=== PATIENT | male | born 1980 | race Asian ===

== ENCOUNTER 2020-10-15 10:33 | Outpatient (REF) | payer OTHER, SELFPAY ==
[2020-10-15 15:04] LABS: Alanine Aminotransferase 49 U/L (0-40); Albumin Level 4.5 g/dL (3.5-5.0); Alkaline Phosphatase 48 U/L (39-117); Anion Gap 12 (12-20); Aspartate Amino Transferase 30 U/L (5-37); Blood Urea Nitrogen 16 mg/dL (9-16); Calcium 9.4 mg/dL (8.4-10.2); Carbon Dioxide 29 mmol/L (22-29); Chloride 103 mmol/L (96-108); Cholesterol 181 mg/dL; Estimated Glomerular Filt Rate > 60; Glucose Random 106 mg/dL (60-115); HDL Cholesterol 38 mg/dL; LDL Cholesterol Calculated 103 mg/dl; Potassium 4.6 mmol/L (3.3-5.1); Sodium 139 mmol/L (135-145); Total Protein 7.6 g/dL (6.5-8.0); Triglycerides 203 mg/dL
[2020-10-15 15:13] LABS: Bilirubin Total 0.6 mg/dL (0.0-1.0)
[2020-10-15 15:22] LABS: TSH reflex Free T4 1.63 uIU/mL (0.32-4.0)
== END 2020-10-15 10:34 | disposition home or self-care (01) ==
LOC: HO.WFDLDS 10:33
PROVIDERS: Visit Provider Family Medicine
DX: Z00.00 Encounter for general adult medical examination without abnormal findings (principal); I10 Essential (primary) hypertension; E78.5 Hyperlipidemia, unspecified
CPT/HCPCS: 36415; 80053; 80061; 82043; 84443

== ENCOUNTER 2020-12-16 10:34 | Outpatient (REF) | payer OTHER, SELFPAY ==
[2020-12-16 14:21] LABS: Estimated Average Glucose 131 mg/dL; Hemoglobin A1C 151.4416 umol/L; Hemoglobin A1c % 6.2 %
[2020-12-16 14:38] LABS: Alanine Aminotransferase 44 U/L (0-40); Albumin Level 4.4 g/dL (3.5-5.0); Alkaline Phosphatase 53 U/L (39-117); Aspartate Amino Transferase 25 U/L (5-37); Bilirubin Direct < 0.2 mg/dL (0.0-0.5); Bilirubin Total 0.5 mg/dL (0.0-1.0); Total Protein 7.4 g/dL (6.5-8.0)
== END 2020-12-16 10:35 | disposition home or self-care (01) ==
LOC: HO.WFDLDS 10:34
PROVIDERS: Visit Provider Family Medicine
DX: R73.03 Prediabetes (principal); R74.01 Elevation of levels of liver transaminase levels
CPT/HCPCS: 36415; 80076; 83036

== ENCOUNTER 2021-03-11 11:33 | Outpatient (REF) | payer OTHER, SELFPAY ==
--- NOTE | ~2021-03-11 | XR_ITS ---
EXAMINATION: XR KNEE, RIGHT CLINICAL INFORMATION: Pain COMPARISON: None TECHNIQUE: Four views of the right knee. FINDINGS: Bones and soft tissues are normal. No fracture or joint effusion. Alignment is anatomic. Joint spaces are well maintained. No abnormal soft tissue calcification. XR/XR knee RT 4V IMPRESSION: Normal right knee.
== END 2021-03-11 11:34 | disposition home or self-care (01) ==
LOC: HO.HMGCX 11:33
PROVIDERS: PCP Family Medicine; Visit Provider Family Medicine
DX: Z13.89 Encounter for screening for other disorder (principal)
CPT/HCPCS: 73564

== ENCOUNTER 2021-03-16 09:36 | Outpatient (REF) | payer OTHER, SELFPAY ==
[2021-03-16 11:30] LABS: Alanine Aminotransferase 35 U/L (0-40); Albumin Level 4.3 g/dL (3.5-5.0); Alkaline Phosphatase 56 U/L (39-117); Aspartate Amino Transferase 22 U/L (5-37); Bilirubin Direct 0.2 mg/dL (0.0-0.5); Bilirubin Total 0.5 mg/dL (0.0-1.0); Total Protein 7.1 g/dL (6.5-8.0)
[2021-03-19 11:12] LABS: TS Negative Control Passed; TS Panel A >50; TS Panel B >50; TS Positive Control Passed; TSpotTB POSITIVE (SeeBelow)
== END 2021-03-16 09:37 | disposition home or self-care (01) ==
LOC: HO.WFDLDS 09:36
PROVIDERS: Visit Provider Family Medicine
DX: Z11.1 Encounter for screening for respiratory tuberculosis (principal); R74.01 Elevation of levels of liver transaminase levels
CPT/HCPCS: 36415; 80076; 86481

== ENCOUNTER → 2021-03-17 08:24 | Outpatient (BNVA) | payer SELFPAY | PROVIDERS: PCP Family Medicine; Visit Provider Internal Medicine | DX: Z02.79 Encounter for issue of other medical certificate (principal) ==

== ENCOUNTER 2021-04-20 11:44 | Outpatient (REF) | payer OTHER, SELFPAY ==
--- NOTE | ~2021-04-20 | XR_ITS ---
EXAMINATION: XR CHEST CLINICAL INFORMATION: Positive TB test COMPARISON: None TECHNIQUE: 2 views of the chest were obtained. FINDINGS: No significant abnormality is noted involving the heart, lungs, mediastinum, bony thorax or soft tissues. XR/XR chest 2V IMPRESSION: Unremarkable examination.
== END 2021-04-20 11:45 | disposition home or self-care (01) ==
LOC: HO.XRAY 11:44
PROVIDERS: PCP Family Medicine; Visit Provider Family Medicine
DX: R76.11 Nonspecific reaction to tuberculin skin test without active tuberculosis (principal)
CPT/HCPCS: 71046

== ENCOUNTER 2021-06-29 12:46 | Outpatient (REF) | payer OTHER, SELFPAY ==
[2021-06-29 13:46] LABS: MANUAL DIFF FLAG NO
[2021-06-29 13:47] LABS: Basophils Percent Auto 0.4 % (0-2); Eosinophils Absolute Auto 0.4 X10*3/uL (0.0-0.4); Eosinophils Percent Auto 3.8 % (0-4); Hematocrit 43.6 % (42.0-52.0); Hemoglobin 13.7 g/dl (14.0-18.0); Imm Gran Abs Auto 0.03 X10*3/uL (0.00-0.03); Imm Gran Pct Auto 0.3 % (0.0-0.4); Lymphocytes Absolute Auto 3.1 X10*3/uL (1.2-4.9); Lymphocytes Percent Auto 27.5 % (20-40); Mean Corpuscular HGB Conc 31.4 g/dl (31.0-36.0); Mean Corpuscular Hemoglobin 24.9 pg (27.0-33.0); Mean Corpuscular Volume 79.1 fL (80.0-98.0); Monocytes Absolute Auto 0.8 X10*3/uL (0.1-1.2); Neutrophils Absolute Auto 6.9 x10*3/uL (2.0-8.3); Platelet Count 248 X10*3/uL (160-400); Red Blood Count 5.51 X10*6/uL (4.60-5.80); Red Cell Distribution Width 14.3 % (11.0-16.0); White Blood Count 11.3 X10*3/uL (4.8-10.8)
[2021-06-29 14:06] LABS: Alanine Aminotransferase 48 U/L (0-40); Albumin Level 4.5 g/dL (3.5-5.0); Alkaline Phosphatase 63 U/L (39-117); Anion Gap 12 (12-20); Aspartate Amino Transferase 28 U/L (5-37); Bilirubin Total 0.4 mg/dL (0.0-1.0); Blood Urea Nitrogen 15 mg/dL (9-16); Calcium 9.7 mg/dL (8.4-10.2); Carbon Dioxide 27 mmol/L (22-29); Chloride 106 mmol/L (96-108); Estimated Glomerular Filt Rate > 60; Glucose Fasting 91 mg/dL (60-99); Potassium 4.7 mmol/L (3.3-5.1); Sodium 140 mmol/L (135-145); Total Protein 7.8 g/dL (6.5-8.0)
[2021-06-29 14:09] LABS: Estimated Average Glucose 134 mg/dL; Hemoglobin A1c % 6.3 %
[2021-06-29 14:26] LABS: Syphilis Screen Nonreactive (Nonreactive)
[2021-06-29 15:15] LABS: Appearance Urine CLEAR; Color Urine YELLOW; Glucose Urine UA NEG (NEG); Leukocyte Esterase Urine NEG (NEG); Nitrite Urine NEG (NEG); Specific Gravity - Urine 1.015 (1.005-1.025); Urine Blood NEG (NEG); Urine Ketones NEG (NEG); Urine Protein NEG (NEG-TRACE)
[2021-06-29 15:16] LABS: Erythrocyte Sedimentation Rate 16 MM/HR (0-15)
[2021-06-30 08:34] LABS: HIV AB/AG Nonreactive (Nonreactive); HIV Num 1 0.08 S/CO (0.00-0.99)
[2021-07-01 13:42] LABS: CRP High Sensitivity 8.4 mg/L
[2021-07-03 12:25] LABS: Anti Nuclear Antibody Screen POSITIVE (NEGATIVE); Anti Nuclear Antibody Titer 1:40 titer
== END 2021-06-29 12:47 | disposition home or self-care (01) ==
LOC: HO.WFDLDS 12:46
PROVIDERS: Visit Provider Family Medicine
DX: Z00.00 Encounter for general adult medical examination without abnormal findings (principal); Z11.4 Encounter for screening for human immunodeficiency virus [HIV]; Z11.3 Encounter for screening for infections with a predominantly sexual mode of transmission; R52 Pain, unspecified; R73.01 Impaired fasting glucose
CPT/HCPCS: 36415; 80053; 81003; 83036; 85025; 85652; 86038; 86039; 86141; 86780; 87389

== ENCOUNTER 2021-08-24 10:01 | Outpatient (REF) | payer OTHER, SELFPAY ==
[2021-08-24 13:12] LABS: TSH reflex Free T4 1.68 uIU/mL (0.32-4.0)
[2021-08-24 13:30] LABS: Alanine Aminotransferase 47 U/L (0-40); Albumin Level 4.3 g/dL (3.5-5.0); Alkaline Phosphatase 54 U/L (39-117); Anion Gap 13 (12-20); Aspartate Amino Transferase 27 U/L (5-37); Bilirubin Total 0.4 mg/dL (0.0-1.0); Carbon Dioxide 26 mmol/L (22-29); Chloride 104 mmol/L (96-108); Cholesterol 210 mg/dL; Estimated Glomerular Filt Rate > 60; Glucose Fasting 117 mg/dL (60-99); HDL Cholesterol 32 mg/dL; Sodium 138 mmol/L (135-145); Total Protein 7.7 g/dL (6.5-8.0); Triglycerides 433 mg/dL
[2021-08-24 15:05] LABS: Blood Urea Nitrogen 19 mg/dL (9-16); Calcium 10.1 mg/dL (8.4-10.2); Potassium 4.5 mmol/L (3.3-5.1)
== END 2021-08-24 10:02 | disposition home or self-care (01) ==
LOC: HO.WFDLDS 10:01
PROVIDERS: Visit Provider Family Medicine
DX: Z00.00 Encounter for general adult medical examination without abnormal findings (principal); R52 Pain, unspecified
CPT/HCPCS: 36415; 80053; 80061; 84443

== ENCOUNTER 2021-10-17 09:42 | Outpatient (REF) | payer OTHER, SELFPAY ==
--- NOTE | ~2021-10-17 | XR_ITS ---
EXAMINATION: XR KNEE, RIGHT CLINICAL INFORMATION: Pain COMPARISON: Previous x-ray February 2021 TECHNIQUE: Two views of the right knee. FINDINGS: Bones and soft tissues are normal. No fracture or joint effusion. Alignment is anatomic. Joint spaces are well maintained. No abnormal soft tissue calcification. XR/XR knee RT 2V IMPRESSION: Normal right knee.
[2021-10-17 10:15] LABS: MANUAL DIFF FLAG NO
[2021-10-17 10:38] LABS: Basophils Absolute Auto 0.1 X10*3/uL (0.0-0.2); Basophils Percent Auto 0.7 % (0-2); Eosinophils Absolute Auto 0.4 X10*3/uL (0.0-0.4); Eosinophils Percent Auto 4.4 % (0-4); Hematocrit 43.8 % (42.0-52.0); Hemoglobin 14.1 g/dl (14.0-18.0); Imm Gran Abs Auto 0.02 X10*3/uL (0.00-0.03); Imm Gran Pct Auto 0.2 % (0.0-0.4); Lymphocytes Absolute Auto 2.6 X10*3/uL (1.2-4.9); Lymphocytes Percent Auto 30.1 % (20-40); Mean Corpuscular HGB Conc 32.2 g/dl (31.0-36.0); Mean Corpuscular Volume 77.8 fL (80.0-98.0); Mean Platelet Volume 10.8 fL (9.4-12.4); Monocytes Absolute Auto 0.6 X10*3/uL (0.1-1.2); Monocytes Percent Auto 7.4 % (2-11); Neutrophils Absolute Auto 4.9 x10*3/uL (2.0-8.3); Neutrophils Percent Auto 57.2 % (45-73); Platelet Count 267 X10*3/uL (160-400); Red Blood Count 5.63 X10*6/uL (4.60-5.80); White Blood Count 8.6 X10*3/uL (4.8-10.8)
[2021-10-17 11:03] LABS: Uric Acid 9.7 mg/dL (3.4-7.0)
[2021-10-17 11:13] LABS: Rheumatoid Factor < 15.0 IU/mL (<15.0)
[2021-10-17 11:15] LABS: Erythrocyte Sedimentation Rate 6 MM/HR (0-15)
[2021-10-19 12:27] LABS: Anti Nuclear Antibody Screen NEGATIVE (NEGATIVE)
[2021-10-19 16:57] LABS: Cyclic Citrullinated Peptide <16 UNITS
== END 2021-10-17 09:43 | disposition home or self-care (01) ==
LOC: HO.XRAY 09:42
PROVIDERS: PCP Family Medicine; Visit Provider Family Medicine
DX: Z00.00 Encounter for general adult medical examination without abnormal findings (principal); M25.561 Pain in right knee
CPT/HCPCS: 36415; 73560; 84550; 85025; 85652; 86038; 86039; 86141; 86200; 86431

== ENCOUNTER 2022-02-16 11:12 | Outpatient (REF) | payer OTHER, SELFPAY ==
[2022-02-16 14:37] LABS: Alanine Aminotransferase 45 U/L (0-40); Albumin Level 4.5 g/dL (3.5-5.0); Alkaline Phosphatase 48 U/L (39-117); Anion Gap 13 (12-20); Aspartate Amino Transferase 28 U/L (5-37); Bilirubin Total 0.5 mg/dL (0.0-1.0); Blood Urea Nitrogen 16 mg/dL (9-16); Calcium 9.7 mg/dL (8.4-10.2); Carbon Dioxide 28 mmol/L (22-29); Chloride 103 mmol/L (96-108); Cholesterol 196 mg/dL; Estimated Glomerular Filt Rate > 60; Glucose Fasting 99 mg/dL (60-99); HDL Cholesterol 37 mg/dL; LDL Cholesterol Calculated 115 mg/dl; Potassium 4.9 mmol/L (3.3-5.1); Sodium 139 mmol/L (135-145); Total Protein 7.6 g/dL (6.5-8.0); Triglycerides 220 mg/dL
== END 2022-02-16 11:13 | disposition home or self-care (01) ==
LOC: HO.WFDLDS 11:12
PROVIDERS: Visit Provider Family Medicine
DX: Z00.00 Encounter for general adult medical examination without abnormal findings (principal); R74.01 Elevation of levels of liver transaminase levels; E78.5 Hyperlipidemia, unspecified
CPT/HCPCS: 36415; 80053; 80061

== ENCOUNTER 2022-03-14 10:00 | Outpatient (RCR) | payer OTHER, SELFPAY ==
[2022-02-17 11:01] VITALS: BP 120/80; PULSE 80; O2SAT 96
--- NOTE | 2022-02-17 14:09 | MHC.PT.EP ---
[facility] [place] [facility] [place] [facility] [place] [facility] [address] Jovan Kimball [address] [phone] F: [phone] F: [phone] F: [phone] F: [phone] Physical Therapy Plan of Care Date of Evaluation: Date of Surgery: Diagnosis: R knee pain referred to PT from Dr. 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 Pt would benefit from attending skilled PT services at a frequency of 2x/week x 4-6 weeks to address impairments, implement PFPS program with HEP, and restore functional mobility tolerance to resume PLOF. Pt was initiated in hamstring stretching and SLR into flexion for HEP program this date post eval. Frequency and Duration: The patient will be seen 1-2x/week x 4-6 weeks Short Term Goals: 1. AROM R knee 0-140 degrees. 2. Improve awareness of avoiding hyperext in standing. 3. SLR strength 4+/5. 4. Improve HS length by 25%. 5. Initiate HEP with good understanding joint protection. 6. Strength hip abd 4+/5. Chcf Goals: 1. Strength 5/5 quadriceps R. 2. Strength 5/5 hip abd B. 3. I HEP. 4. Negotiate stairs reciprocally with good dynamic balance. 5. Demonstrate proper functional squat technique 3:3 trials. 6. Sleep MOD I Treatment Plan: Modalities to reduce pain, spasms and effusion. Manual therapy to restore motion and function. Therapeutic exercise to improve strength and flexibility. Neuromuscular re-education for posture and balance. Therapeutic activities to return to functional activities of daily living. Electronically signed by: Please sign and return to therapist. Thank you for your referral.
== END 2022-04-18 09:25 | disposition home or self-care (01) ==
LOC: HO.PTWFD 10:00
PROVIDERS: PCP Family Medicine; Visit Provider Family Medicine
DX: M25.561 Pain in right knee (principal)
CPT/HCPCS: 97110; 97140; 97161; 97535

== ENCOUNTER → 2022-03-16 08:14 | Outpatient (BNVA) | payer SELFPAY | PROVIDERS: PCP Family Medicine; Visit Provider Physician Assistant | DX: Z02.79 Encounter for issue of other medical certificate (principal) ==

== ENCOUNTER 2022-04-13 10:07 | Outpatient (REF) | payer OTHER, SELFPAY ==
--- NOTE | ~2022-04-13 | XR_ITS ---
EXAMINATION: XR ABDOMEN KUB CLINICAL INDICATION: Abdominal pain. COMPARISON: None TECHNIQUE: AP view of the abdomen. FINDINGS: The bowel gas pattern is normal with no evidence of ileus or obstruction. No unusual soft tissue calcifications are noted. The bones are unremarkable. XR/XR KUB IMPRESSION: Unremarkable examination.
[2022-04-13 11:41] LABS: MANUAL DIFF FLAG NO
[2022-04-13 11:43] LABS: Basophils Absolute Auto 0.1 X10*3/uL (0.0-0.2); Basophils Percent Auto 0.5 % (0-2); Eosinophils Absolute Auto 0.4 X10*3/uL (0.0-0.4); Eosinophils Percent Auto 3.6 % (0-4); Hematocrit 40.6 % (42.0-52.0); Hemoglobin 12.8 g/dl (14.0-18.0); Imm Gran Abs Auto 0.06 X10*3/uL (0.00-0.03); Imm Gran Pct Auto 0.5 % (0.0-0.4); Lymphocytes Absolute Auto 2.9 X10*3/uL (1.2-4.9); Lymphocytes Percent Auto 24.4 % (20-40); Mean Corpuscular HGB Conc 31.5 g/dl (31.0-36.0); Mean Corpuscular Volume 79.5 fL (80.0-98.0); Monocytes Percent Auto 8.3 % (2-11); Neutrophils Absolute Auto 7.4 x10*3/uL (2.0-8.3); Neutrophils Percent Auto 62.7 % (45-73); Platelet Count 293 X10*3/uL (160-400); Red Blood Count 5.11 X10*6/uL (4.60-5.80); Red Cell Distribution Width 13.6 % (11.0-16.0); White Blood Count 11.9 X10*3/uL (4.8-10.8)
[2022-04-13 12:14] LABS: Alanine Aminotransferase 64 U/L (0-40); Albumin Level 4.6 g/dL (3.5-5.0); Alkaline Phosphatase 55 U/L (39-117); Anion Gap 18 (12-20); Aspartate Amino Transferase 37 U/L (5-37); Bilirubin Total 0.2 mg/dL (0.0-1.0); Blood Urea Nitrogen 26 mg/dL (9-16); Carbon Dioxide 25 mmol/L (22-29); Chloride 102 mmol/L (96-108); Estimated Glomerular Filt Rate > 60; Glucose Random 110 mg/dL (60-115); Lipase 42 U/L (8-78); Potassium 4.9 mmol/L (3.3-5.1); Sodium 140 mmol/L (135-145); Total Protein 7.7 g/dL (6.5-8.0)
[2022-04-13 14:07] LABS: Appearance Urine Clear; Color Urine Yellow; Glucose Urine UA Negative (Negative); Leukocyte Esterase Urine Negative (Negative); Nitrite Urine Negative (Negative); Urine Blood Negative (Negative); Urine Ketones Negative (Negative); Urine Protein Negative (Neg-Trace)
== END 2022-04-13 10:08 | disposition home or self-care (01) ==
LOC: HO.WFDLDS 10:07
PROVIDERS: PCP Family Medicine; Visit Provider Family Medicine
DX: Z00.00 Encounter for general adult medical examination without abnormal findings (principal); R10.9 Unspecified abdominal pain
CPT/HCPCS: 36415; 74018; 80053; 81003; 83690; 85025

== ENCOUNTER 2022-06-21 08:08 | Outpatient (REF) | payer OTHER, SELFPAY ==
--- NOTE | ~2022-06-21 | XR_ITS ---
EXAMINATION: XR KNEE AP STANDING XR KNEE, RIGHT CLINICAL INFORMATION: Right knee pain COMPARISON: 10/17/2021 TECHNIQUE: AP bilateral standing view of the knees was obtained. Parc view of the right knee. FINDINGS: Right knee: No fracture or subluxation. Compartmental joint spaces are maintained. The soft tissues appear unremarkable. Left knee: No fracture or subluxation. Medial and lateral compartmental joint spaces are maintained. XR/XR knee RT 1V IMPRESSION: Normal appearance of both knees.
--- NOTE | ~2022-06-21 | XR_ITS ---
EXAMINATION: XR KNEE AP STANDING XR KNEE, RIGHT CLINICAL INFORMATION: Right knee pain COMPARISON: 10/17/2021 TECHNIQUE: AP bilateral standing view of the knees was obtained. Wittmann view of the right knee. FINDINGS: Right knee: No fracture or subluxation. Compartmental joint spaces are maintained. The soft tissues appear unremarkable. Left knee: No fracture or subluxation. Medial and lateral compartmental joint spaces are maintained. XR/XR knee standing BI IMPRESSION: Normal appearance of both knees.
== END 2022-06-21 08:09 | disposition home or self-care (01) ==
LOC: HO.HOSX 08:08
PROVIDERS: Visit Provider Physician Assistant
DX: M17.11 Unilateral primary osteoarthritis, right knee (principal); S83.241A Other tear of medial meniscus, current injury, right knee, initial encounter
CPT/HCPCS: 73560; 73565; 99202

== ENCOUNTER 2022-06-26 09:25 | Outpatient (REF) | payer OTHER, SELFPAY ==
[2022-06-26 11:17] LABS: MANUAL DIFF FLAG NO
[2022-06-26 11:30] LABS: Basophils Absolute Auto 0.1 X10*3/uL (0.0-0.2); Basophils Percent Auto 0.8 % (0-2); Eosinophils Absolute Auto 0.5 X10*3/uL (0.0-0.4); Eosinophils Percent Auto 5.5 % (0-4); Hematocrit 41.2 % (42.0-52.0); Imm Gran Abs Auto 0.02 X10*3/uL (0.00-0.03); Imm Gran Pct Auto 0.2 % (0.0-0.4); Immature Retic Fraction 11.6 % (2.3-13.4); Lymphocytes Absolute Auto 2.8 X10*3/uL (1.2-4.9); Lymphocytes Percent Auto 30.5 % (20-40); Mean Corpuscular HGB Conc 31.6 g/dl (31.0-36.0); Mean Corpuscular Hemoglobin 24.6 pg (27.0-33.0); Mean Platelet Volume 11.3 fL (9.4-12.4); Monocytes Absolute Auto 0.7 X10*3/uL (0.1-1.2); Monocytes Percent Auto 7.3 % (2-11); Neutrophils Absolute Auto 5.1 x10*3/uL (2.0-8.3); Neutrophils Percent Auto 55.7 % (45-73); Platelet Count 276 X10*3/uL (160-400); Red Blood Count 5.28 X10*6/uL (4.60-5.80); Red Cell Distribution Width 14.4 % (11.0-16.0); Reticulocyte Percent 1.1 % (0.5-1.8); Reticulocytes Absolute 0.056 X10*6/uL (0.026-0.095); White Blood Count 9.2 X10*3/uL (4.8-10.8)
[2022-06-26 12:15] LABS: Alanine Aminotransferase 47 U/L (0-40); Albumin Level 4.6 g/dL (3.5-5.0); Alkaline Phosphatase 44 U/L (39-117); Anion Gap 11 (12-20); Aspartate Amino Transferase 26 U/L (5-37); Bilirubin Total 0.5 mg/dL (0.0-1.0); Blood Urea Nitrogen 20 mg/dL (9-16); Carbon Dioxide 27 mmol/L (22-29); Chloride 104 mmol/L (96-108); Cholesterol 198 mg/dL; Estimated Glomerular Filt Rate > 60; Glucose Random 109 mg/dL (60-115); HDL Cholesterol 33 mg/dL; Iron 145 mcg/dL (45-160); Percent Iron Saturation 48 % (15-50); Potassium 4.4 mmol/L (3.3-5.1); Sodium 138 mmol/L (135-145); Total Iron Binding Capacity 302 mcg/dL (228-428); Total Protein 7.6 g/dL (6.5-8.0); Triglycerides 430 mg/dL; Unsaturated Iron Binding 157 ug/dL
== END 2022-06-26 09:26 | disposition home or self-care (01) ==
LOC: HO.WFDLDS 09:25
PROVIDERS: Visit Provider Family Medicine
DX: Z00.00 Encounter for general adult medical examination without abnormal findings (principal); R74.01 Elevation of levels of liver transaminase levels; D64.9 Anemia, unspecified; E78.5 Hyperlipidemia, unspecified
CPT/HCPCS: 36415; 80053; 80061; 83540; 85025; 85045

== ENCOUNTER 2022-07-19 09:31 | Outpatient (REF) | payer OTHER, SELFPAY ==
--- NOTE | ~2022-07-19 | MR_ITS ---
EXAMINATION: MR KNEE WITHOUT CONTRAST, RIGHT CLINICAL INFORMATION: Right knee pain for greater than 6 months. Osteoarthritis. COMPARISON: Most recent right knee radiographs dated 06/21/2022. TECHNIQUE: MRI of the knee without contrast was performed using routine sequences on a high-field scanner. FINDINGS: MENISCI: Medial Meniscus: Near-complete inner margin and tibial articular surface tear of the posterior horn/root measuring up to 1.2 cm in ML dimension. There are peripheral fibers which appear to remain intact. Oblique tibial articular surface tearing extends to the posterior horn to the posterior meniscal body which is slightly medially extruded. Lateral Meniscus: Minimal inner margin fraying of the meniscal body. LIGAMENTS: Cruciate: No evidence of acute ligament injury. Collateral: No evidence of acute ligament injury. EXTENSOR MECHANISM: Intact quadriceps and patellar tendons. ARTICULAR CARTILAGE/BONE: Patellofemoral Compartment: Mild lateral patellar and lateral trochlea signal heterogeneity. Tiny marginal osteophytes. Medial Compartment: Intact articular cartilage. Degenerative cystic change and mild marrow edema in the posterior aspect of the medial tibial plateau adjacent to the medial meniscus posterior root insertion. Lateral Compartment: Intact articular cartilage. JOINT FLUID AND BURSAE: Small joint effusion and trace Guadarrama's cyst. MR/MR knee RT wo con IMPRESSION: 1. Near-complete inner margin and tibial articular surface tearing of the medial meniscus posterior horn/root measuring 1.2 cm in ML dimension. Oblique tibial articular surface tearing extends through the posterior horn to the posterior meniscal body which is slightly medially extruded. Degenerative cystic change and mild marrow edema within the adjacent medial tibial plateau. 2. Minimal inner margin fraying of the lateral meniscal body. 3. Minimal patellofemoral arthrosis. Small joint effusion and trace Guadarrama's cyst.
== END 2022-07-19 09:32 | disposition home or self-care (01) ==
LOC: HO.MRI 09:31
PROVIDERS: Visit Provider Physician Assistant
DX: M17.11 Unilateral primary osteoarthritis, right knee (principal)
CPT/HCPCS: 73721

== ENCOUNTER 2022-09-18 09:58 | Outpatient (REF) | payer OTHER, SELFPAY ==
[2022-09-18 12:47] LABS: Influenza A PCR NEGATIVE (Negative); Influenza B PCR NEGATIVE (Negative); Resp Syncy Virus RNA Qual PCR NEGATIVE (Negative); SARS COV2 PCR INHOUSE NEGATIVE (Negative)
== END 2022-09-18 09:59 | disposition home or self-care (01) ==
LOC: HO.LAB 09:58
PROVIDERS: Visit Provider Nurse Practitioner Family
DX: Z20.822 Contact with and (suspected) exposure to COVID-19 (principal); R09.89 Other specified symptoms and signs involving the circulatory and respiratory systems
CPT/HCPCS: 0241U

== ENCOUNTER 2022-12-13 10:15 | Outpatient (REF) | payer OTHER, SELFPAY ==
[2022-12-13 13:36] LABS: MANUAL DIFF FLAG NO
[2022-12-13 13:57] LABS: Estimated Average Glucose 126 mg/dL
[2022-12-13 14:08] LABS: Basophils Absolute Auto 0.1 X10*3/uL (0.0-0.2); Basophils Percent Auto 0.7 % (0-2); Eosinophils Absolute Auto 0.5 X10*3/uL (0.0-0.4); Eosinophils Percent Auto 5.6 % (0-4); Hematocrit 40.5 % (42.0-52.0); Hemoglobin 12.8 g/dl (14.0-18.0); Imm Gran Abs Auto 0.03 X10*3/uL (0.00-0.03); Imm Gran Pct Auto 0.3 % (0.0-0.4); Lymphocytes Absolute Auto 2.5 X10*3/uL (1.2-4.9); Lymphocytes Percent Auto 27.5 % (20-40); Mean Corpuscular HGB Conc 31.6 g/dl (31.0-36.0); Mean Corpuscular Hemoglobin 25.2 pg (27.0-33.0); Mean Corpuscular Volume 79.7 fL (80.0-98.0); Mean Platelet Volume 12.7 fL (9.4-12.4); Monocytes Absolute Auto 0.7 X10*3/uL (0.1-1.2); Monocytes Percent Auto 7.3 % (2-11); Neutrophils Absolute Auto 5.3 x10*3/uL (2.0-8.3); Neutrophils Percent Auto 58.6 % (45-73); Platelet Count 202 X10*3/uL (160-400); Red Blood Count 5.08 X10*6/uL (4.60-5.80); Red Cell Distribution Width 14.5 % (11.0-16.0)
[2022-12-13 14:10] LABS: Alanine Aminotransferase 47 U/L (0-40); Albumin Level 4.4 g/dL (3.5-5.0); Alkaline Phosphatase 47 U/L (39-117); Anion Gap 12 (12-20); Aspartate Amino Transferase 29 U/L (5-37); Bilirubin Total 0.4 mg/dL (0.0-1.0); Blood Urea Nitrogen 16 mg/dL (9-16); Calcium 9.7 mg/dL (8.4-10.2); Carbon Dioxide 25 mmol/L (22-29); Chloride 107 mmol/L (96-108); Cholesterol 193 mg/dL; Estimated Glomerular Filt Rate > 60; Glucose Fasting 95 mg/dL (60-99); HDL Cholesterol 38 mg/dL; LDL Cholesterol Calculated 100 mg/dl; Potassium 4.6 mmol/L (3.3-5.1); Sodium 139 mmol/L (135-145); Total Protein 7.4 g/dL (6.5-8.0); Triglycerides 279 mg/dL
[2022-12-13 14:25] LABS: Prostate Specific Antigen Scr 0.26 ng/mL (<0.05-4.0); TSH reflex Free T4 1.41 uIU/mL (0.32-4.0)
[2022-12-13 14:28] LABS: Appearance Urine Clear; Color Urine Yellow; Glucose Urine UA Negative (Negative); Leukocyte Esterase Urine Negative (Negative); Nitrite Urine Negative (Negative); Specific Gravity - Urine 1.015 (1.005-1.025); Urine Blood Negative (Negative); Urine Ketones Negative (Negative); Urine Protein Negative (Neg-Trace)
[2022-12-13 14:50] LABS: Creatinine Urine 83.45 mg/dL; Microalbum/Creatinine Ratio Ur 5.9 ug/mg cr
== END 2022-12-13 10:16 | disposition home or self-care (01) ==
LOC: HO.WFDLDS 10:15
PROVIDERS: Visit Provider Family Medicine
DX: Z00.00 Encounter for general adult medical examination without abnormal findings (principal); I10 Essential (primary) hypertension; R73.01 Impaired fasting glucose; Z12.5 Encounter for screening for malignant neoplasm of prostate
CPT/HCPCS: 36415; 80053; 80061; 81003; 82043; 83036; 84153; 84443; 85025

== ENCOUNTER 2022-12-27 09:43 | Outpatient (REF) | payer OTHER, SELFPAY ==
--- NOTE | ~2022-12-27 | US_ITS ---
EXAMINATION: US ABDOMEN LIMITED CLINICAL INFORMATION: Right upper quadrant pain. COMPARISON: X-ray abdomen KUB 04/13/2022. TECHNIQUE: Real-time imaging of the right upper quadrant abdominal viscera. FINDINGS: PANCREAS: Visualized portions of the pancreas are unremarkable. The pancreatic tail is obscured by bowel gas. LIVER: The liver is normal in size. The liver contour is normal. There is diffuse increased liver parenchymal echogenicity, consistent with infiltrative hepatocellular disease. No focal hepatic lesion. There is no intrahepatic biliary duct dilatation seen. GALLBLADDER: Normal. The gallbladder is physiologically distended without evidence of stones, sludge, polyps, wall thickening or pericholecystic fluid. COMMON BILE DUCT: Normal in caliber measuring 0.3 cm in diameter. RIGHT KIDNEY: Normal. No hydronephrosis. No renal calculi or focal parenchymal lesions. The kidney measures 10.3 cm in maximum dimension. FREE FLUID: None. US/US abdomen limited IMPRESSION: Increased hepatic echogenicity which can be seen in the setting of hepatic steatosis or underlying liver disease.
--- NOTE | ~2022-12-27 | XR_ITS ---
EXAMINATION: XR CHEST CLINICAL INFORMATION: Reason for Exam Z86.15 - Personal history of latent tuberculosis infection COMPARISON: Chest radiograph 04/20/2021 TECHNIQUE: 2 views of the chest FINDINGS: Lines and tubes: None. Clear lungs. No radiographic evidence of active tuberculosis. No pleural effusion. No pneumothorax. Normal cardiomediastinal silhouette. XR/XR chest 2V IMPRESSION: * Clear lungs.
== END 2022-12-27 09:44 | disposition home or self-care (01) ==
LOC: HO.US 09:43
PROVIDERS: PCP Family Medicine; Visit Provider Family Medicine
DX: R10.11 Right upper quadrant pain (principal); Z86.15 Personal history of latent tuberculosis infection
CPT/HCPCS: 71046; 76705

== ENCOUNTER → 2023-02-05 10:28 | Outpatient (BNV) | payer OTHER, SELFPAY | PROVIDERS: PCP Family Medicine; Visit Provider Internal Medicine Medical Oncology | DX: D64.9 Anemia, unspecified (principal) | CPT/HCPCS: 99204; 99213 ==

== ENCOUNTER 2023-02-06 09:14 | Outpatient (AMB) | payer OTHER, SELFPAY ==
--- NOTE | 2023-02-06 10:22 | MHC.OFFWIV ---
Intake Vital Signs 02/06/23 10:25 Height 5 ft 5 in BP 112/70 Blood Pressure Location Lt brachial Position Sitting Pulse 97 Pulse Source Pulse Oximeter Temp 98 F Temp Source Temporal Artery Scan Pulse Oximetry (%) 98 Oxygen Delivery Method Room Air Intake Visit Reasons: EST/lower back pain Intake Note: Pt is here c/o lower back pain. Pt states he did have an injury at work. Pt states he pushed a heavy object that gave him a sharp pain. Pt states he did have an X-Ray done at [facility]. Patient Tobacco Use Status: Never used Tobacco Allergies No Known Allergies Allergy (Verified 02/06/23 10:25) Do you need a note to return to daycare/school/sports/work: No HPI HPI Comments History of Present Illness Details 42-year-old male presents with lower back pain, states that it started while he was pushing a heavy object at work. The pain started in his neck, then went away however got worse and now radiates down to his lower back to point where he is walking with a limp and cannot stand straight. Patient was evaluated yesterday by Oncology for anemia, does not have any for history of malignancy. Patient does not report falls, denies symptoms indicating cauda equina, pain radiating down to his legs, weakness, dysuria, hematuria, or fevers and chills. [facility] Medical History No pertinent past medical history Surgical History History of tonsillectomy Family History Father High blood pressure Diabetes Mother Diabetes Social History Housing: House Alcohol intake: never Patient Tobacco Use Status: Never used Tobacco e-Cigarette/Vaping Use: Never Used Second Hand Smoke Exposure: No service: No Current occupational status: employed Current occupation: Housekeeping/ right hand dominant Current occupational exposures/hazards: No Cognitive needs: No Hearing needs: No Vision needs: No Review of Systems Const Details: Constitutional: No Fever, No Chills Cardiovascular: No Chest Pain, No SOB Respiratory: No Cough, No Dyspnea Gastrointestinal: No Nausea, No Vomiting, No Diarrhea, No abdominal Pain Genitourinary: No Dysuria, No Hematuria Musculoskeletal: positive lower back pain, No Myalgias, No Joint Swelling Skin: No Skin lacerations, No rash Neuro: No Weakness, No Numbness, No Paresthesias, No Loss of Consciousness, No Dizziness, No Headache All systems reviewed & are unremarkable except as noted in HPI and below Physical Exam Vital Signs: Last Vital Signs Temp 98 F 02/06/23 10:25 Pulse 97 02/06/23 10:25 BP 112/70 02/06/23 10:25 Pulse Ox 98 02/06/23 10:25 Oxygen Delivery Method Room Air 02/06/23 10:25 Appearance: Alert. Oriented X3. Mild distress. Eyes: Pupils equal, round and reactive to light. ENT: Pharynx normal. Neck: Normal inspection. Neck supple. No vertebral tenderness or step-offs. Spasming noted to the right trapezius muscle. CVS: Normal heart rate and rhythm. Pulses normal. Respiratory: No respiratory distress. Breath sounds normal. Abdomen: Soft and nontender. No CVA tenderness. Skin: Skin warm and dry. Normal skin color. Normal skin turgor. Extremities: No lower extremity edema. Spasming noted to bilateral latissimus Dorsi great on the right than the left. No vertebral tenderness or step-offs. Strength 5/5 to all extremities. Brisk capillary refill. Neuro: No motor deficit. No sensory deficit. Cranial nerves 2-12 intact. Office Meds ketorolac Performing Provider: Noa Bahena NP Administered by: Megan Osborne RN on 02/06/23 11:01 Dose Route Admin Location Lot Number Expiration Date [facility] Computer Science Professor 30 mg IM right gluteal [id number] 11/14/23 21316-146-40 Almoject Results AMB Urinalysis, Automated UA Leukoctes 0 Vandana/uL Last Edit by Jacinta Patel CMA on 02/06/23 11:00 UA Nitrite Negative Last Edit by Jacinta Patel CMA on 02/06/23 11:00 UA Urobilinogen 0.2 mg/dL Last Edit by Jacinta Patel CMA on 02/06/23 11:00 UA Protein 0 mg/dL Last Edit by Jacinta Patel CMA on 02/06/23 11:00 UA pH 6.0 Last Edit by Jacinta Patel CMA on 02/06/23 11:00 UA Blood 0 Ramakrishna/uL Last Edit by Jacinta Patel CMA on 02/06/23 11:00 UA Specific [place] 1.010 Last Edit by Jacinta Patel CMA on 02/06/23 11:00 UA Ketone Negative Last Edit by Jacinta Patel CMA on 02/06/23 11:00 UA Bilirubin 0 mg/dL Last Edit by Jacinta Patel CMA on 02/06/23 11:00 UA Glucose 0 mg/dL Last Edit by Jacinta Patel CMA on 02/06/23 11:00 Assessment & Plan Assessment & Plan (1) Back pain: Code(s): M54.9 - Dorsalgia, unspecified Plan 42-year-old male presents with almost 2 weeks of lower back pain, with the pain starting in the right trapezius after pushing heavy objects at work. Patient states the pain now radiates down from the trapezius down to his back, and he is having a hard time sitting, and lying flat. He states the pain is better after gets up and moves around, and does not report any symptoms indicating cauda equina. Has no changes in bowel or bladder habits, no reports of hematuria. Does not report abdominal pain or distention, fevers, chills, or loss of balance. Patient works in housekeeping, and has a strenuous and physically demanding job. He has had pain like this in the past, and was diagnosed with a muscle strain, patient states very similar to prior presentations. Patient has not taking any medication to help with his pain this morning, and was evaluated by Oncology yesterday for a finding of anemia. That workup is still pending, patient does not have a prior history of malignancy and is not immunocompromised and has no clotting factor deficiencies or blood dyscrasias known. Patient is alert oriented x4, answering questions politely and appropriately, gait is awkward but balance secondary to muscle spasms. Physical exam indicates a benign abdomen, does have tenderness and spasming to the right trapezius and right latissimus Dilia. This is most likely a musculoskeletal strain, low likelihood of cauda equina as patient is ambulatory and no loss of sensation or function to bowel bladder or extremities. Order for x-ray. Plan of care is to treat with supportive measures, Tylenol, Motrin, prescription for cyclobenzaprine, and referral to physical therapy. Patient verbalized understanding of discharge instructions. Verbalized understandings of signs and symptoms indicating need for emergent intervention. Orders: Orders XR lumbar spine 2-3V Today M54.9 - Dorsalgia, unspecified UA CC w/rflx Micro + Cult Today M54.9 - Dorsalgia, unspecified AMB Ketorolac Injection Today M54.9 - Dorsalgia, unspecified AMB Urinalysis Automated Today Z13.9 - Encounter for screening, unspecified Referrals Physical Medicine and Rehabilitation Referral M54.9 - Dorsalgia, unspecified Medications: New cyclobenzaprine 10 mg PO TID PRN 20 tabs 0RF muscle spasm Patient Instructions: You were evaluated for lumbar back strain. Your x-rays are pending. Alternate Tylenol 650 mg every 6 hours and Motrin 600 mg every 6 hours as needed for pain management. Consider taking these medications 3 hours apart so you have pain and fever management every 3 hours. Write down what time you take these medications to prevent accidental overdose. Motrin is the same medication as Advil and ibuprofen. Tylenol is the same medication as acetaminophen. I prescribed cyclobenzaprine. Take this medication every 8 hours as needed. This medication is a muscle relaxer. This medication may increased risk for falls, delayed reaction time, and cause drowsiness. Do not drive or operate machinery while taking this medication. Please follow-up with physical therapy. Thank you for choosing this urgent care for evaluation. Please follow-up with primary care physician as needed. Return to the emergency department for any new, concerning, or worsening symptoms. Coding Level of Care Code Est Pt Level 3 (36589) Diagnoses Back pain M54.9
[2023-02-06 10:25] VITALS: BP 112/70; PULSE 97; TEMP 36.6; O2SAT 98
== END 2023-02-06 11:16 | disposition home or self-care (01) ==
PROVIDERS: PCP Family Medicine; Visit Provider Nurse Practitioner Family
DX: M54.9 Dorsalgia, unspecified (principal); Z04.2 Encounter for examination and observation following work accident
CPT/HCPCS: 81003; 96372; 99213; J1885

== ENCOUNTER 2023-02-06 11:00 | Outpatient (REF) | payer OTHER, SELFPAY ==
--- NOTE | ~2023-02-06 | XR_ITS ---
EXAMINATION: XR LUMBOSACRAL SPINE CLINICAL INFORMATION: Back pain. COMPARISON: None available. TECHNIQUE: Three views of the lumbosacral spine. FINDINGS: The vertebral bodies and posterior elements are normal. Mild anterior osteophyte formation at L4-L5. The disc spaces are preserved and the vertebral alignment is normal. The paraspinal soft tissues are normal. XR/XR lumbar spine 2-3V IMPRESSION: Unremarkable examination.
== END 2023-02-06 11:01 | disposition home or self-care (01) ==
LOC: HO.HMGCX 11:00
PROVIDERS: PCP Family Medicine; Visit Provider Nurse Practitioner Family
DX: M54.9 Dorsalgia, unspecified (principal)
CPT/HCPCS: 72100

== ENCOUNTER 2023-02-21 09:01 | Outpatient (AMB) | payer OTHER, SELFPAY ==
--- NOTE | 2023-02-21 09:04 | A.OFFPC_ITS ---
Vital Signs 02/21/23 09:12 BP 122/78 Blood Pressure Location Lt brachial Position Sitting Pulse 73 Pulse Source Pulse Oximeter Pulse Oximetry (%) 99 Oxygen Delivery Method Room Air Intake Visit Reasons: neck pain Intake Note: Patient is here with neck pain since January 07, he pushed heavy cart, and felt pain in his neck and spine. He states he did x-ray. Allergies No Known Allergies Allergy (Verified 02/21/23 09:08) Medication List - Last Reconciled 02/21/23 by Ashutosh Agarwal MD cyclobenzaprine 10 mg PO TID PRN lisinopril 5 mg PO BEDTIME omeprazole 20 mg PO DAILY 30 days Tobacco use date assessed: 02/21/23 Dental Screening Dental Screen Date: 02/21/23 Did you have a dental visit in the last 12 months?: No Did you have a dental problem in the last 6 months where you did not have access to dental care?: No Was dental information given to patient?: No HPI neck pain HPI Details 42 y/o male presents today with complaints of neck pain. He had pushed a heavy cart and felt pain in his neck and spine since January 07, 2023. ON LICENSE OF [facility] Medical History No pertinent past medical history Surgical History History of tonsillectomy Family History Father High blood pressure Diabetes Mother Diabetes Social History Housing: House Alcohol intake: never Patient Tobacco Use Status: Never used Tobacco e-Cigarette/Vaping Use: Never Used Second Hand Smoke Exposure: No service: No Current occupational status: employed Current occupation: Housekeeping/ right hand dominant Current occupational exposures/hazards: No Cognitive needs: No Hearing needs: No Vision needs: No Questionnaire Thrive Questionnaire Date Thrive assessed: 03/15/21 ABIOLA-7 AMB Questionnaire ABIOLA-7 Date ABIOLA - 7 assessed: 12/13/22 Source: Developed by Drs. Lang Sullivan, Donna Francois, Linwood Franks and colleagues, with an educational nba from [employer]. Review of Systems Const Denies chills, Denies fatigue, Denies fever(s), Denies headache(s) and Denies weakness ENT Denies dizziness and Denies headache(s) Card Denies dyspnea Resp Denies cough, Denies dyspnea, Denies wheezing and Denies other (shortness of breath) Musc Denies numbness and Denies tingling Neuro Denies dizziness, Denies headache(s), Denies numbness, Denies tingling and Denies weakness Psych Denies anxiety and Denies depression Endo Denies fatigue Aller/Immun Denies wheezing Physical exam (Primary Care) Vital Signs: Last Vital Signs Pulse 73 02/21/23 09:12 BP 122/78 02/21/23 09:12 Pulse Ox 99 02/21/23 09:12 Oxygen Delivery Method Room Air 02/21/23 09:12 Tobacco/Smoking Status: Tobacco use Status Tobacco use date assessed 02/21/23 02/21/23 09:15 Patient Tobacco Use Status Never used Tobacco 02/21/23 09:07 e-Cigarette/Vaping Use Never Used 02/21/23 09:07 Thrive Assessment: Date of Thrive Assessment Date Thrive assessed 03/15/21 02/21/23 09:07 Const General: well developed; No acute distress Nutritional Appearance: well nourished Orientation/consciousness: patient oriented x3 HENMT Head: Yes normocephalic and Yes atraumatic Eyes General: appearance normal, both eyes and all related structures Pupils: Equal, round and reactive pupils present EOM: EOMs intact bilaterally Neck Other: Mild to moderate tenderness to posterior cervical paraspinus muscles with extension of his neck Resp Effort & Inspection: normal respiratory effort Neuro General: patient oriented x3 and gait normal Cranial nerves: Yes Equal, round and reactive pupils present Psych Affect: normal affect Assessment and Plan Assessment & Plan (1) Cervicalgia: Code(s): M54.2 - Cervicalgia Plan: Mild/moderate pain with extension at his neck. Likely acute muscle strain. He can use meloxicam and ice/heat. Will also send him for physical therapy He will call or return to office if not improving or if worsens. Orders: Orders PT Evaluation and Treatment Today M54.2 - Cervicalgia Medications: New meloxicam 15 mg PO DAILY 30 tabs 2RF 30 days Coding Level of Care Code Est Pt Level 3 (96011) Diagnoses Cervicalgia M54.2
[2023-02-21 09:12] VITALS: BP 122/78; PULSE 73; O2SAT 99
== END 2023-02-21 10:18 | disposition home or self-care (01) ==
PROVIDERS: PCP Family Medicine; Visit Provider Family Medicine
DX: M54.2 Cervicalgia (principal)
CPT/HCPCS: 99213

== ENCOUNTER → 2023-03-12 08:41 | Outpatient (BNVA) | payer SELFPAY | PROVIDERS: PCP Family Medicine; Visit Provider Internal Medicine | DX: Z02.79 Encounter for issue of other medical certificate (principal) ==

== ENCOUNTER 2023-03-21 09:46 | Outpatient (AMB) | payer OTHER, SELFPAY ==
[2023-03-21 09:49] VITALS: BP 118/68; PULSE 72; RESP 16; TEMP 36.9; O2SAT 97; BMI 29.2
--- NOTE | 2023-03-21 09:49 | AM.OFFWIN_ITS ---
Intake Vital Signs 03/21/23 09:49 Height 5 ft 5 in Weight 175 lb 5 oz BMI 29.2 BP 118/68 Blood Pressure Location Lt brachial Position Sitting Respiration 16 Pulse 72 Pulse Source Pulse Oximeter Temp 98.4 F Temp Source Oral Pulse Oximetry (%) 97 Intake Visit Reasons: sore throat, chest pain Intake Note: Patient is here with sore throat for 3 weeks, and chest pain since last night. Patient Tobacco Use Status: Never used Tobacco Allergies No Known Allergies Allergy (Verified 03/21/23 09:53) Do you need a note to return to daycare/school/sports/work: Yes HPI sore throat, chest pain HPI Details 42 y/o male presents today with complaints of a sore throat x3 weeks. Also has complaints of chest pain since last night. He reports pain on L side but does not radiate. He denies any chest pain on exertion. [facility] Medical History No pertinent past medical history Surgical History History of tonsillectomy Family History Father High blood pressure Diabetes Mother Diabetes Social History Housing: House Alcohol intake: never Patient Tobacco Use Status: Never used Tobacco e-Cigarette/Vaping Use: Never Used Second Hand Smoke Exposure: No service: No Current occupational status: employed Current occupation: Housekeeping/ right hand dominant Current occupational exposures/hazards: No Cognitive needs: No Hearing needs: No Vision needs: No Review of Systems Const Denies chills, Denies fatigue, Denies fever(s), Denies headache(s) and Denies weakness ENT Denies dizziness, Denies headache(s) and Reports sore throat Card Reports chest pain and Denies dyspnea Resp Denies cough, Denies dyspnea, Denies wheezing and Denies other (shortness of breath) Musc Denies numbness and Denies tingling Neuro Denies dizziness, Denies headache(s), Denies numbness, Denies tingling and Denies weakness Psych Denies anxiety and Denies depression Endo Denies fatigue Aller/Immun Denies wheezing Physical Exam Vital Signs: Last Vital Signs Temp 98.4 F 03/21/23 09:49 Pulse 72 03/21/23 09:49 Resp 16 03/21/23 09:49 BP 118/68 03/21/23 09:49 Pulse Ox 97 03/21/23 09:49 BMI result Body Mass Index 29.2 Const General: well developed; No acute distress Nutritional Appearance: well nourished Orientation/consciousness: patient oriented x3 HEENT Other: Posterior pharyngeal erythema with patchy white exudates Head: Yes normocephalic and Yes atraumatic Eyes General: appearance normal, both eyes and all related structures Pupils: Equal, round and reactive pupils present EOM: EOMs intact bilaterally Resp Effort & Inspection: normal respiratory effort Neuro General: patient oriented x3 and gait normal Cranial nerves: Yes Equal, round and reactive pupils present Psych Affect: normal affect Results AMB Rapid Strep AMB Rapid Strep Negative Last Edit by Nirmala Branham on 03/21/23 10: 04 Results Reviewed Results Reviewed: Laboratory Last Values Strep Scn Rapid Clinic Negative 03/21/23 10:01 Assessment & Plan Assessment & Plan (1) Pharyngitis: Code(s): J02.9 - Acute pharyngitis, unspecified Plan: Significant posterior pharyngeal erythema and patchy exudate Negative for rapid strep but will send for throat culture Start amoxicillin Cannot rule out viral etiology. Will check nasal swab for COVID/flu/RSV (2) Chest pain: Code(s): R07.9 - Chest pain, unspecified Plan: Left-sided focal chest pain which is not affected by exertion but also not reproducible. EKG: Normal sinus rhythm, normal axis, no hypertrophy. No ST-T wave changes. Likely chest wall muscle strain. Improve with ice/heat and Tylenol or ibuprofen. Orders: Orders SARS-CoV2/FLU/RSV Today J02.9 - Acute pharyngitis, unspecified, Z20.822 - Contact with and (suspected) exposure to COVID-19 Throat Culture Today J02.9 - Acute pharyngitis, unspecified AMB Rapid Strep Screen Today J02.9 - Acute pharyngitis, unspecified AMB EKG-In Office Today R07.9 - Chest pain, unspecified Medications: New amoxicillin 500 mg PO Q12H 20 tabs 0RF 10 days Coding Level of Care Code Est Pt Level 3 (96427) Diagnoses Pharyngitis J02.9 Chest pain R07.9
== END 2023-03-21 11:35 | disposition home or self-care (01) ==
PROVIDERS: PCP Family Medicine; Visit Provider Family Medicine
DX: J02.9 Acute pharyngitis, unspecified (principal); R07.9 Chest pain, unspecified
CPT/HCPCS: 87880; 93000; 99213

== ENCOUNTER 2023-03-21 10:18 | Outpatient (REF) | payer OTHER, SELFPAY ==
[2023-03-22 14:48] LABS: Influenza A PCR NEGATIVE (Negative); Influenza B PCR NEGATIVE (Negative); Resp Syncy Virus RNA Qual PCR NEGATIVE (Negative); SARS COV2 PCR INHOUSE NEGATIVE (Negative)
== END 2023-03-21 10:19 | disposition home or self-care (01) ==
LOC: HO.LAB 10:18
PROVIDERS: Visit Provider Family Medicine
DX: Z20.822 Contact with and (suspected) exposure to COVID-19 (principal); J02.9 Acute pharyngitis, unspecified
CPT/HCPCS: 0241U; 87070

== ENCOUNTER 2023-04-06 13:31 | Outpatient (AMB) | payer OTHER, SELFPAY ==
--- NOTE | 2023-04-06 14:42 | AM.OFFWIN_ITS ---
Intake Vital Signs 04/06/23 14:51 Height 5 ft 5 in Weight 174 lb BMI 29.0 BP 124/70 Blood Pressure Location Rt brachial Position Sitting Pulse 72 Pulse Source Pulse Oximeter Temp 97.5 F Temp Source Temporal Artery Scan Pulse Oximetry (%) 98 Oxygen Delivery Method Room Air Intake Visit Reasons: EST/sore throat and chest [phone] Intake Note: Pt is here c/o sore throat and chest pain. Patient Tobacco Use Status: Never used Tobacco Allergies No Known Allergies Allergy (Verified 04/06/23 14:42) Do you need a note to return to daycare/school/sports/work: Yes HPI HPI Comments History of Present Illness Details This is a 42-year-old male who presents to the office today for sick visit. Patient complaining of recurrent sore throat and chest pain x1 week. Patient was seen here on 03/21/2023 complaining of sore throat and chest pain. He had an extensive workup including an EKG, COVID/flu / RSV, and rapid strep test which all came back negative. Patient was sent home on p.o. amoxicillin for treatment of pharyngitis. Patient states that his symptoms resolved once he finished a course of amoxicillin. However, his symptoms returned about 1 week ago. He denies any associated shortness of breath. He denies any nausea or vomiting. He denies any diaphoresis or clamminess. He denies any radiation of his chest pain. He denies any exertional component to his chest pain. He states the chest pain only occurs when he gets a sore throat and he otherwise has no chest pain. He does report a history of essential hypertension and prediabetes, but no family history of early-onset heart disease. [facility] Medical History No pertinent past medical history Surgical History History of tonsillectomy Family History Father High blood pressure Diabetes Mother Diabetes Social History Housing: House Alcohol intake: never Patient Tobacco Use Status: Never used Tobacco e-Cigarette/Vaping Use: Never Used Second Hand Smoke Exposure: No service: No Current occupational status: employed Current occupation: Housekeeping/ right hand dominant Current occupational exposures/hazards: No Cognitive needs: No Hearing needs: No Vision needs: No Review of Systems Const All systems reviewed & are unremarkable except as noted in HPI and below Reports no additional complaints Eyes Reports no additional complaints ENT Reports no additional complaints Card Reports no additional complaints Resp Reports no additional complaints GI Reports no additional complaints Reports no additional complaints Musc Reports no additional complaints Skin/Breast Reports system reviewed and no additional complaints, except as documented Neuro Reports no additional complaints Psych Reports no additional complaints Endo Reports no additional complaints Waqar/Lymph Reports no additional complaints Aller/Immun Reports no additional complaints Physical Exam Vital Signs: Last Vital Signs Temp 97.5 F 04/06/23 14:51 Pulse 72 04/06/23 14:51 BP 124/70 04/06/23 14:51 Pulse Ox 98 04/06/23 14:51 Oxygen Delivery Method Room Air 04/06/23 14:51 BMI result Body Mass Index 29.0 Const Other: Vital signs reviewed. Constitutional: Non-toxic appearing. No acute distress. Well-developed and well-nourished. HEENT: Normocephalic and atraumatic. Tympanic membranes without erythema, edema, or bulging bilaterally. External auditory canals without erythema or edema bilaterally. Moist mucous membranes. Significant posterior pharyngeal erythema and some mild posterior pharyngeal edema. Skin: Warm and dry. No rashes or lesions noted. Neck: Full and painless range of motion. No cervical lymphadenopathy. Cardio: Regular rate and rhythm. No murmurs, gallops, or rubs. No lower extremity edema. No JVD. Pulmonary: No respiratory distress. No accessory muscle usage. Clear to auscultation bilaterally without wheezing, crackles, or rhonchi. Gastrointestinal: Soft, nontender, and nondistended in all 4 quadrants. Normoactive bowel sounds in all 4 quadrants. Genitourinary: No CVA tenderness. Musculoskeletal: Normal range of motion in joints throughout the body. No deformity or other signs of injury. Neuro: Alert and oriented x4. Cranial nerves 2-12 grossly intact. No focal deficits appreciated. Psych: Normal mood and affect. Assessment & Plan Assessment & Plan (1) Chest pain: Code(s): R07.9 - Chest pain, unspecified Plan: His chest pain appears to be atypical in nature; it is non-radiating, not related to exertion, not associated with shortness of breath, nausea, or diaphoresis,and only occurs when he has a sore throat. He does have some risk factors including prediabetes and hypertension. An EKG was obtained which shows normal sinus rhythm and is completely unchanged from prior EKG on 03/21/2023. Patient recently had an endoscopy within the past several months, which was within normal limits. His chest pain is likely related to pharyngitis as his chest pain as the pain is in his upper chest. He has a follow-up appointment with his PCP next week and he was instructed to discuss this chest pain with the PCP for possible cardiology referral. Patient was advised to proceed directly to the emergency room if he were to develop any worsening of his chest pain or chest pain associated with shortness of breath, nausea/vomiting, or diaphoresis. Patient verbalized understanding and is agreeable with the plan. (2) Pharyngitis: Code(s): J02.9 - Acute pharyngitis, unspecified Plan this is a 42-year-old male presenting to the office complaining of recurrent sore throat and chest pain x1 week. On physical examination, there is significant posterior pharyngeal erythema and some mild edema. His total signs are stable, his physical exam is otherwise benign, and he is overall nontoxic appearing. Patient very likely has an acute pharyngitis, likely streptococcal. Patient will be sent home on p.o. amoxicillin 500 mg twice daily times 10 days. Patient was instructed to follow-up here or proceed directly to the emergency room if for developed persistent/ worsening symptoms including fever/chills, difficulty swallowing, or trouble breathing. Patient verbalized understanding and is agreeable with the plan. Orders: Orders AMB EKG-In Office Today J02.9 - Acute pharyngitis, unspecified, R07.9 - Chest pain, unspecified Medications: New amoxicillin 500 mg PO BID 20 caps 0RF Coding Level of Care Code Est Pt Level 3 (27257) Diagnoses Chest pain R07.9 Pharyngitis J02.9
[2023-04-06 14:51] VITALS: BP 124/70; PULSE 72; TEMP 36.4; O2SAT 98; BMI 29.0
== END 2023-04-06 15:51 | disposition home or self-care (01) ==
PROVIDERS: PCP Family Medicine; Visit Provider Physician Assistant Medical
DX: R07.9 Chest pain, unspecified (principal); J02.9 Acute pharyngitis, unspecified
CPT/HCPCS: 93000; 99213

== ENCOUNTER 2023-07-02 14:54 | Outpatient (AMB) | payer OTHER, SELFPAY ==
[2023-07-02 14:50] VITALS: BP 122/78; TEMP 25.5; O2SAT 97
--- NOTE | 2023-07-02 14:50 | MHC.PC.OV ---
Vital Signs 07/02/23 14:50 Height 5 ft 5 in BP 122/78 Blood Pressure Location Lt brachial Position Supine Temp 78 F L Temp Source Oral Pulse Oximetry (%) 97 Oxygen Delivery Method Room Air Intake Visit Reasons: follow up anemia,dm Intake Note: Patient is here to follow up on Allergies No Known Allergies Allergy (Verified 04/06/23 14:42) Tobacco use date assessed: 02/21/23 HPI follow up anemia,dm HPI Details 42 y/o male presents to f/u mild anemia and diabetes. Labs were drawn 05/28/23. Reviewed labs with pt. Ongoing mild anemia. Hx of diet controlled diabetes. A1c today 07/02/23 6.7%, which worsened from prior. He notes he has stopped drinking soda. Blood pressure today 122/78. He is on lisinopril 5mg. [facility] Medical History No pertinent past medical history Surgical History History of tonsillectomy Family History Father High blood pressure Diabetes Mother Diabetes Social History Housing: House Alcohol intake: never Patient Tobacco Use Status: Never used Tobacco e-Cigarette/Vaping Use: Never Used Second Hand Smoke Exposure: No service: No Current occupational status: employed Current occupation: Housekeeping/ right hand dominant Current occupational exposures/hazards: No Cognitive needs: No Hearing needs: No Vision needs: No Questionnaire Thrive Questionnaire Date Thrive assessed: 03/15/21 ABIOLA-7 AMB Questionnaire ABIOLA-7 Date ABIOLA - 7 assessed: 12/13/22 Source: Developed by Drs. Lang Sullivan, Donna Francois, Linwood Franks and colleagues, with an educational nba from [employer]. Review of Systems Const Denies chills, Denies fatigue, Denies fever(s), Denies headache(s) and Denies weakness ENT Details: Posterior R neck pain and shoulder Denies dizziness and Denies headache(s) Card Denies dyspnea Resp Denies cough, Denies dyspnea, Denies wheezing and Denies other (shortness of breath) Musc Denies numbness and Denies tingling Neuro Denies dizziness, Denies headache(s), Denies numbness, Denies tingling and Denies weakness Psych Denies anxiety and Denies depression Endo Denies fatigue Aller/Immun Denies wheezing Physical exam (Primary Care) Vital Signs: Last Vital Signs Temp 78 F L 07/02/23 14:50 BP 122/78 07/02/23 14:50 Pulse Ox 97 07/02/23 14:50 Oxygen Delivery Method Room Air 07/02/23 14:50 Tobacco/Smoking Status: Tobacco use Status Tobacco use date assessed 02/21/23 07/02/23 14:54 Patient Tobacco Use Status Never used Tobacco 07/02/23 14:54 e-Cigarette/Vaping Use Never Used 07/02/23 14:54 Thrive Assessment: Date of Thrive Assessment Date Thrive assessed 03/15/21 07/02/23 14:54 Const General: well developed; No acute distress Nutritional Appearance: well nourished Orientation/consciousness: patient oriented x3 HENMT Head: Yes normocephalic and Yes atraumatic Eyes General: appearance normal, both eyes and all related structures Pupils: Equal, round and reactive pupils present EOM: EOMs intact bilaterally Resp Effort & Inspection: normal respiratory effort Neuro General: patient oriented x3 and gait normal Cranial nerves: Yes Equal, round and reactive pupils present Psych Affect: normal affect Results AMB Hemoglobin A1c AMB Hemoglobin A1c 6.7 % Last Edit by Lanette Stevenson CMA on 07/02/23 15:19 Results Reviewed Results Reviewed: Laboratory Last Values Hgb A1c (Clinic) 6.7 % (4.0-6.0) H 07/02/23 15:18 Assessment and Plan Assessment & Plan (1) Diet-controlled diabetes mellitus: Code(s): E11.9 - Type 2 diabetes mellitus without complications Plan: Diet-controlled?diabetes.??A1c?is 6.7%?which?is?increased.??Still?controlled?and?goal?is?less?than?7.0% Work?at?a?diet?lower?in?sugars?and?starches Increase?exercise (2) Essential (primary) hypertension: Code(s): I10 - Essential (primary) hypertension Plan: Blood?pressure?is?controlled.??Goal?is?less?than?140/90 Continue?lisinopril (3) Mild anemia: Code(s): D64.9 - Anemia, unspecified Plan: Remains?mild Followed?by?Hematology-Oncology (4) Screening for tuberculosis: Code(s): Z11.1 - Encounter for screening for respiratory tuberculosis Plan: History?of?latent?tuberculosis?and?completed?treatment?in?April?2020. Most?recent?chest?x-ray?in?December?2022?was?negative Will?continue?annual?screening?with?chest?x-ray (5) Cervicalgia: Code(s): M54.2 - Cervicalgia Plan: Posterior?neck?and?shoulder?pain Referred?to?physiatry (6) Right shoulder pain: Code(s): M25.511 - Pain in right shoulder Plan: As?above (7) Yeast infection of the skin: Code(s): B37.2 - Candidiasis of skin and nail Plan: Yeast?infection?at?groin?bilaterally Trial?clotrimazole Avoid?excess?moisture Orders: Orders AMB Hemoglobin A1c Today Z13.9 - Encounter for screening, unspecified Referrals Physiatry Referral M25.511 - Pain in right shoulder, M54.2 - Cervicalgia Medications: New clotrimazole 1% 1 appl topical BID 30 grams 0RF 2 weeks Coding Level of Care Code Est Pt Level 4 (25805) Diagnoses Diet-controlled diabetes mellitus E11.9 Essential (primary) hypertension I10 Mild anemia D64.9 Screening for tuberculosis Z11.1 Cervicalgia M54.2 Right shoulder pain M25.511 Yeast infection of the skin B37.2
== END 2023-07-02 15:29 | disposition home or self-care (01) ==
LOC: HO.HMGFM 14:54
PROVIDERS: PCP Family Medicine; Visit Provider Family Medicine
DX: E11.9 Type 2 diabetes mellitus without complications (principal); I10 Essential (primary) hypertension; D64.9 Anemia, unspecified; Z11.1 Encounter for screening for respiratory tuberculosis; M54.2 Cervicalgia; M25.511 Pain in right shoulder; B37.2 Candidiasis of skin and nail
CPT/HCPCS: 83036; 99214

== ENCOUNTER 2023-07-05 13:22 | Outpatient (AMB) | payer OTHER, SELFPAY ==
--- NOTE | 2023-07-05 13:44 | MHC.OFFVIS ---
Intake Vital Signs 07/05/23 13:48 Height 5 ft 5 in Weight 174 lb BMI 29.0 Intake Visit Reasons: Ov- MRI Review Rt knee Intake Note: Iván a 42 year old male presents today for an MRI review of right knee. Patient reports he has no pain today, however he continues to have intermittent pain. Allergies No Known Allergies Allergy (Verified 07/05/23 13:51) HPI Ov- MRI Review Rt knee HPI Details 42-year-old male who returns to the office today for an MRI review of right knee. He continues to have intermittent pain but is doing well otherwise. [facility] Medical History No pertinent past medical history Surgical History History of tonsillectomy Family History Father High blood pressure Diabetes Mother Diabetes Social History Housing: House Alcohol intake: never Patient Tobacco Use Status: Never used Tobacco e-Cigarette/Vaping Use: Never Used Second Hand Smoke Exposure: No service: No Current occupational status: employed Current occupation: Housekeeping/ right hand dominant Current occupational exposures/hazards: No Cognitive needs: No Hearing needs: No Vision needs: No Review of Systems Const All systems reviewed & are unremarkable except as noted in HPI and below Physical Exam Vital Signs: BMI result Body Mass Index 29.0 Const General: cooperative and no acute distress Orientation/consciousness: patient oriented x3 Resp Effort & Inspection: normal respiratory effort and able to speak in complete sentences Cardio Peripheral pulses: Peripheral pulses 2+ throughout Neuro General: patient oriented x3 Extrem Other: Right knee normal to inspection, no joint effusion or erythema, Full ROm with mild crepitus laterally. No tenderness . Calf supple non tender, NVI. Results Reviewed Results Reviewed: MR knee RT wo con IMPRESSION: 1. Near-complete inner margin and tibial articular surface tearing of the medial meniscus posterior horn/root measuring 1.2 cm in ML dimension. Oblique tibial articular surface tearing extends through the posterior horn to the posterior meniscal body which is slightly medially extruded. Degenerative cystic change and mild marrow edema within the adjacent medial tibial plateau. 2. Minimal inner margin fraying of the lateral meniscal body. 3. Minimal patellofemoral arthrosis. Small joint effusion and trace Guadarrama's cyst. Assessment & Plan Assessment & Plan (1) Patellofemoral arthritis of right knee: Code(s): M17.11 - Unilateral primary osteoarthritis, right knee (2) Tear of medial meniscus of right knee: Code(s): S83.241A - Other tear of medial meniscus, current injury, right knee, initial encounter Qualifiers: Tear current or old: current Encounter type: initial encounter Meniscus tear of knee type: peripheral Qualified Code(s): S83.221A - Peripheral tear of medial meniscus, current injury, right knee, initial encounter Plan In the absence of symptoms, he is going to continue with activity as tolerated. He is familiar with what seems to be aggravating his knee and has been avoiding these without limitations in activities. If symptoms arise to the point that it is impacting his daily activities, he will contact the office to discuss moving forward with a right knee TKA, with Dr. Koch, otherwise he will follow-up as needed. Patient Instructions: Scribed for Damon Talamantes PA-C, by Robson Desai medical records analyst, on 07/05/2023 at 1:45 PM EST. I, Damon Talamantes PA-C, have personally reviewed and agree with the information entered by the scribe. Coding Level of Care Code Est Pt Level 3 (04777) Diagnoses Patellofemoral arthritis of right knee M17.11 Peripheral tear of medial meniscus of right knee as current injury, initial encounter S83.221A Tear current or old: current Encounter type: initial encounter Meniscus tear of knee type: peripheral
[2023-07-05 13:48] VITALS: BMI 29.0
== END 2023-07-05 14:09 | disposition home or self-care (01) ==
PROVIDERS: PCP Family Medicine; Visit Provider Physician Assistant
DX: M17.11 Unilateral primary osteoarthritis, right knee (principal); S83.221A Peripheral tear of medial meniscus, current injury, right knee, initial encounter
CPT/HCPCS: 99213

== ENCOUNTER → 2023-07-05 13:22 | Outpatient (BNVA) | payer OTHER, SELFPAY | PROVIDERS: PCP Family Medicine; Visit Provider Physician Assistant | DX: S83.221D Peripheral tear of medial meniscus, current injury, right knee, subsequent encounter (principal); M17.11 Unilateral primary osteoarthritis, right knee | CPT/HCPCS: 99212 ==

== ENCOUNTER 2023-08-15 10:04 | Outpatient (AMB) | payer OTHER, SELFPAY ==
[2023-08-15 10:17] VITALS: BP 120/70; PULSE 75; RESP 13; TEMP 36.4; O2SAT 98; BMI 30.3
--- NOTE | 2023-08-15 10:17 | MHC.OFFWIV ---
Intake Vital Signs 08/15/23 10:17 Height 5 ft 5 in Weight 182 lb BMI 30.3 BP 120/70 Blood Pressure Location Rt brachial Position Sitting Respiration 13 Pulse 75 Pulse Source Pulse Oximeter Temp 97.6 F Temp Source Temporal Artery Scan Pulse Oximetry (%) 98 Oxygen Delivery Method Room Air Intake Visit Reasons: L Side Pain Intake Note: Patient states that pain has been happening for the past 2 days. Patient states that pain feels sharp. 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 Accompanied by: Daughter Allergies No Known Allergies Allergy (Verified 08/15/23 10:42) Medication List - Last Reconciled 08/15/23 by Sara Lancaster, ROAD INSPECTOR- clotrimazole 1% 1 appl topical BID PRN fenofibrate 54 mg PO DAILY 90 days folic acid 1 mg PO DAILY lisinopril 5 mg PO BEDTIME omeprazole 20 mg PO DAILY 30 days Do you need a note to return to daycare/school/sports/work: No HPI HPI Comments History of Present Illness Details LUQ pain started 2 days ago sharp present all of the time pain does not migrate denies n/v, diarrhea Reports normal urination but hard, small stool, that is hard to pass, has to strain. no at home tx this has never happened before denies abd surgery, fever, n/v, trauma. [facility] Medical History No pertinent past medical history Surgical History History of tonsillectomy Family History Father High blood pressure Diabetes Mother Diabetes Social History Housing: House Alcohol intake: never Patient Tobacco Use Status: Never used Tobacco e-Cigarette/Vaping Use: Never Used Second Hand Smoke Exposure: No service: No Current occupational status: employed Current occupation: Housekeeping/ right hand dominant Current occupational exposures/hazards: No Cognitive needs: No Hearing needs: No Vision needs: No Review of Systems Const All systems reviewed & are unremarkable except as noted in HPI and below Physical Exam Vital Signs: Last Vital Signs Temp 97.6 F 08/15/23 10:17 Pulse 75 08/15/23 10:17 Resp 13 08/15/23 10:17 BP 120/70 08/15/23 10:17 Pulse Ox 98 08/15/23 10:17 Oxygen Delivery Method Room Air 08/15/23 10:17 BMI result Body Mass Index 30.3 Const Other: nontoxic scleras nonicteric MMM RRR Abd round, soft, protrubent, BS WNL x 4 quads, no peritoneal signs, pain with palpation over LUQ only. No rebound tenderness Results Reviewed Results Reviewed: [address] [address] XRay Report Signed Patient: Iván Thomas MR#: [id number] : 1980 Acct:[id number] Age/Sex: 42 / M ADM Date: 08/15/23 Loc: .[facility] Attending Dr: Sara WELSH Ordering Physician: Sara Lancaster Date of Service: 08/15/23 Procedure(s): XR acute abdomen series Accession Number(s): [id number] cc: Ashutosh Agarwal MD; Sara Lancaster~ EXAMINATION: XR ABDOMEN COMPLETE CLINICAL INDICATION: Left upper quadrant pain COMPARISON: None available. TECHNIQUE: 2 views of the abdomen. FINDINGS: There is no free air. The bowel pattern is nonobstructing. Mild colonic stool is noted. No suspicious calcification. XR/XR acute abdomen series IMPRESSION: No free air. Nonobstructing bowel pattern Assessment & Plan Assessment & Plan (1) Acute LUQ pain: Code(s): R10.12 - Left upper quadrant pain Plan: . (2) Constipation: Code(s): K59.00 - Constipation, unspecified Qualifiers: Constipation type: slow transit constipation Qualified Code(s): K59.01 - Slow transit constipation Plan: . Plan Labs WNL/not clinically significant. Shows elevated LFTs, record review shows baseline. XR of abd as above Will tx constipation with miralax and colace. Sent as RX. aware may need to get OTC, take as directed 1705 pt called w results, left detailed message on machine. Time spent was 36 minutes reviewing record, with patient, documentation after and reviewing results and calling him w/ this. Orders: Orders Comprehensive Met. Panel Today R10.12 - Left upper quadrant pain ZECHARIAH Cantu-SOFYA Lipase Today R10.12 - Left upper quadrant pain ZECHARIAH Cantu-SOFYA Amylase Today R10.12 - Left upper quadrant pain ZECHARIAH Cantu-SOFYA XR acute abdomen series Today R10.12 - Left upper quadrant pain ZECHARIAH Cantu-SOFYA Medications: New polyethylene glycol 3350 (Miralax) 1 packet mixed with 8 oz of water at bedtime daily. Titrate to effect, maximum of 3 packets/day. Need to mix each packet with at least 8 oz of water. 17 grams PO DAILY 30 days 100 ea 0RF ZECHARIAH Cantu-SOFYA docusate sodium (Colace) hold for loose stools; stop once constipation resolved 100 mg PO BID 30 days 60 caps 0RF BLAISE Cantu Changed From clotrimazole 1% 1 appl topical BID 2 weeks 30 grams 0RF To clotrimazole 1% 1 appl topical BID PRN Ashutosh Agarwal MD Coding Level of Care Code Est Pt Level 4 (45190) Diagnoses Acute LUQ pain R10.12 Slow transit constipation K59.01 Constipation type: slow transit constipation
== END 2023-08-15 10:55 | disposition home or self-care (01) ==
PROVIDERS: PCP Family Medicine; Visit Provider Nurse Practitioner Family
DX: R10.12 Left upper quadrant pain (principal); K59.01 Slow transit constipation
CPT/HCPCS: 99214

== ENCOUNTER 2023-08-15 10:50 | Outpatient (REF) | payer OTHER, SELFPAY ==
--- NOTE | ~2023-08-15 | XR_ITS ---
EXAMINATION: XR ABDOMEN COMPLETE CLINICAL INDICATION: Left upper quadrant pain COMPARISON: None available. TECHNIQUE: 2 views of the abdomen. FINDINGS: There is no free air. The bowel pattern is nonobstructing. Mild colonic stool is noted. No suspicious calcification. XR/XR acute abdomen series IMPRESSION: No free air. Nonobstructing bowel pattern
[2023-08-15 14:51] LABS: Alanine Aminotransferase 59 U/L (0-40); Albumin Level 4.2 g/dL (3.5-5.0); Alkaline Phosphatase 50 U/L (39-117); Anion Gap 12 (12-20); Aspartate Amino Transferase 40 U/L (5-37); Bilirubin Total 0.2 mg/dL (0.0-1.0); Blood Urea Nitrogen 14 mg/dL (9-16); Calcium 9.2 mg/dL (8.4-10.2); Carbon Dioxide 22 mmol/L (22-29); Chloride 108 mmol/L (96-108); Estimated Glomerular Filt Rate > 60; Glucose Random 171 mg/dL (60-115); Lipase 36 U/L (8-78); Potassium 3.9 mmol/L (3.3-5.1); Sodium 138 mmol/L (135-145); Total Protein 7.4 g/dL (6.5-8.0)
[2023-08-15 15:14] LABS: Amylase 59 U/L (28-100)
== END 2023-08-15 10:51 | disposition home or self-care (01) ==
LOC: HO.WFDLDS 10:50
PROVIDERS: PCP Family Medicine; Visit Provider Nurse Practitioner Family
DX: R10.12 Left upper quadrant pain (principal)
CPT/HCPCS: 36415; 74022; 80053; 82150; 83690

== ENCOUNTER 2023-09-14 09:13 | Outpatient (AMB) | payer OTHER, SELFPAY ==
--- NOTE | 2023-09-14 09:16 | MHC.OFFWIV ---
Intake Vital Signs 09/14/23 09:18 Height 5 ft 5 in Weight 174 lb BMI 29.0 BP 140/66 H Blood Pressure Location Lt brachial Position Sitting Respiration 13 Pulse 76 Pulse Source Pulse Oximeter Temp 97.3 F Temp Source Temporal Artery Scan Pulse Oximetry (%) 97 Oxygen Delivery Method Room Air Intake Visit Reasons: sore throat Intake Note: Patient reports sore throat x3 days with no associated symptoms. Patient reports he has the pain worsens when swallowing. Rapid strep was completed in office with positive results. Patient Tobacco Use Status: Never used Tobacco Allergies No Known Allergies Allergy (Verified 09/14/23 09:24) Do you need a note to return to daycare/school/sports/work: No HPI HPI Comments History of Present Illness Details Here today w/ sore throat Painful swallowing globus sensation Has been present for at least 1 week. He reports history of tonsillectomy. He feels like he has a sore throat all the time. He wonders if it is anything that he is doing. He is not currently active with ENT. Denies fever, chills, vomiting PFSH Medical History No pertinent past medical history Surgical History History of tonsillectomy Family History Father High blood pressure Diabetes Mother Diabetes Social History Housing: House Alcohol intake: never Patient Tobacco Use Status: Never used Tobacco e-Cigarette/Vaping Use: Never Used Second Hand Smoke Exposure: No service: No Current occupational status: employed Current occupation: Housekeeping/ right hand dominant Current occupational exposures/hazards: No Cognitive needs: No Hearing needs: No Vision needs: No Review of Systems Const All systems reviewed & are unremarkable except as noted in HPI and below Physical Exam Vital Signs: Last Vital Signs Temp 97.3 F 09/14/23 09:18 Pulse 76 09/14/23 09:18 Resp 13 09/14/23 09:18 BP 140/66 H 09/14/23 09:18 Pulse Ox 97 09/14/23 09:18 Oxygen Delivery Method Room Air 09/14/23 09:18 BMI result Body Mass Index 29.0 Const Other: Awake alert NAD Sclera and conjunctiva clear bilat TM intact and clear bilat MMM, pharynx +erthema, managing secretions RRR LS CTAB Results AMB Rapid Strep AMB Rapid Strep Positive Last Edit by Nirmala Branham CMA on 09/14/23 09:32 Results Reviewed Results Reviewed: Laboratory Last Values Strep Scn Rapid Clinic Positive 09/14/23 09:29 Assessment & Plan Assessment & Plan (1) Strep pharyngitis: Code(s): J02.0 - Streptococcal pharyngitis Plan: will treat him with antibiotics. However he has this globus sensation that has been ongoing for at least 1 week perhaps even greater. I would like to bring him back for follow-up after he completes his antibiotic to ensure that this globus sensation is gone. He has already had a tonsillectomy. He may benefit from a referral to ENT. Plan This note is constructed using voice recognition software. While every effort has been made to ensure accuracy in adult psychiatrist, still errors may have been included Sometimes, these errors may affect the content or meaning of the given sentence . Total time spent caring for the patient today was 30 minutes. This includes time spent before the visit reviewing the chart, time spent during the visit, and time spent after the visit on documentation Orders: Orders AMB Rapid Strep Screen Today Z13.9 - Encounter for screening, unspecified Medications: New amoxicillin-pot clavulanate 875-125 mg 1 tab PO BID 14 tabs 0RF 7 days Patient Instructions: Good hand hygiene and respiratory etiquette can reduce the spread of all types of group A strep infection. Hand hygiene is especially important after coughing and sneezing and before preparing foods or eating. Good respiratory etiquette involves covering your cough or sneeze. Do not share food or drinks. Treating an infected person with an antibiotic for 12 hours or longer limits their ability to transmit the bacteria. Thus, people with group A strep pharyngitis should stay home from work, school, or daycare until: They are afebrile AND At least 12?24 hours after starting appropriate antibiotic therapy I also recommend changing toothbrush and washing bed linen in hot water 24 hours after starting antibiotics Coding Level of Care Code Est Pt Level 4 (16283) Diagnoses Strep pharyngitis J02.0
[2023-09-14 09:18] VITALS: BP 140/66; PULSE 76; RESP 13; TEMP 36.3; O2SAT 97; BMI 29.0
== END 2023-09-14 11:28 | disposition home or self-care (01) ==
PROVIDERS: PCP Family Medicine; Visit Provider Nurse Practitioner Family
DX: J02.9 Acute pharyngitis, unspecified (principal); J02.0 Streptococcal pharyngitis
CPT/HCPCS: 87880; 99214

== ENCOUNTER 2023-09-24 12:58 | Outpatient (AMB) | payer OTHER, SELFPAY ==
--- NOTE | 2023-09-24 13:05 | MHC.PC.OV ---
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: No Accompanied by: Self / Same As Patient Allergies No Known Allergies Allergy (Verified 09/24/23 13:15) Medication List - Last Reconciled 09/24/23 by Sara Lancaster, [facility]- clotrimazole 1% 1 appl topical BID PRN docusate sodium (Colace) 100 mg PO BID 30 days fenofibrate 54 mg PO DAILY 90 days folic acid 1 mg PO DAILY lisinopril 5 mg PO BEDTIME omeprazole 20 mg PO DAILY 30 days polyethylene glycol 3350 (Miralax) 17 grams PO DAILY 30 days Tobacco use date assessed: 09/24/23 Dental Screening Dental Screen Date: 09/24/23 Did you have a dental visit in the last 12 months?: No Did you have a dental problem in the last 6 months where you did not have access to dental care?: No Was dental information given to patient?: Yes HPI HPI Comments History of Present Illness Details Here today for follow-up of strep pharyngitis. He was seen in the office on September 13 and treated with antibiotics for a positive strep culture. However he has this globus sensation that has been ongoing for at least 1 week perhaps even greater. I would like to bring him back for follow-up after he completes his antibiotic to ensure that this globus sensation is gone. He has already had a tonsillectomy. He may benefit from a referral to ENT. Since last OV completed AB, No longer having globus sensation or sore throat. Does tell me of chronic sore throat that comes and goes. This has been present for months to years. Does admit a strong history of acid reflux. He is taking omeprazole 20 mg p.o. daily. He noticed pork to be a trigger for him along with fatty foods. He is admitted these from his diet however he continues with reflux which causes a worsening sore throat sensation. However when he is not having reflux at times he continues to have a sore throat. He sucks on ice cubes to help soothe his sore throat and this does help. He has not active with GI at the current time. He has a history of tonsillectomy done at ENT in [place]. [facility] Medical History (Updated 09/24/23 @ 13:46 by BLAISE Cantu) No pertinent past medical history Surgical History (Updated 09/24/23 @ 13:26 by BLAISE Cantu) History of tonsillectomy Family History Father High blood pressure Diabetes Mother Diabetes Social History Housing: House Alcohol intake: never Patient Tobacco Use Status: Never used Tobacco e-Cigarette/Vaping Use: Never Used Second Hand Smoke Exposure: No service: No Current occupational status: employed Current occupation: Housekeeping/ right hand dominant Current occupational exposures/hazards: No Cognitive needs: No Hearing needs: No Vision needs: No Questionnaire Thrive Questionnaire Date Thrive assessed: 03/15/21 ABIOLA-7 AMB Questionnaire ABIOLA-7 Date ABIOLA - 7 assessed: 12/13/22 Source: Developed by Drs. Lang Sullivan, Donna Francois, Linwood Franks and colleagues, with an educational nba from [employer]. Review of Systems Const All systems reviewed & are unremarkable except as noted in HPI and below Physical exam (Primary Care) Vital Signs: Last Vital Signs Temp 98.5 F 09/24/23 13:09 Pulse 83 09/24/23 13:09 Resp 13 09/24/23 13:09 BP 138/70 09/24/23 13:09 Pulse Ox 98 09/24/23 13:09 Oxygen Delivery Method Room Air 09/24/23 13:09 BMI result Body Mass Index 29.0 Tobacco/Smoking Status: Tobacco use Status Tobacco use date assessed 09/24/23 09/24/23 13:17 Patient Tobacco Use Status Never used Tobacco 09/24/23 13:05 e-Cigarette/Vaping Use Never Used 09/24/23 13:05 Thrive Assessment: Date of Thrive Assessment Date Thrive assessed 03/15/21 09/24/23 13:05 Const Other: Awake alert NAD Sclera and conjunctiva clear bilat TM intact and clear bilat MMM, pharynx +erthema, managing secretions RRR LS CTAB Assessment and Plan Assessment & Plan (1) Recurrent streptococcal pharyngitis: Comment: We will refer to ENT for further evaluation and treatment. Code(s): J02.0 - Streptococcal pharyngitis (2) History of tonsillectomy: Code(s): Z90.89 - Acquired absence of other organs (3) Chronic GERD: Comment: Currently on omeprazole 20 mg daily. We will refer to GI to evaluate as a cause for his chronic and recurrent sore throat. Advised that if he gets this appointment sooner and finds answers, it is okay to cancel his ENT appointment. Vice versa. He is agreeable to this. Code(s): K21.9 - Gastro-esophageal reflux disease without esophagitis Plan This note is constructed using voice recognition software. While every effort has been made to ensure accuracy in brokerage office manager, still errors may have been included Sometimes, these errors may affect the content or meaning of the given sentence . Total time spent caring for the patient today was 30 minutes. This includes time spent before the visit reviewing the chart, time spent during the visit, and time spent after the visit on documentation Orders: Referrals Ear/Nose/Throat Referral J02.0 - Streptococcal pharyngitis, Z90.89 - Acquired absence of other organs Gastroenterology Referral K21.9 - Gastro-esophageal reflux disease without esophagitis Coding Level of Care Code Est Pt Level 4 (52313) Diagnoses Recurrent streptococcal pharyngitis J02.0 History of tonsillectomy Z90.89 Chronic GERD K21.9
[2023-09-24 13:09] VITALS: BP 138/70; PULSE 83; RESP 13; TEMP 36.9; O2SAT 98; BMI 29.0
== END 2023-09-24 13:31 | disposition home or self-care (01) ==
PROVIDERS: PCP Family Medicine; Visit Provider Nurse Practitioner Family
DX: J02.0 Streptococcal pharyngitis (principal); Z90.89 Acquired absence of other organs; K21.9 Gastro-esophageal reflux disease without esophagitis
CPT/HCPCS: 99214

== ENCOUNTER 2023-10-01 10:37 | Outpatient (AMB) | payer OTHER, SELFPAY ==
--- NOTE | 2023-10-01 11:30 | A.OFFPC_ITS ---
Vital Signs 10/01/23 11:31 Height 5 ft 5 in Weight 178 lb BMI 29.6 BP 134/71 Blood Pressure Location Rt brachial Position Sitting Respiration 12 Pulse 77 Pulse Source Pulse Oximeter Pulse Oximetry (%) 99 Oxygen Delivery Method Room Air Intake Visit Reasons: f/u diabetes Intake Note: Patient is here to follow up on diabetic care. Patient reports he has no concerns. 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 A1c had increased from 6.0% to 6.7% last office visit in June. A1c today 10/01/23 6.3%. He notes he continues to watch his diet. [facility] Medical History (Updated 10/01/23 @ 12:55 by Ezra Momin) No pertinent past medical history Surgical History (Updated 09/24/23 @ 13:26 by Sara Lancaster [facility]) History of tonsillectomy Family History Father High blood pressure Diabetes Mother Diabetes Social History (Updated 10/01/23 @ 11:38 by Nirmala Branham [facility]) Household Members: Family Housing: House Are you a primary medical care manager to a significant other at home: No Do you presently have visiting nurse or other home services: No 75 years or older and lives alone: No Alcohol intake: never Patient Tobacco Use Status: Never used Tobacco e-Cigarette/Vaping Use: Never Used Second Hand Smoke Exposure: No service: No Current occupational status: employed Current occupation: Housekeeping/ right hand dominant Current occupational exposures/hazards: No Cognitive needs: No Hearing needs: No Vision needs: No Questionnaire Thrive Questionnaire Date Thrive assessed: 03/15/21 ABIOLA-7 AMB Questionnaire ABIOLA-7 Date ABIOLA - 7 assessed: 12/13/22 Source: Developed by Drs. Lang Sullivan, Donna Francois, Linwood Franks and colleagues, with an educational nba from [employer]. Review of Systems Const Denies chills, Denies fatigue, Denies fever(s), Denies headache(s) and Denies weakness ENT Denies dizziness and Denies headache(s) Card Denies dyspnea Resp Denies cough, Denies dyspnea, Denies wheezing and Denies other (shortness of breath) Musc Denies numbness and Denies tingling Neuro Denies dizziness, Denies headache(s), Denies numbness, Denies tingling and Denies weakness Psych Denies anxiety and Denies depression Endo Denies fatigue Aller/Immun Denies wheezing Physical exam (Primary Care) Vital Signs: Last Vital Signs Pulse 77 10/01/23 11:31 Resp 12 10/01/23 11:31 BP 134/71 10/01/23 11:31 Pulse Ox 99 10/01/23 11:31 Oxygen Delivery Method Room Air 10/01/23 11:31 BMI result Body Mass Index 29.6 Tobacco/Smoking Status: Tobacco use Status Tobacco use date assessed 09/24/23 10/01/23 11:33 Patient Tobacco Use Status Never used Tobacco 10/01/23 11:38 e-Cigarette/Vaping Use Never Used 10/01/23 11:38 Thrive Assessment: Date of Thrive Assessment Date Thrive assessed 03/15/21 10/01/23 11:33 Const General: well developed; No acute distress Nutritional Appearance: well nourished Orientation/consciousness: patient oriented x3 HENMT Head: Yes normocephalic and Yes atraumatic Eyes General: appearance normal, both eyes and all related structures Pupils: Equal, round and reactive pupils present EOM: EOMs intact bilaterally Resp Effort & Inspection: normal respiratory effort Auscultation: clear to auscultation bilaterally Cardio Rate: regular rate Rhythm: regular rhythm Heart sounds: S1 normal heart sound present, S2 normal heart sound present, no gallops, no murmurs and no rubs Neuro General: patient oriented x3 and gait normal Cranial nerves: Yes Equal, round and reactive pupils present Psych Affect: normal affect Results AMB Hemoglobin A1c AMB Hemoglobin A1c 6.3 % Last Edit by Nirmala Branham CMA on 10/01/23 11:44 Results Reviewed Results Reviewed: Laboratory Last Values Hgb A1c (Clinic) 6.3 % (4.0-6.0) H 10/01/23 11:40 Assessment and Plan Assessment & Plan (1) Diet-controlled diabetes mellitus: Code(s): E11.9 - Type 2 diabetes mellitus without complications Plan: Diet- controlled?diabetes?and?his?A1c?had?climbed?to?6.7%?at?last?check.??Patient?says ?he?is?working?on?diet?and?especially?exercise. A1c?now?6.3%.??Good?control.??Goal?is?less?than?7.0% Continue?diet?control.??Continue?exercise (2) Fatigue: Code(s): R53.83 - Other fatigue Plan: Patient?notes?some?increased?fatigue. He?says?he?works?late/2nd?shift?and?gets?about?6?hours?of?sleep?per?day.??Denies ?holding?his?breath?or?gasping?for?air.??Says?he?feels?refreshed?when?he?wakes ?up?but?gets?tired?earlier?in?his?day?than?expected.??He?also?notes?that?he?star aniceto?exercising?more?recently. Encouraged?him?to?try?to?get?closer?to?8?hours?of?sleep?consistently. Will?check?labs Orders: Orders AMB Hemoglobin A1c Today E11.9 - Type 2 diabetes mellitus without complications Complete Blood Count Auto Diff Today Z00.00 - Encounter for general adult medical examination without abnormal findings Microalbumin, Random (w Creat) Today I10 - Essential (primary) hypertension Prostate Specific Antigen Scr Today Z12.5 - Encounter for screening for malignant neoplasm of prostate TSH reflex Free T4 Today Z00.00 - Encounter for general adult medical examination without abnormal findings Vitamin B12 and Folate Today E53.8 - Deficiency of other specified B group vitamins Comprehensive [place]. Panel Fast Today Z00.00 - Encounter for general adult medical examination without abnormal findings Lipid Panel Today Z00.00 - Encounter for general adult medical examination without abnormal findings UA and rflx microscopic Today Z00.00 - Encounter for general adult medical examination without abnormal findings Coding Level of Care Code Est Pt Level 3 (47617) Diagnoses Diet-controlled diabetes mellitus E11.9 Fatigue R53.83
[2023-10-01 11:31] VITALS: BP 134/71; PULSE 77; RESP 12; O2SAT 99; BMI 29.6
== END 2023-10-01 12:58 | disposition home or self-care (01) ==
PROVIDERS: PCP Family Medicine; Visit Provider Family Medicine
DX: E11.9 Type 2 diabetes mellitus without complications (principal); R53.83 Other fatigue
CPT/HCPCS: 83036; 99213

== ENCOUNTER 2023-10-01 13:00 | Outpatient (REF) | payer OTHER, SELFPAY ==
[2023-10-01 14:09] LABS: MANUAL DIFF FLAG NO
[2023-10-01 14:10] LABS: Appearance Urine Clear; Color Urine Yellow; Glucose Urine UA Negative (Negative); Leukocyte Esterase Urine Negative (Negative); Nitrite Urine Negative (Negative); PH 6.5 (5.0-9.0); Urine Blood Negative (Negative); Urine Ketones Negative (Negative); Urine Protein Negative (Neg-Trace)
[2023-10-01 14:18] LABS: Basophils Percent Auto 0.5 % (0-2); Eosinophils Absolute Auto 0.3 X10*3/uL (0.0-0.4); Eosinophils Percent Auto 3.5 % (0-4); Hematocrit 40.8 % (42.0-52.0); Hemoglobin 13.1 g/dl (14.0-18.0); Imm Gran Abs Auto 0.01 X10*3/uL (0.00-0.03); Imm Gran Pct Auto 0.1 % (0.0-0.4); Lymphocytes Absolute Auto 2.8 X10*3/uL (1.2-4.9); Lymphocytes Percent Auto 34.1 % (20-40); Mean Corpuscular HGB Conc 32.1 g/dl (31.0-36.0); Mean Corpuscular Hemoglobin 25.2 pg (27.0-33.0); Mean Corpuscular Volume 78.5 fL (80.0-98.0); Mean Platelet Volume 10.7 fL (9.4-12.4); Monocytes Absolute Auto 0.6 X10*3/uL (0.1-1.2); Monocytes Percent Auto 7.4 % (2-11); Neutrophils Absolute Auto 4.5 x10*3/uL (2.0-8.3); Neutrophils Percent Auto 54.4 % (45-73); Platelet Count 278 X10*3/uL (160-400); White Blood Count 8.2 X10*3/uL (4.8-10.8)
[2023-10-01 14:47] LABS: Creatinine Urine 56.47 mg/dL; Microalbumin Urine < 5.0 mg/L
[2023-10-01 15:16] LABS: Alanine Aminotransferase 46 U/L (0-40); Albumin Level 4.3 g/dL (3.5-5.0); Alkaline Phosphatase 43 U/L (39-117); Anion Gap 12 (12-20); Aspartate Amino Transferase 31 U/L (5-37); Bilirubin Total 0.4 mg/dL (0.0-1.0); Blood Urea Nitrogen 17 mg/dL (9-16); Calcium 9.5 mg/dL (8.4-10.2); Carbon Dioxide 25 mmol/L (22-29); Chloride 106 mmol/L (96-108); Cholesterol 193 mg/dL (<200); Estimated Glomerular Filt Rate > 60; Glucose Fasting 94 mg/dL (60-99); HDL Cholesterol 38 mg/dL (>40); LDL Cholesterol Calculated 117 mg/dL (<100); Sodium 139 mmol/L (135-145); Total Protein 7.5 g/dL (6.5-8.0); Triglycerides 194 mg/dL (<150)
[2023-10-01 15:22] LABS: Folate 17.2 ng/mL (> or = 4.0); Prostate Specific Antigen Scr 0.28 ng/mL (<0.05-4.0); Vitamin B12 424 pg/mL (200-900)
[2023-10-01 15:25] LABS: TSH reflex Free T4 1.36 uIU/mL (0.32-4.0)
== END 2023-10-01 13:01 | disposition home or self-care (01) ==
LOC: HO.WFDLDS 13:00
PROVIDERS: Visit Provider Family Medicine
DX: Z00.00 Encounter for general adult medical examination without abnormal findings (principal); Z12.5 Encounter for screening for malignant neoplasm of prostate; R73.03 Prediabetes; E53.8 Deficiency of other specified B group vitamins; I10 Essential (primary) hypertension
CPT/HCPCS: 36415; 80053; 80061; 81003; 82570; 82607; 82746; 84153; 84443; 85025

== ENCOUNTER 2023-11-07 09:15 | Outpatient (AMB) | payer OTHER, SELFPAY ==
[2023-11-07 09:20] VITALS: BP 122/66; PULSE 65; O2SAT 97; BMI 29.0
--- NOTE | 2023-11-07 09:20 | AM.OFFWIN_ITS ---
Intake Vital Signs 11/07/23 09:20 Height 5 ft 5 in Weight 174 lb 4 oz BMI 29.0 BP 122/66 Blood Pressure Location Lt brachial Position Sitting Pulse 65 Pulse Source Pulse Oximeter Pulse Oximetry (%) 97 Oxygen Delivery Method Room Air Intake Visit Reasons: constipation, side pain (KO) Intake Note: Patient is here with [id number] for the last 2 days, he states he tried prune juice, with no relief. Patient Tobacco Use Status: Never used Tobacco Allergies No Known Allergies Allergy (Verified 11/07/23 09:46) Medication List - Last Reconciled 11/07/23 by Sara Lancaster, ZECHARIAH-SOFYA clotrimazole 1% 1 appl topical BID PRN docusate sodium (Colace) 100 mg PO BID 30 days fenofibrate 54 mg PO DAILY 90 days folic acid 1 mg PO DAILY lisinopril 5 mg PO BEDTIME omeprazole 20 mg PO DAILY 30 days polyethylene glycol 3350 (Miralax) 17 grams PO DAILY 30 days Do you need a note to return to daycare/school/sports/work: No HPI HPI Comments History of Present Illness Details Here today with constipation, recurrent and LUQ pain. Was treated with miralax and colace in July after KUB and labs done. He had + relief and stopped taking the medication. Two days ago, developed constipation, described as not pooping as much as usual and hard to pass stool. Stool is nonbloody and not assoc w/ wt loss or other systemic sx. Used prune juice with + relief Has appt w/ GI scheduled in December in [place] Reports Colon and EGD done less than 1 year ago and [facility] Medical History (Updated 11/07/23 @ 10:21 by ZECHARIAH Cantu-SOFYA) No pertinent past medical history Surgical History (Updated 09/24/23 @ 13:26 by ZECHARIAH Cantu-SOFYA) History of tonsillectomy Family History Father High blood pressure Diabetes Mother Diabetes Social History (Updated 10/01/23 @ 11:38 by Nirmala Branham CMA) Household Members: Family Housing: House Are you a primary childcare center director to a significant other at home: No Do you presently have visiting nurse or other home services: No 75 years or older and lives alone: No Alcohol intake: never Patient Tobacco Use Status: Never used Tobacco e-Cigarette/Vaping Use: Never Used Second Hand Smoke Exposure: No service: No Current occupational status: employed Current occupation: Housekeeping/ right hand dominant Current occupational exposures/hazards: No Cognitive needs: No Hearing needs: No Vision needs: No Review of Systems Const All systems reviewed & are unremarkable except as noted in HPI and below Physical Exam Vital Signs: Last Vital Signs Pulse 65 11/07/23 09:20 BP 122/66 11/07/23 09:20 Pulse Ox 97 11/07/23 09:20 Oxygen Delivery Method Room Air 11/07/23 09:20 BMI result Body Mass Index 29.0 Const Other: awake alert NAD Scleras nonicteric MMM Abd soft, hypoactive bs x 4, no gaurding or rigidity, pain with deep palpation w/o rebound to left upper quad, more posteriorlateral. No CVAT. Assessment & Plan Assessment & Plan (1) Constipation: Comment: assoc w/ chronic LUQ pain EGD/Colon done in last year, normal per his reports CODY and labs done 07/2023 WNL except + constipation has appt w/ GI December 2023 Plan: restart colace and miralax, take as directed. [facility] Code(s): K59.00 - Constipation, unspecified Plan: This note is constructed using voice recognition software. While every effort has been made to ensure accuracy in patient financial services coordinator, still errors may have been included Sometimes, these errors may affect the content or meaning of the given sentence . Total time spent caring for the patient today was 30 minutes. This includes time spent before the visit reviewing the chart, time spent during the visit, and time spent after the visit on documentation Medications: Changed From polyethylene glycol 3350 (Miralax) 1 packet mixed with 8 oz of water at bedtime daily. Titrate to effect, maximum of 3 packets/day. Need to mix each packet with at least 8 oz of water. 17 grams PO DAILY 30 days 30 ea 0RF To polyethylene glycol 3350 (Miralax) 1 packet mixed with 8 oz of water at bedtime daily.Titrate to effect, maximum of 3 packets/day.Need to mix each packet with at least 8oz of water 17 grams PO DAILY 30 ea 0RF 30 days Refilled docusate sodium (Colace) hold for loose stools; stop once constipation resolved 100 mg PO BID 60 caps 0RF 30 days Patient Instructions: Increase dietary fiber to a total of 20 to 25 g per day (adults) via fiber-rich foods such as whole grains, wheat bran, or vegetables. Start slowly and titrate up over one to two weeks to improve tolerance.7,10,11 * The role of fiber supplementation in the treatment of constipation in children is limited and conflicting. Infants and children who are consuming solid foods should consume a well-balanced diet including foods with fiber (e.g., cereals, apricots, prunes, peaches, pears, plums, beans, and peas). For older children, raw fruits and other foods such as figs, dates, raisins, celery, cauliflower, broccoli, and cabbage are good sources of fiber.12,13 * A general rule for the daily amount of fiber for all children is 5 grams plus the child?s age, although some experts recommend that for children who have had constipation in the past, the amount should be increased to 10 grams plus the child?s age. Others recommend 0.5 g/kg/day (35 g/day maximum).12,13 Ensure adequate fluid intake. Encourage a target fluid intake of 1.5 to 2 L per day (adults). In general, for children, two ounces (60 mL) of nondairy fluids are recommended for each gram of fiber intake. * Water is the best choice for hydration. * Fruit juices, such as apple, pear, or prune juice, may be helpful due to sorbitol content. Each day, young children can have up to ? cup (120 mL) of fruit juice or up to one cup (240 mL) for older children.12,13 Do not give brown sugar or corn syrup to treat constipation. Avoid excessive amounts of constipating foods such as dairy products. However, foods should not be removed from a child?s diet (cow?s milk, iron-fortified formula, etc) without talking to the child?s prescriber. Consider increased physical activity, if possible.11 Accounting Practice Manager on toileting habits such as not ?holding it,? not rushing on the toilet, sitting on the toilet about 30 minutes after breakfast, and sitting on the toilet in a position where the knees are at least as high as the hips.1,10 Coding Level of Care Code Est Pt Level 4 (29707) Diagnoses Constipation K59.00
== END 2023-11-07 10:09 | disposition home or self-care (01) ==
PROVIDERS: PCP Family Medicine; Visit Provider Nurse Practitioner Family
DX: K59.00 Constipation, unspecified (principal)
CPT/HCPCS: 99214

== ENCOUNTER 2023-11-28 09:15 | Outpatient (AMB) | payer OTHER, SELFPAY ==
--- NOTE | 2023-11-28 09:23 | AM.OFFWIN_ITS ---
Intake Vital Signs 11/28/23 09:24 Height 5 ft 4 in Weight 171 lb BMI 29.3 BP 118/68 Blood Pressure Location Rt brachial Position Sitting Respiration 12 Pulse 82 Pulse Source Pulse Oximeter Temp 98.1 F Temp Source Oral Pulse Oximetry (%) 98 Oxygen Delivery Method Room Air Intake Visit Reasons: Throat pain Patient Tobacco Use Status: Never used Tobacco Livestock Dealer Required: No Allergies No Known Allergies Allergy (Verified 11/07/23 09:46) Medication List - Last Reconciled 11/28/23 by Alessandra Delgado PA-C clotrimazole 1% 1 appl topical BID PRN docusate sodium (Colace) 100 mg PO BID 30 days fenofibrate 54 mg PO DAILY 90 days folic acid 1 mg PO DAILY lisinopril 5 mg PO BEDTIME omeprazole 20 mg PO DAILY 30 days polyethylene glycol 3350 (Miralax) 17 grams PO DAILY 30 days HPI Throat pain HPI Details Patient is a 42-year-old male with a significant past medical history o f hypertension, GERD, chronic pharyngitis and hypertriglyceridemia presenting today who presents today with complaints of a sore throat x2 weeks. He states that it feels almost like he has strep throat. He is prone to getting sore throats and recently saw ENT who thought it was maybe GERD. He has an appointment with GI in the summer. He states that he is here because despite being on omeprazole, he has had a sore throat now for the last 2 weeks. It feels somewhat different than GERD. It is painful with swallowing but no dysphagia. He wonders if it is strep throat because back in September she had similar symptoms and it was strep. He denies any fever, chills, swollen lymph nodes. No cough or congestion. No nausea or vomiting. He is leaving for [facility] and states that he will be gone for a couple weeks out of the country. No known sick contacts. CV: Blood pressure today in the office is 118/68. He is on lisinopril 5 mg. No chest pain, shortness on breath or palpitations. Overall feeling well. Has cut salt out of his diet. [facility] Medical History (Updated 11/28/23 @ 09:57 by Alessandra Delgado PA-C) No pertinent past medical history Surgical History (Updated 09/24/23 @ 13:26 by BELINDA Cantu) History of tonsillectomy Family History Father High blood pressure Diabetes Mother Diabetes Social History (Updated 10/01/23 @ 11:38 by Nirmala Branham CMA) Household Members: Family Housing: House Are you a primary pharmacy care coordinator to a significant other at home: No Do you presently have visiting nurse or other home services: No 75 years or older and lives alone: No Alcohol intake: never Patient Tobacco Use Status: Never used Tobacco e-Cigarette/Vaping Use: Never Used Second Hand Smoke Exposure: No service: No Current occupational status: employed Current occupation: Housekeeping/ right hand dominant Current occupational exposures/hazards: No Cognitive needs: No Hearing needs: No Vision needs: No Physical Exam Vital Signs: Last Vital Signs Temp 98.1 F 11/28/23 09:24 Pulse 82 11/28/23 09:24 Resp 12 11/28/23 09:24 BP 118/68 11/28/23 09:24 Pulse Ox 98 11/28/23 09:24 Oxygen Delivery Method Room Air 11/28/23 09:24 BMI result Body Mass Index 29.3 Const Orientation/consciousness: patient oriented x3 HEENT Ears: hearing grossly normal bilaterally and TM's normal bilaterally General nose exam: Normal nasal mucous membranes and turbinates present Face and sinus: Yes sinuses nontender Throat: Yes uvula midline, Yes posterior oropharynx abnormal (Erythematous) and Yes tonsils absent Neck Thyroid: Thyroid normal Lymphatic: no lymphadenopathy noted Resp Auscultation: clear to auscultation bilaterally Cardio Rate: regular rate Rhythm: regular rhythm Heart sounds: S1 normal heart sound present and S2 normal heart sound present Skin General skin exam: no rashes or lesions noted Neuro General: patient oriented x3, gait normal and no focal motor deficits Assessment & Plan Assessment & Plan (1) Pharyngitis: Code(s): J02.9 - Acute pharyngitis, unspecified Qualifiers: Pharyngitis/tonsillitis etiology: unspecified etiology Qualified Code(s): J02.9 - Acute pharyngitis, unspecified Plan: Unclear etiology. Discussed possibilities of this being viral, allergic or even related to GERD. He is leaving out of the country tomorrow morning and is terrified to leave without having a prescription of antibiotics. I will send in amoxicillin for him to fish bait picker but advised to not use this unless the throat culture comes back positive for strep or if he develops any worsening symptoms of fever, swollen lymph nodes etc.. I have encouraged him to increase his omeprazole to twice a day dosing to see if there is improvement of his symptoms. We also discussed trying an antihistamine. Patient will follow up if anything worsens or changes. Patient understands and agrees with the plan. (2) Chronic GERD: Code(s): K21.9 - Gastro-esophageal reflux disease without esophagitis Plan: see above. pt understands and agrees with the plan. (3) Essential (primary) hypertension: Code(s): I10 - Essential (primary) hypertension Plan: Blood pressure is normal today in the office. Continue lisinopril 5 mg. Orders: Orders Throat Culture Today B34.9 - Viral infection, unspecified, J02.9 - Acute pharyngitis, unspecified Medications: New amoxicillin 875 mg PO BID 20 tabs 0RF Coding Level of Care Code Est Pt Level 4 (54530) Diagnoses Pharyngitis, unspecified etiology J02.9 Pharyngitis/tonsillitis etiology: unspecified etiology Chronic GERD K21.9 Essential (primary) hypertension I10
[2023-11-28 09:24] VITALS: BP 118/68; PULSE 82; RESP 12; TEMP 36.7; O2SAT 98; BMI 29.3
== END 2023-11-28 09:59 | disposition home or self-care (01) ==
PROVIDERS: PCP Family Medicine; Visit Provider Physician Assistant
DX: J02.9 Acute pharyngitis, unspecified (principal); K21.9 Gastro-esophageal reflux disease without esophagitis; I10 Essential (primary) hypertension
CPT/HCPCS: 87880; 99214

== ENCOUNTER 2023-11-28 11:39 | Outpatient (REF) | payer OTHER, SELFPAY | END 2023-11-28 11:40 | disposition home or self-care (01) | LOC: HO.LNP 11:39 | PROVIDERS: Visit Provider Physician Assistant | DX: J02.9 Acute pharyngitis, unspecified (principal) | CPT/HCPCS: 87070 ==

== ENCOUNTER 2023-12-13 10:47 | Outpatient (AMB) | payer OTHER, SELFPAY ==
[2023-12-13 10:49] VITALS: BP 116/64; PULSE 77; RESP 14; TEMP -12.6; TEMP 9.4; O2SAT 99; BMI 29.2
--- NOTE | 2023-12-13 10:49 | AM.OFFWIN_ITS ---
Intake Vital Signs 12/13/23 10:49 Height 5 ft 5 in Weight 175 lb 6 oz BMI 29.2 BP 116/64 Blood Pressure Location Rt brachial Position Sitting Respiration 14 Pulse 77 Pulse Source Pulse Oximeter Temp 9.4 F L Temp Source Temporal Artery Scan Pulse Oximetry (%) 99 Oxygen Delivery Method Room Air Intake Visit Reasons: Lower back pain Intake Note: Patient wants refill on docusate sodium. Patient Tobacco Use Status: Never used Tobacco Teacher Cclc Required: No Accompanied by: Self / Same As Patient Allergies No Known Allergies Allergy (Verified 12/13/23 10:53) Medication List - Last Reconciled 12/13/23 by ZECHARIAH Cantu-SOFYA clotrimazole 1% 1 appl topical BID PRN docusate sodium (Colace) 100 mg PO BID 30 days fenofibrate 54 mg PO DAILY 90 days folic acid 1 mg PO DAILY lisinopril 5 mg PO BEDTIME omeprazole 20 mg PO DAILY 30 days polyethylene glycol 3350 (Miralax) 17 grams PO DAILY 30 days Do you need a note to return to daycare/school/sports/work: No HPI HPI Comments History of Present Illness Details Here today w/ low back pain when he moves it hurts when he sits and walks it hurts too Just came back from [facility] , 14 hour plane ride Then mowed the lawn, it was at this time he started w/ the pain Did not try any medications Denies any red flag sx assoc w/ back pain Worse on right side Denies radicular sx. [facility] Medical History (Updated 12/13/23 @ 11:24 by ZECHARIAH Cantu-SOFYA) No pertinent past medical history Surgical History (Updated 09/24/23 @ 13:26 by ZECHARIAH Cantu-SOFYA) History of tonsillectomy Family History Father High blood pressure Diabetes Mother Diabetes Social History (Updated 10/01/23 @ 11:38 by Nirmala Branham CMA) Household Members: Family Housing: House Are you a primary family day care worker to a significant other at home: No Do you presently have visiting nurse or other home services: No 75 years or older and lives alone: No Alcohol intake: never Patient Tobacco Use Status: Never used Tobacco e-Cigarette/Vaping Use: Never Used Second Hand Smoke Exposure: No service: No Current occupational status: employed Current occupation: Housekeeping/ right hand dominant Current occupational exposures/hazards: No Cognitive needs: No Hearing needs: No Vision needs: No Review of Systems Const All systems reviewed & are unremarkable except as noted in HPI and below Physical Exam Vital Signs: Last Vital Signs Temp 9.4 F L 12/13/23 10:49 Pulse 77 12/13/23 10:49 Resp 14 12/13/23 10:49 BP 116/64 12/13/23 10:49 Pulse Ox 99 12/13/23 10:49 Oxygen Delivery Method Room Air 12/13/23 10:49 BMI result Body Mass Index 29.2 Const Other: awake alert PERRLA, EOMI Neurovasc intact facial grimacing and gaurding when changing positions from sit to stand and sit to supine. Strength normal BLE. Pain in right low back w/ hip raise. Right leg shorter than left. Pain w palp over right SI joint. Assessment & Plan Assessment & Plan (1) Instability of right SI joint: Code(s): M53.2X8 - Spinal instabilities, sacral and sacrococcygeal region Plan: . Plan This note is constructed using voice recognition software. While every effort has been made to ensure accuracy in senior medical transcriptionist, still errors may have been included Sometimes, these errors may affect the content or meaning of the given sentence . Total time spent caring for the patient today was 30 minutes. This includes time spent before the visit reviewing the chart, time spent during the visit, and time spent after the visit on documentation Orders: Orders PT Evaluation and Treatment Today M53.2X8 - Spinal instabilities, sacral and sacrococcygeal region Medications: New tizanidine (Zanaflex) 4 mg PO BEDTIME PRN 15 tabs 0RF muscle spasticity meloxicam 15 mg PO DAILY 14 tabs 0RF Refilled docusate sodium (Colace) hold for loose stools; stop once constipation resolved 100 mg PO BID 30 days 60 caps 3RF Patient Instructions: exam consistent w/ SI joint dysfunction on the right side treat with meds as prescribed and refer to P.T. Coding Level of Care Code Est Pt Level 4 (15378) Diagnoses Instability of right SI joint M53.2X8
== END 2023-12-13 11:26 | disposition home or self-care (01) ==
PROVIDERS: PCP Family Medicine; Visit Provider Nurse Practitioner Family
DX: M53.2X8 Spinal instabilities, sacral and sacrococcygeal region (principal)
CPT/HCPCS: 99214

== ENCOUNTER → 2024-03-03 08:56 | Outpatient (BNVA) | payer SELFPAY | PROVIDERS: PCP Family Medicine; Visit Provider Physician Assistant Medical | DX: Z02.79 Encounter for issue of other medical certificate (principal) ==

== ENCOUNTER 2024-03-06 09:15 | Outpatient (REF) | payer OTHER, SELFPAY ==
[2024-03-06 09:31] LABS: MANUAL DIFF FLAG NO
[2024-03-06 09:50] LABS: Basophils Absolute Auto 0.1 X10*3/uL (0.0-0.2); Basophils Percent Auto 0.6 % (0-2); Eosinophils Absolute Auto 0.4 X10*3/uL (0.0-0.4); Eosinophils Percent Auto 4.5 % (0-4); Hematocrit 41.1 % (42.0-52.0); Hemoglobin 13.2 g/dl (14.0-18.0); Imm Gran Abs Auto 0.04 X10*3/uL (0.00-0.03); Imm Gran Pct Auto 0.4 % (0.0-0.4); Lymphocytes Absolute Auto 2.8 X10*3/uL (1.2-4.9); Lymphocytes Percent Auto 30.8 % (20-40); Mean Corpuscular HGB Conc 32.1 g/dl (31.0-36.0); Mean Corpuscular Hemoglobin 25.4 pg (27.0-33.0); Mean Platelet Volume 10.3 fL (9.4-12.4); Monocytes Absolute Auto 0.8 X10*3/uL (0.1-1.2); Monocytes Percent Auto 8.8 % (2-11); Neutrophils Percent Auto 54.9 % (45-73); Platelet Count 304 X10*3/uL (160-400); Red Cell Distribution Width 13.9 % (11.0-16.0); White Blood Count 9.1 X10*3/uL (4.8-10.8)
[2024-03-06 10:37] LABS: Alanine Aminotransferase 29 U/L (0-40); Albumin Level 4.5 g/dL (3.5-5.0); Alkaline Phosphatase 50 U/L (39-117); Anion Gap 11 (12-20); Aspartate Amino Transferase 23 U/L (5-37); Bilirubin Total 0.4 mg/dL (0.0-1.0); Blood Urea Nitrogen 30 mg/dL (9-16); Calcium 10.4 mg/dL (8.4-10.2); Carbon Dioxide 29 mmol/L (22-29); Chloride 105 mmol/L (96-108); Estimated Glomerular Filt Rate > 60; Ferritin 203 ng/mL (20-250); Glucose Random 110 mg/dL (60-115); Sodium 140 mmol/L (135-145); Total Protein 7.9 g/dL (6.5-8.0)
[2024-03-06 11:27] LABS: Lactate Dehydrogenase 165 U/L (118-273)
== END 2024-03-06 09:16 | disposition home or self-care (01) ==
LOC: HO.LAB 09:15
PROVIDERS: PCP Family Medicine; Visit Provider Internal Medicine Medical Oncology
DX: D64.9 Anemia, unspecified (principal)
CPT/HCPCS: 36415; 80053; 82728; 83615; 85025

== ENCOUNTER 2024-04-23 09:19 | Outpatient (AMB) | payer OTHER, SELFPAY ==
--- OUTSIDE RECORDS SUMMARY | 2024-04-23 09:21 | XMS_ITS | Continuity of Care Document ---
Author Organization [facility] Address [address] [place] [address]- Care Team Providers Care Polisher Eyeglass Frames Name Role Phone Elba Velasco Primary Care Physician [phone] Encounter [facility] Date(s): 04/11/21 - 05/11/21 [facility] [address] [place] [id number] Allergies, Adverse Reactions, Alerts Substance Reaction Severity Status NKA Active Medications lisinopril 5 mg oral tablet 5 mg, 1, tablet, By Mouth, Daily, # 30 tablet, Refills 0, Maintenance, 01/28/19 22:14:06 EDT Start Date: 01/28/19 Status: Ordered Metformin = 500 mg, By Mouth, Daily, 0 Refills, Maintenance, 06/01/20 22:25:00 EST, Partial fill upon patientrequest Start Date: 06/01/20 Status: Ordered rifampin 300 mg oral capsule 2 capsule = 600 mg, By Mouth, Daily, # 60 capsule, 0 Refills, Maintenance, 2 capsule By Mouth Daily,x30 days Start Date: 03/04/13 Stop Date: 04/03/13 Status: Ordered Problem List Condition Effective Dates Status Health Status Inform ant Tuberculosis-latent(Confirmed) 1, 2, 3 Active 1Pt stopped meds on 05/07/13. Pt completed 120 doses of Rifampin. 2Started Rifampin on 12/31/2012. Patient is being monitored by the [facility] Nurse. 3POS T-spot 01/23/12. Social History Social History Type Response Smoking Status Never (less than 100 in lifetime) entered on: 01/28/19 Sex
--- NOTE | 2024-04-23 09:47 | AM.OFFWIN_ITS ---
Intake Vital Signs 04/23/24 09:52 Height 5 ft 4 in Weight 167 lb 2 oz BMI 28.7 BP 134/72 Blood Pressure Location Lt brachial Position Sitting Respiration 14 Pulse 64 Pulse Source Pulse Oximeter Temp 97.4 F Temp Source Oral Pulse Oximetry (%) 98 Oxygen Delivery Method Room Air Intake Visit Reasons: est/ sore throat Intake Note: Patient complaining of sore throat x 5days. Patient Tobacco Use Status: Never used Tobacco Allergies No Known Allergies Allergy (Verified 04/23/24 10:16) Medication List - Last Reconciled 04/23/24 by Sara Lancaster, [facility]- clotrimazole 1% 1 appl topical BID PRN docusate sodium (Colace) 100 mg PO BID 30 days dolutegravir (Tivicay) 50 mg PO DAILY emtricitabine-tenofovir (TDF) 200-300 mg 1 tab PO DAILY fenofibrate 54 mg PO DAILY 90 days folic acid 1 mg PO DAILY lisinopril 5 mg PO BEDTIME meloxicam 15 mg PO DAILY omeprazole 20 mg PO DAILY 30 days polyethylene glycol 3350 (Miralax) 17 grams PO DAILY 30 days tizanidine (Zanaflex) 4 mg PO BEDTIME PRN Do you need a note to return to daycare/school/sports/work: No HPI HPI Comments History of Present Illness Details 43-year-old male here today with complai nts of a sore throat that started 4-5 days ago associated with sneezing and a runny nose. He also reports postnasal drip and occasional cough. He is unsure if the sore throat is caused from an illness or if it is coming from his uncontrolled guard. He was referred to Gastroenterology in the past. Unfortunately has a appointment was rescheduled to next month. He is doing his best to modify his diet to control his guard however admits to eating things like pork and salt that seemed to cause his acid reflux. Admits when his acid reflux is out of control he develops a sore throat. Today he denies any fever, chills, painful swallowing, ear pain, recent travel or known sick contacts. Exam: Awake alert NAD Sclera and conjunctiva clear bilat Nares patent, turbinates within normal limits, no sinus tenderness with palpation bilat TM intact and clear bilat MMM, pharynx with mild erythema without exudate, rapid strep negative RRR LS CTAB Plan: He was advised today that the rapid strep is negative. At this time there is no indication for antibiotics. He should follow up with Gastroenterology for his uncontrolled gerd. He should also continue to practice diet modifications as well as lifestyle modifications to control his GERD. Advised that if he develops a fever, chills or painful swallowing that it was okay to take some antibiotics that he has on hand that was prescribed previously for recurrent strep. However at this time I do not think that any antibiotics are needed as this does not appear to be strep pharyngitis. This note is constructed using voice recognition software. While every effort has been made to ensure accuracy in water treatment operator, still errors may have been included Sometimes, these errors may affect the content or meaning of the given sentence . Total time spent caring for the patient today was 30 minutes. This includes time spent before the visit reviewing the chart, time spent during the visit, and time spent after the visit on documentation [facility] Medical History (Updated 03/11/24 @ 09:40 by Gita Castillo MD) No pertinent past medical history Surgical History History of tonsillectomy Family History Father High blood pressure Diabetes Mother Diabetes Social History Household Members: Family Housing: House Are you a primary palliative care nurse practitioner to a significant other at home: No Do you presently have visiting nurse or other home services: No 75 years or older and lives alone: No Alcohol intake: never Patient Tobacco Use Status: Never used Tobacco e-Cigarette/Vaping Use: Never Used Second Hand Smoke Exposure: No service: No Current occupational status: employed Current occupation: Housekeeping/ right hand dominant Current occupational exposures/hazards: No Cognitive needs: No Hearing needs: No Vision needs: No Physical Exam Vital Signs: Last Vital Signs Temp 97.4 F 04/23/24 09:52 Pulse 64 04/23/24 09:52 Resp 14 04/23/24 09:52 BP 134/72 04/23/24 09:52 Pulse Ox 98 04/23/24 09:52 Oxygen Delivery Method Room Air 04/23/24 09:52 BMI result Body Mass Index 28.7 Results AMB Rapid Strep AMB Rapid Strep Negative Last Edit by Jefferson Valencia MA on 04/23/24 10:39 Assessment & Plan Assessment & Plan (1) Chronic GERD: Code(s): K21.9 - Gastro-esophageal reflux disease without esophagitis Plan: . (2) Pharyngitis: Code(s): J02.9 - Acute pharyngitis, unspecified Qualifiers: Pharyngitis/tonsillitis etiology: unspecified etiology Qualified Code(s): J02.9 - Acute pharyngitis, unspecified Plan: . Plan . Orders: Orders AMB Rapid Strep Screen Today Z13.9 - Encounter for screening, unspecified Coding Level of Care Code Est Pt Level 4 (23858) Diagnoses Chronic GERD K21.9 Pharyngitis, unspecified etiology J02.9 Pharyngitis/tonsillitis etiology: unspecified etiology
[2024-04-23 09:52] VITALS: BP 134/72; PULSE 64; RESP 14; TEMP 36.3; O2SAT 98; BMI 28.7
== END 2024-04-23 10:30 | disposition home or self-care (01) ==
PROVIDERS: PCP Family Medicine; Visit Provider Nurse Practitioner Family
DX: K21.9 Gastro-esophageal reflux disease without esophagitis (principal); J02.9 Acute pharyngitis, unspecified; Z13.9 Encounter for screening, unspecified

== ENCOUNTER → 2024-04-23 09:19 | Outpatient (BNVA) | payer OTHER, SELFPAY | PROVIDERS: PCP Family Medicine | DX: J02.9 Acute pharyngitis, unspecified (principal); K21.9 Gastro-esophageal reflux disease without esophagitis | CPT/HCPCS: 87880; 99212 ==

== ENCOUNTER 2024-04-29 10:29 | Outpatient (AMB) | payer OTHER, SELFPAY ==
--- NOTE | 2024-04-29 10:47 | A.OFFPC_ITS ---
Vital Signs 04/29/24 10:55 Height 5 ft 4 in Weight 166 lb 4 oz BMI 28.5 BP 117/63 Blood Pressure Location Rt brachial Position Sitting Respiration 16 Pulse 63 Pulse Source Pulse Oximeter Temp 98.4 F Temp Source Temporal Artery Scan Pulse Oximetry (%) 98 Oxygen Delivery Method Room Air Intake Visit Reasons: CPE (plz keep pt doesnt want to move) Intake Note: cpe Allergies No Known Allergies Allergy (Verified 04/29/24 10:48) Medication List - Last Reconciled 04/29/24 by Ashutosh Agarwal MD clotrimazole 1% 1 appl topical BID PRN docusate sodium (Colace) 100 mg PO BID 30 days dolutegravir (Tivicay) 50 mg PO DAILY emtricitabine-tenofovir (TDF) 133-200 mg tabs PO emtricitabine-tenofovir (TDF) 200-300 mg 1 tab PO DAILY fenofibrate 54 mg PO DAILY 90 days folic acid 1 mg PO DAILY lisinopril 5 mg PO BEDTIME meloxicam 15 mg PO DAILY omeprazole 20 mg PO DAILY 30 days polyethylene glycol 3350 (Miralax) 17 grams PO DAILY 30 days tizanidine (Zanaflex) 4 mg PO BEDTIME PRN Tobacco use date assessed: 04/29/24 Dental Screening Dental Screen Date: 04/29/24 Did you have a dental visit in the last 12 months?: No Did you have a dental problem in the last 6 months where you did not have access to dental care?: No Was dental information given to patient?: Patient has dentist HPI CPE (plz keep pt doesnt want to move) HPI Details 43 y/o male presents for a CPE with f/u labs and health maintenance. Blood pressure today 117/63, 63p. He is on lisinopril 5mg daily. Diet controlled diabetes. A1c today 04/29/24 is 6.3%. Has not seen an eye doctor for a diabetic eye exam. Continues taking omeprazole for chronic GERD which has been helping. Pt notes he has had a colonoscopy before due to GI discomfort. Has complaints of a testicular lump. [facility] Medical History (Updated 04/29/24 @ 11:25 by Ezra Momin) No pertinent past medical history Surgical History History of tonsillectomy Family History Father High blood pressure Diabetes Mother Diabetes Social History (Updated 04/29/24 @ 10:53 by Leo Anna [facility]) Household Members: Family Housing: House Are you a primary childcare worker to a significant other at home: No Do you presently have visiting nurse or other home services: No 75 years or older and lives alone: No Alcohol intake: never Patient Tobacco Use Status: Never used Tobacco e-Cigarette/Vaping Use: Never Used Second Hand Smoke Exposure: No service: No Current occupational status: employed Current occupation: Housekeeping/ right hand dominant Current occupational exposures/hazards: No Cognitive needs: No Hearing needs: No Vision needs: No Questionnaire PHQ-9 Over the last 2 weeks, how often have you been bothered by any of the following problems? 1. Little interest or pleasure in doing things: not at all 2. Feeling down, depressed, or hopeless: not at all 3. Trouble falling or staying asleep, or sleeping too much: not at all 4. Feeling tired or having little energy: not at all 5. Poor appetite or overeating: not at all 6. Feeling bad about yourself - or that you are a failure or have let yourself or your family down: not at all 7. Trouble concentrating on things, such as reading the newspaper or watching television: not at all 8. Moving or speaking so slowly that other people could have noticed. Or the opposite - being so fidgety or restless that you have been moving around a lot more than usual: not at all 9. Thoughts that you would be better off or of hurting yourself in some way: not at all Total score: 0 Depression Screening Interpretation: Negative Depression Screening Done: Yes 72025 - PHQ-9 Billing: Yes Source: Developed by Drs. Lang Sullivan, Donna Francois, Linwood Franks and colleagues, with an educational nba from [employer]. Thrive Questionnaire Date Thrive assessed: 04/29/24 I am a: Patient What is your living situation today?: I have a steady place to live Within the past 12 months, did the food you bought not last and you didn't have the money to get more?: Never true Within the past 12 months, did you worry whether your food would run out before you got money to buy more?: Never true Do you have trouble paying for medicines?: No Do you have trouble getting transportation to medical appointments?: No Do you have trouble paying your heating and electricity bill?: No Do you have trouble taking care of your child, family member or friend?: No Do you have trouble with day-to-day activities such as bathing, preparing meals, shopping, managing finances, etc.?: No Are you currently unemployed and looking for a job?: No Are you interested in more education?: No Please select the resources that you would like help with: None Currently or been in a relationship where the following occur: No concerns reported THRIVE Score: 0 AUDIT C Alcohol Use Questionnaire (AUDIT-C) 1. How often do you have a drink containing alcohol?: Never 3. How often do you have six or more drinks on one occasion?: Never Total Score: 0 ABIOLA-7 AMB Questionnaire ABIOLA-7 Date ABIOLA - 7 assessed: 04/29/24 Feeling nervous, anxious, or on edge: 0 = Not at all Not being able to stop or control worryin = Not at all Worrying too much about different things: 0 = Not at all Trouble relaxin = Not at all Being so restless that it is hard to sit still: 0 = Not at all Becoming easily annoyed or irritable: 0 = Not at all Feeling afraid as if something awful might happen: 0 = Not at all Total ABIOLA-7 score (0-4 normal; 5-9 mild; 10-14 moderate; 15-21 severe): 0 Source: Developed by Drs. Lang Sullivan, Donna Francois, Linwood Franks and colleagues, with an educational nba from [employer]. ABIOLA-7 Assessment Billing ABIOLA-7 Assessment Tool: ABIOLA-7 Assessment 82632 Review of Systems Const Denies chills, Denies fatigue, Denies fever(s), Denies headache(s) and Denies weakness Eyes Denies change in vision ENT Denies dizziness, Denies headache(s), Denies hearing loss, Denies nasal congestion, Denies sinus pain, Denies sinus pressure and Denies sore throat Card Denies chest pain, Denies lightheadedness, Denies dyspnea and Denies other (palpitations) Resp Denies cough, Denies dyspnea and Denies wheezing GI Denies abdominal pain, Denies melena, Denies hematochezia, Denies change in bowel habits, Denies dyspepsia and Denies nausea Denies hematuria and Denies dysuria Musc Denies abnormal gait, Denies myalgias, Denies arthralgias, Denies numbness and Denies tingling Skin/Breast Denies rash, Denies unusual bruising and Denies wounds Neuro Denies abnormal gait, Denies dizziness, Denies headache(s), Denies memory loss, Denies numbness, Denies Sensory deficit (Neuro), Denies tingling and Denies weakness Psych Denies anxiety, Denies depression and Denies memory loss Endo Denies cold intolerance, Denies fatigue, Denies heat intolerance, Denies polydipsia and Denies polyuria Waqar/Lymph Denies easy bleeding and Denies easy bruising Aller/Immun Denies wheezing Physical exam (Primary Care) Vital Signs: Last Vital Signs Temp 98.4 F 04/29/24 10:55 Pulse 63 04/29/24 10:55 Resp 16 04/29/24 10:55 BP 117/63 04/29/24 10:55 Pulse Ox 98 04/29/24 10:55 Oxygen Delivery Method Room Air 04/29/24 10:55 BMI result Body Mass Index 28.5 Tobacco/Smoking Status: Tobacco use Status Tobacco use date assessed 04/29/24 04/29/24 10:59 Patient Tobacco Use Status Never used Tobacco 04/29/24 10:59 e-Cigarette/Vaping Use Never Used 04/29/24 10:59 PHQ-9: PHQ-9 Score PHQ-9: Total score 0 04/29/24 11:11 Depression Screening Interpretation: Negative Thrive Assessment: Date of Thrive Assessment Date Thrive assessed 04/29/24 04/29/24 10:59 Currently or been in a relationship where the following occur: No concerns reported Const General: no acute distress, well developed, alert and awake Nutritional Appearance: well nourished Orientation/consciousness: patient oriented x3 HENMT Head: Yes normocephalic and Yes atraumatic Ears: hearing grossly normal bilaterally and TM's normal bilaterally General nose exam: Normal external nose present and Normal nares present Mouth: Normal oral and palatal mucosa present and moist mucous membranes Teeth and gingiva: dentition normal Throat: Yes posterior oropharynx normal Eyes General: appearance normal, both eyes and all related structures Pupils: Equal, round and reactive pupils present and Pupil accommodation reflex normal EOM: EOMs intact bilaterally Neck Neck: Yes normal visual inspection, Yes no lymphadenopathy and Yes trachea midline Thyroid: Thyroid normal Carotids: no bruits Lymphatic: no lymphadenopathy noted Chest Chest palpation & inspection: normal inspection of the chest Resp Effort & Inspection: normal respiratory effort Auscultation: clear to auscultation bilaterally Cardio Rate: regular rate Rhythm: regular rhythm Heart sounds: S1 normal heart sound present, S2 normal heart sound present, no gallops, no murmurs and no rubs Bruits: no abdominal aortic bruits and no carotid bruits GI Palpation (GI): No Abdominal aortic bruit present, Soft to palpation, nontender, No hepatosplenomegaly present and No Rebound tenderness present Auscultation: normal bowel sounds General: Yes no CVA tenderness Back/Spine/Pelvis Back: no CVA tenderness Cervical Spine: cervical ROM normal and No Cervical spine tenderness Thoracic/Lumbar Spine: thoraco-lumbar ROM normal, No pain with thoraco-lumbar ROM, No thoracic spinal tenderness and No lumbar spinal tenderness Skin Lesions: no lesions Rashes: no rashes Trauma: no lacerations or abrasions Wounds: no wounds Nails: normal Neuro General: patient oriented x3 Cranial nerves: Yes Equal, round and reactive pupils present Cognition (Neuro): normal cognition Gait exam (Neuro): Normal gait present Motor exam (neuro): 5/5 motor strength present throughout Sensory Exam: No Sensory deficit (Neuro) Deep tendon reflexes (DTR's): Right patellar reflex intensity grade: 2+ and Left patellar reflex intensity grade: 2+ Extrem General: Yes normal to inspection and No edema Psych Appearance: grossly normal Affect: normal affect Attitude: cooperative Thought process: Normal thought process present Coding Level of Care Code Est Pt Level 3 (61600) Est Pt Prev Care 40-64y(50500) Diagnoses Annual physical exam Z00.00 Hyperlipidemia E78.5 Essential (primary) hypertension I10 Diet-controlled diabetes mellitus E11.9 Chronic GERD K21.9 Screening for prostate cancer Z12.5 Screening for colon cancer Z12.11 Testicular lump N50.89 Additional Codes ABIOLA-7 Assessment Billing - ABIOLA-7 Assessment Tool: ABIOLA-7 Assessment 86821 ([id number]) Assessment & Plan Assessment & Plan (1) Annual physical exam: Code(s): Z00.00 - Encounter for general adult medical examination without abnormal findings Category: Medical Plan: 43-year-old?male?presents?for?complete?physical?exam (2) Hyperlipidemia: Code(s): E78.5 - Hyperlipidemia, unspecified Category: Medical Plan: Patient?is?on?fenofibrate Check?lipids (3) Essential (primary) hypertension: Code(s): I10 - Essential (primary) hypertension Category: Medical Plan: Blood?pressure?is?controlled.??Goal?is?less?than?140/90 Continue?current?medication (4) Diet-controlled diabetes mellitus: Code(s): E11.9 - Type 2 diabetes mellitus without complications Category: Medical Plan: A1c?remains?6.3%.??Stable?and?at?goal?of?less?than?7% Continue?good?diet?control (5) Chronic GERD: Code(s): K21.9 - Gastro-esophageal reflux disease without esophagitis Category: Medical Plan: Controlled?on?omeprazole Avoid?triggers?and?continue?omeprazole (6) Screening for prostate cancer: Code(s): Z12.5 - Encounter for screening for malignant neoplasm of prostate Category: Medical Plan: Check?PSA (7) Screening for colon cancer: Code(s): Z12.11 - Encounter for screening for malignant neoplasm of colon Category: Medical Plan: Patient?says?he?had?a?colonoscopy?previously?at?[facility] He?is?followed?by?[facility]?gastroenterology?for?GERD Up-to-date (8) Testicular lump: Code(s): N50.89 - Other specified disorders of the male genital organs Category: Medical Plan: Right?scrotal?lump?which?patient?says?has?been?there?for?years?but?is?changing This?appears?to?be?a cutaneous/scrotal?skin?lesion?but?will?check?an?ultrasound?to?rule?out testicular?lesion. Orders: Orders Prostate Specific Antigen Scr Today Z12.5 - Encounter for screening for malignant neoplasm of prostate Comprehensive [place]. Panel Fast Today Z00.00 - Encounter for general adult medical examination without abnormal findings Complete Blood Count Auto Diff Today Z00.00 - Encounter for general adult medical examination without abnormal findings Lipid Panel Today Z00.00 - Encounter for general adult medical examination without abnormal findings Microalbumin, Random (w Creat) Today I10 - Essential (primary) hypertension TSH reflex Free T4 Today Z00.00 - Encounter for general adult medical examination without abnormal findings UA and rflx microscopic Today Z00.00 - Encounter for general adult medical examination without abnormal findings Vitamin B12 and Folate Today E53.8 - Deficiency of other specified B group vitamins US scrotum Today N50.89 - Other specified disorders of the male genital organs
[2024-04-29 10:55] VITALS: BP 117/63; PULSE 63; RESP 16; TEMP 36.9; O2SAT 98; BMI 28.5
== END 2024-04-29 11:32 | disposition home or self-care (01) ==
PROVIDERS: PCP Family Medicine; Visit Provider Family Medicine
DX: Z00.00 Encounter for general adult medical examination without abnormal findings (principal); N50.89 Other specified disorders of the male genital organs; E78.5 Hyperlipidemia, unspecified; I10 Essential (primary) hypertension; E11.69 Type 2 diabetes mellitus with other specified complication; Z12.5 Encounter for screening for malignant neoplasm of prostate; K21.9 Gastro-esophageal reflux disease without esophagitis; Z12.11 Encounter for screening for malignant neoplasm of colon

== ENCOUNTER → 2024-04-29 10:29 | Outpatient (BNVA) | payer OTHER, SELFPAY | PROVIDERS: PCP Family Medicine; Visit Provider Family Medicine | DX: Z00.00 Encounter for general adult medical examination without abnormal findings (principal); E78.5 Hyperlipidemia, unspecified; I10 Essential (primary) hypertension; E11.9 Type 2 diabetes mellitus without complications; K21.9 Gastro-esophageal reflux disease without esophagitis; N50.89 Other specified disorders of the male genital organs; Z79.899 Other long term (current) drug therapy | CPT/HCPCS: 96127; 99212; 99396 ==

== ENCOUNTER 2024-04-29 11:37 | Outpatient (REF) | payer OTHER, SELFPAY ==
[2024-04-29 14:40] LABS: Appearance Urine Clear; Color Urine Yellow; Glucose Urine UA Negative (Negative); Leukocyte Esterase Urine Negative (Negative); Nitrite Urine Negative (Negative); PH 5.5 (5.0-9.0); Specific Gravity - Urine 1.015 (1.005-1.025); Urine Blood Negative (Negative); Urine Ketones Negative (Negative); Urine Protein Negative (Neg-Trace)
[2024-04-29 14:44] LABS: MANUAL DIFF FLAG NO
[2024-04-29 14:48] LABS: Basophils Absolute Auto 0.1 X10*3/uL (0.0-0.2); Basophils Percent Auto 0.9 % (0-2); Eosinophils Absolute Auto 0.4 X10*3/uL (0.0-0.4); Eosinophils Percent Auto 4.6 % (0-4); Hematocrit 41.8 % (42.0-52.0); Hemoglobin 13.3 g/dl (14.0-18.0); Imm Gran Abs Auto 0.02 X10*3/uL (0.00-0.03); Imm Gran Pct Auto 0.3 % (0.0-0.4); Lymphocytes Absolute Auto 2.3 X10*3/uL (1.2-4.9); Mean Corpuscular HGB Conc 31.8 g/dl (31.0-36.0); Mean Corpuscular Hemoglobin 25.4 pg (27.0-33.0); Mean Corpuscular Volume 79.8 fL (80.0-98.0); Mean Platelet Volume 10.7 fL (9.4-12.4); Monocytes Absolute Auto 0.5 X10*3/uL (0.1-1.2); Monocytes Percent Auto 6.9 % (2-11); Neutrophils Absolute Auto 4.4 x10*3/uL (2.0-8.3); Neutrophils Percent Auto 57.3 % (45-73); Platelet Count 288 X10*3/uL (160-400); Red Blood Count 5.24 X10*6/uL (4.60-5.80); Red Cell Distribution Width 14.5 % (11.0-16.0); White Blood Count 7.6 X10*3/uL (4.8-10.8)
[2024-04-29 15:14] LABS: Alanine Aminotransferase 31 U/L (0-40); Albumin Level 4.6 g/dL (3.5-5.0); Alkaline Phosphatase 43 U/L (39-117); Anion Gap 11 (12-20); Aspartate Amino Transferase 24 U/L (5-37); Bilirubin Total 0.3 mg/dL (0.0-1.0); Blood Urea Nitrogen 22 mg/dL (9-16); Calcium 10.3 mg/dL (8.4-10.2); Carbon Dioxide 27 mmol/L (22-29); Chloride 104 mmol/L (96-108); Cholesterol 178 mg/dL (<200); Estimated Glomerular Filt Rate > 60; Glucose Fasting 100 mg/dL (60-99); HDL Cholesterol 39 mg/dL (>40); LDL Cholesterol Calculated 103 mg/dL (<100); Potassium 4.2 mmol/L (3.3-5.1); Sodium 138 mmol/L (135-145); Total Protein 7.9 g/dL (6.5-8.0); Triglycerides 181 mg/dL (<150)
[2024-04-29 15:27] LABS: Creatinine Urine 79.12 mg/dL; Microalbumin Urine < 5.0 mg/L
[2024-04-29 15:28] LABS: TSH reflex Free T4 2.06 uIU/mL (0.32-4.0)
[2024-04-29 15:38] LABS: Folate 16.3 ng/mL (> or = 4.0); Prostate Specific Antigen Scr 0.29 ng/mL (<0.05-4.0); Vitamin B12 348 pg/mL (200-900)
== END 2024-04-29 11:38 | disposition home or self-care (01) ==
LOC: HO.WFDLDS 11:37
PROVIDERS: Visit Provider Family Medicine
DX: Z00.00 Encounter for general adult medical examination without abnormal findings (principal); D64.9 Anemia, unspecified; I10 Essential (primary) hypertension; E78.5 Hyperlipidemia, unspecified; Z12.5 Encounter for screening for malignant neoplasm of prostate; E53.8 Deficiency of other specified B group vitamins
CPT/HCPCS: 36415; 80053; 80061; 81003; 82043; 82570; 82607; 82746; 84153; 84443; 85025

== ENCOUNTER 2024-05-08 12:15 | Outpatient (REF) | payer OTHER, SELFPAY | END 2024-05-08 12:16 | disposition home or self-care (01) | LOC: HO.US 12:15 | PROVIDERS: PCP Family Medicine; Visit Provider Family Medicine | DX: N50.89 Other specified disorders of the male genital organs (principal) | CPT/HCPCS: 76870 ==

== ENCOUNTER 2024-05-28 09:34 | Outpatient (AMB) | payer OTHER, SELFPAY ==
--- NOTE | 2024-05-28 09:19 | A.OFFPC_ITS ---
Intake Visit Reasons: f/u CPE-labs via telemedicine Allergies No Known Allergies Allergy (Verified 04/29/24 10:48) Tobacco use date assessed: 04/29/24 Dental Screening Dental Screen Date: 04/29/24 HPI f/u CPE-labs via telemedicine HPI Details 43 y/o male presents to f/u CPE-labs via telemedicine. Labs drawn 04/29/24. Reviewed labs with pt. Ongoing mild anemia. Fasting glucose of 100. Triglycerides 181. TC 178. LDL 103. HDL low at 39. PSA 0.29. Reports constipation. HPI Comments History of Present Illness Details Documentation assistance for Ashutosh Agarwal MD, was provided by Ezra Momin,? Electrical Prospecting Engineer on 05/28/2024 at 11:10 AM EST. I, Dr. Agarwal, have read, observed, and verified documentation. [facility] Medical History (Updated 04/29/24 @ 11:25 by Ezra Momin) No pertinent past medical history Surgical History History of tonsillectomy Family History Father High blood pressure Diabetes Mother Diabetes Social History (Updated 04/29/24 @ 10:53 by Leo Anna [facility]) Household Members: Family Housing: House Are you a primary animal caretaker supervisor to a significant other at home: No Do you presently have visiting nurse or other home services: No 75 years or older and lives alone: No Alcohol intake: never Patient Tobacco Use Status: Never used Tobacco e-Cigarette/Vaping Use: Never Used Second Hand Smoke Exposure: No service: No Current occupational status: employed Current occupation: Housekeeping/ right hand dominant Current occupational exposures/hazards: No Cognitive needs: No Hearing needs: No Vision needs: No Questionnaire Thrive Questionnaire Date Thrive assessed: 04/29/24 ABIOLA-7 AMB Questionnaire ABIOLA-7 Date ABIOLA - 7 assessed: 04/29/24 Source: Developed by Drs. Lang Sullivan, Donna Francois, Linwood Franks and colleagues, with an educational nba from [employer]. Physical exam (Primary Care) Tobacco/Smoking Status: Tobacco use Status Tobacco use date assessed 04/29/24 05/28/24 09:22 Patient Tobacco Use Status Never used Tobacco 05/28/24 09:22 e-Cigarette/Vaping Use Never Used 05/28/24 09:22 Thrive Assessment: Date of Thrive Assessment Date Thrive assessed 04/29/24 05/28/24 09:22 Telehealth Telehealth Telehealth Platform: Telephone Location of provider rendering services: practice address Location of patient: address on file Patient Identification confirmed using: Name, : Yes Telehealth method: voice only Patient verbally consented to treatment: Yes Patient verbally consented to billing insurance company: Yes Patient informed of any privacy concerns related to visit: Yes Minutes spent on Phone/Video with Pt.: 9 Coding Level of Care Code Tele Est Pt Level 2 (19025) Diagnoses Mild anemia D64.9 Hyperlipidemia E78.5 Constipation K59.00 Testicular lump N50.89 Assessment & Plan Assessment & Plan (1) Mild anemia: Code(s): D64.9 - Anemia, unspecified Category: Medical Plan: Ongoing?mild?anemia?which?is?stable Microcytic He?is?on?folate Will?have?him?trial?a?small?amount?of?iron.??He?can?stop?this?if?not?improving.? ?He?is?already?seen?Hematology-Oncology?in?the?past. (2) Hyperlipidemia: Code(s): E78.5 - Hyperlipidemia, unspecified Category: Medical Plan: LDL?slightly?above?goal?of?100 HDL?slightly?below?goal?of?greater?than?40 Continue?lifestyle?changes Will?continue?to?monitor (3) Constipation: Comment: assoc w/ chronic LUQ pain EGD/Colon done in last year, normal per his reports CODY and labs done 07/2023 WNL except + constipation has appt w/ GI December 2023 Plan: restart colace and miralax, take as directed. [facility] mods and edu Code(s): K59.00 - Constipation, unspecified Category: Medical Plan: Hydrate?well Can?use?MiraLax?q.o.d. (4) Testicular lump: Code(s): N50.89 - Other specified disorders of the male genital organs Category: Medical Plan: Patient?had?complaint?of?testicular?lump?at?last?visit. Ordered?ultrasound?which?has?been?acquired?but?is?not?red.??Will?ask?the?office? to?check?on?the?status?of?this?test.??Will?call?patient?if?action?is?required Otherwise?can?review?at?next?visit Medications: New polyethylene glycol 3350 (Miralax) 17 grams PO .QOD 28 days 14 ea 2RF ferrous gluconate 236 mg PO .QOD 30 days 15 tabs 2RF
== END 2024-05-28 17:05 | disposition home or self-care (01) ==
LOC: HO.HMCFM 09:35
PROVIDERS: PCP Family Medicine; Visit Provider Family Medicine
DX: D64.9 Anemia, unspecified (principal); E78.5 Hyperlipidemia, unspecified; K59.00 Constipation, unspecified; N50.89 Other specified disorders of the male genital organs

== ENCOUNTER → 2024-05-28 09:34 | Outpatient (BNVA) | payer OTHER, SELFPAY | PROVIDERS: PCP Family Medicine; Visit Provider Family Medicine ==

== ENCOUNTER 2024-06-11 09:15 | Outpatient (AMB) | payer OTHER, SELFPAY ==
--- NOTE | 2024-06-11 09:18 | AM.OFFWIN_ITS ---
Intake Vital Signs 06/11/24 09:23 Height 5 ft 4 in Weight 171 lb BMI 29.3 BP 130/62 Blood Pressure Location Lt brachial Position Sitting Respiration 13 Pulse 67 Pulse Source Pulse Oximeter Temp 97.6 F Temp Source Oral Pulse Oximetry (%) 98 Oxygen Delivery Method Room Air Intake Visit Reasons: Pain in middle to left side. Intake Note: Patient complaining of left side upper abd pain x 2 weeks Patient Tobacco Use Status: Never used Tobacco Groundman Required: No Allergies No Known Allergies Allergy (Verified 06/11/24 09:34) Medication List - Last Reconciled 06/11/24 by Sara Lancaster, HOUSEKEEPER- clotrimazole 1% 1 appl topical BID PRN docusate sodium (Colace) 100 mg PO BID 30 days dolutegravir (Tivicay) 50 mg PO DAILY emtricitabine-tenofovir (TDF) 133-200 mg tabs PO emtricitabine-tenofovir (TDF) 200-300 mg 1 tab PO DAILY fenofibrate 54 mg PO DAILY 90 days ferrous gluconate 236 mg PO .QOD 30 days folic acid 1 mg PO DAILY lisinopril 5 mg PO BEDTIME meloxicam 15 mg PO DAILY omeprazole 20 mg PO DAILY 30 days polyethylene glycol 3350 (Miralax) 17 grams PO .QOD 28 days tizanidine (Zanaflex) 4 mg PO BEDTIME PRN Do you need a note to return to daycare/school/sports/work: No HPI HPI Comments History of Present Illness Details 43 year old male with chronic GERD, cons tipation, fatty liver here today with concerns of epigastric pain, early safety and left upper quadrant pain. This complaint is acute on chronic. He has been referred to Gastroenterology at [facility]. Unfortunately his appointments have been canceled and rescheduled several times. He has next appointment is scheduled 08/06/2024. He reports that eating small amounts of food seems to improve his symptoms. He denies any alcohol use. He denies any nausea, vomiting, change in stool habits. He does report that dairy also worsens his symptoms and causes bloating. He was limited dairy which has helped some. However the epigastric pain continues most of the time. He also complains of right ear pain and sore throat which is chronic EXAM awake alert NAD Scleras nonicteric EAC clear bilat, TM intact and clear bilat MMM , pharynx WNL Abd soft, normoactive bs x 4, no gaurding or rigidity, pain with deep palpation w/o rebound to left upper quad, more posteriorlateral. No CVAT Plan Labs checked today and reassuring. We will also check a stool for H pylori along with imaging while waiting for his initial gastroenterology appointment. Advised for him to follow up at [facility]'s walk-in in [place] should he have any changes in his condition over the weekend. Discouraged emergency room visits for this. Benign exam of his throat and his ear, no treatment required. This note is constructed using voice recognition software. While every effort has been made to ensure accuracy in florist designer, still errors may have been included Sometimes, these errors may affect the content or meaning of the given sentence . Total time spent caring for the patient today was 45 minutes. This includes time spent before the visit reviewing the chart, time spent during the visit, and time spent after the visit on documentation [facility] Medical History (Updated 06/11/24 @ 14:11 [facility] No pertinent past medical history Surgical History History of tonsillectomy Family History Father High blood pressure Diabetes Mother Diabetes Social History (Updated 04/29/24 @ 10:53 by Leo Anna [facility]) Household Members: Family Housing: House Are you a primary resident care manager rn to a significant other at home: No Do you presently have visiting nurse or other home services: No Alcohol intake: never Patient Tobacco Use Status: Never used Tobacco e-Cigarette/Vaping Use: Never Used Second Hand Smoke Exposure: No service: No Current occupational status: employed Current occupation: Housekeeping/ right hand dominant Current occupational exposures/hazards: No Cognitive needs: No Hearing needs: No Vision needs: No Physical Exam Vital Signs: Last Vital Signs Temp 97.6 F 06/11/24 09:23 Pulse 67 06/11/24 09:23 Resp 13 06/11/24 09:23 BP 130/62 06/11/24 09:23 Pulse Ox 98 06/11/24 09:23 Oxygen Delivery Method Room Air 06/11/24 09:23 BMI result Body Mass Index 29.3 Results Reviewed Results Reviewed: RUN: 06/11/24 1407 PAGE 1 [facility] [address] [place] [phone] Pick Up Man: Ashutosh Benavides M.D. Specimen Inquiry Name: Jose Thomasbrian Walker Age/Sex: 43/M : 1980 Unit#: [id number] Attend Dr: Sara Lancaster Re06/11/24 Status: REG REF Location: [facility] Disch: SPEC : [id number] RADHA: 06/11/24 STATUS: COMP REQ : [id number] RECD: 06/11/[address]: Sara Lancaster COMP: 06/11/24 ENTERED: 06/11/[address]: ORDERED: CMP, Liver Panel, Anne Marie, Lip Test Result Flag Reference Sodium 140 135-145 mmol/L Potassium 4.2 3.3-5.1 mmol/L CL 106 96-108 mmol/L CO2 24 22-29 mmol/L Gap 14 12-20 BUN 23 H 9-16 mg/dL Creat 0.90 0.5-1.4 mg/dL eGFR > 60 Chronic Kidney Disease: Estimated GFR < 60 mL/min/1.73m2 Severe Kidney Disease: Estimated GFR < 15 mL/min/1.73m2 Glucose, Random 115 60-115 mg/dL CA 9.1 # 8.4-10.2 mg/dL Total Bili 0.2 0.0-1.0 mg/dL Direct Bili < 0.2 0.0-0.5 mg/dL AST (GOT) 35 5-37 U/L ALT (GPT) 46 H 0-40 U/L Protein, Total 7.3 6.5-8.0 g/dL Alb 4.3 3.5-5.0 g/dL Alk Phos 40 39-117 U/L Anne Marie 71 28-100 U/L Lipase 32 8-78 U/L END OF REPORT RUN: 06/11/24 1408 PAGE 1 [facility] [address] [place] [phone] Pick Up Man: Ashutosh Benavides M.D. Specimen Inquiry Name: Iván Thomas Age/Sex: 43/M : 1980 Unit#: [id number] Attend Dr: Sara Lancaster Re06/11/24 Status: REG [facility] Disch: SPEC : [id number] RADHA: 06/11/24 STATUS: COMP REQ : [id number] RECD: 06/11/[address]: Sara Lancaster COMP: 06/11/24 ENTERED: 06/11/[address] [facility] [address]: ORDERED: [facility] Test Result Flag Reference HepA-M Interp Nonreactive Nonreactive IgM antibodies to HAV not detected; does not exclude early acute or recovered HAV infection. Anti-HBS REACTIVE Nonreactive REACTIVE: > 11.99 mIU/mL Anti-HBc Nonreactive Nonreactive Anti-HCV Nonreactive Nonreactive Antibodies to HCV not detected; does not exclude early acute HCV infection. HBsAG Negative Negative END OF REPORT Assessment & Plan Assessment & Plan (1) Abdominal pain: Code(s): R10.9 - Unspecified abdominal pain Qualifiers: Abdominal location: left upper quadrant Qualified Code(s): R10.12 - Left upper quadrant pain (2) Chronic GERD: Code(s): K21.9 - Gastro-esophageal reflux disease without esophagitis (3) Otalgia, right ear: Code(s): H92.01 - Otalgia, right ear (4) Chronic pharyngitis: Code(s): J31.2 - Chronic pharyngitis Plan . Orders: Orders Amylase Today K21.9 - Gastro-esophageal reflux disease without esophagitis, R10.12 - Left upper quadrant pain, R10.9 - Unspecified abdominal pain Lipase Today K21.9 - Gastro-esophageal reflux disease without esophagitis, R10.12 - Left upper quadrant pain, R10.9 - Unspecified abdominal pain Hepatitis A,B,C Profile Today K21.9 - Gastro-esophageal reflux disease without esophagitis, R10.12 - Left upper quadrant pain, R10.9 - Unspecified abdominal pain CT abdomen wo/w IV con Today K21.9 - Gastro-esophageal reflux disease without esophagitis, R10.12 - Left upper quadrant pain, R10.9 - Unspecified abdominal pain, R14.0 - Abdominal distension (gaseous), R68.81 - Early satiety H pylori Ag Stool Today K21.9 - Gastro-esophageal reflux disease without esophagitis, R10.12 - Left upper quadrant pain, R10.9 - Unspecified abdominal pain Liver Panel Today K21.9 - Gastro-esophageal reflux disease without esophagitis, R10.12 - Left upper quadrant pain, R10.9 - Unspecified abdominal pain Comprehensive Met. Panel Today R10.9 - Unspecified abdominal pain Coding Level of Care Code Est Pt Level 5 (98882) Diagnoses Left upper quadrant abdominal pain R10.12 Abdominal location: left upper quadrant Chronic GERD K21.9 Otalgia, right ear H92.01 Chronic pharyngitis J31.2
[2024-06-11 09:23] VITALS: BP 130/62; PULSE 67; RESP 13; TEMP 36.4; O2SAT 98; BMI 29.3
== END 2024-06-11 09:55 | disposition home or self-care (01) ==
PROVIDERS: PCP Family Medicine; Visit Provider Nurse Practitioner Family
DX: R10.12 Left upper quadrant pain (principal); K21.9 Gastro-esophageal reflux disease without esophagitis; H92.01 Otalgia, right ear; J31.2 Chronic pharyngitis

== ENCOUNTER → 2024-06-11 09:15 | Outpatient (BNVA) | payer OTHER, SELFPAY | PROVIDERS: PCP Family Medicine | DX: R10.12 Left upper quadrant pain (principal); K21.9 Gastro-esophageal reflux disease without esophagitis; J31.2 Chronic pharyngitis; H92.01 Otalgia, right ear | CPT/HCPCS: 99212 ==

== ENCOUNTER 2024-06-11 10:05 | Outpatient (REF) | payer OTHER, SELFPAY ==
[2024-06-11 12:00] LABS: Alanine Aminotransferase 46 U/L (0-40); Albumin Level 4.3 g/dL (3.5-5.0); Alkaline Phosphatase 40 U/L (39-117); Amylase 71 U/L (28-100); Anion Gap 14 (12-20); Aspartate Amino Transferase 35 U/L (5-37); Bilirubin Direct < 0.2 mg/dL (0.0-0.5); Bilirubin Total 0.2 mg/dL (0.0-1.0); Blood Urea Nitrogen 23 mg/dL (9-16); Calcium 9.1 mg/dL (8.4-10.2); Carbon Dioxide 24 mmol/L (22-29); Chloride 106 mmol/L (96-108); Estimated Glomerular Filt Rate > 60; Glucose Random 115 mg/dL (60-115); Lipase 32 U/L (8-78); Potassium 4.2 mmol/L (3.3-5.1); Sodium 140 mmol/L (135-145); Total Protein 7.3 g/dL (6.5-8.0)
[2024-06-11 12:20] LABS: HBS Num1 471.69 mIU/mL (0-7.99); HBc Num1 0.22 S/CO (0.00-0.79); HBsAGNum1 0.42 S/CO (0.00-0.99); Hepatitis A Antibody IgM 0.26 Index (0-0.79); Hepatitis B Core Antibody Nonreactive (Nonreactive); Hepatitis B Surface Antigen Negative (Negative); ~HepC Num1 0.09 S/CO (0.00-0.79); ~Hepatitis A Antibody IgM Nonreactive (Nonreactive); ~Hepatitis B Surface Antibody REACTIVE (Nonreactive); ~Hepatitis C Antibody Nonreactive (Nonreactive)
== END 2024-06-11 10:06 | disposition home or self-care (01) ==
LOC: HO.WFDLDS 10:05
PROVIDERS: Visit Provider Nurse Practitioner Family
DX: K21.9 Gastro-esophageal reflux disease without esophagitis (principal); R10.9 Unspecified abdominal pain; R10.12 Left upper quadrant pain
CPT/HCPCS: 36415; 80053; 82150; 82248; 83690; 86704; 86706; 86709; 86803; 87338; 87340

== ENCOUNTER 2024-07-10 09:22 | Outpatient (AMB) | payer OTHER, SELFPAY ==
--- NOTE | 2024-07-10 09:24 | A.OFFVIS_ITS ---
Vital Signs 07/10/24 09:29 Height 5 ft 4 in Weight 170 lb 8 oz BMI 29.3 BP 131/72 Blood Pressure Location Rt brachial Position Sitting Respiration 16 Pulse 65 Pulse Source Pulse Oximeter Temp 97.8 F Temp Source Oral Pulse Oximetry (%) 98 Oxygen Delivery Method Room Air Intake Visit Reasons: right ear pain/neck stiff Intake Note: patient here c/o right ear pain and stiff neck Service Tech/Welder Required: No Allergies No Known Allergies Allergy (Verified 07/10/24 09:27) Do you need a note to return to daycare/school/sports/work: No PFSH Medical History (Updated 06/11/24 @ 14:11 by Sara Lancaster, L[employer] MANAGER-) No pertinent past medical history Surgical History History of tonsillectomy Family History Father High blood pressure Diabetes Mother Diabetes Social History (Updated 04/29/24 @ 10:53 by Leo Anna [facility]) Household Members: Family Housing: House Are you a primary home care administrator to a significant other at home: No Do you presently have visiting nurse or other home services: No 75 years or older and lives alone: No Alcohol intake: never Patient Tobacco Use Status: Never used Tobacco e-Cigarette/Vaping Use: Never Used Second Hand Smoke Exposure: No service: No Current occupational status: employed Current occupation: Housekeeping/ right hand dominant Current occupational exposures/hazards: No Cognitive needs: No Hearing needs: No Vision needs: No Coding
[2024-07-10 09:29] VITALS: BP 131/72; PULSE 65; RESP 16; TEMP 36.6; O2SAT 98; BMI 29.3
--- NOTE | 2024-07-10 09:59 | MHC.OFFWIV ---
Intake Vital Signs 07/10/24 09:29 Height 5 ft 4 in Weight 170 lb 8 oz BMI 29.3 BP 131/72 Blood Pressure Location Rt brachial Position Sitting Respiration 16 Pulse 65 Pulse Source Pulse Oximeter Temp 97.8 F Temp Source Oral Pulse Oximetry (%) 98 Oxygen Delivery Method Room Air Intake Visit Reasons: right ear pain/neck stiff Patient Tobacco Use Status: Never used Tobacco Allergies No Known Allergies Allergy (Verified 07/10/24 10:00) Medication List - Last Reconciled 07/10/24 by Jeffry Damon CNP docusate sodium (Colace) 100 mg PO BID 30 days fenofibrate 54 mg PO DAILY 90 days ferrous gluconate 236 mg PO .QOD 30 days folic acid 1 mg PO DAILY lisinopril 5 mg PO BEDTIME meloxicam 15 mg PO DAILY omeprazole 20 mg PO DAILY 30 days polyethylene glycol 3350 (Miralax) 17 grams PO .QOD 28 days HPI HPI Comments History of Present Illness Details 43-year-old male presents with complaints of right ear and neck pain, and right-sided head ache. His symptoms have been consistent for the past one week. He has not taken an medication for his symptoms. He cleans his ears with a Q-tip daily after taking a shower. Denies fever, chills, body aches, fatigue, or weakness. [facility] Medical History (Updated 07/10/24 @ 10:21 by Jeffry Damon CNP) No pertinent past medical history Surgical History History of tonsillectomy Family History Father High blood pressure Diabetes Mother Diabetes Social History (Updated 04/29/24 @ 10:53 by AYAKA Veras) Household Members: Family Housing: House Are you a primary career agent to a significant other at home: No Do you presently have visiting nurse or other home services: No 75 years or older and lives alone: No Alcohol intake: never Patient Tobacco Use Status: Never used Tobacco e-Cigarette/Vaping Use: Never Used Second Hand Smoke Exposure: No service: No Current occupational status: employed Current occupation: Housekeeping/ right hand dominant Current occupational exposures/hazards: No Cognitive needs: No Hearing needs: No Vision needs: No Review of Systems Const Details: Denies chills, Denies fatigue, Denies fever(s), Reports headache(s) and Denies weakness Cardiac Denies chest pain, Denies claudication, Denies leg edema, Denies lightheadedness, Denies palpitations, Denies dyspnea, Denies dyspnea on exertion, Denies orthopnea and Denies other (Loss of consciousness) Resp Denies cough, Denies excessive phlegm production, Denies dyspnea, Denies dyspnea on exertion, Denies snoring and Denies wheezing ENT Reports as per HPI Physical Exam Vital Signs: Last Vital Signs Temp 97.8 F 07/10/24 09:29 Pulse 65 07/10/24 09:29 Resp 16 07/10/24 09:29 BP 131/72 07/10/24 09:29 Pulse Ox 98 07/10/24 09:29 Oxygen Delivery Method Room Air 07/10/24 09:29 BMI result Body Mass Index 29.3 Const Other: General: comfortable and no acute distress Orientation/consciousness: patient oriented x3 Chest Chest palpation & inspection: normal inspection of the chest Resp Auscultation: clear to auscultation bilaterally Cardiac Palpation: normal PMI Heart sounds: S1 normal heart sound present, S2 normal heart sound present, no gallops, no murmur, no rubs ENT Head is normocephalic Significant erythema of the right ear canal, right TM is normal. Left ear canal and TM normal Nasal turbinates and oropharynx are pink and moist Sinuses are nontender with palpation No auricular or cervical lymphadenopathy Assessment & Plan Assessment & Plan (1) Right otitis externa: Code(s): H60.91 - Unspecified otitis externa, right ear Plan: Consistent right ear and neck pain, and right-sided head ache x 1 week. Significant erythema of the right ear canal, right TM is normal. Ofloxacin and ibuprofen as prescribed. Advised to take ibuprofen with food. Avoid frequent cleaning of the ears with Q-tips. Follow-up with worsening or new symptoms. Verbalized understanding and agreed with the plan. Medications: New ibuprofen 600 mg PO Q8H PRN 30 tabs 0RF pain ofloxacin 0.3% 10 drops in the right ear daily x7 days 10 drps otic (ears) DAILY 7 days 5 mL 0RF Discontinued meloxicam Discontinued Reason: Patient no longer taking 15 mg PO DAILY 14 tabs 0RF Coding Level of Care Code Est Pt Level 3 (70214) Diagnoses Right otitis externa H60.91
== END 2024-07-10 10:24 | disposition home or self-care (01) ==
LOC: HO.HMCWIW 09:22
PROVIDERS: PCP Family Medicine; Visit Provider Nurse Practitioner Family
DX: H60.91 Unspecified otitis externa, right ear (principal)

== ENCOUNTER → 2024-07-10 09:22 | Outpatient (BNVA) | payer OTHER, SELFPAY | PROVIDERS: PCP Family Medicine; Visit Provider Nurse Practitioner Family | DX: H60.91 Unspecified otitis externa, right ear (principal); M43.6 Torticollis; R51.9 Headache, unspecified | CPT/HCPCS: 99212 ==

== ENCOUNTER 2024-08-06 10:18 | Outpatient (AMB) | payer OTHER, SELFPAY ==
[2024-08-06 10:21] VITALS: BP 131/61; PULSE 72; BMI 28.3
--- NOTE | 2024-08-06 10:21 | A.OFFVIS_ITS ---
Vital Signs 08/06/24 10:21 Height 5 ft 4 in Weight 165 lb BMI 28.3 BP 131/61 Blood Pressure Location Lt brachial Position Sitting Pulse 72 Intake Visit Reasons: Gastroesophageal reflux disease (GERD) Intake Note: Iván presents in the office as a new patient for GERD. CC: He states he is here for acid reflux. he states because Iron he takes he has constipation. He takes miralax to help with that. Railroad Mechanic Required: No Allergies No Known Allergies Allergy (Verified 08/06/24 10:23) HPI Comments Details: 43 y.o M with PMH of latent TB who is here for epigastric pain and pyrosis. Pt reports two distincts complaints. Has burning epigastric pain and then also reports throat pain which is separate from GI sx. Reports burning epigastric pain occurs 1-2 times a month now that he is on omeprazole. Throat pain occurs independently of the epigastric pain and lasts 2-3 days once it starts. Assoc with dry feeling, no globus or dysphagia reported. NO N/V. No change in bowel habits, no weight change. 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 Pt remains on iron for unclear reason, ferritin is normal. Incidentally noted was high Eos count. Pt reports occasional perirectal pruritus. Is from [facility] which is endemic for intestinal parasites. Does not smoke, etOH. No nsaid use. Records from [facility] GI reviewed - documentation lists fam hx of CRC but pt clarifies that this was not in his brother but rather second cousin/cousin once removed. EGD/colo 2022 (Dr Rayo): normal. T.I colon bx normal. gastric bx normal no HP. Duo bx normal. PFSH Medical History No pertinent past medical history Surgical History Hx of colonoscopy History of esophagogastroduodenoscopy (EGD) History of tonsillectomy Family History Father High blood pressure Diabetes Mother Diabetes Social History Household Members: Family Housing: House Are you a primary customer care specialist to a significant other at home: No Do you presently have visiting nurse or other home services: No 75 years or older and lives alone: No Alcohol intake: never Patient Tobacco Use Status: Never used Tobacco e-Cigarette/Vaping Use: Never Used Second Hand Smoke Exposure: No service: No Current occupational status: employed Current occupation: Housekeeping/ right hand dominant Current occupational exposures/hazards: No Cognitive needs: No Hearing needs: No Vision needs: No Review of Systems Const All systems reviewed & are unremarkable except as noted in HPI and below Physical Exam Vital Signs: Last Vital Signs Pulse 72 08/06/24 10:21 BP 131/61 08/06/24 10:21 BMI result Body Mass Index 28.3 No apparent distress Nonicteric Abdomen soft, nondistended Alert and oriented x3, normal gait Assessment & Plan Assessment & Plan (1) GERD (gastroesophageal reflux disease): Code(s): K21.9 - Gastro-esophageal reflux disease without esophagitis Category: Medical (2) Eosinophil count raised: Code(s): R89.8 - Other abnormal findings in specimens from other organs, systems and tissues Category: Medical (3) Throat pain: Code(s): R07.0 - Pain in throat Category: Medical Plan 1. Throat pain/epigastric pain: Ddx include GERD, EoE, dysmotility, ring/web low on DDx given normal EGD in 2022. Plan: - Cont omeprazole 20 - pt educated on correct way to take this - Barium swallow 2. Eosinophilia: Incidentally noted. ? helminthic infection since he is from [facility] Plan: - O and P x 3 - Empiric albendazole considered but pt reports will be travelling to [facility] x 1 month so can consider after his return. 3. Microcytic anemia: Has 2/2 alpha thal trait based on Hb electropharesis 2022. No iron deficiency noted, has normal ferritin Plan: - DC iron supplement Follow up 2 months Orders: Orders FL barium swallow Today K21.9 - Gastro-esophageal reflux disease without esophagitis Ova and Parasite 08/07/24 R89.8 - Other abnormal findings in specimens from other organs, systems and tissues Ova and Parasite Today R89.8 - Other abnormal findings in specimens from other organs, systems and tissues Ova and Parasite 08/08/24 R89.8 - Other abnormal findings in specimens from other organs, systems and tissues Medications: Refilled omeprazole 20 mg PO DAILY 30 days 30 caps 2RF Coding Level of Care Code New Pt Level 4 (65727) Complex EM visit Add On G2211 Diagnoses GERD (gastroesophageal reflux disease) K21.9 Eosinophil count raised R89.8 Throat pain R07.0
--- OUTSIDE RECORDS SUMMARY | 2024-08-06 11:20 | XMS_ITS | Clinical Summary ---
Author Organization [facility] Address [address] [place] [address] Care Team Providers Care Office Machines Wirer Name Role Phone Elba Mejia PA-C Primary Care Provider [phone] Source Comments PLEASE NOTE, if this patient is a minor, it may be UNLAWFUL to discuss sensitive information that is contained in these records (such as FAMILY PLANNING, MENTAL HEALTH or SUBSTANCE ABUSE) with the minor patient's parent or other person without the patient's specific authorization.[facility] Allergies No known active allergies Medications arm brace (WRIST BRACE)Indications:N umbness and tingling in both hands Complain of bilateral finger and hand numbness- wrist brace to wear daily , remove for care 2 Each 8 Active ibuprofen (ADVIL,MOTRIN) 800 mg tabletIndications:A cute costochondritis Take 1 Tab by mouth 3 (three) times daily as needed for pain 90 Tab 1 9 Active cetirizine (ZYRTEC) 5 mg tabletIndications:N selam congestion Take 1 Tab by mouth once daily 60 Tab 9 Active meloxicam (MOBIC) 15 mg tabletIndications:A cute left-sided low back pain with left-sided sciatica TAKE 1 TABLET BY MOUTH EVERY DAY 30 Tab 5 9 Active metFORMIN (GLUCOPHAGE-XR) 750 mg 24 hr tabletIndications:T ype 2 diabetes mellitus without complication, without long-term current use of insulin (HCC-CMS) Take 1 Tab by mouth once daily with breakfast 30 Tab 11 0 Active omega-3 fatty acids-fish oil (FISH OIL) 360-1,200 mg capIndications:Hype rtriglyceridemia Take 2 Caps by mouth 2 (two) times daily 120 Cap 11 0 Active lisinopriL 5 mg tabletIndications:E ssential hypertension, benign TAKE 1 TABLET BY MOUTH EVERY NIGHT AT BEDTIME 90 Tablet 1 4 Active Active Problems Problem Noted Date Diagnosed Date Positive QuantiFERON-TB Gold test 04/08/2019 Essential hypertension, benign 05/21/2018 LPRD (laryngopharyngeal reflux disease) 03/25/20 14 Type 2 diabetes mellitus wit hout complication, without long-term current use of insulin ([facility]) 12/24/2013 GERD (gastroesophageal reflu x disease) on fiberoptic laryngoscopy 02/19/2013 08/05/2013 PPD positive, treated 08/05/2013 Hypertriglyceridemia 04/17/2013 LENZ (nonalcoholic steatohepatitis) on ultrasoun d 06/21/2012 04/17/2013 Overview (04/17/2013): By Ultra sound done 06/21/2012 Non morbid obesity Mild vitamin D deficiency Immunizations Name Administration Dates Next Due Hep B, Adult/Adol (ENERGIX/RECOMBIVAX) 3,04/19/2012,03/20/2012 INFLUENZA, SEASONAL, INJECTABLE 06/03/2015,04/17 MMR (MMR II/Priorix) 01/23/2012,07/06/2011 TDAP 01/23/2012 Td(adult),2 Lf tetanus toxoi d,preservative free 07/06/2011,07/06/2011 Family History Medical History Relation Name Comments Diabetes Father Relation Name Status Comments Brother Alive Father Alive Mother Alive Sister Alive Social History Tobacco Use Types Packs/Day Years Used Date Smoking Tobacco: Never Smokeless Tobacco: Never Alcohol Use Standard Drinks/Week Comments No 0 (1 standard drink = 0.6 oz pur e alcohol) Social Connections Answer Date Recorded Connectedness 0 04/02/2024 Financial Resource Strain Answer Date R ecorded Financial Resource Strain 0 2018 Stress Answer Date Recorded Stress 0 03/05/2019 Physical Activity Answer Date Recorded Physical Activity 0 03/05/2019 Food Insecurity Answer Date Recorded Food 0 04/10/2024 Transportation Needs Answer Date Record ed Transportation 0 03/05/2019 Housing Stability Answer Date Recorded Housing 0 03/05/2019 Safety and Environment Answer Date William rded Safety 0 03/05/2019 Utilities Answer Date Recorded Utilities 0 03/05/2019 Employment Answer Date Recorded Stress 0 04/02/2024 Sex and Gender Information Value Date Recorded Sex Assigned at Male 05/11/2017 12:21 PM PDT Legal Sex Male 11:36 AM PDT Gender Identity Male 05/11/2017 12:21 PM PDT Sexual Orientation Straight 05/11/2017 12 :21 PM PDT Last Filed Vital Signs Vital Sign Reading Time Taken Comments Blood Pressure 126/80 06/06/2019 9:10 AM EST Pulse 64 06/06/2019 9:10 AM EST Temperature 36.8 ??C (98.2 ??F) 06/06/2019 9:10 AM ES T Respiratory Rate 16 06/06/2019 9:10 AM EST Oxygen Saturation 98% 06/06/2019 9:10 AM EST Inhaled Oxygen Concentration - - Weight 75.3 kg (166 lb) 06/06/2019 9:10 AM EST Height 163 cm (5' 4.17 ) 06/06/2019 9:10 AM EST Body Mass Index 28.34 06/06/2019 9:10 AM EST Plan of Treatment Health Maintenance Due Date Last Done Comments Dental Examination 1982 Tobacco Screening 1982 Retinopathy Screening 12/07/1995 Imm-Pneumococcal (1 of 2 - PCV) 2001 Annual Preventive Care Visit 06/06/2020, 05/21/2018, 12/01/2016, Additional history exists Diabetes Foot Exam 06/06/2020 06/06/2019 Diabetes HbA1c 07/17/2020 01/15/2020, 02/13, 11/15/2018, Additional history exists Diabetes Microalbumin (w/Creatinine) 01/14/2021 01/15/2020, 05/21/2018, 09/17/2017 Lipid Screening 01/14/2021 01/15/2020, 02/13, 11/15/2018, Additional history exists Serum Creatinine 01/14/2021 01/15/2020, , 11/15/2018, Additional history exists Imm-DTaP/Tdap/Td (2 - Td or Tdap) 01/22/2022 01/23/2012, 07/06/2011, 07/06/2011 [id number] ( season) 2024 Imm-Hepatitis B Completed 02/11/2013, 11/2011, 03/20/2012 Imm-Influenza Discontinued 06/03/2015, 04/17/2013 HIV Screening Completed 11/15/2018 Alcohol and Drug Screen Discontinued 01/13/20 20, 05/21/2018, 07/06/2015, Additional history exists Depression Annual Screen Discontinued 020, 03/25/2014 (Declined) Hepatitis C Screening Completed 01/15/2020 Goals Goal Patient Goal Type Associated Problems Recent Progress Patient-Stated? Author Blood Pressure < 130/80 Blood Pressure Essential hypertension, benign 126/80( 019 9:10 AM EST) Alfredo Aguirre, PharmD Procedures Procedure Name Priority Date/Time Associated Diagnosis Comments COMPREHENSIVE METABOLIC PANEL Routine 01/15/2020 9:18 AM EDT Type 2 diabetes mellitus without complication, without long-term current use of insulin ([facility]) Essential hypertension, benign Hypertriglyceridem ia HEPATITIS C ANTIBODY Routine 01/15/2020 9:18 AM EDT Type 2 diabetes mellitus without complication, without long-term current use of insulin ([facility]) Essential hypertension, benign Hypertriglyceridem ia LIPID PANEL Routine 01/15/2020 9:18 AM EDT Type 2 diabetes mellitus without complication, without long-term current use of insulin ([facility]) Essential hypertension, benign Hypertriglyceridem ia HEMOGLOBIN GLYCOSYLATED A1C Routine 01/15/2020 9:18 AM EDT Type 2 diabetes mellitus without complication, without long-term current use of insulin ([facility]) Essential hypertension, benign Hypertriglyceridem ia MICROALBUMIN/CREATININ E RATIO, URINE, RANDOM Routine 01/15/2020 9:14 AM EDT Type 2 diabetes mellitus without complication, without long-term current use of insulin ([facility]) Essential hypertension, benign Hypertriglyceridem ia ANTIBODY HIV-1&HIV-2 SINGLE RESULT Routine 11/15/2018 10:55 AM EDT Type 2 diabetes mellitus without complication, without long-term current use of insulin ([facility]) from Last 3 Months or Most Recently Relevant to Health Maintenance Results * HEPATITIS C ANTIBODY (01/15/2020 9:18 AM EDT) Pathologist [facility] HEPATITIS C VIRUS SCREEN NEGATIVE NEGATIVE [facility] Blood specimen (specimen) Blood / Unknown 01/15/2020 9:18 AM EDT 01/15/2020 1:35 PM EDT - 01/15/2020 3:27 PM EDT [employer], [place] [address] Manager Diabetes [place] [id number] ORD# [id number] Elba Mejia PA-C LAB - BLOOD DRAW Final Resul t Performing Organization Address City/[facility]/[place] [address], * HEMOGLOBIN, GLYCOSYLATED (A1C) (01/15/2020 9:18 AM EDT) Pathologist [facility] GLYCATED HEMOGLOBIN A1C 6.3 <6.5 % [facility] ESTIMATED AVERAGE GLUCOSE 134 mg/dL [facility] Blood specimen (specimen) Blood / Unknown 01/15/2020 9:18 AM EDT 01/15/2020 1:35 PM EDT [facility] - 01/15/2020 2:30 PM EDT [employer], a member of [address] [address] Manager [place] [id number] ORD# [id number] Elba Mejia PA-C LAB - [place] [address], * (ABNORMAL) LIPID PANEL (01/15/2020 9:18 AM EDT) CHOLESTEROL 180 0 - 200 mg/dL [facility] TRIGLYCERIDES 338(H) 0 - 150 mg/dL [facility] HDL CHOLESTEROL 36(L) >40 mg/dL [facility] LDL CALCULATED 77 0 - 100 mg/dL [facility] TC-HDLC RATIO 5.0(H) 0 - 4.4 mg/dL [facility] Blood specimen (specimen) Blood / Unknown 01/15/2020 9:18 AM EDT 01/15/2020 1:35 PM EDT Narrative [facility] - 01/15/2020 2:41 PM EDT [facility] [employer], [place] [address] Manager Diabetes [place] [id number] ORD# [id number] Elba Mejia PA-C LAB - BLOOD DRAW Edited Resu lt - Final Performing Organization Address City/State/[facility] [place] [place] [address], * (ABNORMAL) COMPRE METAB PANEL (01/15/2020 9:18 AM EDT) BUN 18 5 - 25 mg/dL [facility] CREAT 0.96 0.7 - 1.3 mg/dL [facility] GLOMERULAR FILTRATION RATE > 60 [facility] Comment: If patient is -French, multiply result by 1.21 Chronic Kidney Disease: < 60 ml/min/1.73 square meters Kidney Failure: < 15 ml/min/1.73 square meters SODIUM 137 135 - 145 mEq/L [facility] POTASSIUM 4.7 3.5 - 5.5 mmol/L [facility] CHLORIDE 103 96 - 110 mmol/L [facility] CO2 30 21 - 32 mmol/L [facility] ANION GAP 4 3 - 11 [facility] CALCIUM 9.6 8.5 - 10.5 mg/dL [facility] ALBUMIN 3.8 3.2 - 5.0 G/dL [facility] SGPT 55 10 - 60 U/L [facility] GLUCOSE 114(H) 70 - 100 mg/dL [facility] Comment:Reference range appl icable to fasting specimens only TOTAL PROTEIN 7.6 6.0 - 8.0 G/dL [facility] BILI, TOTAL 0.3 0.0 - 1.4 mg/dL [facility] SGOT 29 10 - 42 U/L [facility] ALK PHOS 56 42 - 121 U/L [facility] Blood specimen (specimen) Blood / Unknown 01/15/2020 9:18 AM EDT 01/15/2020 1:35 PM EDT [facility] - 01/15/2020 3:09 PM EDT [employer], [place] [address] Manager Diabetes [place] [id number] ORD# [id number] Elba Mejia PA-C LAB - BLOOD DRAW [place] [address], * (ABNORMAL) MICROALBUMIN/CREATININE RATIO, URINE, RANDOM (01/15/2020 9:14 AM EDT) CREATININE, RANDOM URINE 106 mg/dL [facility] MICROALBUMIN, RANDOM 47.5(H) 0.0 - 29.0 mg/L [facility] MICROALB/CRE RATIO RANDOM 44.8(H) 0.0 - 30.0 mg/G [facility] Urine specimen (specimen) Urine specimen / Unknown 01/15/2020 9:14 AM EDT 01/15/2020 1:35 PM EDT [facility] - 01/15/2020 2:59 PM EDT [employer], [place] [address] Manager [place] [id number] ORD# [id number] Elba Mejia PA-C LAB - NO BLOOD DRAW Edited R esult - Final Performing Organization Address City/[facility]/[place] [address], * HIV-1 & HIV-2 ANTIBODIES (11/15/2018 10:55 AM EDT) [facility] HIV 1 AND 2 ANTIBODY SCREEN NEGATIVE NEGATIVE [facility] Comment: This assay is a 4th generation assay allowing for earlier detection of HIV infection by detecting the presence of the HIV-1 p24 antigen as well as the traditional antibodies to HIV type 1 (including group O) and type 2. ??Use of a 4th generation assay is the current CDC recommendation for HIV screening. Blood specimen (specimen) Blood / Unknown 11/15/2018 10:55 AM EDT 11/15/2018 11:41 AM EDT Narrative [facility] - 11/15/2018 5:04 PM EDT [employer], [place] [address] Manager Diabetes [place] [id number] ORD# [id number] Elba Mejia PA-C LAB - BLOOD DRAW Final Resul t Performing Organization Address City/[facility]/ZIP Co de Phone Number [address] [address], [place] [phone] from Last 3 Months or Most Recently Relevant to Health Maintenance Insurance [employer] Member Subscriber Plan / Payer (Ef fective 2018-Present) Name:Iván Thomas Relation to Subscriber:Self Name:Iván Thomas Payer ID:[id number] Type:Indemnity Address: [address] [address] Care Teams Office Machines Wirer Relationship Specialty Start Date End Date Elba Mejia PA-C [address] [place] [phone] PCP - General Internal Medicine 10/21/13
== END 2024-08-06 11:02 | disposition home or self-care (01) ==
PROVIDERS: PCP Family Medicine; Visit Provider Internal Medicine
DX: K21.9 Gastro-esophageal reflux disease without esophagitis (principal); R89.8 Other abnormal findings in specimens from other organs, systems and tissues; R07.0 Pain in throat
CPT/HCPCS: 99204; G2211

== ENCOUNTER 2024-08-11 08:15 | Outpatient (REF) | payer OTHER, SELFPAY ==
--- OUTSIDE RECORDS SUMMARY | 2024-08-11 16:21 | XMS_ITS | Clinical Summary ---
Author Organization [facility] Address [address] [place] [address] Care Team Providers Care Water Taxi Boat Mate Name Role Phone Elba Mejia PA-C Primary Care Provider [phone] Source Comments PLEASE NOTE, if this patient [...] complication, without long-term current use of insulin ([facility]) 12/24/2013 GERD (gastroesophageal reflu x disease) on [...] Td or Tdap) 01/22/2022 01/23/2012, 07/06/2011, 07/06/2011 [id number] ( season) 2024 Imm-Hepatitis B Completed 02/11/2013, [...] complication, without long-term current use of insulin ([facility]) Essential hypertension, benign Hypertriglyceridem ia HEPATITIS C ANTIBODY Routine 01/15/2020 9:18 AM EDT Type 2 diabetes mellitus without complication, without long-term current use of insulin ([facility]) Essential hypertension, benign Hypertriglyceridem ia LIPID PANEL Routine 01/15/2020 9:18 AM EDT Type 2 diabetes mellitus without complication, without long-term current use of insulin ([facility]) Essential hypertension, benign Hypertriglyceridem ia HEMOGLOBIN GLYCOSYLATED A1C Routine 01/15/2020 9:18 AM EDT Type 2 diabetes mellitus without complication, without long-term current use of insulin ([facility]) Essential hypertension, benign Hypertriglyceridem ia MICROALBUMIN/CREATININ E RATIO, URINE, RANDOM Routine 01/15/2020 9:14 AM EDT Type 2 diabetes mellitus without complication, without long-term current use of insulin ([facility]) Essential hypertension, benign Hypertriglyceridem ia ANTIBODY HIV-1&HIV-2 SINGLE RESULT Routine 11/15/2018 10:55 AM EDT Type 2 diabetes mellitus without complication, without long-term current use of insulin ([facility]) from Last 3 Months or Most Recently Relevant to Health Maintenance Results * HEPATITIS C ANTIBODY (01/15/2020 9:18 AM EDT) Pathologist [facility] HEPATITIS C VIRUS SCREEN NEGATIVE NEGATIVE [facility] Blood specimen (specimen) Blood / Unknown 01/15/2020 9:18 AM EDT 01/15/2020 1:35 PM EDT [facility] - 01/15/2020 3:27 PM EDT [employer], [place] [address] Vice President Quality [place] [id number] ORD# [id number] Elba Mejia PA-C LAB - BLOOD DRAW Final Resul t Performing Organization Address City/[facility]/ZIP [place] [address], * HEMOGLOBIN, GLYCOSYLATED (A1C) (01/15/2020 9:18 AM EDT) Pathologist [facility] GLYCATED HEMOGLOBIN A1C 6.3 <6.5 % [facility] ESTIMATED AVERAGE GLUCOSE 134 mg/dL [facility] Blood specimen (specimen) Blood / Unknown 01/15/2020 9:18 AM EDT 01/15/2020 1:35 PM EDT [facility] - 01/15/2020 2:30 PM EDT [employer], a member of [address] [address] Vice President Quality [place] [id number] ORD# [id number] Elba Mejia PA-C LAB - BLOOD DRAW [place] [address], * (ABNORMAL) LIPID PANEL (01/15/2020 9:18 AM EDT) CHOLESTEROL 180 0 - 200 mg/dL [facility] TRIGLYCERIDES 338(H) 0 - 150 mg/dL [facility] HDL CHOLESTEROL 36(L) >40 mg/dL [facility] LDL CALCULATED 77 0 - 100 mg/dL [facility] TC-HDLC RATIO 5.0(H) 0 - 4.4 mg/dL [facility] Blood specimen (specimen) Blood / Unknown 01/15/2020 9:18 AM EDT 01/15/2020 1:35 PM EDT Narrative [facility] - 01/15/2020 2:41 PM EDT [facility] [employer], [place] [address] Vice President Quality [place] [id number] ORD# [id number] Elba Mejia PA-C LAB - BLOOD DRAW Edited Resu lt - Final Performing Organization Address City/State/[facility] [place] [address], * (ABNORMAL) COMPRE METAB PANEL (01/15/2020 9:18 AM EDT) BUN 18 5 - 25 mg/dL [facility] CREAT 0.96 0.7 - 1.3 mg/dL [facility] GLOMERULAR FILTRATION RATE > 60 [facility] Comment: If patient is -Citizen Of [place], multiply result by 1.21 Chronic Kidney Disease: < 60 ml/min/1.73 square meters Kidney Failure: < 15 ml/min/1.73 square meters SODIUM 137 135 - 145 mEq/L [facility] POTASSIUM 4.7 3.5 - 5.5 mmol/L [facility] CHLORIDE 103 96 - 110 mmol/L [facility] CO2 30 21 - 32 mmol/L [facility] ANION GAP 4 3 - 11 [facility] CALCIUM 9.6 8.5 - 10.5 mg/dL [facility] ALBUMIN 3.8 3.2 - 5.0 G/dL [facility] SGPT 55 10 - 60 U/L [facility] GLUCOSE 114(H) 70 - 100 mg/dL [facility] Comment:Reference range appl icable to fasting specimens only TOTAL PROTEIN 7.6 6.0 - 8.0 G/dL [facility] BILI, TOTAL 0.3 0.0 - 1.4 mg/dL [facility] SGOT 29 10 - 42 U/L [facility] ALK PHOS 56 42 - 121 U/L [facility] Blood specimen (specimen) Blood / Unknown 01/15/2020 9:18 AM EDT 01/15/2020 1:35 PM EDT [facility] - 01/15/2020 3:09 PM EDT [employer], [place] [address] Vice President [place] [id number] ORD# [id number] Elba Mejia PA-C LAB - BLOOD DRAW Edited Resu lt [place] [address], * (ABNORMAL) MICROALBUMIN/CREATININE RATIO, URINE, RANDOM (01/15/2020 9:14 AM EDT) CREATININE, RANDOM URINE 106 mg/dL [facility] MICROALBUMIN, RANDOM 47.5(H) 0.0 - 29.0 mg/L [facility] MICROALB/CRE RATIO RANDOM 44.8(H) 0.0 - 30.0 mg/G [facility] Urine specimen (specimen) Urine specimen / Unknown 01/15/2020 9:14 AM EDT 01/15/2020 1:35 PM EDT [facility] - 01/15/2020 2:59 PM EDT [employer], [place] [address] Vice President [place] [id number] ORD# [id number] Elba Mejia PA-C LAB - NO BLOOD DRAW Edited R esult - Final Performing Organization Address City/[facility]/ZIP [place] [address], * HIV-1 & HIV-2 ANTIBODIES (11/15/2018 10:55 AM EDT) [facility] HIV 1 AND 2 ANTIBODY SCREEN NEGATIVE NEGATIVE [facility] Comment: This assay is a 4th generation [...] AM EDT 11/15/2018 11:41 AM EDT Narrative [facility] [employer] [facility] - 11/15/2018 5:04 PM EDT [employer], [place] [address] Vice President Quality [place] [id number] ORD# [id number] Elba Mejia PA-C LAB - BLOOD DRAW Final Resul t Performing Organization Address City/[facility]/ZIP Co de Phone Number [address] [address], [place] [phone] from Last 3 Months or Most Recently Relevant to Health Maintenance Insurance [employer] NET DENT[employer] Member Subscriber Plan / Payer (Ef fective 2018-Present) Name:Iván Thomas Relation to Subscriber:Self Name:Iván Thomas Payer ID:[id number] Type:Indemnity Address: [address] [address] Care Teams [employer] Relationship Specialty Start Date End Date Elba Mejia PA-C [address] [place] [phone] PCP - General Internal Medicine 10/21/13
== END 2024-08-11 08:16 | disposition home or self-care (01) ==
LOC: HO.LNP 08:15
PROVIDERS: Visit Provider Internal Medicine
DX: R89.8 Other abnormal findings in specimens from other organs, systems and tissues (principal)
CPT/HCPCS: 87177; 87209

== ENCOUNTER 2024-08-12 11:22 | Outpatient (REF) | payer OTHER, SELFPAY | END 2024-08-12 11:23 | disposition home or self-care (01) | LOC: HO.LNP 11:22 | PROVIDERS: Visit Provider Internal Medicine | DX: R89.8 Other abnormal findings in specimens from other organs, systems and tissues (principal) | CPT/HCPCS: 87177; 87209 ==

== ENCOUNTER 2024-08-13 14:36 | Outpatient (REF) | payer OTHER, SELFPAY | END 2024-08-13 14:37 | disposition home or self-care (01) | LOC: HO.LNP 14:36 | PROVIDERS: Visit Provider Internal Medicine | DX: R89.8 Other abnormal findings in specimens from other organs, systems and tissues (principal) | CPT/HCPCS: 87177; 87209 ==

== ENCOUNTER 2024-08-29 09:20 | Outpatient (AMB) | payer OTHER, SELFPAY ==
--- OUTSIDE RECORDS SUMMARY | 2024-08-29 09:42 | XMS_ITS | Clinical Summary ---
Author Organization [facility] Address [address] [place] [address] Care Team Providers Care Collar Setter Overlock Name Role Phone Elba Mejia PA-C Primary Care Provider [phone] Source Comments PLEASE NOTE, if this patient [...] complication, without long-term current use of insulin ([facility]) 12/24/2013 GERD (gastroesophageal reflu x [...] Td or Tdap) 01/22/2022 01/23/2012, 07/06/2011, 07/06/2011 [id number] ( season) 2024 Imm-Hepatitis B Completed 02/11/2013, [...] without long-term current use of insulin ([facility]) Essential hypertension, benign Hypertriglyceridem ia HEPATITIS C ANTIBODY Routine 01/15/2020 9:18 AM EDT Type 2 diabetes mellitus without complication, without long-term current use of insulin ([facility]) Essential hypertension, benign Hypertriglyceridem ia LIPID PANEL Routine 01/15/2020 9:18 AM EDT Type 2 diabetes mellitus without complication, without long-term current use of insulin ([facility]) Essential hypertension, benign Hypertriglyceridem ia HEMOGLOBIN GLYCOSYLATED A1C Routine 01/15/2020 9:18 AM EDT Type 2 diabetes mellitus without complication, without long-term current use of insulin ([facility]) Essential hypertension, benign Hypertriglyceridem ia MICROALBUMIN/CREATININ E RATIO, URINE, RANDOM Routine 01/15/2020 9:14 AM EDT Type 2 diabetes mellitus without complication, without long-term current use of insulin ([facility]) Essential hypertension, benign Hypertriglyceridem ia ANTIBODY HIV-1&HIV-2 SINGLE RESULT Routine 11/15/2018 10:55 AM EDT Type 2 diabetes mellitus without complication, without long-term current use of insulin ([facility]) from Last 3 Months or Most Recently Relevant to Health Maintenance Results * HEPATITIS C ANTIBODY (01/15/2020 9:18 AM EDT) Pathologist [facility] HEPATITIS C VIRUS SCREEN NEGATIVE NEGATIVE [facility] Blood specimen (specimen) Blood / Unknown 01/15/2020 9:18 AM EDT 01/15/2020 1:35 PM EDT [facility] - 01/15/2020 3:27 PM EDT [employer], [place] [address] Television [place]ist [place] [id number] ORD# [id number] Elba Mejia PA-C LAB - BLOOD DRAW Final Resul t Performing Organization Address City/[facility]/[place] [address], * HEMOGLOBIN, GLYCOSYLATED (A1C) (01/15/2020 9:18 AM EDT) Pathologist [facility] GLYCATED HEMOGLOBIN A1C 6.3 <6.5 % [facility] ESTIMATED AVERAGE GLUCOSE 134 mg/dL [facility] Blood specimen (specimen) Blood / Unknown 01/15/2020 9:18 AM EDT 01/15/2020 1:35 PM EDT [employer] [facility] - 01/15/2020 2:30 PM EDT [employer], a member of [address] [address] Television [place]ist [place] [id number] ORD# [id number] Elba Mejia PA-C LAB - [place] [address], * (ABNORMAL) LIPID PANEL (01/15/2020 9:18 AM EDT) CHOLESTEROL 180 0 - 200 mg/dL [facility] TRIGLYCERIDES 338(H) 0 - 150 mg/dL [facility] HDL CHOLESTEROL 36(L) >40 mg/dL [facility] LDL CALCULATED 77 0 - 100 mg/dL [facility] TC-HDLC RATIO 5.0(H) 0 - 4.4 mg/dL [facility] Blood specimen (specimen) Blood / Unknown 01/15/2020 9:18 AM EDT 01/15/2020 1:35 PM EDT Narrative [facility] - 01/15/2020 2:41 PM EDT [facility] [employer], [place] [address] Television Journalist [place] [id number] ORD# [id number] Elba Mejia PA-C LAB - BLOOD DRAW Edited Resu lt - Final Performing Organization Address City/State/[facility] [place] [address], * (ABNORMAL) COMPRE METAB PANEL (01/15/2020 9:18 AM EDT) BUN 18 5 - 25 mg/dL [facility] CREAT 0.96 0.7 - 1.3 mg/dL [facility] GLOMERULAR FILTRATION RATE > 60 [facility] Comment: If patient is -Angolan, multiply result by 1.21 Chronic Kidney Disease: < 60 ml/min/1.73 square meters Kidney Failure: < 15 ml/min/1.73 square meters SODIUM 137 135 - 145 mEq/L [facility] POTASSIUM 4.7 3.5 - 5.5 mmol/L [facility] CHLORIDE 103 96 - 110 mmol/L [facility] CO2 30 21 - 32 mmol/L [facility] ANION GAP 4 3 - 11 [facility] CALCIUM 9.6 8.5 - 10.5 mg/dL [facility] ALBUMIN 3.8 3.2 - 5.0 G/dL [facility] SGPT 55 10 - 60 U/L [facility] GLUCOSE 114(H) 70 - 100 mg/dL [facility] Comment:Reference range appl icable to fasting specimens only TOTAL PROTEIN 7.6 6.0 - 8.0 G/dL [facility] BILI, TOTAL 0.3 0.0 - 1.4 mg/dL [facility] SGOT 29 10 - 42 U/L [facility] ALK PHOS 56 42 - 121 U/L [facility] Blood specimen (specimen) Blood / Unknown 01/15/2020 9:18 AM EDT 01/15/2020 1:35 PM EDT [employer] - 01/15/2020 3:09 PM EDT [employer], [place] [address] Television Journalist [place] [id number] ORD# [id number] Elba Mejia PA-C LAB - BLOOD DRAW [place] [address], * (ABNORMAL) MICROALBUMIN/CREATININE RATIO, URINE, RANDOM (01/15/2020 9:14 AM EDT) CREATININE, RANDOM URINE 106 mg/dL [facility] MICROALBUMIN, RANDOM 47.5(H) 0.0 - 29.0 mg/L [facility] MICROALB/CRE RATIO RANDOM 44.8(H) 0.0 - 30.0 mg/G [facility] Urine specimen (specimen) Urine specimen / Unknown 01/15/2020 9:14 AM EDT 01/15/2020 1:35 PM EDT [employer] - 01/15/2020 2:59 PM EDT [employer], [place] [address] Television Journalist [place] [id number] ORD# [id number] Elba Mejia PA-C LAB - NO BLOOD DRAW Edited R esult - Final Performing Organization Address City/[facility]/[place] [address], * HIV-1 & HIV-2 ANTIBODIES (11/15/2018 10:55 AM EDT) [facility] HIV 1 AND 2 ANTIBODY SCREEN NEGATIVE NEGATIVE [facility] Comment: This assay is a 4th generation [...] AM EDT 11/15/2018 11:41 AM EDT Narrative [facility] - 11/15/2018 5:04 PM EDT [employer], [place] [address] Television Journalist [place] [id number] ORD# [id number] Elba Mejia PA-C LAB - BLOOD DRAW Final Resul t Performing Organization Address City/[facility]/ZIP Co de Phone Number [address] [address], [place] [phone] from Last 3 Months or Most Recently Relevant to Health Maintenance Insurance [employer]AF[employer] NET DENTAL [facility] Member Subscriber Plan / Payer (Ef fective 2018-Present) Name:Iván Thomas Relation to Subscriber:Self Name:Iván Thomas Payer ID:[id number] Type:Indemnity Address: [address] [address] Care Teams Collar Setter Overlock Relationship Specialty Start Date End Date Elba Mejia PA-C [address] [place] [phone] PCP - General Internal Medicine 10/21/13
--- NOTE | 2024-08-29 10:41 | A.OFFPC_ITS ---
Intake Visit Reasons: f/u mild anemia, labs Allergies No Known Allergies Allergy (Verified 08/06/24 10:23) Medication List - Last Reconciled 08/29/24 by Ashutosh Agarwal MD docusate sodium (Colace) 100 mg PO BID 30 days fenofibrate 54 mg PO DAILY 90 days ferrous gluconate 236 mg PO .QOD 30 days folic acid 1 mg PO DAILY ibuprofen 600 mg PO Q8H PRN lisinopril 5 mg PO BEDTIME ofloxacin 0.3% 10 drps otic (ears) DAILY 7 days omeprazole 20 mg PO DAILY 30 days polyethylene glycol 3350 (Miralax) 17 grams PO .QOD 28 days Tobacco use date assessed: 04/29/24 Dental Screening Dental Screen Date: 04/29/24 HPI f/u mild anemia, labs HPI Details 43 y/o male presents to f/u mild anemia, labs. Reports ongoing abd. pain. He notes he saw GI last month and has an upcoming appt with them in September. Had previous complaints of testicular lump. Scrotum ultrasound 05/08/24 showed: 1. No testicular mass is seen. 2. Small bilateral hydroceles. 3. Small right epididymal cyst. 4. 6 mm calcified skin lesion in the ri ght hemiscrotum. Reports a sore throat x1 week. [facility] Medical History No pertinent past medical history Surgical History Hx of colonoscopy History of esophagogastroduodenoscopy (EGD) History of tonsillectomy Family History Father High blood pressure Diabetes Mother Diabetes Social History Household Members: Family Housing: House Are you a primary rn progressive care to a significant other at home: No Do you presently have visiting nurse or other home services: No 75 years or older and lives alone: No Alcohol intake: never Patient Tobacco Use Status: Never used Tobacco e-Cigarette/Vaping Use: Never Used Second Hand Smoke Exposure: No service: No Current occupational status: employed Current occupation: Housekeeping/ right hand dominant Current occupational exposures/hazards: No Cognitive needs: No Hearing needs: No Vision needs: No Questionnaire PHQ-9 Over the last 2 weeks, how often have you been bothered by any of the following problems? 1. Little interest or pleasure in doing things: not at all 2. Feeling down, depressed, or hopeless: not at all 3. Trouble falling or staying asleep, or sleeping too much: not at all 4. Feeling tired or having little energy: not at all 5. Poor appetite or overeating: not at all 6. Feeling bad about yourself - or that you are a failure or have let yourself or your family down: not at all 7. Trouble concentrating on things, such as reading the newspaper or watching television: not at all 8. Moving or speaking so slowly that other people could have noticed. Or the opposite - being so fidgety or restless that you have been moving around a lot more than usual: not at all 9. Thoughts that you would be better off or of hurting yourself in some way: not at all Total score: 0 Source: Developed by Drs. Lang Sullivan, Donna Francois, Linwood Franks and colleagues, with an educational nba from [employer]. Thrive Questionnaire Date Thrive assessed: 04/29/24 I am a: Patient What is your living situation today?: I have a steady place to live Within the past 12 months, did the food you bought not last and you didn't have the money to get more?: Never true Within the past 12 months, did you worry whether your food would run out before you got money to buy more?: Never true Do you have trouble paying for medicines?: No Do you have trouble getting transportation to medical appointments?: No Do you have trouble paying your heating and electricity bill?: No Do you have trouble taking care of your child, family member or friend?: No Do you have trouble with day-to-day activities such as bathing, preparing meals, shopping, managing finances, etc.?: No Are you currently unemployed and looking for a job?: No Are you interested in more education?: No Please select the resources that you would like help with: None Currently or been in a relationship where the following occur: I choose not to answer THRIVE Score: 0 AUDIT C Alcohol Use Questionnaire (AUDIT-C) 1. How often do you have a drink containing alcohol?: Never Total Score: 0 ABIOLA-7 AMB Questionnaire ABIOLA-7 Date ABIOLA - 7 assessed: 04/29/24 Feeling nervous, anxious, or on edge: 0 = Not at all Not being able to stop or control worryin = Not at all Worrying too much about different things: 0 = Not at all Trouble relaxin = Not at all Being so restless that it is hard to sit still: 0 = Not at all Becoming easily annoyed or irritable: 0 = Not at all Feeling afraid as if something awful might happen: 0 = Not at all Total ABIOLA-7 score (0-4 normal; 5-9 mild; 10-14 moderate; 15-21 severe): 0 Source: Developed by Drs. Lang Sullivan, Donna Francois, Linwood Franks and colleagues, with an educational nba from [employer]. Review of Systems ENT Details: Ear pain GI Reports abdominal pain Physical exam (Primary Care) Tobacco/Smoking Status: Tobacco use Status Tobacco use date assessed 04/29/24 05/28/24 09:22 Patient Tobacco Use Status Never used Tobacco 07/10/24 10:04 e-Cigarette/Vaping Use Never Used 05/28/24 09:22 Thrive Assessment: Date of Thrive Assessment Date Thrive assessed 04/29/24 05/28/24 09:22 Currently or been in a relationship where the following occur: I choose not to answer Coding Level of Care Code Est Pt Level 4 (54744) Diagnoses Left upper quadrant abdominal pain R10.12 Abdominal location: left upper quadrant Mild anemia D64.9 Testicular lump N50.89 Ear pain H92.09 Assessment & Plan Assessment & Plan (1) Abdominal pain: Code(s): R10.9 - Unspecified abdominal pain Category: Medical Qualifiers: Abdominal location: left upper quadrant Qualified Code(s): R10.12 - Left upper quadrant pain Plan: Ongoing?abdominal?discomfort?and?bloating/distention He?has?been?taking?iron?daily?for?a?mild?anemia. He?can?discontinue?this We?can?follow-up?on?his?mild?anemia?periodically. Hydrate?well Has?CT?scan?of?abdomen?in?early?September?and?follow- up?thereafter?with?gastroenterology (2) Mild anemia: Code(s): D64.9 - Anemia, unspecified Category: Medical Plan: Advised?he?can?hold?off?on?iron?for?now.??Will?continue?to?monitor (3) Testicular lump: Code(s): N50.89 - Other specified disorders of the male genital organs Category: Medical Plan: Ultrasound?showed?small?hydrocele,?small?epididymal?cyst?an d?small?calcification?of?skin?of?scrotum Potentially?these?could?cause?his?discomfort. We?discussed?that?these?are?benign?lesions?and?did?not?need?to?be?removed?unless ?he?is?having?significant?discomfort.?? Would?like?a?referral?to?discuss?possibility?of?removal?with?Urology. (4) Ear pain: Code(s): H92.09 - Otalgia, unspecified ear Category: Medical Plan: Appears?to?have?mild otitis?media?at?right?ear. 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 dose?of?albendazole?as?he?is?going?to?[place]. I?have?sent?a?script Orders: Referrals Urology Referral N50.89 - Other specified disorders of the male genital organs Medications: New albendazole 200 mg PO BID 10 days 20 tabs 0RF azithromycin (Zithromax Z-Gino) take 500 mg today (day 1), then 250 mg for 4 days (days 2-5) PO 5 days 6 tabs 0RF
== END 2024-08-29 11:00 | disposition home or self-care (01) ==
PROVIDERS: PCP Family Medicine; Visit Provider Family Medicine
DX: R10.12 Left upper quadrant pain (principal); D64.9 Anemia, unspecified; N50.89 Other specified disorders of the male genital organs; H92.09 Otalgia, unspecified ear

== ENCOUNTER → 2024-08-29 09:20 | Outpatient (BNVA) | payer OTHER, SELFPAY | PROVIDERS: PCP Family Medicine; Visit Provider Family Medicine ==

== ENCOUNTER 2024-08-29 10:55 | Outpatient (REF) | payer OTHER, SELFPAY ==
--- OUTSIDE RECORDS SUMMARY | 2024-08-29 11:54 | XMS_ITS | Clinical Summary ---
Author Organization [facility] Address [address] [place] [address] Care Team Providers Care Coating Machine Feeder Name Role Phone Elba Mejia PA-C Primary Care Provider [phone] Source Comments PLEASE NOTE, if this patient [...] complication, without long-term current use of insulin ([facility]) 12/24/2013 GERD (gastroesophageal reflu x disease) [...] Td or Tdap) 01/22/2022 01/23/2012, 07/06/2011, 07/06/2011 Pre-[id number] ( season) 2024 Imm-Hepatitis B Completed 02/11/2013, [...] complication, without long-term current use of insulin ([facility]) Essential hypertension, benign Hypertriglyceridem ia HEPATITIS C ANTIBODY Routine 01/15/2020 9:18 AM EDT Type 2 diabetes mellitus without complication, without long-term current use of insulin ([facility]) Essential hypertension, benign Hypertriglyceridem ia LIPID PANEL Routine 01/15/2020 9:18 AM EDT Type 2 diabetes mellitus without complication, without long-term current use of insulin ([facility]) Essential hypertension, benign Hypertriglyceridem ia HEMOGLOBIN GLYCOSYLATED A1C Routine 01/15/2020 9:18 AM EDT Type 2 diabetes mellitus without complication, without long-term current use of insulin ([facility]) Essential hypertension, benign Hypertriglyceridem ia MICROALBUMIN/CREATININ E RATIO, URINE, RANDOM Routine 01/15/2020 9:14 AM EDT Type 2 diabetes mellitus without complication, without long-term current use of insulin ([facility]) Essential hypertension, benign Hypertriglyceridem ia ANTIBODY HIV-1&HIV-2 SINGLE RESULT Routine 11/15/2018 10:55 AM EDT Type 2 diabetes mellitus without complication, without long-term current use of insulin ([facility]) from Last 3 Months or Most Recently Relevant to Health Maintenance Results * HEPATITIS C ANTIBODY (01/15/2020 9:18 AM EDT) Pathologist [facility] HEPATITIS C VIRUS SCREEN NEGATIVE NEGATIVE [facility] Blood specimen (specimen) Blood / Unknown 01/15/2020 9:18 AM EDT 01/15/2020 1:35 PM EDT [facility] - 01/15/2020 3:27 PM EDT [employer], [place] [address] Curriculum Coordinator [place] [id number] ORD# [id number] Elba Mejia PA-C LAB - BLOOD DRAW Final Resul t Performing Organization Address City/[facility]/[place] [address], * HEMOGLOBIN, GLYCOSYLATED (A1C) (01/15/2020 9:18 AM EDT) Pathologist [facility] GLYCATED HEMOGLOBIN A1C 6.3 <6.5 % [facility] ESTIMATED AVERAGE GLUCOSE 134 mg/dL [facility] Blood specimen (specimen) Blood / Unknown 01/15/2020 9:18 AM EDT 01/15/2020 1:35 PM EDT [facility] - 01/15/2020 2:30 PM EDT [employer], a member of [address] [address] Curriculum Coordinator [place] [id number] ORD# [id number] Elba Mejia PA-C LAB - [place] [id number], * (ABNORMAL) LIPID PANEL (01/15/2020 9:18 AM EDT) CHOLESTEROL 180 0 - 200 mg/dL [facility] TRIGLYCERIDES 338(H) 0 - 150 mg/dL [facility] HDL CHOLESTEROL 36(L) >40 mg/dL [facility] LDL CALCULATED 77 0 - 100 mg/dL [facility] TC-HDLC RATIO 5.0(H) 0 - 4.4 mg/dL [facility] Blood specimen (specimen) Blood / Unknown 01/15/2020 9:18 AM EDT 01/15/2020 1:35 PM EDT Narrative [facility] - 01/15/2020 2:41 PM EDT [facility] [employer], [place] [address] Curriculum Coordinator - [place] [id number] ORD# [id number] Elba Mejia PA-C LAB - BLOOD DRAW Edited Resu lt - Final Performing Organization Address City/State/[facility] [place] [address], * (ABNORMAL) COMPRE METAB PANEL (01/15/2020 9:18 AM EDT) BUN 18 5 - 25 mg/dL [facility] CREAT 0.96 0.7 - 1.3 mg/dL [facility] GLOMERULAR FILTRATION RATE > 60 [facility] Comment: If patient is -Bahamian, multiply result by 1.21 Chronic Kidney Disease: < 60 ml/min/1.73 square meters Kidney Failure: < 15 ml/min/1.73 square meters SODIUM 137 135 - 145 mEq/L [facility] POTASSIUM 4.7 3.5 - 5.5 mmol/L [facility] CHLORIDE 103 96 - 110 mmol/L [facility] CO2 30 21 - 32 mmol/L [facility] ANION GAP 4 3 - 11 [facility] CALCIUM 9.6 8.5 - 10.5 mg/dL [facility] ALBUMIN 3.8 3.2 - 5.0 G/dL [facility] SGPT 55 10 - 60 U/L [facility] GLUCOSE 114(H) 70 - 100 mg/dL [facility] Comment:Reference range appl icable to fasting specimens only TOTAL PROTEIN 7.6 6.0 - 8.0 G/dL [facility] BILI, TOTAL 0.3 0.0 - 1.4 mg/dL [facility] SGOT 29 10 - 42 U/L [facility] ALK PHOS 56 42 - 121 U/L [facility] Blood specimen (specimen) Blood / Unknown 01/15/2020 9:18 AM EDT 01/15/2020 1:35 PM EDT [facility] - 01/15/2020 3:09 PM EDT [employer], [place] [address] Curriculum Coordinator - [place] [id number] ORD# [id number] Elba Mejia PA-C LAB - BLOOD DRAW [place] [id number], * (ABNORMAL) MICROALBUMIN/CREATININE RATIO, URINE, RANDOM (01/15/2020 9:14 AM EDT) CREATININE, RANDOM URINE 106 mg/dL [facility] MICROALBUMIN, RANDOM 47.5(H) 0.0 - 29.0 mg/L [facility] MICROALB/CRE RATIO RANDOM 44.8(H) 0.0 - 30.0 mg/G [facility] Urine specimen (specimen) Urine specimen / Unknown 01/15/2020 9:14 AM EDT 01/15/2020 1:35 PM EDT [facility] - 01/15/2020 2:59 PM EDT [employer], [place] [address] Curriculum [place] [id number] ORD# [id number] Elba Mejia PA-C LAB - NO BLOOD DRAW Edited R esult - Final Performing Organization Address City/[facility]/[place] [address], * HIV-1 & HIV-2 ANTIBODIES (11/15/2018 10:55 AM EDT) [facility] HIV 1 AND 2 ANTIBODY SCREEN NEGATIVE NEGATIVE [facility] Comment: This assay is a [...] EDT 11/15/2018 11:41 AM EDT Narrative [facility] - 11/15/2018 5:04 PM EDT [employer], [place] [address] Curriculum Coordinator [place] [id number] ORD# [id number] Elba Mejia PA-C LAB - BLOOD DRAW Final Resul t Performing Organization Address City/[facility]/ZIP Co de Phone Number [address] [address], [place] [phone] from Last 3 Months or Most Recently Relevant to Health Maintenance Insurance HEALTH SAFETY NET DENTAL [employer] Member Subscriber Plan / Payer (Ef fective 2018-Present) Name:Iván Thomas Relation to Subscriber:Self Name:Iván Thomas Payer ID:[id number] Type:Indemnity Address: [address] [address] Care Teams Coating Machine Feeder Relationship Specialty Start Date End Date Elba Mejia PA-C [address] [place] [phone] PCP - General Internal Medicine 10/21/13
[2024-08-29 14:12] LABS: MANUAL DIFF FLAG NO
[2024-08-29 14:22] LABS: Basophils Absolute Auto 0.1 X10*3/uL (0.0-0.2); Basophils Percent Auto 0.6 % (0-2); Eosinophils Absolute Auto 0.4 X10*3/uL (0.0-0.4); Eosinophils Percent Auto 4.3 % (0-4); Hemoglobin 12.9 g/dl (14.0-18.0); Imm Gran Abs Auto 0.03 X10*3/uL (0.00-0.03); Imm Gran Pct Auto 0.3 % (0.0-0.4); Lymphocytes Percent Auto 29.4 % (20-40); Mean Corpuscular HGB Conc 32.3 g/dl (31.0-36.0); Mean Corpuscular Hemoglobin 25.6 pg (27.0-33.0); Mean Corpuscular Volume 79.5 fL (80.0-98.0); Mean Platelet Volume 10.8 fL (9.4-12.4); Monocytes Absolute Auto 0.8 X10*3/uL (0.1-1.2); Monocytes Percent Auto 7.8 % (2-11); Neutrophils Absolute Auto 5.8 x10*3/uL (2.0-8.3); Neutrophils Percent Auto 57.6 % (45-73); Platelet Count 300 X10*3/uL (160-400); Red Blood Count 5.03 X10*6/uL (4.60-5.80); Red Cell Distribution Width 13.8 % (11.0-16.0); White Blood Count 10.1 X10*3/uL (4.8-10.8)
[2024-08-29 15:04] LABS: Alanine Aminotransferase 48 U/L (0-40); Albumin Level 4.5 g/dL (3.5-5.0); Alkaline Phosphatase 44 U/L (39-117); Anion Gap 10 (12-20); Aspartate Amino Transferase 37 U/L (5-37); Bilirubin Total 0.4 mg/dL (0.0-1.0); Blood Urea Nitrogen 19 mg/dL (9-16); Calcium 9.3 mg/dL (8.4-10.2); Carbon Dioxide 25 mmol/L (22-29); Chloride 107 mmol/L (96-108); Cholesterol 188 mg/dL (<200); Estimated Glomerular Filt Rate > 60; Glucose Fasting 107 mg/dL (60-99); HDL Cholesterol 38 mg/dL (>40); LDL Cholesterol Calculated 109 mg/dL (<100); Potassium 4.1 mmol/L (3.3-5.1); Sodium 138 mmol/L (135-145); Total Protein 8.1 g/dL (6.5-8.0); Triglycerides 207 mg/dL (<150)
== END 2024-08-29 10:56 | disposition home or self-care (01) ==
LOC: HO.WFDLDS 10:55
PROVIDERS: Visit Provider Family Medicine
DX: Z00.00 Encounter for general adult medical examination without abnormal findings (principal); D64.9 Anemia, unspecified; Z13.6 Encounter for screening for cardiovascular disorders
CPT/HCPCS: 36415; 80053; 80061; 85025

== ENCOUNTER 2024-10-06 09:38 | Outpatient (AMB) | payer OTHER, SELFPAY ==
--- NOTE | 2024-10-06 09:40 | MHC.OFFVIS ---
Vital Signs 10/06/24 09:47 Height 5 ft 4 in Weight 171 lb 15.369 oz BMI 29.5 BP 122/75 Blood Pressure Location Lt brachial Position Sitting Pulse 71 Intake Visit Reasons: 2 months follow up Intake Note: Iván presents in the office as a 2 month follow up. CC: States that he is here today just as a follow up - no concerns. Division Order Analyst Required: No Allergies No Known Allergies Allergy (Verified 08/06/24 10:23) HPI Comments Details: 43 y.o M with PMH of latent TB who is here for epigastric pain and pyrosis. Pt reports two distincts complaints. Has burning epigastric pain and then also reports throat pain which is separate from GI sx. Reports burning epigastric pain occurs 1-2 times a month now that he is on omeprazole. Throat pain occurs independently of the epigastric pain and lasts 2-3 days once it starts. Assoc with dry feeling, no globus or dysphagia reported. NO N/V. No change in bowel habits, no weight change. 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 Pt remains on iron for unclear reason, ferritin is normal. Incidentally noted was high Eos count. Pt reports occasional perirectal pruritus. Is from [facility] which is endemic for intestinal parasites. Does not smoke, etOH. No nsaid use. Records from [facility] reviewed - documentation lists fam hx of CRC but pt clarifies that this was not in his brother but rather second cousin/cousin once removed. EGD/colo 2022 (Dr Rayo): normal. T.I colon bx normal. gastric bx normal no HP. Duo bx normal. 10/06/24: Here for follow up. Reports epigastric pain is better. Has discontinued daily omeprazole and takes it only as needed. Notes sx are typically worse after fatty food. Pt also reports L sided chest pain and pressure occ after food lasts 15-20 mins, this same chest pain is also triggered by extreme cold. Established with [facility] but did not bring this up as he thought this was 2/2 gastritis. In terms of eosinophilia, pt reports albendazole Rxed by PCP which was not covered. Will refer to ID for evaluation. [facility] Medical History No pertinent past medical history Surgical History Hx of colonoscopy History of esophagogastroduodenoscopy (EGD) History of tonsillectomy Family History Father High blood pressure Diabetes Mother Diabetes Social History Household Members: Family Housing: House Are you a primary patient care nursing assistant to a significant other at home: No Do you presently have visiting nurse or other home services: No 75 years or older and lives alone: No Alcohol intake: never Patient Tobacco Use Status: Never used Tobacco e-Cigarette/Vaping Use: Never Used Second Hand Smoke Exposure: No service: No Current occupational status: employed Current occupation: Housekeeping/ right hand dominant Current occupational exposures/hazards: No Cognitive needs: No Hearing needs: No Vision needs: No Review of Systems Const All systems reviewed & are unremarkable except as noted in HPI and below Physical Exam Vital Signs: Last Vital Signs Pulse 71 10/06/24 09:47 BP 122/75 10/06/24 09:47 BMI result Body Mass Index 29.5 No apparent distress Nonicteric Abdomen soft, nondistended Alert and oriented x3, normal gait Assessment & Plan Assessment & Plan (1) Eosinophil count raised: Code(s): R89.8 - Other abnormal findings in specimens from other organs, systems and tissues Category: Medical (2) Postprandial abdominal bloating: Code(s): R14.0 - Abdominal distension (gaseous) Category: Medical (3) Chronic GERD: Code(s): K21.9 - Gastro-esophageal reflux disease without esophagitis Category: Medical (4) Chest pain: Code(s): R07.9 - Chest pain, unspecified Category: Medical Plan 1. GERD ASsoc with dietary triggers. Pt working on changing diet. Barium swallow pending. Also reviewed that PPI not effective as PRN med, will switch to H2 jeff. Plan: - Awaiting barium swallow - DC omeprazole - Start famotidine 20 - can be taken daily or as needed 2. Post prandial abd pain and bloating Again, barium swallow will be helpful. EGD 2022 done for same sx was negative. Plan: - US Abd to r/o symptomatic gallstones 3. Chest pain Reviewed with the pt that typically gerd not triggered by extreme temp changes and should follow back with his cement mixer/PCP to r/o cardiac cause. 4. Eosinophilia Favor treating this as 2/2 helminthic vs protozoal infection given prev hx and frequent travel to endemic region - [facility]. Pt without any allergic s/sx otherwise. Plan: - Refer to ID for tailored therapy - If Eos count improves after empiric tx, no further eval necessary - If eos count persistent may need IgE check +/- heme eval Follow up 3 months Orders: Orders US abdomen complete Today R14.0 - Abdominal distension (gaseous) Referrals Infectious Disease Referral R89.8 - Other abnormal findings in specimens from other organs, systems and tissues, Z86.19 - Personal history of other infectious and parasitic diseases Medications: New famotidine 10 mg PO BEDTIME 90 days 90 tabs 0RF Discontinued omeprazole Discontinued Reason: Doctor's Order 20 mg PO DAILY 30 days 30 caps 2RF Coding Level of Care Code Est Pt Level 4 (28175) Diagnoses Eosinophil count raised R89.8 Postprandial abdominal bloating R14.0 Chronic GERD K21.9 Chest pain R07.9
[2024-10-06 09:47] VITALS: BP 122/75; PULSE 71; BMI 29.5
== END 2024-10-06 10:26 | disposition home or self-care (01) ==
PROVIDERS: PCP Family Medicine; Visit Provider Internal Medicine
DX: R89.8 Other abnormal findings in specimens from other organs, systems and tissues (principal); R14.0 Abdominal distension (gaseous); K21.9 Gastro-esophageal reflux disease without esophagitis; R07.9 Chest pain, unspecified
CPT/HCPCS: 99214

== ENCOUNTER → 2024-10-06 09:38 | Outpatient (BNVA) | payer OTHER, SELFPAY | PROVIDERS: PCP Family Medicine; Visit Provider Internal Medicine ==

== ENCOUNTER 2024-10-24 09:32 | Outpatient (AMB) | payer OTHER, SELFPAY ==
--- OUTSIDE RECORDS SUMMARY | 2024-10-24 10:00 | XMS_ITS | Clinical Summary ---
Author Organization [facility] Address [address] [place] [address] Care Team Providers Care Nursing Education Consultant Name Role Phone Elba Mejia PA-C Primary Care Provider [phone] Source Comments PLEASE NOTE, if this patient [...] complication, without long-term current use of insulin ([facility]) 12/24/2013 GERD (gastroesophageal reflu x disease) on fiberoptic laryngoscopy 02/19/2013 08/05/2013 PPD positive, treated 08/05/2013 Hypertriglyceridemia 04/17/2013 LENZ (nonalcoholic steatohepatitis) on ultrasoun d 06/21/2012 04/17/2013 Overview (04/17/2013): By Ultra sound done 06/21/2012 Non morbid obesity Mild vitamin D deficiency Immunizations Immunization Administration Dates Next Due Hep B, Adult/Adol [...] Health Maintenance Due Date Last Done Comments Anxiety Screening 1982 Dental Examination 1982 Tobacco Screening 1982 Retinopathy Screening 12/07/1995 Annual Preventive Care Visit 06/06/2020, 05/21/2018, 12/01/2016, Additional history exists Diabetes Foot Exam 06/06/2020 06/06/2019 Diabetes HbA1c 07/17/2020 01/15/2020, 02/13, 11/15/2018, Additional history exists Lipid Screening 01/14/2021 01/15/2020, 02/13, 11/15/2018, Additional history exists Serum Creatinine 01/14/2021 01/15/2020, , 11/15/2018, Additional history exists Urine Albumin Creatinine Rat io Screening 01/14/2021 01/15/2020, 05/21/2018, 09/17/2017 Imm-DTaP/Tdap/Td (2 - Td or Tdap) 01/22/2022 01/23/2012, 07/06/2011, 07/06/2011 [id number] ( season) 2024 Imm-Hepatitis B Completed 02/11/2013, [...] without long-term current use of insulin ([facility]) Essential hypertension, benign Hypertriglyceridem ia HEPATITIS C ANTIBODY Routine 01/15/2020 9:18 AM EDT Type 2 diabetes mellitus without complication, without long-term current use of insulin ([facility]) Essential hypertension, benign Hypertriglyceridem ia LIPID PANEL Routine 01/15/2020 9:18 AM EDT Type 2 diabetes mellitus without complication, without long-term current use of insulin ([facility]) Essential hypertension, benign Hypertriglyceridem ia HEMOGLOBIN GLYCOSYLATED A1C Routine 01/15/2020 9:18 AM EDT Type 2 diabetes mellitus without complication, without long-term current use of insulin ([facility]) Essential hypertension, benign Hypertriglyceridem ia MICROALBUMIN/CREATININ E RATIO, URINE, RANDOM Routine 01/15/2020 9:14 AM EDT Type 2 diabetes mellitus without complication, without long-term current use of insulin ([facility]) Essential hypertension, benign Hypertriglyceridem ia ANTIBODY HIV-1&HIV-2 SINGLE RESULT Routine 11/15/2018 10:55 AM EDT Type 2 diabetes mellitus without complication, without long-term current use of insulin ([facility]) from Last 3 Months or Most Recently Relevant to Health Maintenance Results * HEPATITIS C ANTIBODY (01/15/2020 9:18 AM EDT) [facility] HEPATITIS C VIRUS SCREEN NEGATIVE NEGATIVE [facility] Blood specimen (specimen) Blood / Unknown 01/15/2020 9:18 AM EDT 01/15/2020 1:35 PM EDT [facility] - 01/15/2020 3:27 PM EDT [employer], [place] [address] Manager [place] [id number] ORD# [id number] Elba Mejia PA-C LAB - BLOOD DRAW Final Resul t Performing Organization Address City/[facility]/[place] [address], * HEMOGLOBIN, GLYCOSYLATED (A1C) (01/15/2020 9:18 AM EDT) [facility] GLYCATED HEMOGLOBIN A1C 6.3 <6.5 % [facility] ESTIMATED AVERAGE GLUCOSE 134 mg/dL [facility] Blood specimen (specimen) Blood / Unknown 01/15/2020 9:18 AM EDT 01/15/2020 1:35 PM EDT [facility] - 01/15/2020 2:30 PM EDT [employer], a member of [address] [address] Manager General [place] [id number] ORD# [id number] Elba Mejia PA-C LAB - BLOOD DRAW Final Resul t Performing Organization Address City/[facility]/ZIP Co de Phone Number [address] [address], * (ABNORMAL) LIPID PANEL (01/15/2020 9:18 AM EDT) [facility] CHOLESTEROL 180 0 - 200 mg/dL [facility] TRIGLYCERIDES 338(H) 0 - 150 mg/dL [facility] HDL CHOLESTEROL 36(L) >40 mg/dL [facility] LDL CALCULATED 77 0 - 100 mg/dL [facility] TC-HDLC RATIO 5.0(H) 0 - 4.4 mg/dL [facility] Blood specimen (specimen) Blood / Unknown 01/15/2020 9:18 AM EDT 01/15/2020 1:35 PM EDT Narrative [facility] - 01/15/2020 2:41 PM EDT [facility] [employer], [place] [address] Manager General [place] [id number] ORD# [id number] us Elba Mejia PA-C LAB - BLOOD DRAW [place] [address], * (ABNORMAL) COMPRE METAB PANEL (01/15/2020 9:18 AM EDT) BUN 18 5 - 25 mg/dL [facility] CREAT 0.96 0.7 - 1.3 mg/dL [facility] GLOMERULAR FILTRATION RATE > 60 [facility] Comment: If patient is -Liberian, multiply result by 1.21 Chronic Kidney Disease: < 60 ml/min/1.73 square meters Kidney Failure: < 15 ml/min/1.73 square meters SODIUM 137 135 - 145 mEq/L [facility] POTASSIUM 4.7 3.5 - 5.5 mmol/L [facility] CHLORIDE 103 96 - 110 mmol/L [facility] CO2 30 21 - 32 mmol/L [facility] ANION GAP 4 3 - 11 [facility] CALCIUM 9.6 8.5 - 10.5 mg/dL [facility] ALBUMIN 3.8 3.2 - 5.0 G/dL [facility] SGPT 55 10 - 60 U/L [facility] GLUCOSE 114(H) 70 - 100 mg/dL [facility] Comment:Reference range appl icable to fasting specimens only TOTAL PROTEIN 7.6 6.0 - 8.0 G/dL [facility] BILI, TOTAL 0.3 0.0 - 1.4 mg/dL [facility] SGOT 29 10 - 42 U/L [facility] ALK PHOS 56 42 - 121 U/L [facility] Blood specimen (specimen) Blood / Unknown 01/15/2020 9:18 AM EDT 01/15/2020 1:35 PM EDT [facility] - 01/15/2020 3:09 PM EDT [employer], [place] [address] Manager General [place] [id number] ORD# [id number] us Elba Mejia PA-C LAB - BLOOD DRAW [place] [address], * (ABNORMAL) MICROALBUMIN/CREATININE RATIO, URINE, RANDOM (01/15/2020 9:14 AM EDT) CREATININE, RANDOM URINE 106 mg/dL [facility] MICROALBUMIN, RANDOM 47.5(H) 0.0 - 29.0 mg/L [facility] MICROALB/CRE RATIO RANDOM 44.8(H) 0.0 - 30.0 mg/G [facility] Urine specimen (specimen) Urine specimen / Unknown 01/15/2020 9:14 AM EDT 01/15/2020 1:35 PM EDT [facility] - 01/15/2020 2:59 PM EDT [employer], a member of [address] [address] Manager [place] [id number] ORD# [id number] Elba Mejia PA-C LAB - NO BLOOD DRAW Edited R esult - Final Performing Organization Address City/[facility]/ZIP Co de Phone Number [address] [address], * HIV-1 & HIV-2 ANTIBODIES (11/15/2018 10:55 AM EDT) [facility] HIV 1 AND 2 ANTIBODY SCREEN NEGATIVE NEGATIVE [facility] Comment: This assay is a 4th generation [...] AM EDT 11/15/2018 11:41 AM EDT Narrative [facility] - 11/15/2018 5:04 PM EDT [employer], [place] [address] Manager General [place] [id number] ORD# [id number] Elba Mejia PA-C LAB - BLOOD DRAW Final Resul t Performing Organization Address City/[facility]/ZIP Co de Phone Number [address] [address], [place] [phone] from Last 3 Months or Most Recently Relevant to Health Maintenance Insurance HEALTH SAFETY NET DENTAL [employer] Member Subscriber Plan / Payer (Ef fective 2018-Present) Name:BrodyisacIván Relation to Subscriber:Self Name:Brodyisac Iván Payer ID:[id number] Type:Indemnity Address: [address] [address] Care Teams Nursing Education Consultant Relationship Specialty Start Date End Date Elba Mejia PA-C [facility] [place] [id number] PCP - General Internal Medicine 10/21/13
--- NOTE | 2024-10-24 10:33 | MHC.OFFVIS ---
Vital Signs 10/24/24 10:40 Height 5 ft 4 in Weight 181 lb BMI 31.1 Pulse 78 Pulse Source Pulse Oximeter Pulse Oximetry (%) 99 Oxygen Delivery Method Room Air Intake Visit Reasons: Ref. Allergies No Known Allergies Allergy (Verified 10/24/24 10:44) [facility] HPI Ref.: Details: He is referral for eosinophilia in setting of UGI reflux and dyspepsia resolved after removing milk and pork from diet. He is from [facility]. He has no parasitic infection history or HIV or other infections and feels well. He has no diarrhea ordinarily and stool negative for parasites. [facility] Medical History (Updated 10/24/24 @ 11:07 by Misty Pineda MD) Eosinophilia No pertinent past medical history Surgical History Hx of colonoscopy History of esophagogastroduodenoscopy (EGD) History of tonsillectomy Family History Father High blood pressure Diabetes Mother Diabetes Social History Household Members: Family Housing: House Are you a primary child care team lead to a significant other at home: No Do you presently have visiting nurse or other home services: No 75 years or older and lives alone: No Alcohol intake: never Patient Tobacco Use Status: Never used Tobacco e-Cigarette/Vaping Use: Never Used Second Hand Smoke Exposure: No service: No Current occupational status: employed Current occupation: Housekeeping/ right hand dominant Current occupational exposures/hazards: No Cognitive needs: No Hearing needs: No Vision needs: No Review of Systems Const All systems reviewed & are unremarkable except as noted in HPI and below Physical Exam Vital Signs: Last Vital Signs Pulse 78 10/24/24 10:40 Pulse Ox 99 10/24/24 10:40 Oxygen Delivery Method Room Air 10/24/24 10:40 BMI result Body Mass Index 31.1 Const General: cooperative Orientation/consciousness: patient oriented x3 HEENT Head: Yes normal to inspection Mouth: Normal oral and palatal mucosa present Eyes General: appearance normal, both eyes and all related structures Pupils: Equal, round and reactive pupils present Resp Effort & Inspection: normal respiratory effort Cardio Rate: regular rate Rhythm: regular rhythm GI Palpation (GI): Soft to palpation and nontender General: Yes no CVA tenderness Back/Spine/Pelvis Back: no CVA tenderness Skin General skin exam: no rashes or lesions noted Neuro General: patient oriented x3 Cranial nerves: Yes CN's II-XII intact bilaterally and Yes Equal, round and reactive pupils present Extrem General: Yes normal to inspection Psych Appearance: grossly normal Assessment & Plan Assessment & Plan (1) Eosinophilia: Comment: No evidence for parasitic disease No active TB or parasites found No further workup or treatment desired by patient at this time. Code(s): D72.10 - Eosinophilia, unspecified Category: Medical Plan: nan Coding Level of Care Code New Pt Level 3 (61658) Diagnoses Eosinophilia D72.10
[2024-10-24 10:40] VITALS: PULSE 78; O2SAT 99; BMI 31.1
== END 2024-10-24 11:05 | disposition home or self-care (01) ==
LOC: HO.HID 09:33
PROVIDERS: PCP Family Medicine; Visit Provider Internal Medicine
DX: D72.10 Eosinophilia, unspecified (principal)
CPT/HCPCS: 99203

== ENCOUNTER 2024-11-17 08:17 | Outpatient (REF) | payer OTHER, SELFPAY ==
--- NOTE | ~2024-11-17 | US_ITS ---
EXAMINATION: US ABDOMEN HISTORY: R14.0 - Abdominal distension (gaseous) TECHNIQUE: Real-time grayscale ultrasound imaging of the abdomen was performed and images were reviewed. COMPARISON: Comparison is made with the prior examination dated 12/27/2022. FINDINGS: Liver: The right lobe of the liver measures 15.1 cm in size. The left lobe of the liver measures 12.1 cm in size. The liver demonstrates increased echotexture, consistent with steatosis. There is focal fatty sparing adjacent to the gallbladder. No focal mass or intrahepatic biliary ductal dilatation is identified. There is normal hepatopedal flow in the portal vein. Gallbladder and biliary tree: The gallbladder is unremarkable, without evidence of calculi, wall thickening, or pericholecystic fluid. There is no sonographic Dyson sign. The common bile duct is normal in caliber measuring 4 mm. Kidneys: The right kidney measures 9.6 cm in length. The left kidney measures 10.1 cm in length. The kidneys are unremarkable, without evidence of masses, hydronephrosis, or calculi. Pancreas: The pancreatic head and neck are unremarkable. The remainder of the pancreas is obscured by bowel gas. Spleen: The spleen is normal in size and contour, measuring 8.1 cm in length. Abdominal aorta and inferior vena cava: The visualized portions of the abdominal aorta and inferior vena cava are normal in caliber. There is no free fluid in the abdomen. US/US abdomen complete IMPRESSION: Hepatic steatosis. Limited visualization of the pancreas. Electronically signed by: Lang Reyes MD 11/17/2024 09:51 AM EDT
--- OUTSIDE RECORDS SUMMARY | 2024-11-17 08:34 | XMS_ITS | Clinical Summary ---
Author Organization [facility] Address [address] [place] [address] Care Team Providers Care Senior Strategy Analyst Name Role Phone Elba Mejia PA-C Primary Care Provider [phone] Source Comments PLEASE NOTE, if this patient [...] complication, without long-term current use of insulin ([facility]) 12/24/2013 GERD (gastroesophageal reflu x [...] Td or Tdap) 01/22/2022 01/23/2012, 07/06/2011, 07/06/2011 [id number] ( season) 2024 Imm-Hepatitis B Completed 02/11/2013, [...] complication, without long-term current use of insulin ([facility]) Essential hypertension, benign Hypertriglyceridem ia HEPATITIS C ANTIBODY Routine 01/15/2020 9:18 AM EDT Type 2 diabetes mellitus without complication, without long-term current use of insulin ([facility]) Essential hypertension, benign Hypertriglyceridem ia LIPID PANEL Routine 01/15/2020 9:18 AM EDT Type 2 diabetes mellitus without complication, without long-term current use of insulin ([facility]) Essential hypertension, benign Hypertriglyceridem ia HEMOGLOBIN GLYCOSYLATED A1C Routine 01/15/2020 9:18 AM EDT Type 2 diabetes mellitus without complication, without long-term current use of insulin ([facility]) Essential hypertension, benign Hypertriglyceridem ia MICROALBUMIN/CREATININ E RATIO, URINE, RANDOM Routine 01/15/2020 9:14 AM EDT Type 2 diabetes mellitus without complication, without long-term current use of insulin ([facility]) Essential hypertension, benign Hypertriglyceridem ia ANTIBODY HIV-1&HIV-2 SINGLE RESULT Routine 11/15/2018 10:55 AM EDT Type 2 diabetes mellitus without complication, without long-term current use of insulin ([facility]) from Last 3 Months or Most Recently Relevant to Health Maintenance Results * HEPATITIS C ANTIBODY (01/15/2020 9:18 AM EDT) HEPATITIS C VIRUS SCREEN NEGATIVE NEGATIVE [facility] Blood specimen (specimen) Blood / Unknown 01/15/2020 9:18 AM EDT 01/15/2020 1:35 PM EDT [facility] - 01/15/2020 3:27 PM EDT [employer], [place] [address] Prop [place] [id number] ORD# [id number] Elba Mejia PA-C LAB - BLOOD DRAW Final Resul t Performing Organization Address City/[facility]/[place] [address], * HEMOGLOBIN, GLYCOSYLATED (A1C) (01/15/2020 9:18 AM EDT) Pathologist [facility] GLYCATED HEMOGLOBIN A1C 6.3 <6.5 % [facility] ESTIMATED AVERAGE GLUCOSE 134 mg/dL [facility] Blood specimen (specimen) Blood / Unknown 01/15/2020 9:18 AM EDT 01/15/2020 1:35 PM EDT [facility] - 01/15/2020 2:30 PM EDT [employer], a member of [address] [address] Prop [place]endant [place] [id number] ORD# [id number] Elba Mejia PA-C LAB - BLOOD DRAW Final Resul t Performing Organization Address City/[facility]/ZIP Co de Phone Number [address] [address], * (ABNORMAL) LIPID PANEL (01/15/2020 9:18 AM EDT) CHOLESTEROL 180 0 - 200 mg/dL [facility] TRIGLYCERIDES 338(H) 0 - 150 mg/dL [facility] HDL CHOLESTEROL 36(L) >40 mg/dL [facility] LDL CALCULATED 77 0 - 100 mg/dL [facility] TC-HDLC RATIO 5.0(H) 0 - 4.4 mg/dL [facility] Blood specimen (specimen) Blood / Unknown 01/15/2020 9:18 AM EDT 01/15/2020 1:35 PM EDT Narrative [facility] - 01/15/2020 2:41 PM EDT [facility] [employer], [place] [address] Prop [place]endant [place] [id number] ORD# [id number] Elba Mejia PA-C LAB - BLOOD DRAW Edited Resu lt - Final Performing Organization Address City/State/[facility] [place] [address], * (ABNORMAL) COMPRE METAB PANEL (01/15/2020 9:18 AM EDT) BUN 18 5 - 25 mg/dL [facility] CREAT 0.96 0.7 - 1.3 mg/dL [facility] GLOMERULAR FILTRATION RATE > 60 [facility] Comment: If patient is -Algerian, multiply result by 1.21 Chronic Kidney Disease: < 60 ml/min/1.73 square meters Kidney Failure: < 15 ml/min/1.73 square meters SODIUM 137 135 - 145 mEq/L [facility] POTASSIUM 4.7 3.5 - 5.5 mmol/L [facility] CHLORIDE 103 96 - 110 mmol/L [facility] CO2 30 21 - 32 mmol/L [facility] ANION GAP 4 3 - 11 [facility] CALCIUM 9.6 8.5 - 10.5 mg/dL [facility] ALBUMIN 3.8 3.2 - 5.0 G/dL [facility] SGPT 55 10 - 60 U/L [facility] GLUCOSE 114(H) 70 - 100 mg/dL [facility] Comment:Reference range appl icable to fasting specimens only TOTAL PROTEIN 7.6 6.0 - 8.0 G/dL [facility] BILI, TOTAL 0.3 0.0 - 1.4 mg/dL [facility] SGOT 29 10 - 42 U/L [facility] ALK PHOS 56 42 - 121 U/L [facility] Blood specimen (specimen) Blood / Unknown 01/15/2020 9:18 AM EDT 01/15/2020 1:35 PM EDT [facility] - 01/15/2020 3:09 PM EDT [employer], [place] [address] Prop [place] [id number] ORD# [id number] Elba Mejia PA-C LAB - BLOOD DRAW [place] [address], * (ABNORMAL) MICROALBUMIN/CREATININE RATIO, URINE, RANDOM (01/15/2020 9:14 AM EDT) CREATININE, RANDOM URINE 106 mg/dL [facility] MICROALBUMIN, RANDOM 47.5(H) 0.0 - 29.0 mg/L [facility] MICROALB/CRE RATIO RANDOM 44.8(H) 0.0 - 30.0 mg/G [facility] Urine specimen (specimen) Urine specimen / Unknown 01/15/2020 9:14 AM EDT 01/15/2020 1:35 PM EDT [facility] - 01/15/2020 2:59 PM EDT [employer], [place] [address] Prop [place]endant [place] [id number] ORD# [id number] Elba Mejia PA-C LAB - NO BLOOD DRAW Edited R esult - Final [address] [address], [place] [phone] * HIV-1 & HIV-2 ANTIBODIES (11/15/2018 10:55 AM EDT) [facility] HIV 1 AND 2 ANTIBODY SCREEN NEGATIVE NEGATIVE [facility] Comment: This assay is a 4th generation [...] 10:55 AM EDT 11/15/2018 11:41 AM EDT [facility] - 11/15/2018 5:04 PM EDT [employer], [place] [address] Prop Attendant [place] [id number] ORD# [id number] Elba Mejia PA-C LAB - BLOOD DRAW Final Resul t Performing Organization Address City/[facility]/ZIP Co de Phone Number [address] [address], [place] [phone] from Last 3 Months or Most Recently Relevant to Health Maintenance Insurance HEALTH SAFETY NET DENTAL [employer] Member Subscriber Plan / Payer (Ef fective 2018-Present) Name:Iván Thomas Relation to Subscriber:Self Name:Iván Thomas Payer ID:[id number] Type:Indemnity Address: [address] [address] Care Teams Senior Strategy Analyst Relationship Specialty Start Date End Date Elba Mejia PA-C [address] [place] [phone] PCP - General Internal Medicine 10/21/13
== END 2024-11-17 08:18 | disposition home or self-care (01) ==
LOC: HO.US 08:17
PROVIDERS: PCP Family Medicine; Visit Provider Internal Medicine
DX: R14.0 Abdominal distension (gaseous) (principal)
CPT/HCPCS: 76700

== ENCOUNTER → 2024-11-17 08:22 | Outpatient (BNV) | payer OTHER, SELFPAY | PROVIDERS: PCP Family Medicine; Visit Provider Radiology Diagnostic Radiology | DX: K76.0 Fatty (change of) liver, not elsewhere classified (principal) | CPT/HCPCS: 76700 ==

== ENCOUNTER 2024-12-03 09:09 | Outpatient (AMB) | payer OTHER, SELFPAY ==
--- NOTE | 2024-12-03 09:22 | A.OFFPC_ITS ---
Vital Signs 12/03/24 09:30 Height 5 ft 4 in Weight 167 lb 8 oz BMI 28.7 BP 114/72 Blood Pressure Location Rt brachial Position Sitting Pulse 74 Pulse Source Pulse Oximeter Temp 97.9 F Temp Source Temporal Artery Scan Pulse Oximetry (%) 98 Oxygen Delivery Method Room Air Intake Visit Reasons: f/u chronic conditions /mild anemia Intake Note: Iván presents in the office today for chronic conditions and anemia. Allergies No Known Allergies Allergy (Verified 12/03/24 09:24) Medication List - Last Reconciled 12/03/24 by Ashutosh Agarwal MD calcium polycarbophil (FiberCon) 625 mg PO DAILY 30 days cetirizine (All Day Allergy (cetirizine)) 10 mg PO DAILY PRN 30 days famotidine 10 mg PO DAILY PRN fenofibrate 54 mg PO DAILY 90 days fluticasone propionate 50 mcg/actuation (Flonase Allergy Relief) 1 spray intranasal Q12H 30 days folic acid 1 mg PO DAILY lisinopril 5 mg PO BEDTIME polyethylene glycol 3350 (Miralax) 17 grams PO .QOD 28 days simethicone (Gas Relief (simethicone)) 80 mg PO BID-QID PRN 30 days Tobacco use date assessed: 12/03/24 Dental Screening Dental Screen Date: 12/03/24 Did you have a dental visit in the last 12 months?: No Did you have a dental problem in the last 6 months where you did not have access to dental care?: No Was dental information given to patient?: No HPI f/u chronic conditions /mild anemia HPI Details 43 y/o male presents to f/u chronic cond itions, mild anemia. Last set of labs drawn 08/29/24. Reviewed labs with pt. Elevated ALT of 48. Triglycerides 207. TC 188. LDL 109. HDL low at 38. Hgb 12.9g/dl, Hct 40.0. Had been following up with infectious disease for eosinophilia. No evidence for parasitic disease. No active TB or parasites found. Hx of prediabetes. A1c today 5.7%. Pt reports ongoing intermittent chest pain which he thinks is associated with his abd. bloating. Complaitns of sore throat x2-3 weeks. [facility] Medical History (Updated 12/03/24 @ 09:45 by Ezra Momin) Eosinophilia No pertinent past medical history Surgical History Hx of colonoscopy History of esophagogastroduodenoscopy (EGD) History of tonsillectomy Family History Father High blood pressure Diabetes Mother Diabetes Social History (Updated 12/03/24 @ 09:30 by Anne Marie Herbert MA) Household Members: Family Housing: House Are you a primary care connector to a significant other at home: No Do you presently have visiting nurse or other home services: No 75 years or older and lives alone: No Alcohol intake: never Patient Tobacco Use Status: Never used Tobacco e-Cigarette/Vaping Use: Never Used Second Hand Smoke Exposure: No Use of substances other than those prescribed or required for medical reasons: No service: No Current occupational status: employed Current occupation: Housekeeping/ right hand dominant Current occupational exposures/hazards: No Cognitive needs: No Hearing needs: No Vision needs: No Questionnaire Thrive Questionnaire Date Thrive assessed: 08/29/24 I am a: Patient What is your living situation today?: I have a steady place to live Within the past 12 months, did the food you bought not last and you didn't have the money to get more?: Never true Within the past 12 months, did you worry whether your food would run out before you got money to buy more?: Never true Do you have trouble paying for medicines?: No Do you have trouble getting transportation to medical appointments?: No Do you have trouble paying your heating and electricity bill?: No Do you have trouble taking care of your child, family member or friend?: No Do you have trouble with day-to-day activities such as bathing, preparing meals, shopping, managing finances, etc.?: No Are you currently unemployed and looking for a job?: No Are you interested in more education?: No Please select the resources that you would like help with: None Currently or been in a relationship where the following occur: I choose not to answer THRIVE Score: 0 ABIOLA-7 AMB Questionnaire ABIOLA-7 Date ABIOLA - 7 assessed: 04/29/24 Source: Developed by Drs. Lang Sullivan, Donna Francois, Linwood Franks and colleagues, with an educational nba from [employer]. Review of Systems Const Denies chills, Denies fatigue, Denies fever(s), Denies headache(s) and Denies weakness ENT Denies dizziness, Denies headache(s) and Reports sore throat Card Denies dyspnea Resp Denies cough, Denies dyspnea, Denies wheezing and Denies other (shortness of breath) Musc Denies numbness and Denies tingling Neuro Denies dizziness, Denies headache(s), Denies numbness, Denies tingling and Denies weakness Psych Denies anxiety and Denies depression Endo Denies fatigue Aller/Immun Denies wheezing Physical exam (Primary Care) Vital Signs: Last Vital Signs Temp 97.9 F 12/03/24 09:30 Pulse 74 12/03/24 09:30 BP 114/72 12/03/24 09:30 Pulse Ox 98 12/03/24 09:30 Oxygen Delivery Method Room Air 12/03/24 09:30 BMI result Body Mass Index 28.7 Tobacco/Smoking Status: Tobacco use Status Tobacco use date assessed 12/03/24 12/03/24 09:34 Patient Tobacco Use Status Never used Tobacco 12/03/24 09:34 e-Cigarette/Vaping Use Never Used 12/03/24 09:34 Thrive Assessment: Date of Thrive Assessment Date Thrive assessed 08/29/24 12/03/24 09:34 Currently or been in a relationship where the following occur: I choose not to answer Const General: well developed; No acute distress Nutritional Appearance: well nourished Orientation/consciousness: patient oriented x3 [facility]: Yes normocephalic and Yes atraumatic Eyes General: appearance normal, both eyes and all related structures Pupils: Equal, round and reactive pupils present EOM: EOMs intact bilaterally Resp Effort & Inspection: normal respiratory effort Neuro General: patient oriented x3 and gait normal Cranial nerves: Yes Equal, round and reactive pupils present Psych Affect: normal affect Results AMB Hemoglobin A1c AMB Hemoglobin A1c 5.7 % Last Edit by Anne Marie Herbert MA on 12/03/24 10:01 Results Reviewed Results Reviewed: Laboratory Last Values Hgb A1c (Clinic) 5.7 % (4.0-6.0) 12/03/24 10:00 Coding Level of Care Code Est Pt Level 5 (97467) Diagnoses Mild anemia D64.9 Elevated liver enzymes R74.8 Eosinophilia D72.10 Chest pain R07.9 Abdominal bloating R14.0 Sore throat J02.9 Diet-controlled diabetes mellitus E11.9 Assessment & Plan Assessment & Plan (1) Mild anemia: Code(s): D64.9 - Anemia, unspecified Category: Medical Plan: Patient?has?a?mild?anemia Likely?iron?deficiency?anemia Still?having?gastrointestinal?issues?and?iron?will?likely?exacerbate?this Will?continue?to?monitor?anemia. Working?on?underlying?GI?issues?for?now. (2) Elevated liver enzymes: Code(s): R74.8 - Abnormal levels of other serum enzymes Category: Medical Plan: Ultrasound?showed?hepatic?steatosis Encouraged?weight?loss Follow-up?with?GI (3) Eosinophilia: Comment: No evidence for parasitic disease No active TB or parasites found No further workup or treatment desired by patient at this time. Code(s): D72.10 - Eosinophilia, unspecified Category: Medical Plan: Patient?was?referred?to?Infectious?Disease No?obvious?infection Follow-up?with?Gastroenterology (4) Chest pain: Code(s): R07.9 - Chest pain, unspecified Category: Medical Plan: Chest?and?upper?abdominal?discomfort?is?related?to?foods?and?bloating Recent?visit?to?ED?showed?no?cardiac?involvement (5) Abdominal bloating: Code(s): R14.0 - Abdominal distension (gaseous) Category: Medical Plan: Sending?a?script?for?FiberCon?and?also?simethicone Hydrate?well?and?smaller?meals Advised?a?symptoms?diary Follow-up?with?GI (6) Sore throat: Code(s): J02.9 - Acute pharyngitis, unspecified Category: Medical Plan: Allergic?versus?viral?or?goal Warm?saltwater?gargles Virus?should?be?self-limiting Will?send?script?for?a?nasal?steroid?and?Zyrtec (7) Diet-controlled diabetes mellitus: Code(s): E11.9 - Type 2 diabetes mellitus without complications Category: Medical Plan: A1c?improved?from?6.3%?to?5.7%. Improved?control Continue?diet?control Orders: Orders AMB Hemoglobin A1c Today E11.9 - Type 2 diabetes mellitus without complications Medications: New calcium polycarbophil (FiberCon) 625 mg PO DAILY 30 days 30 tabs 2RF simethicone (Gas Relief (simethicone)) 80 mg PO BID-QID 30 days PRN 30 tabs 3RF abdominal distention cetirizine (All Day Allergy (cetirizine)) 10 mg PO DAILY 30 days PRN 30 tabs 0RF allergy symptoms fluticasone propionate 50 mcg/actuation (Flonase Allergy Relief) administer into each nostril 1 spray intranasal Q12H 30 days 16 grams 2RF
[2024-12-03 09:30] VITALS: BP 114/72; PULSE 74; TEMP 36.6; O2SAT 98; BMI 28.7
--- OUTSIDE RECORDS SUMMARY | 2024-12-03 10:24 | XMS_ITS | Clinical Summary ---
Author Organization [facility] Address [address] [place] [address] Care Team Providers Care Hair Spinner Name Role Phone Elba Mejia PA-C Primary Care Provider [phone] Source Comments PLEASE NOTE, if this patient [...] complication, without long-term current use of insulin ([facility]) 12/24/2013 GERD (gastroesophageal reflu x disease) [...] (1 of 2 - PCV) 2001 Annual Wellness (Adult): Indicated (All Coverage) 06/06/2020 06/06/2019, 05/21/2018, 12/01/2016, Additional history exists Diabetes Foot Exam 06/06/2020 06/06/2019 Diabetes HbA1c 07/17/2020 01/15/2020, 02/13, 11/15/2018, Additional history exists Lipid Screening 01/14/2021 01/15/2020, 02/13, 11/15/2018, Additional history exists Serum Creatinine 01/14/2021 01/15/2020, , 11/15/2018, Additional history exists Urine Albumin Creatinine Rat io Screening 01/14/2021 01/15/2020, 05/21/2018, 09/17/2017 Imm-DTaP/Tdap/Td (2 - Td or Tdap) 01/22/2022 01/23/2012, 07/06/2011, 07/06/2011 Uob-HAUTN-11 ( season) 2024 Imm-Hepatitis B Completed 02/11/2013, [...] complication, without long-term current use of insulin ([facility]) Essential hypertension, benign Hypertriglyceridem ia HEPATITIS C ANTIBODY Routine 01/15/2020 9:18 AM EDT Type 2 diabetes mellitus without complication, without long-term current use of insulin ([facility]) Essential hypertension, benign Hypertriglyceridem ia LIPID PANEL Routine 01/15/2020 9:18 AM EDT Type 2 diabetes mellitus without complication, without long-term current use of insulin ([facility]) Essential hypertension, benign Hypertriglyceridem ia HEMOGLOBIN GLYCOSYLATED A1C Routine 01/15/2020 9:18 AM EDT Type 2 diabetes mellitus without complication, without long-term current use of insulin ([facility]) Essential hypertension, benign Hypertriglyceridem ia MICROALBUMIN/CREATININ E RATIO, URINE, RANDOM Routine 01/15/2020 9:14 AM EDT Type 2 diabetes mellitus without complication, without long-term current use of insulin ([facility]) Essential hypertension, benign Hypertriglyceridem ia ANTIBODY HIV-1&HIV-2 SINGLE RESULT Routine 11/15/2018 10:55 AM EDT Type 2 diabetes mellitus without complication, without long-term current use of insulin ([facility]) from Last 3 Months or Most Recently Relevant to Health Maintenance Results * HEPATITIS C ANTIBODY (01/15/2020 9:18 AM EDT) Pathologist [facility] HEPATITIS C VIRUS SCREEN NEGATIVE NEGATIVE [facility] Blood specimen (specimen) Blood / Unknown 01/15/2020 9:18 AM EDT 01/15/2020 1:35 PM EDT [facility] - 01/15/2020 3:27 PM EDT [employer], [place] [address] Soda D[employer] [place] [id number] ORD# [id number] Elba Mejia PA-C LAB - BLOOD DRAW Final Resul t Performing Organization Address [facility] [place] [address], * HEMOGLOBIN, GLYCOSYLATED (A1C) (01/15/2020 9:18 AM EDT) Pathologist [facility] GLYCATED HEMOGLOBIN A1C 6.3 <6.5 % [facility] ESTIMATED AVERAGE GLUCOSE 134 mg/dL [facility] Blood specimen (specimen) Blood / Unknown 01/15/2020 9:18 AM EDT 01/15/2020 1:35 PM EDT [facility] - 01/15/2020 2:30 PM EDT [employer], [place] [address] [employer] [place] [place] [id number] ORD# [id number] Elba Mejia PA-C LAB - BLOOD DRAW Final Resul t Performing Organization Address City/[facility]/[place] [address], * (ABNORMAL) LIPID PANEL (01/15/2020 9:18 AM EDT) CHOLESTEROL 180 0 - 200 mg/dL [facility] TRIGLYCERIDES 338(H) 0 - 150 mg/dL [facility] HDL CHOLESTEROL 36(L) >40 mg/dL [facility] LDL CALCULATED 77 0 - 100 mg/dL [facility] TC-HDLC RATIO 5.0(H) 0 - 4.4 mg/dL [facility] Blood specimen (specimen) Blood / Unknown 01/15/2020 9:18 AM EDT 01/15/2020 1:35 PM EDT [facility] - 01/15/2020 2:41 PM EDT [facility] [employer], [place] [address] [employer] [place] [place] [id number] ORD# [id number] Elba Mejia PA-C LAB - BLOOD DRAW [place] [address], * (ABNORMAL) COMPRE METAB PANEL (01/15/2020 9:18 AM EDT) BUN 18 5 - 25 mg/dL [facility] CREAT 0.96 0.7 - 1.3 mg/dL [facility] GLOMERULAR FILTRATION RATE > 60 [facility] Comment: If patient is -Spanish, multiply result by 1.21 Chronic Kidney Disease: < 60 ml/min/1.73 square meters Kidney Failure: < 15 ml/min/1.73 square meters SODIUM 137 135 - 145 mEq/L [facility] POTASSIUM 4.7 3.5 - 5.5 mmol/L [facility] CHLORIDE 103 96 - 110 mmol/L [facility] CO2 30 21 - 32 mmol/L [facility] ANION GAP 4 3 - 11 [facility] CALCIUM 9.6 8.5 - 10.5 mg/dL [facility] ALBUMIN 3.8 3.2 - 5.0 G/dL [facility] SGPT 55 10 - 60 U/L [facility] GLUCOSE 114(H) 70 - 100 mg/dL [facility] Comment:Reference range appl icable to fasting specimens only TOTAL PROTEIN 7.6 6.0 - 8.0 G/dL [facility] BILI, TOTAL 0.3 0.0 - 1.4 mg/dL [facility] SGOT 29 10 - 42 U/L [facility] ALK PHOS 56 42 - 121 U/L [facility] Blood specimen (specimen) Blood / Unknown 01/15/2020 9:18 AM EDT 01/15/2020 1:35 PM EDT [facility] - 01/15/2020 3:09 PM EDT [facility] [employer] [address] S[employer] D[employer] [place] [id number] ORD# [id number] Elba Mejia PA-C LAB - BLOOD DRAW [place] [address], * (ABNORMAL) MICROALBUMIN/CREATININE RATIO, URINE, RANDOM (01/15/2020 9:14 AM EDT) CREATININE, RANDOM URINE 106 mg/dL [facility] MICROALBUMIN, RANDOM 47.5(H) 0.0 - 29.0 mg/L [facility] MICROALB/CRE RATIO RANDOM 44.8(H) 0.0 - 30.0 mg/G [facility] Urine specimen (specimen) Urine specimen / Unknown 01/15/2020 9:14 AM EDT 01/15/2020 1:35 PM EDT [facility] 01/15/2020 2:59 PM EDT [employer], [place] [address] [employer] [place] [id number] ORD# [id number] Elba Mejia PA-C LAB URINE AMBULATORY Edited Result - Final Performing Organization Address City/[facility]/ZIP Co de Phone Number [address] [address], [place] [phone] * HIV-1 & HIV-2 ANTIBODIES (11/15/2018 10:55 AM EDT) [facility] HIV 1 AND 2 ANTIBODY SCREEN NEGATIVE NEGATIVE [facility] Comment: This assay is a [...] 10:55 AM EDT 11/15/2018 11:41 AM EDT [facility] - 11/15/2018 5:04 PM EDT [employer], [place] [address] [employer] D[employer] Feeder [place] [id number] ORD# [id number] Elba Mejia PA-C LAB - BLOOD DRAW Final Resul t [address] [address], [place] [phone] from Last 3 Months or Most Recently Relevant to Health Maintenance Insurance [employer] Member Subscriber Plan / Payer (Ef fective 2018-Present) Name:Iván Thomas Relation to Subscriber:Self Name:Iván Thomas Payer ID:[id number] Type:Indemnity Address: [address] [address] Care Teams Hair Spinner Relationship Specialty Start Date End Date Elba Mejia PA-C [address] [place] [phone] PCP - General Internal Medicine 10/21/13
== END 2024-12-03 11:24 | disposition home or self-care (01) ==
LOC: HO.HMCFM 09:10
PROVIDERS: PCP Family Medicine; Visit Provider Family Medicine
DX: D64.9 Anemia, unspecified (principal); R74.8 Abnormal levels of other serum enzymes; E11.9 Type 2 diabetes mellitus without complications; D72.10 Eosinophilia, unspecified; R07.9 Chest pain, unspecified; R14.0 Abdominal distension (gaseous); J02.9 Acute pharyngitis, unspecified

== ENCOUNTER → 2024-12-03 09:09 | Outpatient (BNVA) | payer OTHER, SELFPAY | PROVIDERS: PCP Family Medicine; Visit Provider Family Medicine | DX: D64.9 Anemia, unspecified (principal); R74.8 Abnormal levels of other serum enzymes; D72.10 Eosinophilia, unspecified; R07.9 Chest pain, unspecified; R14.0 Abdominal distension (gaseous); J02.9 Acute pharyngitis, unspecified; E11.9 Type 2 diabetes mellitus without complications | CPT/HCPCS: 83036 ==

== ENCOUNTER 2024-12-18 09:30 | Outpatient (AMB) | payer OTHER, SELFPAY ==
--- NOTE | 2024-12-18 09:34 | A.OFFVIS_ITS ---
Intake Visit Reasons: hydrocele/epididymal cyst Intake Note: Patient is present for HYDROCELE/EPIDIDYMAL CYST Urology Medication:NONE Antibiotic Allergy:NONE Blood Thinner:NONE Reconcilement Clerk Required: No Allergies No Known Allergies Allergy (Verified 12/18/24 09:36) HPI Comments Details: Iván is a very pleasant male. He is a patient of Dr. Agarwal. He seen for the following urologic conditions - hydrocele Small hydrocele found on ultrasound No clinical significance Exam normal Reassurance provided Discussion regarding erectile performance [facility] Medical History (Updated 12/18/24 @ 10:16 by Jonny Corado MD) Eosinophilia No pertinent past medical history Surgical History Hx of colonoscopy History of esophagogastroduodenoscopy (EGD) History of tonsillectomy Family History Father High blood pressure Diabetes Mother Diabetes Social History (Updated 12/03/24 @ 09:30 by Anne Marie Herbert MA) Household Members: Family Housing: House Are you a primary care information associate to a significant other at home: No Do you presently have visiting nurse or other home services: No 75 years or older and lives alone: No Alcohol intake: never Patient Tobacco Use Status: Never used Tobacco e-Cigarette/Vaping Use: Never Used Second Hand Smoke Exposure: No service: No Current occupational status: employed Current occupation: Housekeeping/ right hand dominant Current occupational exposures/hazards: No Cognitive needs: No Hearing needs: No Vision needs: No Review of Systems Const Denies chills and Denies fever(s) Card Reports no additional complaints and Denies syncope Resp Denies cough GI Denies abdominal pain and Denies heartburn Reports as per HPI and Denies change in libido Neuro Denies syncope Psych Denies change in libido Endo Denies change in libido Physical Exam Const General: cooperative, healthy appearing, comfortable and no acute distress Orientation/consciousness: patient oriented x3 HEENT Face and sinus: Yes normal facial exam Mouth: moist mucous membranes Neck Neck: Yes normal visual inspection, Yes full ROM and Yes trachea midline Chest Chest palpation & inspection: normal inspection of the chest Resp Effort & Inspection: normal respiratory effort, able to speak in complete sentences and no respiratory distress GI Inspection: Yes normal to inspection Back/Spine/Pelvis Cervical Spine: normal cervical lordosis Thoracic/Lumbar Spine: thoracic and lumbar spine normal to inspection Skin General skin exam: no rashes or lesions noted Neuro General: patient oriented x3, gait normal, tone normal and moves all extremities Extrem General: Yes normal to inspection and Yes capillary refill normal Results AMB Urinalysis, Automated UA Leukoctes 0 Vandana/uL Last Edit by AYAKA Patrick on 12/18/24 09:46 UA Nitrite Negative Last Edit by Kathy Seay [facility] on 12/18/24 09:46 UA Urobilinogen 0.2 mg/dL Last Edit by Kathy Seay [facility] on 12/18/24 09:4 6 UA Protein 0 mg/dL Last Edit by Kathy Seay [facility] on 12/18/24 09:46 UA pH 6.0 Last Edit by Kathy Seay [facility] on 12/18/24 09:46 UA Blood 0 Ramakrishna/uL Last Edit by Kathy Seay [facility] on 12/18/24 09:46 UA Specific [place] 1.025 Last Edit by Kathy Seay [facility] on 12/18/24 09: 46 UA Ketone Negative Last Edit by Kathy Seay [facility] on 12/18/24 09:46 UA Bilirubin 0 mg/dL Last Edit by Kathy Seay [facility] on 12/18/24 09:46 UA Glucose 0 mg/dL Last Edit by Kathy Seay [facility] on 12/18/24 09:46 Results Reviewed Results Reviewed: Laboratory Last Values Urine pH (Auto) 6.0 12/18/24 09:45 Specific [place] (Auto) 1.025 12/18/24 09:45 Urine Protein (Auto) 0 mg/dL 12/18/24 09:45 Glucose (UA)(Auto) 0 mg/dL 12/18/24 09:45 Urine Ketones (Auto) Negative 12/18/24 09:45 Urine Blood (Auto) 0 Ramakrishna/uL 12/18/24 09:45 Urine Nitrite (Auto) Negative 12/18/24 09:45 Urine Bilirubin (Auto) 0 mg/dL 12/18/24 09:45 Urine Urobilinogen (Auto) 0.2 mg/dL 12/18/24 09:45 Leukocyte Esterase (Auto) 0 Vandana/uL 12/18/24 09:45 Assessment & Plan Assessment & Plan (1) Hydrocele: Code(s): N43.3 - Hydrocele, unspecified Category: Medical Plan P.r.n. follow-up Orders: Orders AMB Urinalysis Automated Today Z13.9 - Encounter for screening, unspecified Patient Instructions: This note is constructed using voice recognition software. While every effort has been made to ensure accuracy regional otr company driver errors may have been included. Imaging studies, laboratory and physical exam results were discussed and reviewed in detail. No major barriers to patient understanding were identified. An opportunity to ask questions regarding the treatment plan was provided. All questions were answered. The patient expressed understanding and agreement with the above treatment plan. The patient is aware they should contact our office by phone for worsening of th eir current condition or the appearance of new urologic symptoms. Compliance is encouraged with any medications and followup testing that is ordered. It is a privilege to participate in the urologic care of your patient. If you have any questions or concerns regarding treatment for the above conditions, or other urologic issues, please do not hesitate to contact me. The office telephone contact is [phone]. Sincerely, Dr Jonny Corado MD, JA [facility] - Urology Compassionate Specialist Care for the Genitourinary System Coding Level of Care Code New Pt Level 3 (01608) Diagnoses Hydrocele N43.3
--- OUTSIDE RECORDS SUMMARY | 2024-12-18 10:30 | XMS_ITS | Clinical Summary ---
Author Organization [facility] Address [address] [place] [address] Care Team Providers Care Ophthalmologist Name Role Phone Elba Mejia PA-C Primary Care Provider [phone] Source Comments PLEASE NOTE, if this patient [...] complication, without long-term current use of insulin ([facility]) 12/24/2013 GERD (gastroesophageal reflu x [...] Td or Tdap) 01/22/2022 01/23/2012, 07/06/2011, 07/06/2011 [id number] ( season) 2024 Imm-Hepatitis B Completed 02/11/2013, [...] complication, without long-term current use of insulin ([facility]) Essential hypertension, benign Hypertriglyceridem ia HEPATITIS C ANTIBODY Routine 01/15/2020 9:18 AM EDT Type 2 diabetes mellitus without complication, without long-term current use of insulin ([facility]) Essential hypertension, benign Hypertriglyceridem ia LIPID PANEL Routine 01/15/2020 9:18 AM EDT Type 2 diabetes mellitus without complication, without long-term current use of insulin ([facility]) Essential hypertension, benign Hypertriglyceridem ia HEMOGLOBIN GLYCOSYLATED A1C Routine 01/15/2020 9:18 AM EDT Type 2 diabetes mellitus without complication, without long-term current use of insulin ([facility]) Essential hypertension, benign Hypertriglyceridem ia MICROALBUMIN/CREATININ E RATIO, URINE, RANDOM Routine 01/15/2020 9:14 AM EDT Type 2 diabetes mellitus without complication, without long-term current use of insulin ([facility]) Essential hypertension, benign Hypertriglyceridem ia ANTIBODY HIV-1&HIV-2 SINGLE RESULT Routine 11/15/2018 10:55 AM EDT Type 2 diabetes mellitus without complication, without long-term current use of insulin ([facility]) from Last 3 Months or Most Recently Relevant to Health Maintenance Results * HEPATITIS C ANTIBODY (01/15/2020 9:18 AM EDT) Pathologist [facility] [place] HEPATITIS C VIRUS SCREEN NEGATIVE NEGATIVE [facility] Blood specimen (specimen) Blood / Unknown 01/15/2020 9:18 AM EDT 01/15/2020 1:35 PM EDT [facility] - 01/15/2020 3:27 PM EDT [employer], [place] [address] Motion Picture Equipment Supervisor [place] [id number] ORD# [id number] Elba Mejia PA-C LAB - BLOOD DRAW Final Resul t Performing Organization Address [facility] [place] [address], * HEMOGLOBIN, GLYCOSYLATED (A1C) (01/15/2020 9:18 AM EDT) Pathologist [facility] [place] GLYCATED HEMOGLOBIN A1C 6.3 <6.5 % [facility] ESTIMATED AVERAGE GLUCOSE 134 mg/dL [facility] Blood specimen (specimen) Blood / Unknown 01/15/2020 9:18 AM EDT 01/15/2020 1:35 PM EDT [facility] - 01/15/2020 2:30 PM EDT [employer], [place] [address] Motion Picture Equipment Supervisor [place] [id number] ORD# [id number] Elba Mejia PA-C LAB - BLOOD DRAW Final Resul t Performing Organization Address City/[facility]/[place] [address], * (ABNORMAL) LIPID PANEL (01/15/2020 9:18 AM EDT) CHOLESTEROL 180 0 - 200 mg/dL [facility] TRIGLYCERIDES 338(H) 0 - 150 mg/dL [facility] HDL CHOLESTEROL 36(L) >40 mg/dL [facility] LDL CALCULATED 77 0 - 100 mg/dL [facility] TC-HDLC RATIO 5.0(H) 0 - 4.4 mg/dL [facility] Blood specimen (specimen) Blood / Unknown 01/15/2020 9:18 AM EDT 01/15/2020 1:[address] [facility] - 01/15/2020 2:41 PM EDT [facility] [employer], [place] [address] Motion Picture Equipment [place] [id number] ORD# [id number] Elba Mejia PA-C LAB - BLOOD DRAW [place] [address], * (ABNORMAL) COMPRE METAB PANEL (01/15/2020 9:18 AM EDT) BUN 18 5 - 25 mg/dL [facility] CREAT 0.96 0.7 - 1.3 mg/dL [facility] GLOMERULAR FILTRATION RATE > 60 [facility] Comment: If patient is -[place]enezuelan, multiply result by 1.21 Chronic Kidney Disease: < 60 ml/min/1.73 square meters Kidney Failure: < 15 ml/min/1.73 square meters SODIUM 137 135 - 145 mEq/L [facility] POTASSIUM 4.7 3.5 - 5.5 mmol/L [facility] CHLORIDE 103 96 - 110 mmol/L [facility] CO2 30 21 - 32 mmol/L [facility] ANION GAP 4 3 - 11 [facility] CALCIUM 9.6 8.5 - 10.5 mg/dL [facility] ALBUMIN 3.8 3.2 - 5.0 G/dL [facility] SGPT 55 10 - 60 U/L [facility] GLUCOSE 114(H) 70 - 100 mg/dL [facility] Comment:Reference range appl icable to fasting specimens only TOTAL PROTEIN 7.6 6.0 - 8.0 G/dL [facility] BILI, TOTAL 0.3 0.0 - 1.4 mg/dL [facility] SGOT 29 10 - 42 U/L [facility] ALK PHOS 56 42 - 121 U/L [facility] Blood specimen (specimen) Blood / Unknown 01/15/2020 9:18 AM EDT 01/15/2020 1:35 PM EDT Narrative [facility] - 01/15/2020 3:09 PM EDT [facility] [employer], [place] [address] Motion Picture Equipment Supervisor [place] [id number] ORD# [id number] Elba Mejia PA-C LAB - BLOOD DRAW [place] [address], * (ABNORMAL) MICROALBUMIN/CREATININE RATIO, URINE, RANDOM (01/15/2020 9:14 AM EDT) CREATININE, RANDOM URINE 106 mg/dL [facility] MICROALBUMIN, RANDOM 47.5(H) 0.0 - 29.0 mg/L [facility] MICROALB/CRE RATIO RANDOM 44.8(H) 0.0 - 30.0 mg/G [facility] Urine specimen (specimen) Urine specimen / Unknown 01/15/2020 9:14 AM EDT 01/15/2020 1:[address] [facility] - 01/15/2020 2:59 PM EDT [employer], [place] [address] Motion Picture Equipment Supervisor [place] [id number] ORD# [id number] Elba Mejia PA-C LAB URINE AMBULATORY Edited Result - Final Performing Organization Address City/[facility]/ZIP Co de Phone Number [address] [address], [place] [phone] * HIV-1 & HIV-2 ANTIBODIES (11/15/2018 10:55 AM EDT) [facility] HIV 1 AND 2 ANTIBODY SCREEN NEGATIVE NEGATIVE [facility] Comment: This assay is a 4th [...] 10:55 AM EDT 11/15/2018 11:[address] [facility] - 11/15/2018 5:04 PM EDT [employer], [place] [address] Motion Picture Equipment Supervisor [place] [id number] ORD# [id number] Elba Mejia PA-C LAB - BLOOD DRAW Final Resul t [address] [address], [place] [phone] from Last 3 Months or Most Recently Relevant to Health Maintenance Insurance [employer] Care Teams Ophthalmologist Relationship Specialty Start Date End Date Elba Mejia PA-C [facility] [place] [phone] PCP - General Internal Medicine 10/21/13
== END 2024-12-18 10:17 | disposition home or self-care (01) ==
LOC: HO.HUSH 09:31
PROVIDERS: PCP Family Medicine; Visit Provider Urology
DX: Z13.9 Encounter for screening, unspecified (principal); N43.3 Hydrocele, unspecified
CPT/HCPCS: 99203

== ENCOUNTER → 2024-12-18 09:30 | Outpatient (BNVA) | payer OTHER, SELFPAY | PROVIDERS: PCP Family Medicine; Visit Provider Urology | DX: N43.3 Hydrocele, unspecified (principal) | CPT/HCPCS: 81003 ==

== ENCOUNTER 2025-01-06 09:27 | Outpatient (AMB) | payer OTHER, SELFPAY ==
[2025-01-06 09:39] VITALS: BP 118/78; PULSE 68; TEMP 36.6; O2SAT 98; BMI 29.5
--- NOTE | 2025-01-06 09:39 | AM.OFFWIN_ITS ---
Intake Vital Signs 01/06/25 09:39 Height 5 ft 4 in Weight 172 lb BMI 29.5 BP 118/78 Blood Pressure Location Lt brachial Position Sitting Pulse 68 Pulse Source Pulse Oximeter Temp 97.9 F Temp Source Oral Pulse Oximetry (%) 98 Oxygen Delivery Method Room Air Intake Visit Reasons: EP-lower abd pain Patient Tobacco Use Status: Never used Tobacco Plate Gauger Required: No Allergies No Known Allergies Allergy (Verified 01/06/25 09:40) Do you need a note to return to daycare/school/sports/work: Yes HPI HPI Comments History of Present Illness Details History of Present Illness - The patient is a 44-year-old male with medical history of worms, bilateral hydroceles, constipation, GERD, LVH, anemia presenting with lower abdominal pain. - The abdominal pain has been present fo r approximately one week, localized to the lower abdomen near the groin area, and is described as 6/10 pain which goes down to 4/10 pain but persistent. - Pain does not get better or worse with eating. Denies fevers. Denies urinary symptoms. - The patient reports constipation last week, which was resolved with the use of MiraLax, but notes that abdominal pain persists. - An ultrasound previously identified bi lateral hydroceles, and the patient has been advised to follow up with urology for potential procedural intervention. - The patient has a history of fatty leif er and gastric issues, with occasional gas leading to chest pain, which has been evaluated multiple times with normal results. Physical Exam General: Cooperative, healthy appearing, comfortable, no acute distress and well developed Orientation: Patient oriented x3 Limitations: No limitations Head: Normal to inspection Ears: Hearing grossly normal bilaterally Nose: Normal External nose present Face and sinus: Normal facial exam Eyes: Appearance normal, both eyes and all related structures Neck: Normal visual inspection and Yes full ROM Respiratory: Normal respiratory effort and able to speak in complete sentences. GI: soft, normoactive BS, + mcburney's, negative murphys, + rebound tenderness. Skin: No rashes or lesions noted Neuro: Patient oriented x3 Extremities: Normal to inspection PFSH Medical History Eosinophilia No pertinent past medical history Surgical History Hx of colonoscopy History of esophagogastroduodenoscopy (EGD) History of tonsillectomy Family History Father High blood pressure Diabetes Mother Diabetes Social History Household Members: Family Housing: House Are you a primary home care chaplain to a significant other at home: No Do you presently have visiting nurse or other home services: No 75 years or older and lives alone: No Alcohol intake: never Patient Tobacco Use Status: Never used Tobacco e-Cigarette/Vaping Use: Never Used Second Hand Smoke Exposure: No service: No Current occupational status: employed Current occupation: Housekeeping/ right hand dominant Current occupational exposures/hazards: No Cognitive needs: No Hearing needs: No Vision needs: No Review of Systems Const All systems reviewed & are unremarkable except as noted in HPI and below Physical Exam Vital Signs: Last Vital Signs Temp 97.9 F 01/06/25 09:39 Pulse 68 01/06/25 09:39 BP 118/78 01/06/25 09:39 Pulse Ox 98 01/06/25 09:39 Oxygen Delivery Method Room Air 01/06/25 09:39 BMI result Body Mass Index 29.5 Assessment & Plan Assessment & Plan (1) Lower abdominal pain: Code(s): R10.30 - Lower abdominal pain, unspecified Plan: - VSS, pt well appearing, PE remarkable for + mcburneys, + rebound tenderness. - Recommend evaluation in the emergency room to rule out appendicitis due to the location and nature of the abdominal pain. - Called [facility] ED with ramos, spoke with NIDA Zarate, 10:27AM Patient was informed and verbally consented to the use of an ambient scribe for clinic note documentation during this visit. Coding Level of Care Code Est Pt Level 5 (93618) Diagnoses Lower abdominal pain R10.30
--- OUTSIDE RECORDS SUMMARY | 2025-01-06 10:06 | XMS_ITS | Clinical Summary ---
Author Organization [facility] Address [address] [place] [address] Care Team Providers Care Radiator Mechanic Name Role Phone Elba Mejia PA-C Primary Care Provider [phone] Source Comments PLEASE NOTE, if this patient [...] complication, without long-term current use of insulin ([facility]) 12/24/2013 GERD (gastroesophageal reflu x disease) on [...] 64 06/06/2019 9:10 AM EST Temperature 36.8 C (98.2 F) 06/06/2019 9:10 AM EST Respiratory Rate 16 06/06/2019 9:10 AM EST [...] history exists Diabetes Foot Exam 06/06/2020 06/06/2019 Hemoglobin A1c 07/17/2020 01/15/2020, 02/13, 11/15/2018, Additional history exists Lipid Screening 01/14/2021 01/15/2020, 02/13, 11/15/2018, Additional history exists Serum Creatinine 01/14/2021 01/15/2020, , 11/15/2018, Additional history exists Urine Albumin Creatinine Rat io Screening 01/14/2021 01/15/2020, 05/21/2018, 09/17/2017 Imm-DTaP/Tdap/Td (2 - Td or Tdap) 01/22/2022 01/23/2012, 07/06/2011, 07/06/2011 [id number] ( season) 2024 Imm-Hepatitis B Completed 02/11/2013, [...] current use of insulin ([facility]) Essential hypertension, benign Hypertriglyceridem ia HEPATITIS C ANTIBODY Routine 01/15/2020 9:18 AM EDT Type 2 diabetes mellitus without complication, without long-term current use of insulin ([facility]) Essential hypertension, benign Hypertriglyceridem ia LIPID PANEL Routine 01/15/2020 9:18 AM EDT Type 2 diabetes mellitus without complication, without long-term current use of insulin ([facility]) Essential hypertension, benign Hypertriglyceridem ia HEMOGLOBIN GLYCOSYLATED A1C Routine 01/15/2020 9:18 AM EDT Type 2 diabetes mellitus without complication, without long-term current use of insulin ([facility]) Essential hypertension, benign Hypertriglyceridem ia MICROALBUMIN/CREATININ E RATIO, URINE, RANDOM Routine 01/15/2020 9:14 AM EDT Type 2 diabetes mellitus without complication, without long-term current use of insulin ([facility]) Essential hypertension, benign Hypertriglyceridem ia ANTIBODY HIV-1&HIV-2 SINGLE RESULT Routine 11/15/2018 10:55 AM EDT Type 2 diabetes mellitus without complication, without long-term current use of insulin ([facility]) from Last 3 Months or Most Recently Relevant to Health Maintenance Results * HEPATITIS C ANTIBODY (01/15/2020 9:18 AM EDT) HEPATITIS C VIRUS SCREEN NEGATIVE NEGATIVE [facility] Blood specimen (specimen) Blood / Unknown 01/15/2020 9:18 AM EDT 01/15/2020 1:35 PM EDT [facility] - 01/15/2020 3:27 PM EDT [employer], [place] [address] Braided Band [place]sembl[place] [id number] ORD# [id number] Elba Mejia PA-C LAB - BLOOD DRAW Final Resul t Performing Organization Address [facility]/[place] [address], * HEMOGLOBIN, GLYCOSYLATED (A1C) (01/15/2020 9:18 AM EDT) Pathologist [facility] GLYCATED HEMOGLOBIN A1C 6.3 <6.5 % [facility] ESTIMATED AVERAGE GLUCOSE 134 mg/dL [facility] Blood specimen (specimen) Blood / Unknown 01/15/2020 9:18 AM EDT 01/15/2020 1:35 PM EDT [facility] - 01/15/2020 2:30 PM EDT [employer], [place] [address] Braided Band [place]sembl[place] [id number] ORD# [id number] Elba Mejia PA-C LAB - BLOOD DRAW Final Resul t Performing Organization Address City/[facility]/[place] [address], * (ABNORMAL) LIPID PANEL (01/15/2020 9:18 AM EDT) CHOLESTEROL 180 0 - 200 mg/dL [facility] TRIGLYCERIDES 338(H) 0 - 150 mg/dL [facility] HDL CHOLESTEROL 36(L) >40 mg/dL [facility] LDL CALCULATED 77 0 - 100 mg/dL [facility] TC-HDLC RATIO 5.0(H) 0 - 4.4 mg/dL [facility] Blood specimen (specimen) Blood / Unknown 01/15/2020 9:18 AM EDT 01/15/2020 1:[address] [facility] - 01/15/2020 2:[address] [facility] [employer], [place] [address] Braided Band Assembl[place] [id number] ORD# [id number] Elba Mejia PA-C LAB - BLOOD DRAW Edited Resu lt - Final Performing Organization Address City/State/[facility] [place] [address], * (ABNORMAL) COMPRE METAB PANEL (01/15/2020 9:18 AM EDT) BUN 18 5 - 25 mg/dL [facility] CREAT 0.96 0.7 - 1.3 mg/dL [facility] GLOMERULAR FILTRATION RATE > 60 [facility] Comment: If patient is -Omani, multiply result by 1.21 Chronic Kidney Disease: < 60 ml/min/1.73 square meters Kidney Failure: < 15 ml/min/1.73 square meters SODIUM 137 135 - 145 mEq/L [facility] POTASSIUM 4.7 3.5 - 5.5 mmol/L [facility] CHLORIDE 103 96 - 110 mmol/L [facility] CO2 30 21 - 32 mmol/L [facility] ANION GAP 4 3 - 11 [facility] CALCIUM 9.6 8.5 - 10.5 mg/dL [facility] ALBUMIN 3.8 3.2 - 5.0 G/dL [facility] SGPT 55 10 - 60 U/L [facility] GLUCOSE 114(H) 70 - 100 mg/dL [facility] Comment:Reference range appl icable to fasting specimens only TOTAL PROTEIN 7.6 6.0 - 8.0 G/dL [facility] BILI, TOTAL 0.3 0.0 - 1.4 mg/dL [facility] SGOT 29 10 - 42 U/L [facility] ALK PHOS 56 42 - 121 U/L [facility] Blood specimen (specimen) Blood / Unknown 01/15/2020 9:18 AM EDT 01/15/2020 1:[address] [facility] - 01/15/2020 3:09 PM EDT [employer], [place] [address] Braided Band [place]sembl[place] [id number] ORD# [id number] Elba Mejia PA-C LAB - BLOOD DRAW [place] [address], * (ABNORMAL) MICROALBUMIN/CREATININE RATIO, URINE, RANDOM (01/15/2020 9:14 AM EDT) CREATININE, RANDOM URINE 106 mg/dL [facility] MICROALBUMIN, RANDOM 47.5(H) 0.0 - 29.0 mg/L [facility] MICROALB/CRE RATIO RANDOM 44.8(H) 0.0 - 30.0 mg/G [facility] Urine specimen (specimen) Urine specimen / Unknown 01/15/2020 9:14 AM EDT 01/15/2020 1:35 PM EDT [facility] - 01/15/2020 2:59 PM EDT [employer], [place] [address] Braided Band [place]sembl[place] [id number] ORD# [id number] Elba Mejia PA-C LAB URINE AMBULATORY Edited Result - Final Performing Organization Address City/[facility]/[place] [address], [place] [phone] * HIV-1 & HIV-2 ANTIBODIES (11/15/2018 10:55 AM EDT) [facility] HIV 1 AND 2 ANTIBODY SCREEN NEGATIVE NEGATIVE [facility] Comment: This assay is a 4th generation assay allowing for earlier detection of HIV infection by detecting the presence of the HIV-1 p24 antigen as well as the traditional antibodies to HIV type 1 (including group O) and type 2. Use of a 4th generation assay is the current CDC recommendation for HIV screening. Blood specimen (specimen) Blood / Unknown 11/15/2018 10:55 AM EDT 11/15/2018 11:41 AM EDT [facility] - 11/15/2018 5:04 PM EDT [employer], [place] [address] Braided Band Assembler [place] [id number] ORD# [id number] Elba Mejia PA-C LAB - BLOOD DRAW Final Resul t Performing Organization Address City/[facility]/ZIP Co de Phone Number [address] [address], [place] [phone] from Last 3 Months or Most Recently Relevant to Health Maintenance Insurance [employer] Care Teams Radiator Mechanic Relationship Specialty Start Date End Date Elba Mejia PA-C [address] [place] [phone] PCP - General Internal Medicine 10/21/13
== END 2025-01-06 10:53 | disposition home or self-care (01) ==
PROVIDERS: PCP Family Medicine; Visit Provider Physician Assistant
DX: R10.30 Lower abdominal pain, unspecified (principal)

== ENCOUNTER → 2025-01-06 09:27 | Outpatient (BNVA) | payer OTHER, SELFPAY | PROVIDERS: PCP Family Medicine; Visit Provider Physician Assistant | DX: Z13.89 Encounter for screening for other disorder (principal) ==

== ENCOUNTER 2025-01-06 10:41 | Emergency (ER) | payer OTHER, SELFPAY ==
--- NOTE | ~2025-01-06 | US_ITS ---
EXAMINATION: US SCROTUM CLINICAL INFORMATION: 4-5 days lower abdominal pain radiating to testicles. COMPARISON: 05/08/2024. TECHNIQUE: A sonogram of the scrotum was performed assessing nugent-scale appearance and color Doppler flow. Spectral Doppler analysis of the arterial and venous flow were performed in the testes bilaterally. FINDINGS: RIGHT: Right testicle measures 3.8 x 2.2 x 2.9 cm, volume 12.3 mL. No focal testicular parenchymal lesions are visualized. Spectral Doppler analysis of the arterial and venous flow is normal in the right testis. Right epididymal head is normal in size. No right hydrocele or varicocele is seen. Right epididymal Doppler flow is normal. LEFT: Left testicle measures 4.1 x 2.0 x 2.7 cm, volume 11.8 mL. No focal testicular parenchymal lesions are visualized. Spectral Doppler analysis of the arterial and venous flow is normal in the left testis. Left epididymal head is normal in size. No left hydrocele or varicocele is seen. Left epididymal Doppler flow is normal. US/US scrotum IMPRESSION: Normal testicular ultrasound. Electronically signed by: Stephen Barrios MD 01/06/2025 01:43 PM EDT
--- NOTE | ~2025-01-06 | US_ITS ---
EXAMINATION: US SCROTUM CLINICAL INFORMATION: 4-5 days lower abdominal pain radiating to testicles. COMPARISON: 05/08/2024. TECHNIQUE: A sonogram of the scrotum was performed assessing nugent-scale appearance and color Doppler flow. Spectral Doppler analysis of the arterial and venous flow were performed in the testes bilaterally. FINDINGS: RIGHT: Right testicle measures 3.8 x 2.2 x 2.9 cm, volume 12.3 mL. No focal testicular parenchymal lesions are visualized. Spectral Doppler analysis of the arterial and venous flow is normal in the right testis. Right epididymal head is normal in size. No right hydrocele or varicocele is seen. Right epididymal Doppler flow is normal. LEFT: Left testicle measures 4.1 x 2.0 x 2.7 cm, volume 11.8 mL. No focal testicular parenchymal lesions are visualized. Spectral Doppler analysis of the arterial and venous flow is normal in the left testis. Left epididymal head is normal in size. No left hydrocele or varicocele is seen. Left epididymal Doppler flow is normal. US/US scrotum doppler IMPRESSION: Normal testicular ultrasound. Electronically signed by: Stephen Barrios MD 01/06/2025 01:43 PM EDT
[2025-01-06 11:19] VITALS: BP 119/71; PULSE 71; RESP 18; TEMP 36.1; O2SAT 98; BMI 29.3
--- NOTE | 2025-01-06 11:26 | ED_ITS ---
HPI - Abdominal Pain General Chief Complaint: Abdominal Pain Stated Complaint: pain in lower abd Related Data Home Medications ?Medication ?Instructions ?Recorded ?Confirmed famotidine 10 mg tablet 10 mg PO DAILY PRN 12/03/24 12/03/24 Previous Rx's ?Medication ?Instructions ?Recorded fenofibrate 54 mg tablet 54 mg PO DAILY 90 days #90 t abs 11/20/23 polyethylene glycol 3350 17 gram 17 g PO .QOD 28 days #14 ea 05/28/24 oral powder packet (Miralax) folic acid 1 mg tablet 1 mg PO DAILY #90 tabs 06/18 calcium polycarbophil 625 mg 625 mg PO DAILY 30 days # 30 tabs 12/03/24 tablet (FiberCon) cetirizine 10 mg tablet (All Day 10 mg PO DAILY PRN al lergy 12/03/24 Allergy (cetirizine)) symptoms 30 days #30 tabs fluticasone propionate 50 1 spray intranasal Q12H 30 d ays 12/03/24 mcg/actuation nasal #16 grams spray,suspension (Flonase Allergy Relief) simethicone 80 mg chewable tablet 80 mg PO BID-QID PRN abdominal 12/03/24 (Gas Relief (simethicone)) distention 30 days #30 tabs lisinopril 5 mg tablet 5 mg PO BEDTIME #30 tabs Allergies Allergy/AdvReac Type Severity Reaction Status Date / Time No Known Allergies Allergy Verified 01/07/25 09:54 [facility] Past Medical History Medical History Eosinophilia No pertinent past medical history Surgical History Hx of colonoscopy History of esophagogastroduodenoscopy (EGD) History of tonsillectomy Family History Family History Father High blood pressure Diabetes Mother Diabetes Social History Social History Household Members: Family Housing: House Are you a primary career development director to a significant other at home: No Do you presently have visiting nurse or other home services: No Alcohol intake: never Patient Tobacco Use Status: Never used Tobacco e-Cigarette/Vaping Use: Never Used Second Hand Smoke Exposure: No service: No Current occupational status: employed Current occupation: Housekeeping/ right hand dominant Current occupational exposures/hazards: No Cognitive needs: No Hearing needs: No Vision needs: No Physical Exam ED Vital Signs: Vital Signs - 24 hr 01/06/25 11:19 Temperature 97.0 F Pulse Rate 71 Respiratory Rate 18 Blood Pressure 119/71 Pulse Oximetry 98 Oxygen Delivery Method Room Air BMI result Body Mass Index 29.3 Course Course Course Narrative: I did not see patient at bedside, but was asked by triage nurse to order patient's ultrasound based on his cc, this has been placed. ARLIN Franklin 01/06/2025 11:25am. Discharge Plan Discharge Clinical Impression: Pain in both testicles Patient Disposition: Left W/O Completing Treatment Prescriptions: No Action fenofibrate 54 mg tablet 54 mg PO DAILY 90 Days Qty: 90 3RF lisinopril 5 mg tablet 5 mg PO BEDTIME Qty: 30 2RF folic acid 1 mg Tablet 1 mg PO DAILY Qty: 90 4RF polyethylene glycol 3350 [Miralax] 17 gram powder in packet 17 g PO .QOD 28 Days Qty: 14 2RF famotidine 10 mg tablet 10 mg PO DAILY PRN calcium polycarbophil [FiberCon] 625 mg tablet 625 mg PO DAILY 30 Days Qty: 30 2RF simethicone [Gas Relief (simethicone)] 80 mg tablet,chewable 80 mg PO BID-QID PRN (Reason: abdominal distention) 30 Days Qty: 30 3RF cetirizine [All Day Allergy (cetirizine)] 10 mg tablet 10 mg PO DAILY PRN (Reason: allergy symptoms) 30 Days Qty: 30 0RF fluticasone propionate [Flonase Allergy Relief] 50 mcg/actuation spray,suspension 1 spray intranasal Q12H 30 Days Qty: 16 2RF Rx Instructions: administer into each nostril Discharge Date/Time: 01/06/25 17:52
--- NOTE | 2025-01-06 13:39 | PC.NURSE ---
Patient walked into triage room, stating he cannot stay for results because he has to go to work, and asking if he will be called for any abnormal results. Explained to patient that this financial writer cannot garantee he will be called with results, pulled up patient portal on patient's phone and directed him to sign up to see all his results. Patient verbalized understanding.
--- OUTSIDE RECORDS SUMMARY | 2025-01-06 19:14 | XMS_ITS | Clinical Summary ---
Author Organization [facility] Address [address] [place] [address] Care Team Providers Care Trail Maintenance Worker Name Role Phone Elba Mejia PA-C Primary Care Provider [phone] Source Comments PLEASE NOTE, if this patient [...] complication, without long-term current use of insulin ([facility]) 12/24/2013 GERD (gastroesophageal reflu x [...] Td or Tdap) 01/22/2022 01/23/2012, 07/06/2011, 07/06/2011 [id number] ( season) 2024 Imm-Hepatitis B Completed 02/11/2013, [...] complication, without long-term current use of insulin ([facility]) Essential hypertension, benign Hypertriglyceridem ia HEPATITIS C ANTIBODY Routine 01/15/2020 9:18 AM EDT Type 2 diabetes mellitus without complication, without long-term current use of insulin ([facility]) Essential hypertension, benign Hypertriglyceridem ia LIPID PANEL Routine 01/15/2020 9:18 AM EDT Type 2 diabetes mellitus without complication, without long-term current use of insulin ([facility]) Essential hypertension, benign Hypertriglyceridem ia HEMOGLOBIN GLYCOSYLATED A1C Routine 01/15/2020 9:18 AM EDT Type 2 diabetes mellitus without complication, without long-term current use of insulin ([facility]) Essential hypertension, benign Hypertriglyceridem ia MICROALBUMIN/CREATININ E RATIO, URINE, RANDOM Routine 01/15/2020 9:14 AM EDT Type 2 diabetes mellitus without complication, without long-term current use of insulin ([facility]) Essential hypertension, benign Hypertriglyceridem ia ANTIBODY HIV-1&HIV-2 SINGLE RESULT Routine 11/15/2018 10:55 AM EDT Type 2 diabetes mellitus without complication, without long-term current use of insulin ([facility]) from Last 3 Months or Most Recently Relevant to Health Maintenance Results * HEPATITIS C ANTIBODY (01/15/2020 9:18 AM EDT) HEPATITIS C VIRUS SCREEN NEGATIVE NEGATIVE [facility] Blood specimen (specimen) Blood / Unknown 01/15/2020 9:18 AM EDT 01/15/2020 1:35 PM EDT [facility] - 01/15/2020 3:27 PM EDT [employer], [place] [address] Lock[employer] Lining [place] [id number] ORD# [id number] Elba Mejia PA-C LAB - BLOOD DRAW Final Resul t Performing Organization Address [facility]/[place] [address], * HEMOGLOBIN, GLYCOSYLATED (A1C) (01/15/2020 9:18 AM EDT) Pathologist [facility] GLYCATED HEMOGLOBIN A1C 6.3 <6.5 % [facility] ESTIMATED AVERAGE GLUCOSE 134 mg/dL [facility] Blood specimen (specimen) Blood / Unknown 01/15/2020 9:18 AM EDT 01/15/2020 1:35 PM EDT [facility] - 01/15/2020 2:30 PM EDT [employer], [place] [address] [employer] [place] [id number] ORD# [id number] Elba Mejia PA-C LAB - BLOOD DRAW Final Resul t Performing Organization Address City/[facility]/[place] [address], * (ABNORMAL) LIPID PANEL (01/15/2020 9:18 AM EDT) CHOLESTEROL 180 0 - 200 mg/dL [facility] TRIGLYCERIDES 338(H) 0 - 150 mg/dL [facility] HDL CHOLESTEROL 36(L) >40 mg/dL [facility] LDL CALCULATED 77 0 - 100 mg/dL [facility] TC-HDLC RATIO 5.0(H) 0 - 4.4 mg/dL [facility] Blood specimen (specimen) Blood / Unknown 01/15/2020 9:18 AM EDT 01/15/2020 1:[address] [facility] - 01/15/2020 2:41 PM EDT [facility] [employer], [place] [address] Lock[employer] [place]ining [place] [id number] ORD# [id number] Elba Mejia PA-C LAB - BLOOD DRAW Edited Resu lt - Final Performing Organization Address City/State/[facility] [place] [address], * (ABNORMAL) COMPRE METAB PANEL (01/15/2020 9:18 AM EDT) BUN 18 5 - 25 mg/dL [facility] CREAT 0.96 0.7 - 1.3 mg/dL [facility] GLOMERULAR FILTRATION RATE > 60 [facility] Comment: If patient is -Cymraes, multiply result by 1.21 Chronic Kidney Disease: < 60 ml/min/1.73 square meters Kidney Failure: < 15 ml/min/1.73 square meters SODIUM 137 135 - 145 mEq/L [facility] POTASSIUM 4.7 3.5 - 5.5 mmol/L [facility] CHLORIDE 103 96 - 110 mmol/L [facility] CO2 30 21 - 32 mmol/L [facility] ANION GAP 4 3 - 11 [facility] CALCIUM 9.6 8.5 - 10.5 mg/dL [facility] ALBUMIN 3.8 3.2 - 5.0 G/dL [facility] SGPT 55 10 - 60 U/L [facility] GLUCOSE 114(H) 70 - 100 mg/dL [facility] Comment:Reference range appl icable to fasting specimens only TOTAL PROTEIN 7.6 6.0 - 8.0 G/dL [facility] BILI, TOTAL 0.3 0.0 - 1.4 mg/dL [facility] SGOT 29 10 - 42 U/L [facility] ALK PHOS 56 42 - 121 U/L [facility] Blood specimen (specimen) Blood / Unknown 01/15/2020 9:18 AM EDT 01/15/2020 1:[address] [facility] - 01/15/2020 3:09 PM EDT [employer], [place] [address] Lock[employer] [place] [id number] ORD# [id number] Elba Mejia PA-C LAB - BLOOD DRAW [place] [address], * (ABNORMAL) MICROALBUMIN/CREATININE RATIO, URINE, RANDOM (01/15/2020 9:14 AM EDT) CREATININE, RANDOM URINE 106 mg/dL [facility] MICROALBUMIN, RANDOM 47.5(H) 0.0 - 29.0 mg/L [facility] MICROALB/CRE RATIO RANDOM 44.8(H) 0.0 - 30.0 mg/G [facility] Urine specimen (specimen) Urine specimen / Unknown 01/15/2020 9:14 AM EDT 01/15/2020 1:35 PM EDT [facility] - 01/15/2020 2:59 PM EDT [employer], [place] [address] Lockstit[employer] Lining [place] [id number] ORD# [id number] Elba Mejia PA-C LAB URINE AMBULATORY Edited Result - Final Performing Organization Address City/[facility]/[place] [address], [place] [phone] * HIV-1 & HIV-2 ANTIBODIES (11/15/2018 10:55 AM EDT) [facility] HIV 1 AND 2 ANTIBODY SCREEN NEGATIVE [...] 10:55 AM EDT 11/15/2018 11:41 AM EDT [facility] - 11/15/2018 5:04 PM EDT [employer], [place] [address] Lockstitch Lining [place]ter [place] [id number] ORD# [id number] Elba Mejia PA-C LAB - BLOOD DRAW Final Resul t Performing Organization Address City/[facility]/ZIP Co de Phone Number [address] [address], [place] [phone] from Last 3 Months or Most Recently Relevant to Health Maintenance Insurance HEALTH SAF[employer]Y NET DENTAL [employer] Care Teams Trail Maintenance Worker Relationship Specialty Start Date End Date Elba Mejia PA-C [address] [place] [phone] PCP - General Internal Medicine 10/21/13
== END 2025-01-06 17:52 | disposition left against medical advice (07) ==
LOC: HO.ED 17:53
PROVIDERS: Emergency Provider Emergency Medicine
DX: N50.812 Left testicular pain (principal); N50.811 Right testicular pain
CPT/HCPCS: 76870; 93975; 99281; 99283; 99284

== ENCOUNTER → 2025-01-06 11:27 | Outpatient (BNV) | payer OTHER, SELFPAY | PROVIDERS: Visit Provider Radiology Diagnostic Radiology | DX: R10.30 Lower abdominal pain, unspecified (principal) | CPT/HCPCS: 76870; 93975 ==

== ENCOUNTER 2025-01-07 09:49 | Outpatient (AMB) | payer OTHER, SELFPAY ==
--- NOTE | 2025-01-07 09:52 | MHC.OFFVIS ---
Vital Signs 01/07/25 09:54 Height 5 ft 4 in Weight 167 lb 8.821 oz BMI 28.8 BP 123/75 Blood Pressure Location Lt brachial Position Sitting Pulse 63 Intake Visit Reasons: 3 mo f/u Intake Note: Iván presents in the office as a 3 month follow up. CC: Yesterday he was in the ED - he states they did an ultrasound. He also had an EGD and COLO and he wants results - Lower abdomen pains all over the bottoms. Constipation no diarrhea. Accounting Administrative Assistant Required: No Allergies No Known Allergies Allergy (Verified 01/07/25 09:54) HPI Comments Details: 43 y.o M with PMH of latent TB who is here for epigastric pain and pyrosis. Pt reports two distincts complaints. Has burning epigastric pain and then also reports throat pain which is separate from GI sx. Reports burning epigastric pain occurs 1-2 times a month now that he is on omeprazole. Throat pain occurs independently of the epigastric pain and lasts 2-3 days once it starts. Assoc with dry feeling, no globus or dysphagia reported. NO N/V. No change in bowel habits, no weight change. 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 Pt remains on iron for unclear reason, ferritin is normal. Incidentally noted was high Eos count. Pt reports occasional perirectal pruritus. Is from [place] which is endemic for intestinal parasites. Does not smoke, etOH. No nsaid use. Records from [facility] GI reviewed - documentation lists fam hx of CRC but pt clarifies that this was not in his brother but rather second cousin/cousin once removed. EGD/colo 2022 (Dr Rayo): normal. T.I colon bx normal. gastric bx normal no HP. Duo bx normal. 10/06/24: Here for follow up. Reports epigastric pain is better. Has discontinued daily omeprazole and takes it only as needed. Notes sx are typically worse after fatty food. Pt also reports L sided chest pain and pressure occ after food lasts 15-20 mins, this same chest pain is also triggered by extreme cold. Established with [facility] but did not bring this up as he thought this was 2/2 gastritis. In terms of eosinophilia, pt reports albendazole Rxed by PCP which was not covered. Will refer to ID for evaluation. 01/07/25: Here for follow up. Seen by ID - no anti-helminthic recommended currently. Main complaint today is persistent GERD and atypical chest pain. Has been to ER for this as well. Taking famotidine 10 daily. Never heard from centralized scheduling for barium swallow that was ordered in Jul. Of note- pt also reporting lower back pain with dysuria. Was seen in ER yest for the same. US neg for hydroceles this time. PFSH Medical History Eosinophilia No pertinent past medical history Surgical History Hx of colonoscopy History of esophagogastroduodenoscopy (EGD) History of tonsillectomy Family History Father High blood pressure Diabetes Mother Diabetes Social History Household Members: Family Housing: House Are you a primary home care consultant to a significant other at home: No Do you presently have visiting nurse or other home services: No 75 years or older and lives alone: No Alcohol intake: never Patient Tobacco Use Status: Never used Tobacco e-Cigarette/Vaping Use: Never Used Second Hand Smoke Exposure: No service: No Current occupational status: employed Current occupation: Housekeeping/ right hand dominant Current occupational exposures/hazards: No Cognitive needs: No Hearing needs: No Vision needs: No Review of Systems Const All systems reviewed & are unremarkable except as noted in HPI and below Physical Exam Vital Signs: Last Vital Signs Pulse 63 01/07/25 09:54 BP 123/75 01/07/25 09:54 BMI result Body Mass Index 28.8 No apparent distress Nonicteric Abdomen soft, nondistended Alert and oriented x3, normal gait Assessment & Plan Assessment & Plan (1) Chronic GERD: Code(s): K21.9 - Gastro-esophageal reflux disease without esophagitis Category: Medical (2) Chest pain: Code(s): R07.9 - Chest pain, unspecified Category: Medical (3) Lower abdominal pain: Code(s): R10.30 - Lower abdominal pain, unspecified Category: Medical (4) Dysuria: Code(s): R30.0 - Dysuria Category: Medical Plan 1. GERD ASsoc with dietary triggers. Pt working on changing diet. Also recommend icnreasing famotdiine to 20. Barium swallow not done yet. Had another visit to ER for atypical chest pain. Reordered. Will also book for EGD. Plan: - Barium swallow re-ordered - EGD to be booked - Increase famotidine 20 to be taken daily 2. Pt also c/o dysuria and lower abd pain radiating to flanks. Plan: - UA and BMP ordered - If abnormal, will be advised to contact PCP or urologist Follow up after egd Orders: Orders UA and rflx microscopic Today R30.0 - Dysuria FL barium swallow Today K21.9 - Gastro-esophageal reflux disease without esophagitis Comprehensive Met. Panel Today R10.30 - Lower abdominal pain, unspecified Coding Level of Care Code Est Pt Level 4 (88831) Diagnoses Chronic GERD K21.9 Chest pain R07.9 Lower abdominal pain R10.30 Dysuria R30.0
[2025-01-07 09:54] VITALS: BP 123/75; PULSE 63; BMI 28.8
--- OUTSIDE RECORDS SUMMARY | 2025-01-07 11:12 | XMS_ITS | Clinical Summary ---
Author Organization [facility] Address [address] [place] [address] Care Team Providers Care Patient Assistant Name Role Phone Elba Mejia PA-C Primary Care Provider [phone] Source Comments PLEASE NOTE, if this patient [...] complication, without long-term current use of insulin ([facility]) 12/24/2013 GERD (gastroesophageal reflu x disease) [...] Td or Tdap) 01/22/2022 01/23/2012, 07/06/2011, 07/06/2011 [id number] ( season) 2024 Imm-Hepatitis B Completed 02/11/2013, [...] of insulin ([facility]) Essential hypertension, benign Hypertriglyceridem ia HEPATITIS C ANTIBODY Routine 01/15/2020 9:18 AM EDT Type 2 diabetes mellitus without complication, without long-term current use of insulin ([facility]) Essential hypertension, benign Hypertriglyceridem ia LIPID PANEL Routine 01/15/2020 9:18 AM EDT Type 2 diabetes mellitus without complication, without long-term current use of insulin ([facility]) Essential hypertension, benign Hypertriglyceridem ia HEMOGLOBIN GLYCOSYLATED A1C Routine 01/15/2020 9:18 AM EDT Type 2 diabetes mellitus without complication, without long-term current use of insulin ([facility]) Essential hypertension, benign Hypertriglyceridem ia MICROALBUMIN/CREATININ E RATIO, URINE, RANDOM Routine 01/15/2020 9:14 AM EDT Type 2 diabetes mellitus without complication, without long-term current use of insulin ([facility]) Essential hypertension, benign Hypertriglyceridem ia ANTIBODY HIV-1&HIV-2 SINGLE RESULT Routine 11/15/2018 10:55 AM EDT Type 2 diabetes mellitus without complication, without long-term current use of insulin ([facility]) from Last 3 Months or Most Recently Relevant to Health Maintenance Results * HEPATITIS C ANTIBODY (01/15/2020 9:18 AM EDT) HEPATITIS C VIRUS SCREEN NEGATIVE NEGATIVE [facility] Blood specimen (specimen) Blood / Unknown 01/15/2020 9:18 AM EDT 01/15/2020 1:35 PM EDT [facility] - 01/15/2020 3:27 PM EDT [employer], [place] [address] Dope [place]er [place] [id number] ORD# [id number] Elba Mejia PA-C LAB - BLOOD DRAW Final Resul t Performing Organization Address [facility]/[place] [address], * HEMOGLOBIN, GLYCOSYLATED (A1C) (01/15/2020 9:18 AM EDT) Pathologist [facility] GLYCATED HEMOGLOBIN A1C 6.3 <6.5 % [facility] ESTIMATED AVERAGE GLUCOSE 134 mg/dL [facility] Blood specimen (specimen) Blood / Unknown 01/15/2020 9:18 AM EDT 01/15/2020 1:35 PM EDT [facility] - 01/15/2020 2:30 PM EDT [employer], [place] [address] Dope [place]er [place] [id number] ORD# [id number] Elba Mejia PA-C LAB - BLOOD DRAW Final Resul t Performing Organization Address City/[facility]/[place] [address], * (ABNORMAL) LIPID PANEL (01/15/2020 9:18 AM EDT) CHOLESTEROL 180 0 - 200 mg/dL [facility] TRIGLYCERIDES 338(H) 0 - 150 mg/dL [facility] HDL CHOLESTEROL 36(L) >40 mg/dL [facility] LDL CALCULATED 77 0 - 100 mg/dL [facility] TC-HDLC RATIO 5.0(H) 0 - 4.4 mg/dL [facility] Blood specimen (specimen) Blood / Unknown 01/15/2020 9:18 AM EDT 01/15/2020 1:35 PM EDT [facility] - 01/15/2020 2:41 PM EDT [facility] [employer], [place] [address] [place]ope [place] [id number] ORD# [id number] Elba Mejia PA-C LAB - BLOOD DRAW Edited Resu lt - Final Performing Organization Address City/State/[facility] [place] [address], * (ABNORMAL) COMPRE METAB PANEL (01/15/2020 9:18 AM EDT) BUN 18 5 - 25 mg/dL [facility] CREAT 0.96 0.7 - 1.3 mg/dL [facility] GLOMERULAR FILTRATION RATE > 60 [facility] Comment: If patient is -Gabonese, multiply result by 1.21 Chronic Kidney Disease: < 60 ml/min/1.73 square meters Kidney Failure: < 15 ml/min/1.73 square meters SODIUM 137 135 - 145 mEq/L [facility] POTASSIUM 4.7 3.5 - 5.5 mmol/L [facility] CHLORIDE 103 96 - 110 mmol/L [facility] CO2 30 21 - 32 mmol/L [facility] ANION GAP 4 3 - 11 [facility] CALCIUM 9.6 8.5 - 10.5 mg/dL [facility] ALBUMIN 3.8 3.2 - 5.0 G/dL [facility] SGPT 55 10 - 60 U/L [facility] GLUCOSE 114(H) 70 - 100 mg/dL [facility] Comment:Reference range appl icable to fasting specimens only TOTAL PROTEIN 7.6 6.0 - 8.0 G/dL [facility] BILI, TOTAL 0.3 0.0 - 1.4 mg/dL [facility] SGOT 29 10 - 42 U/L [facility] ALK PHOS 56 42 - 121 U/L [facility] Blood specimen (specimen) Blood / Unknown 01/15/2020 9:18 AM EDT 01/15/2020 1:35 PM EDT [facility] - 01/15/2020 3:09 PM EDT [employer], [place] [address] [place]ope [place] [id number] ORD# [id number] Elba Mejia PA-C LAB - BLOOD DRAW [place] [address], * (ABNORMAL) MICROALBUMIN/CREATININE RATIO, URINE, RANDOM (01/15/2020 9:14 AM EDT) CREATININE, RANDOM URINE 106 mg/dL [facility] MICROALBUMIN, RANDOM 47.5(H) 0.0 - 29.0 mg/L [facility] MICROALB/CRE RATIO RANDOM 44.8(H) 0.0 - 30.0 mg/G [facility] Urine specimen (specimen) Urine specimen / Unknown 01/15/2020 9:14 AM EDT 01/15/2020 1:35 PM EDT [facility] - 01/15/2020 2:59 PM EDT [employer], [place] [address] [place]ope [place] [id number] ORD# [id number] Elba Mejia PA-C LAB URINE AMBULATORY Edited Result - Final Performing Organization Address City/[facility]/[place] [address], [place] [phone] * HIV-1 & HIV-2 ANTIBODIES (11/15/2018 10:55 AM EDT) [facility] HIV 1 AND 2 ANTIBODY SCREEN NEGATIVE NEGATIVE [facility] Comment: This assay is a 4th generation [...] 10:55 AM EDT 11/15/2018 11:41 AM EDT [facility] - 11/15/2018 5:04 PM EDT [employer], [place] [address] Dope Mixer [place] [id number] ORD# [id number] Elba Mejia PA-C LAB - BLOOD DRAW Final Resul t Performing Organization Address City/[facility]/ZIP Co de Phone Number [address] [address], [place] [phone] from Last 3 Months or Most Recently Relevant to Health Maintenance Insurance HEALTH SAF[employer]Y NET DENTAL [employer] Care Teams Patient Assistant Relationship Specialty Start Date End Date Elba Mejia PA-C [address] [place] [phone] PCP - General Internal Medicine 10/21/13
== END 2025-01-07 14:47 | disposition home or self-care (01) ==
LOC: HO.HGI 09:50
PROVIDERS: PCP Family Medicine; Visit Provider Internal Medicine
DX: K21.9 Gastro-esophageal reflux disease without esophagitis (principal); R07.9 Chest pain, unspecified; R10.30 Lower abdominal pain, unspecified; R30.0 Dysuria
CPT/HCPCS: 99214

== ENCOUNTER 2025-01-07 11:47 | Outpatient (REF) | payer OTHER, SELFPAY ==
[2025-01-07 14:26] LABS: MANUAL DIFF FLAG NO
[2025-01-07 14:30] LABS: Appearance Urine Clear; Color Urine Yellow; Glucose Urine UA Negative (Negative); Leukocyte Esterase Urine Negative (Negative); Nitrite Urine Negative (Negative); Specific Gravity - Urine 1.025 (1.005-1.025); Urine Blood Negative (Negative); Urine Ketones Negative (Negative); Urine Protein Negative (Neg-Trace)
[2025-01-07 14:33] LABS: Basophils Absolute Auto 0.1 X10*3/uL (0.0-0.2); Basophils Percent Auto 0.7 % (0-2); Eosinophils Percent Auto 10.8 % (0-4); Hemoglobin 12.8 g/dl (14.0-18.0); Imm Gran Abs Auto 0.03 X10*3/uL (0.00-0.03); Imm Gran Pct Auto 0.3 % (0.0-0.4); Lymphocytes Absolute Auto 2.5 X10*3/uL (1.2-4.9); Lymphocytes Percent Auto 27.5 % (20-40); Mean Corpuscular Hemoglobin 25.2 pg (27.0-33.0); Mean Corpuscular Volume 78.9 fL (80.0-98.0); Mean Platelet Volume 10.9 fL (9.4-12.4); Monocytes Absolute Auto 0.5 X10*3/uL (0.1-1.2); Monocytes Percent Auto 5.4 % (2-11); Neutrophils Percent Auto 55.3 % (45-73); Platelet Count 281 X10*3/uL (160-400); Red Blood Count 5.07 X10*6/uL (4.60-5.80); Red Cell Distribution Width 14.7 % (11.0-16.0)
[2025-01-07 14:40] LABS: Creatinine Urine 143.24 mg/dL
[2025-01-07 14:53] LABS: Alanine Aminotransferase 49 U/L (0-40); Albumin Level 4.5 g/dL (3.5-5.0); Alkaline Phosphatase 47 U/L (39-117); Anion Gap 12 (12-20); Aspartate Amino Transferase 40 U/L (5-37); Bilirubin Total 0.4 mg/dL (0.0-1.0); Blood Urea Nitrogen 17 mg/dL (9-16); Calcium 9.5 mg/dL (8.4-10.2); Carbon Dioxide 26 mmol/L (22-29); Chloride 107 mmol/L (96-108); Cholesterol 198 mg/dL (<200); Estimated Glomerular Filt Rate > 60; Glucose Fasting 124 mg/dL (60-99); Glucose Random 125 mg/dL (60-115); HDL Cholesterol 32 mg/dL (>40); LDL Cholesterol Calculated 104 mg/dL (<100); Sodium 141 mmol/L (135-145); Total Protein 7.4 g/dL (6.5-8.0); Triglycerides 310 mg/dL (<150)
[2025-01-07 15:10] LABS: TSH reflex Free T4 1.63 uIU/mL (0.32-4.0)
== END 2025-01-07 11:48 | disposition home or self-care (01) ==
LOC: HO.WFDLDS 11:47
PROVIDERS: Referring Provider Internal Medicine; Visit Provider Family Medicine
DX: I10 Essential (primary) hypertension (principal); K21.9 Gastro-esophageal reflux disease without esophagitis; R07.9 Chest pain, unspecified; R10.30 Lower abdominal pain, unspecified; R30.0 Dysuria
CPT/HCPCS: 36415; 80053; 80061; 81003; 82043; 82570; 84443; 85025

== ENCOUNTER → 2025-03-02 07:59 | Outpatient (BNVA) | payer SELFPAY | PROVIDERS: PCP Family Medicine; Visit Provider Physician Assistant Medical | DX: Z02.79 Encounter for issue of other medical certificate (principal); G89.29 Other chronic pain; R10.9 Unspecified abdominal pain; R42 Dizziness and giddiness; R51.9 Headache, unspecified; K76.0 Fatty (change of) liver, not elsewhere classified; K21.9 Gastro-esophageal reflux disease without esophagitis; R74.8 Abnormal levels of other serum enzymes; R14.0 Abdominal distension (gaseous) | CPT/HCPCS: 99212 ==

== ENCOUNTER 2025-03-02 13:16 | Outpatient (AMB) | payer OTHER, SELFPAY ==
--- NOTE | 2025-03-02 14:01 | A.OFFPC_ITS ---
Vital Signs 03/02/25 14:07 Height 5 ft 4 in Weight 172 lb 5 oz BMI 29.6 BP 124/78 Blood Pressure Location Rt brachial Position Sitting Respiration 12 Pulse 70 Pulse Source Pulse Oximeter Temp 97.9 F Temp Source Oral Pulse Oximetry (%) 98 Oxygen Delivery Method Room Air Intake Visit Reasons: Stomach ache / dizzy headache Intake Note: Frequent stools, about 6-7 times a day. Dizziness, head feels heavy sxs. Professor Of Philosophy Required: No Allergies No Known Allergies Allergy (Verified 03/02/25 14:17) Medication List - Last Reconciled 03/02/25 by Sara Lancaster, CYCLE ANALYST- calcium carbonate (Tums) 200 mg PO BID cetirizine (All Day Allergy (cetirizine)) 10 mg PO DAILY PRN 30 days famotidine 10 mg PO DAILY PRN fenofibrate 54 mg PO DAILY 90 days fluticasone propionate 50 mcg/actuation (Flonase Allergy Relief) 1 spray intranasal Q12H 30 days folic acid 1 mg PO DAILY lisinopril 5 mg PO BEDTIME polyethylene glycol 3350 (Miralax) 17 grams PO .QOD 28 days simethicone (Gas Relief (simethicone)) 80 mg PO BID-QID PRN 30 days Tobacco use date assessed: 03/02/25 Dental Screening Dental Screen Date: 12/03/24 HPI HPI Comments History of Present Illness Details History of Present Illness - The patient is a 44-year-old male pres enting with chronic abdominal pain, dizziness, and gastrointestinal symptoms. - Abdominal pain triggered by spicy food s and meat consumption. - Reports frequent bathroom visits, abou t 5-6 times a day. - Dizziness occurs mainly in the morning , unrelated to blood pressure. - Previous imaging and labs, including c olonoscopy and other evaluations, showed normal results. - Fatty liver was identified on an ultra sound. - Consumes limited fish; reports intoler ance to other meats. - He is active w/ GI at [facility]; has had [facility] [place] for the same. - Barium swallow scheduled 04/2025; EGD in the works. - He tells me he is here to have me help get him an appt for the EGD as he has not heard back from the [facility]. Review of Systems - Gastrointestinal: Reports abdominal pa in, increased bathroom frequency, and intermittent diarrhea. - Neurological: Reports dizziness withou t associated headaches. - General: Denies any recent weight loss ; reports bloating sensation. - ENT: Reports throat pain after consumi ng problematic foods. Physical Exam General: Well developed, well nourished, in no acute distress. Appears stated age. Head: Normocephalic, atraumatic. Eyes: Pupils are equal, round and reactive to light and accommodation. Conjunctivae are clear. Scleras anicteric bilat Lungs: Clear to auscultation bilaterally. No rales, rhonchi or wheeze noted. Good air flow in all higgins. Heart: Regular rate and rhythm. No murmurs, click, rubs or gallops are noted. Abdomen: Bowel sounds present in all quadrants. The abdomen is soft, mildly tender w/o rebound in LLQ, with no masses or organomegaly noted. No hernias are noted. Psych: Mood and affect appropriate. Reports concern and confusion about ongoing symptoms and test scheduling. reviewed 12/2024 [facility] consult note Labs from 12/2024 Colon 2022 Discussion Notes The patient expressed concerns about difficulty in obtaining timely appointments for further diagnostics such as endoscopy. I emphasized the importance of these procedures for a definitive assessment of his gastrointestinal complaints. He was reassured about the normal blood pressure readings in relation to his dizziness and was advised to avoid dietary triggers known to exacerbate his symptoms. I sent a message to the warehouse and receiving supervisor, Dr. Wasserman, regarding the upcoming diagnostic procedures and the need for coordination. Patient was given time to ask questions. All questions were answered to their satisfaction. Assessment and Plan FU with GI. Message sent to their office to coordinate care Cont meds Hydrate Avoid ED. Patient Instructions - Avoid eating spicy foods and meats kno wn to trigger abdominal pain and other symptoms. - Monitor frequency of bathroom visits a nd any changes in symptoms. - Return if symptoms persist, especially if new symptoms arise. - Follow up with scheduling for upcoming barium swallow and endoscopy procedures. Consent Patient was informed and verbally consented to the use of an ambient scribe for clinic note documentation during this visit. Total time spent caring for the patient today was 40 minutes. This includes time spent before the visit reviewing the chart, time spent during the visit, and time spent after the visit on documentation, reviewing laboratory results, diagnostic imaging, medications, performing a medically necessary evaluation, counseling on diagnoses, care coordination, ordering appropriate tests, ordering appropriate medications, review of tests performed by other providers, reporting test results with the patient, communication with other healthcare providers. [facility] Medical History Eosinophilia No pertinent past medical history Surgical History Hx of colonoscopy History of esophagogastroduodenoscopy (EGD) History of tonsillectomy Family History Father High blood pressure Diabetes Mother Diabetes Social History Household Members: Family Housing: House Are you a primary lpn care manager to a significant other at home: No Do you presently have visiting nurse or other home services: No 75 years or older and lives alone: No Alcohol intake: never Patient Tobacco Use Status: Never used Tobacco e-Cigarette/Vaping Use: Never Used Second Hand Smoke Exposure: No service: No Current occupational status: employed Current occupation: Housekeeping/ right hand dominant Current occupational exposures/hazards: No Cognitive needs: No Hearing needs: No Vision needs: No Questionnaire Thrive Questionnaire Date Thrive assessed: 08/29/24 I am a: Patient What is your living situation today?: I have a steady place to live Within the past 12 months, did the food you bought not last and you didn't have the money to get more?: Never true Within the past 12 months, did you worry whether your food would run out before you got money to buy more?: Never true Do you have trouble paying for medicines?: No Do you have trouble getting transportation to medical appointments?: No Do you have trouble paying your heating and electricity bill?: No Do you have trouble taking care of your child, family member or friend?: No Do you have trouble with day-to-day activities such as bathing, preparing meals, shopping, managing finances, etc.?: No Are you currently unemployed and looking for a job?: No Are you interested in more education?: No Please select the resources that you would like help with: None Currently or been in a relationship where the following occur: I choose not to answer THRIVE Score: 0 AUDIT C Alcohol Use Questionnaire (AUDIT-C) 1. How often do you have a drink containing alcohol?: Never 3. How often do you have six or more drinks on one occasion?: Never Total Score: 0 ABIOLA-7 AMB Questionnaire ABIOLA-7 Date ABIOLA - 7 assessed: 04/29/24 Source: Developed by Drs. Lang Sullivan, Donna Francois, Linwood Franks and colleagues, with an educational nba from [employer]. Physical exam (Primary Care) Vital Signs: Last Vital Signs Temp 97.9 F 03/02/25 14:07 Pulse 70 03/02/25 14:07 Resp 12 03/02/25 14:07 BP 124/78 03/02/25 14:07 Pulse Ox 98 03/02/25 14:07 Oxygen Delivery Method Room Air 03/02/25 14:07 BMI result Body Mass Index 29.6 Tobacco/Smoking Status: Tobacco use Status Tobacco use date assessed 03/02/25 03/02/25 14:09 Patient Tobacco Use Status Never used Tobacco 03/02/25 14:04 e-Cigarette/Vaping Use Never Used 03/02/25 14:04 Thrive Assessment: Date of Thrive Assessment Date Thrive assessed 08/29/24 03/02/25 14:04 Currently or been in a relationship where the following occur: I choose not to answer Results AMB Urinalysis Automated WC UR Glucose Negative Last Edit by Nadia Camacho RN on 03/02/25 12:47 UR Ketone Negative Last Edit by Nadia Camacho RN on 03/02/25 12:47 UR Specific [place] 1.020 Last Edit by Nadia Camacho RN on 03/02/25 12:47 UR Blood Negative Last Edit by Nadia Camacho RN on 03/02/25 12:47 UR Ph 5.5 Last Edit by Nadia Camacho RN on 03/02/25 12:47 UR Protein Negative Last Edit by Nadia Camacho RN on 03/02/25 12:47 UR Nitrite Negative Last Edit by Nadia Camacho RN on 03/02/25 12:47 UR Leukocytes Negative Last Edit by Nadia Camacho RN on 03/02/25 12 :47 Coding Level of Care Code Est Pt Level 5 (89812) Complex EM visit Add On G2211 Diagnoses Chronic GERD K21.9 Elevated liver enzymes R74.8 Abdominal bloating R14.0 Assessment & Plan Assessment & Plan (1) Chronic GERD: Code(s): K21.9 - Gastro-esophageal reflux disease without esophagitis Category: Medical (2) Elevated liver enzymes: Code(s): R74.8 - Abnormal levels of other serum enzymes Category: Medical (3) Abdominal bloating: Code(s): R14.0 - Abdominal distension (gaseous) Category: Medical Plan .
[2025-03-02 14:07] VITALS: BP 124/78; PULSE 70; RESP 12; TEMP 36.6; O2SAT 98; BMI 29.6
--- OUTSIDE RECORDS SUMMARY | 2025-03-02 14:07 | XMS_ITS | Clinical Summary ---
Author Organization [facility] Address [address] [place] [address] Care Team Providers Care Sales Service Representative Name Role Phone Elba Mejia PA-C Primary Care Provider [phone] Source Comments PLEASE NOTE, if this patient [...] complication, without long-term current use of insulin (CMS & HHS-HCC) Take 1 Tab by mouth once daily [...] complication, without long-term current use of insulin ([facility]) 12/24/2013 GERD (gastroesophageal reflu x disease) on fiberoptic laryngoscopy 02/19/2013 08/05/2013 PPD positive, treated 08/05/2013 Hypertriglyceridemia 04/17/2013 LENZ (nonalcoholic steatohepatitis) on ultrasoun d 06/21/2012 04/17/2013 Overview (04/17/2013): By Ultra sound done 06/21/2012 Non morbid obesity Mild vitamin D deficiency Immunizations Immunization Administration Dates Next Due Hep B, Adult/Adol (EREKLBR-F-RTGQT/RECOMBIVAX-ADULT) 02/11/2013,04/19/2012,03/20/2012 INFLUENZA, SEASONAL, INJECTABLE 06/03/2015,04/17 MMR (MMR II/Priorix) 01/23/2012,07/06/2011 TDAP 01/23/2012 Td (adult),2 Lf tetanus toxo id (TDVAX), preservative free 07/06/2011,07/06/2011 Family History Medical History Relation [...] Td or Tdap) 01/22/2022 01/23/2012, 07/06/2011, 07/06/2011 [id number] ( season) 2024 Imm-Hepatitis B Completed 02/11/2013, [...] complication, without long-term current use of insulin ([facility]) Essential hypertension, benign Hypertriglyceridem ia HEPATITIS C ANTIBODY Routine 01/15/2020 9:18 AM EDT Type 2 diabetes mellitus without complication, without long-term current use of insulin ([facility]) Essential hypertension, benign Hypertriglyceridem ia LIPID PANEL Routine 01/15/2020 9:18 AM EDT Type 2 diabetes mellitus without complication, without long-term current use of insulin ([facility]) Essential hypertension, benign Hypertriglyceridem ia HEMOGLOBIN GLYCOSYLATED A1C Routine 01/15/2020 9:18 AM EDT Type 2 diabetes mellitus without complication, without long-term current use of insulin ([facility]) Essential hypertension, benign Hypertriglyceridem ia MICROALBUMIN/CREATININ E RATIO, URINE, RANDOM Routine 01/15/2020 9:14 AM EDT Type 2 diabetes mellitus without complication, without long-term current use of insulin ([facility]) Essential hypertension, benign Hypertriglyceridem ia ANTIBODY HIV-1&HIV-2 SINGLE RESULT Routine 11/15/2018 10:55 AM EDT Type 2 diabetes mellitus without complication, without long-term current use of insulin ([facility]) from Last 3 Months or Most Recently Relevant to Health Maintenance Results * HEPATITIS C ANTIBODY (01/15/2020 9:18 AM EDT) Pathologist [facility] HEPATITIS C VIRUS SCREEN NEGATIVE NEGATIVE [facility] Blood specimen (specimen) Blood / Unknown 01/15/2020 9:18 AM EDT 01/15/2020 1:35 PM EDT [facility] - 01/15/2020 3:27 PM EDT [employer], [place] [address] Waterproof Material [place] [id number] ORD# [id number] Elba Mejia PA-C LAB - BLOOD DRAW Final Resul t Performing Organization Address City/[facility]/ZIP [place] [address], [place] [phone] * HEMOGLOBIN, GLYCOSYLATED (A1C) (01/15/2020 9:18 AM EDT) Pathologist [facility] GLYCATED HEMOGLOBIN A1C 6.3 <6.5 % [facility] ESTIMATED AVERAGE GLUCOSE 134 mg/dL [facility] Blood specimen (specimen) Blood / Unknown 01/15/2020 9:18 AM EDT 01/15/2020 1:35 PM EDT [facility] - 01/15/2020 2:30 PM EDT [employer], [place] [address] Waterproof Material [place] [id number] ORD# [id number] Elba Mejia PA-C LAB - BLOOD DRAW Final Resul t Performing Organization Address City/[facility]/[place]IP [place] [address], * (ABNORMAL) LIPID PANEL (01/15/2020 9:18 AM EDT) CHOLESTEROL 180 0 - 200 mg/dL [facility] TRIGLYCERIDES 338(H) 0 - 150 mg/dL [facility] HDL CHOLESTEROL 36(L) >40 mg/dL [facility] LDL CALCULATED 77 0 - 100 mg/dL [facility] TC-HDLC RATIO 5.0(H) 0 - 4.4 mg/dL [facility] Blood specimen (specimen) Blood / Unknown 01/15/2020 9:18 AM EDT 01/15/2020 1:35 PM EDT [facility] - 01/15/2020 2:41 PM EDT [facility], [place] [address] Waterproof Material [place] [id number] ORD# [id number] Elba Mejia PA-C LAB - BLOOD DRAW Edited Resu lt - Final Performing Organization Address City/State/[facility] [place] [address], * (ABNORMAL) COMPRE METAB PANEL (01/15/2020 9:18 AM EDT) BUN 18 5 - 25 mg/dL [facility] CREAT 0.96 0.7 - 1.3 mg/dL [facility] GLOMERULAR FILTRATION RATE > 60 [facility] Comment: If patient is -Lao, multiply result by 1.21 Chronic Kidney Disease: < 60 ml/min/1.73 square meters Kidney Failure: < 15 ml/min/1.73 square meters SODIUM 137 135 - 145 mEq/L [facility] POTASSIUM 4.7 3.5 - 5.5 mmol/L [facility] CHLORIDE 103 96 - 110 mmol/L [facility] CO2 30 21 - 32 mmol/L [facility] ANION GAP 4 3 - 11 [facility] CALCIUM 9.6 8.5 - 10.5 mg/dL [facility] ALBUMIN 3.8 3.2 - 5.0 G/dL [facility] SGPT 55 10 - 60 U/L [facility] GLUCOSE 114(H) 70 - 100 mg/dL [facility] Comment:Reference range appl icable to fasting specimens only TOTAL PROTEIN 7.6 6.0 - 8.0 G/dL [facility] BILI, TOTAL 0.3 0.0 - 1.4 mg/dL [facility] SGOT 29 10 - 42 U/L [facility] ALK PHOS 56 42 - 121 U/L [facility] Blood specimen (specimen) Blood / Unknown 01/15/2020 9:18 AM EDT 01/15/2020 1:35 PM EDT [facility] - 01/15/2020 3:09 PM EDT [facility] [employer], [place] [address] Waterproof Material [place] [id number] ORD# [id number] Elba Mejia PA-C LAB - BLOOD DRAW Edited Resu [place] [address], * (ABNORMAL) MICROALBUMIN/CREATININE RATIO, URINE, RANDOM (01/15/2020 9:14 AM EDT) CREATININE, RANDOM URINE 106 mg/dL [facility] MICROALBUMIN, RANDOM 47.5(H) 0.0 - 29.0 mg/L [facility] MICROALB/CRE RATIO RANDOM 44.8(H) 0.0 - 30.0 mg/G [facility] Urine specimen (specimen) Urine specimen / Unknown 01/15/2020 9:14 AM EDT 01/15/2020 1:35 PM EDT [employer] [facility] - 01/15/2020 2:59 PM EDT [employer], a member of [address] [address] [employer] Material [place] [id number] ORD# [id number] Elba Mejia PA-C LAB URINE AMBULATORY Edited Result - Final Performing Organization Address City/[facility]/ZIP Co de Phone Number [address] [address], * HIV-1 & HIV-2 ANTIBODIES (11/15/2018 10:55 AM EDT) [facility] HIV 1 AND 2 ANTIBODY SCREEN NEGATIVE NEGATIVE [facility] Comment: This assay is a 4th [...] 10:55 AM EDT 11/15/2018 11:41 AM EDT [employer] [facility] - 11/15/2018 5:04 PM EDT [employer], a member of [address] [address] [employer]proof Material [place] [id number] ORD# [id number] Elba Mejia PA-C LAB - BLOOD DRAW Final Resul t Performing Organization Address City/[facility]/ZIP Co de Phone Number [address] [address], [place] [phone] from Last 3 Months or Most Recently Relevant to Health Maintenance Insurance [employer] Care Teams Sales Service Representative Relationship Specialty Start Date End Date Elba Mejia PA-C [address] [place] [phone] PCP - General Internal Medicine 10/21/13
== END 2025-03-02 14:36 | disposition home or self-care (01) ==
LOC: HO.HMCFM 13:17
PROVIDERS: PCP Family Medicine; Visit Provider Nurse Practitioner Family
DX: K21.9 Gastro-esophageal reflux disease without esophagitis (principal); R74.8 Abnormal levels of other serum enzymes; R14.0 Abdominal distension (gaseous)

== ENCOUNTER 2025-03-05 09:08 | Day surgery (SDC) | payer OTHER, SELFPAY ==
--- OUTSIDE RECORDS SUMMARY | 2025-03-04 15:35 | XMS_ITS | Clinical Summary ---
Author Organization [facility] Address [address] [place] [address] Care Team Providers Care Seismology Technical Officer Name Role Phone Elba Mejia PA-C Primary Care Provider [phone] Source Comments PLEASE NOTE, if this patient [...] complication, without long-term current use of insulin ([facility]) 12/24/2013 GERD (gastroesophageal reflu x disease) on fiberoptic laryngoscopy 02/19/2013 08/05/2013 PPD positive, treated 08/05/2013 Hypertriglyceridemia 04/17/2013 LENZ (nonalcoholic steatohepatitis) on ultrasoun d 06/21/2012 04/17/2013 Overview (04/17/2013): By Ultra sound done 06/21/2012 Non morbid obesity Mild vitamin D deficiency Immunizations Immunization Administration Dates Next Due Hep B, Adult/Adol ([id number]/RECOMBIVAX-ADULT) 02/11/2013,04/19/2012,03/20/2012 INFLUENZA, SEASONAL, INJECTABLE 06/03/2015,04/17 MMR (MMR [...] Td or Tdap) 01/22/2022 01/23/2012, 07/06/2011, 07/06/2011 [id number] ( season) 2024 Imm-Hepatitis B Completed 02/11/2013, [...] current use of insulin ([facility]) Essential hypertension, benign Hypertriglyceridem ia HEPATITIS C ANTIBODY Routine 01/15/2020 9:18 AM EDT Type 2 diabetes mellitus without complication, without long-term current use of insulin ([facility]) Essential hypertension, benign Hypertriglyceridem ia LIPID PANEL Routine 01/15/2020 9:18 AM EDT Type 2 diabetes mellitus without complication, without long-term current use of insulin ([facility]) Essential hypertension, benign Hypertriglyceridem ia HEMOGLOBIN GLYCOSYLATED A1C Routine 01/15/2020 9:18 AM EDT Type 2 diabetes mellitus without complication, without long-term current use of insulin ([facility]) Essential hypertension, benign Hypertriglyceridem ia MICROALBUMIN/CREATININ E RATIO, URINE, RANDOM Routine 01/15/2020 9:14 AM EDT Type 2 diabetes mellitus without complication, without long-term current use of insulin ([facility]) Essential hypertension, benign Hypertriglyceridem ia ANTIBODY HIV-1&HIV-2 SINGLE RESULT Routine 11/15/2018 10:55 AM EDT Type 2 diabetes mellitus without complication, without long-term current use of insulin ([facility]) from Last 3 Months or Most Recently Relevant to Health Maintenance Results * HEPATITIS C ANTIBODY (01/15/2020 9:18 AM EDT) Pathologist [facility] HEPATITIS C VIRUS SCREEN NEGATIVE NEGATIVE [facility] Blood specimen (specimen) Blood / Unknown 01/15/2020 9:18 AM EDT 01/15/2020 1:35 PM EDT [facility] - 01/15/2020 3:27 PM EDT [employer], [place] [address] Genetics [place] [id number] ORD# [id number] Elba Mejia PA-C LAB - BLOOD DRAW Final Resul t Performing Organization Address City/[facility]/ZIP [place] [address], [place] [phone] * HEMOGLOBIN, GLYCOSYLATED (A1C) (01/15/2020 9:18 AM EDT) Pathologist [facility] GLYCATED HEMOGLOBIN A1C 6.3 <6.5 % [facility] ESTIMATED AVERAGE GLUCOSE 134 mg/dL [facility] Blood specimen (specimen) Blood / Unknown 01/15/2020 9:18 AM EDT 01/15/2020 1:35 PM EDT [facility] - 01/15/2020 2:30 PM EDT [employer], [place] [address] Genetics [place] [id number] ORD# [id number] Elba Mejia PA-C LAB - BLOOD DRAW Final Resul t Performing Organization Address City/[facility]/[place]IP [place] [address], * (ABNORMAL) LIPID PANEL (01/15/2020 9:18 AM EDT) CHOLESTEROL 180 0 - 200 mg/dL [facility] TRIGLYCERIDES 338(H) 0 - 150 mg/dL [facility] HDL CHOLESTEROL 36(L) >40 mg/dL [facility] LDL CALCULATED 77 0 - 100 mg/dL [facility] TC-HDLC RATIO 5.0(H) 0 - 4.4 mg/dL [facility] Blood specimen (specimen) Blood / Unknown 01/15/2020 9:18 AM EDT 01/15/2020 1:35 PM EDT [facility] - 01/15/2020 2:[address] [facility], [place] [address] Genetics [place] [id number] ORD# [id number] Elba Mejia PA-C LAB - BLOOD DRAW Edited Resu lt - Final Performing Organization Address City/State/[facility] [place] [address], * (ABNORMAL) COMPRE METAB PANEL (01/15/2020 9:18 AM EDT) BUN 18 5 - 25 mg/dL [facility] CREAT 0.96 0.7 - 1.3 mg/dL [facility] GLOMERULAR FILTRATION RATE > [address] [facility] Comment: If patient is -[place], multiply result by 1.21 Chronic Kidney Disease: < 60 ml/min/1.73 square meters Kidney Failure: < 15 ml/min/1.73 square meters SODIUM 137 135 - 145 mEq/L [facility] POTASSIUM 4.7 3.5 - 5.5 mmol/L [facility] CHLORIDE 103 96 - 110 mmol/L [facility] CO2 30 21 - 32 mmol/L [facility] ANION GAP 4 3 - [address] [facility] CALCIUM 9.6 8.5 - 10.5 mg/dL [facility] ALBUMIN 3.8 3.2 - 5.0 G/dL [facility] SGPT 55 10 - 60 U/L [facility] GLUCOSE 114(H) 70 - 100 mg/dL [facility] Comment:Reference range appl icable to fasting specimens only TOTAL PROTEIN 7.6 6.0 - 8.0 G/dL [facility] BILI, TOTAL 0.3 0.0 - 1.4 mg/dL [facility] SGOT 29 10 - 42 U/L [facility] ALK PHOS 56 42 - 121 U/L [facility] Blood specimen (specimen) Blood / Unknown 01/15/2020 9:18 AM EDT 01/15/2020 1:35 PM EDT [facility] - 01/15/2020 3:09 PM EDT [facility] [employer], [place] [address] Genetics [place] [id number] ORD# [id number] Elba Mejia PA-C LAB - BLOOD DRAW Edited Resu [place] [address], * (ABNORMAL) MICROALBUMIN/CREATININE RATIO, URINE, RANDOM (01/15/2020 9:14 AM EDT) CREATININE, RANDOM URINE 106 mg/dL [facility] MICROALBUMIN, RANDOM 47.5(H) 0.0 - 29.0 mg/L [facility] MICROALB/CRE RATIO RANDOM 44.8(H) 0.0 - 30.0 mg/G [facility] Urine specimen (specimen) Urine specimen / Unknown 01/15/2020 9:14 AM EDT 01/15/2020 1:35 PM EDT [employer] - 01/15/2020 2:59 PM EDT [employer], a member of [address] [address] Genetics [place] [id number] ORD# [id number] Elba Mejia PA-C LAB URINE AMBULATORY Edited Result - Final Performing Organization Address City/[facility]/ZIP Co de Phone Number [address] [address], * HIV-1 & HIV-2 ANTIBODIES (11/15/2018 10:55 AM EDT) [facility] HIV 1 AND 2 ANTIBODY SCREEN [...] 10:55 AM EDT 11/15/2018 11:41 AM EDT [facility] - 11/15/2018 5:04 PM EDT [employer], a member of [address] [address] Genetics [place] [id number] ORD# [id number] Elba Mejia PA-C LAB - BLOOD DRAW Final Resul t Performing Organization Address City/[facility]/ZIP Co de Phone Number [address] [address], [place] [phone] from Last 3 Months or Most Recently Relevant to Health Maintenance Insurance [employer] Care Teams Seismology Technical Officer Relationship Specialty Start Date End Date Elba Mejia PA-C [address] [place] [id number] PCP - General Internal Medicine 10/21/13
--- NOTE | 2025-03-04 15:39 | HO.ANESPROP2 ---
Documented by User: Ashly Lanier NP 03/04/25 15:40 HPI - Anesthesia Eval Consult details Narrative: 44yo M for Upper Endoscopy PMFSH Active Problems Active Problems: All Active Problems Dysuria (Acute) Lower abdominal pain (Acute) Hydrocele (Acute) Elevated liver enzymes (Acute) Eosinophilia (Acute) Postprandial abdominal bloating (Acute) H/O worms (Acute) Ear pain (Acute) Throat pain (Acute) Eosinophil count raised (Acute) Right otitis externa (Acute) Abdominal bloating (Acute) Early satiety (Acute) Testicular lump (Acute) Screening for colon cancer (Acute) Screening for prostate cancer (Acute) Instability of right SI joint (Acute) Constipation (Acute) Fatigue (Acute) Chronic GERD (Acute) History of tonsillectomy (Acute) Recurrent streptococcal pharyngitis (Acute) Acute LUQ pain (Acute) Yeast infection of the skin (Acute) Mild anemia (Acute) Chest pain (Acute) Pharyngitis (Acute) Nasal mass (Acute) Nasal polyp (Acute) History of latent tuberculosis (Acute) Viral upper respiratory illness (Acute) Tear of medial meniscus of right knee (Acute) Patellofemoral arthritis of right knee (Acute) Otitis externa (Acute) Anemia (Acute) Low HDL (under 40) (Acute) Abdominal pain (Acute) Ringworm (Acute) Elevated uric acid in blood (Acute) Back pain (Acute) Urinary leakage (Acute) Cervicalgia (Acute) Irritation of ear (Acute) Right shoulder pain (Acute) Sore throat (Acute) LVH (left ventricular hypertrophy) (Acute) Otitis media (Acute) Intermittent pain (Acute) Positive TB test (Acute) Tuberculosis (Acute) Screening for tuberculosis (Acute) Right knee pain (Acute) Prediabetes (Acute) Elevated transaminase level (Acute) GERD (gastroesophageal reflux disease) (Acute) Annual physical exam (Acute) Hyperlipidemia (Acute) Essential (primary) hypertension (Acute) Diet-controlled diabetes mellitus (Acute) Past Medical History Medical History (Updated 03/05/25 @ 09:40 by Ivania Isaac, OSMAN) Throat pain Fatty liver Elevated cholesterol HTN (hypertension) GERD (gastroesophageal reflux disease) Eosinophilia Family History Family History Father High blood pressure Diabetes Mother Diabetes Surgical History Surgical History Hx of colonoscopy History of esophagogastroduodenoscopy (EGD) History of tonsillectomy Social History Social History Household Members: Family Housing: House Are you a primary professional healthcare representative to a significant other at home: No Do you presently have visiting nurse or other home services: No Alcohol intake: never Patient Tobacco Use Status: Never used Tobacco e-Cigarette/Vaping Use: Never Used Second Hand Smoke Exposure: No Use of substances other than those prescribed or required for medical reasons: No Are you DNR?: No Advance Directives: No Advance Directives Information Provided: Yes service: No Current occupational status: employed Current occupation: Housekeeping/ right hand dominant Current occupational exposures/hazards: No Cognitive needs: No Hearing needs: No Vision needs: No Meds Allergies Allergy/AdvReac Type Severity Reaction Status Date / Time No Known Allergies Allergy Verified 03/05/25 09:41 Home Medications ?Medication ?Instructions ?Recorded ?Confirmed ?Last Taken ?Type famotidine 10 mg tablet 10 mg PO DAILY PRN Heartburn 12/03/24 03/05/25 Unknown History Assessment and Plan Assessment Anesthesia Assessment: Chart Reviewed Documented by User: Rafi Ramirez MD 03/05/25 10:44 [facility] Past Medical History Medical History (Updated 03/05/25 @ 09:40 by Ivania Isaac RN) Throat pain Fatty liver Elevated cholesterol HTN (hypertension) GERD (gastroesophageal reflux disease) Eosinophilia Family History Family History Father High blood pressure Diabetes Mother Diabetes Family history of problems with anesthesia: No Surgical History Surgical History Hx of colonoscopy History of esophagogastroduodenoscopy (EGD) History of tonsillectomy History of Problems with Anesthesia: No Social History Social History Household Members: Family Housing: House Are you a primary professional healthcare representative to a significant other at home: No Do you presently have visiting nurse or other home services: No Alcohol intake: never Patient Tobacco Use Status: Never used Tobacco e-Cigarette/Vaping Use: Never Used Second Hand Smoke Exposure: No Use of substances other than those prescribed or required for medical reasons: No Are you DNR?: No Advance Directives: No Advance Directives Information Provided: Yes service: No Current occupational status: employed Current occupation: Housekeeping/ right hand dominant Current occupational exposures/hazards: No Cognitive needs: No Hearing needs: No Vision needs: No Meds Allergies Allergy/AdvReac Type Severity Reaction Status Date / Time No Known Allergies Allergy Verified 03/05/25 09:41 Home Medications ?Medication ?Instructions ?Recorded ?Confirmed ?Last Taken ?Type famotidine 10 mg tablet 10 mg PO DAILY PRN Heartburn 12/03/24 03/05/25 Unknown History Exam Airway Mallampati Class: II TM Dist: >3cm Neck ROM: Full Loose/Missing/Broken Teeth: No Heart: ok Lungs: ok Assessment and Plan Assessment Anesthesia Assessment: Anesthesia Plan Discussed Final Anesthetic Review Family History of Problems with Anesthesia: No History of Problems with Anesthesia: No NPO: Yes ASA Class: II Final Preanesthetic Review: No Changes in Pt Med Stat, Meds/Allgs Chart Reviewed, Consent Obtained/Reviewed and Anes Risks/Benef Reviewed Patient Risk: Intermediate Procedure Risk: Intermediate Anesthetic Plan Anesthetic Plan: Agree w/ Assess. and Plan and TIVA Disposition: Standard PACU
[2025-03-05 09:45] VITALS: BMI 29.1
--- NOTE | 2025-03-05 09:53 | MHC.SHP ---
Pre-Procedural Eval Section A - 24 Hr Update-Section A only Date of Service: 03/05/25 Section B - Complete if H&P > 30 days Chief Complaint: gerd, chest pain Details of Present Illness: Eosinophilia No pertinent past medical history Surgical History Hx of colonoscopy History of esophagogastroduodenoscopy (EGD) History of tonsillectomy Allergies: Allergies Allergy/AdvReac Type Severity Reaction Status Date / Time No Known Allergies Allergy Verified 03/05/25 09:41 Review of Systems Review of Systems Comment: Ten point ROS negative Exam Exam Comment: Gen appear: No acute distress HEENT: no icterus Chest: No overt resp distress Abd: soft, nontender, nondistended Psych: Stable affect, answering questions appropriately Neuro: A/Ox3 noted to move all extremities spontaneously Ext: no peripheral edema Plan Diagnosis/Plan: Unchanged I have reviewed the history and physical and performed a pertinent physical examination on my patient. No changes have occurred unless specified. Time Spent With Patient Time: Total time managing care of this patient today ____ minutes.
[2025-03-05 09:55] VITALS: BP 136/76; PULSE 66; RESP 15; TEMP 36.6; O2SAT 99
[2025-03-05] MEDS: Lactated Ringers 1,000 ML 100 ML IVCONT (09:59)
--- NOTE | 2025-03-05 11:29 | P.OP_ITS ---
Operative Note Operative Note Date of Service: 03/05/25 Narrative: Procedure: Esophagogastroduodenoscopy Endoscopist: Sapna Wasserman MD Indication: GERD, chest pain Anesthesia Provider: Dr Maame Cleary Anesthesia Type: MAC ?? EGD Procedure:?? The procedure, indications, preparation and potential complications were reviewed with the patient, who indicated understanding and gave written informed consent to proceed. A physical exam was performed. The endoscope was introduced through the mouth, and advanced to the second part of duodenum. The mucosa was carefully examined on slow withdrawal of the endoscope. The patient tolerated the procedure well. There were no immediate complications.? ? EGD Findings:? * Esophagus:? Normal mucosa noted in the entire esophagus. The Z line was at 38 cm. * Stomach:? Scant heme and erosions noted in the body of the stomach. Retroflexion was performed in the cardia. Random cold forceps gastric biopsies were performed for histology. * Duodenum:? Normal mucosa was noted in the whole of the examined duodenum. Cold forceps biopsies were taken from duodenal bulb and second portion of the d uodenum to rule out celiac sprue. ? EGD Impressions:? * Normal esophagus * Gastritis (biopsy) * Normal duodenum (biopsy) ?? Recommendations:?? * Follow biopsy results. Our office will call or send a letter with results within 7-10 days. * Stop famotidine. Start PPI therapy. * If H pylori +, patient will be prescribed eradication therapy followed by test of cure. * Avoid NSAIDs. Above has been reviewed with the patient.
[2025-03-05 11:36] VITALS: BP 102/67; PULSE 78; RESP 20; TEMP 37.1; O2SAT 95
--- NOTE | 2025-03-05 11:44 | P.CONAN_ITS ---
REPLACED BY [facility] Active Problems Active Problems: All Active Problems (Updated 03/05/25 @ 09:40 by Ivania Isaac RN) Dysuria (Acute) Lower abdominal pain (Acute) Hydrocele (Acute) Elevated liver enzymes (Acute) Postprandial abdominal bloating (Acute) H/O worms (Acute) Ear pain (Acute) Throat pain (Acute) Eosinophil count raised (Acute) Right otitis externa (Acute) Abdominal bloating (Acute) Early satiety (Acute) Testicular lump (Acute) Screening for colon cancer (Acute) Screening for prostate cancer (Acute) Instability of right SI joint (Acute) Constipation (Acute) Fatigue (Acute) Chronic GERD (Acute) Recurrent streptococcal pharyngitis (Acute) Acute LUQ pain (Acute) Yeast infection of the skin (Acute) Mild anemia (Acute) Chest pain (Acute) Pharyngitis (Acute) Nasal mass (Acute) Nasal polyp (Acute) History of latent tuberculosis (Acute) Viral upper respiratory illness (Acute) Tear of medial meniscus of right knee (Acute) Patellofemoral arthritis of right knee (Acute) Otitis externa (Acute) Anemia (Acute) Low HDL (under 40) (Acute) Abdominal pain (Acute) Ringworm (Acute) Elevated uric acid in blood (Acute) Back pain (Acute) Urinary leakage (Acute) Cervicalgia (Acute) Irritation of ear (Acute) Right shoulder pain (Acute) Sore throat (Acute) LVH (left ventricular hypertrophy) (Acute) Otitis media (Acute) Intermittent pain (Acute) Positive TB test (Acute) Tuberculosis (Acute) Screening for tuberculosis (Acute) Right knee pain (Acute) Prediabetes (Acute) Elevated transaminase level (Acute) GERD (gastroesophageal reflux disease) (Acute) Annual physical exam (Acute) Hyperlipidemia (Acute) Essential (primary) hypertension (Acute) Diet-controlled diabetes mellitus (Acute) Eosinophilia (Acute) History of tonsillectomy (Acute) Past Medical History Medical History Throat pain Fatty liver Elevated cholesterol HTN (hypertension) GERD (gastroesophageal reflux disease) Eosinophilia Functional capacity: independent ambulation Family History Family History Father High blood pressure Diabetes Mother Diabetes Family history of problems with anesthesia: No Surgical History Surgical History Hx of colonoscopy History of esophagogastroduodenoscopy (EGD) History of tonsillectomy History of Problems with Anesthesia: No Social History Social History Household Members: Family Housing: House Are you a primary dog day care attendant to a significant other at home: No Do you presently have visiting nurse or other home services: No Alcohol intake: never Patient Tobacco Use Status: Never used Tobacco e-Cigarette/Vaping Use: Never Used Second Hand Smoke Exposure: No Use of substances other than those prescribed or required for medical reasons: No Are you DNR?: No Advance Directives: No Advance Directives Information Provided: Yes service: No Current occupational status: employed Current occupation: Housekeeping/ right hand dominant Current occupational exposures/hazards: No Cognitive needs: No Hearing needs: No Vision needs: No Meds Allergies Allergy/AdvReac Type Severity Reaction Status Date / Time No Known Allergies Allergy Verified 03/05/25 09:41 Active Medications: Current Medications Lactated Ringer's (Lr) 1,000 mls @ 100 mls/hr IVCONT .Q10H LAXMI Last Admin: 03/05/25 09:59 Dose: 100 mls/hr Naloxone HCl (Naloxone Hcl 0.4 Mg/Ml Vial) 0.04 mg IVPUSH Q5M PRN PRN Reason: Excessive sedation or RR < 8 Exam Height,Weight and Vital Signs: Height 5 ft 4 in Weight 77 kg Last Vital Signs Temp 98.8 F 03/05/25 11:36 Pulse 78 03/05/25 11:36 Resp 20 03/05/25 11:36 BP 102/67 03/05/25 11:36 Pulse Ox 95 03/05/25 11:36 O2 Del Method Room Air 03/05/25 11:36 Airway Mallampati Class: II TM Dist: >3cm Neck ROM: Full Heart: RRR Lungs: CTA Assessment and Plan Assessment Anesthesia Assessment: Anesthesia Plan Discussed Final Anesthetic Review Family History of Problems with Anesthesia: No History of Problems with Anesthesia: No NPO: Yes ASA Class: II Final Preanesthetic Review: Meds/Allgs Chart Reviewed, Consent Obtained/Reviewed and Anes Risks/Benef Reviewed Patient Risk: Low Procedure Risk: Low Anesthetic Plan Anesthetic Plan: MAC: Disposition: Standard PACU
--- NOTE | 2025-03-05 11:46 | HO.POSTANES ---
Post Anesthesia Evaluation Post Anesthesia Evaluation Date of Service: 03/05/25 Vital Signs: Vital Signs Temp Pulse Resp BP Pulse Ox O2 Del Method 03/05/25 11:36 98.8 F 78 20 102/67 95 Room Air 03/05/25 09:55 97.8 F 66 15 136/76 99 Room Air Anesthesia: Monitored Mental Status: Awake Pain Control: Satisfactory Nausea/Vomiting: None Hydration: Adequate Anesthesia-Related Issues: No Anes. Related Issues
[2025-03-05 11:51] VITALS: BP 103/70; PULSE 74; RESP 20; O2SAT 95
[2025-03-05 12:04] VITALS: BP 121/94; PULSE 63; RESP 16; TEMP 36.6; O2SAT 97
== END 2025-03-05 12:24 | disposition home or self-care (01) ==
PROVIDERS: PCP Family Medicine; Visit Provider Internal Medicine
PROC: 0DJ08ZZ Inspection of Upper Intestinal Tract, Via Natural or Artificial Opening Endoscopic (ICD-10-PCS; CPT 43235; principal; 2025-03-05 11:50)
DX: K21.9 Gastro-esophageal reflux disease without esophagitis (principal); K29.60 Other gastritis without bleeding; K29.80 Duodenitis without bleeding; E11.9 Type 2 diabetes mellitus without complications; I10 Essential (primary) hypertension; E78.5 Hyperlipidemia, unspecified; R74.8 Abnormal levels of other serum enzymes; Z86.15 Personal history of latent tuberculosis infection
CPT/HCPCS: 43239; 88305; 88313; 88342; J2003; J2704

== ENCOUNTER → 2025-03-05 09:08 | Outpatient (BNV) | payer OTHER, SELFPAY | PROVIDERS: PCP Family Medicine; Visit Provider Internal Medicine | DX: K21.9 Gastro-esophageal reflux disease without esophagitis (principal); R07.9 Chest pain, unspecified; K29.70 Gastritis, unspecified, without bleeding | CPT/HCPCS: 43239 ==

== ENCOUNTER 2025-03-26 12:13 | Outpatient (REF) | payer OTHER, SELFPAY ==
--- NOTE | ~2025-03-26 | CT_ITS ---
EXAMINATION: CT ABDOMEN PELVIS WITH IV CONTRAST HISTORY: R10.30 - Lower abdominal pain, unspecified COMPARISON: Correlation is made with an abdominal ultrasound 11/17/2024. TECHNIQUE: CT scan of the abdomen and pelvis was performed following administration of 85 mL Omnipaque 350 using standard departmental protocol. Coronal and sagittal reformatted images were generated and reviewed. Oral contrast material was not administered at the request of the referring physician. This CT exam was performed with one or more of the following dose reduction techniques: automated exposure control, adjustment of the mA and/or kV according to patient size, use of iterative reconstruction technique. DLP: 52 mGy-cm FINDINGS: LOWER CHEST: The visualized lung bases are clear. There is no pleural effusion. CARDIOVASCULATURE: The heart is normal in size. There is no pericardial effusion. LIVER: The liver is normal in size and contour, but demonstrates diffusely decreased attenuation, consistent with steatosis. No liver mass is identified. The hepatic and portal veins are patent. GALLBLADDER / BILE DUCTS: The gallbladder is unremarkable. There is no intra or extrahepatic biliary ductal dilatation. SPLEEN: The spleen is normal in size. No focal splenic lesion is identified. PANCREAS: The pancreas is unremarkable in appearance. ADRENAL GLANDS: Within normal limits. KIDNEYS/RETROPERITONEUM: No renal calculi are identified. There is no hydronephrosis. No renal masses are identified. LYMPH NODES: No abdominal or pelvic lymphadenopathy. VASCULATURE: The abdominal aorta is normal in caliber. MESENTERY/PERITONEUM: No free fluid. No masses. There is no free intraperitoneal gas. STOMACH: The stomach is collapsed, limiting evaluation. SMALL BOWEL: The small bowel is normal in caliber. COLON: The colon is unremarkable. APPENDIX: Normal. URINARY BLADDER/PELVIC ORGANS: The urinary bladder is collapsed, limiting evaluation. The prostate is normal in size. BONES / SOFT TISSUES: No suspicious bony or soft tissue abnormalities. CT/CT abdomen pelvis w IV con IMPRESSION: Hepatic steatosis. Otherwise unremarkable contrast-enhanced CT of the abdomen and pelvis. Electronically signed by: Lang Reyes MD 03/26/2025 02:00 PM EDT
[2025-03-26] MEDS: iohexoL 350 MG/ML 100 ML INFUS..BTL IV (13:53)
== END 2025-03-26 12:14 | disposition home or self-care (01) ==
LOC: HO.CT 12:13
PROVIDERS: PCP Family Medicine; Visit Provider Internal Medicine
DX: R10.30 Lower abdominal pain, unspecified (principal)
CPT/HCPCS: 74177; Q9967

== ENCOUNTER → 2025-03-26 12:15 | Outpatient (BNV) | payer OTHER, SELFPAY | PROVIDERS: PCP Family Medicine; Visit Provider Radiology Diagnostic Radiology | DX: K76.0 Fatty (change of) liver, not elsewhere classified (principal) | CPT/HCPCS: 74177 ==

== ENCOUNTER 2025-04-15 10:33 | Outpatient (REF) | payer OTHER, SELFPAY ==
[2025-04-15 15:18] LABS: Resp Syncy Virus RNA Qual PCR NEGATIVE (Negative); SARS COV2 PCR INHOUSE NEGATIVE (Negative)
== END 2025-04-15 10:34 | disposition home or self-care (01) ==
LOC: HO.LNP 10:33
PROVIDERS: PCP Family Medicine; Visit Provider Family Medicine
DX: B34.9 Viral infection, unspecified (principal); J02.9 Acute pharyngitis, unspecified
CPT/HCPCS: 87637; 87880

== ENCOUNTER 2025-04-15 10:33 | Outpatient (AMB) | payer OTHER, SELFPAY ==
--- NOTE | 2025-04-15 10:38 | A.OFFPC_ITS ---
Vital Signs 04/15/25 10:42 Height 5 ft 4 in Weight 173 lb 6 oz BMI 29.8 BP 133/63 Blood Pressure Location Lt brachial Position Sitting Respiration 16 Pulse 90 Pulse Source Pulse Oximeter Temp 98.5 F Temp Source Oral Pulse Oximetry (%) 97 Oxygen Delivery Method Room Air Intake Visit Reasons: Possible strep throat Intake Note: patient here c/o soar throat for 3-4 days Development Professional Required: No Allergies No Known Allergies Allergy (Verified 04/15/25 10:42) Tobacco use date assessed: 04/15/25 Dental Screening Dental Screen Date: 04/15/25 Did you have a dental visit in the last 12 months?: No Did you have a dental problem in the last 6 months where you did not have access to dental care?: No Was dental information given to patient?: No HPI Possible strep throat HPI Details 44 y/o male presents today with complain ts of a sore throat. Reports sore throat x3-4 days. Denies any coughs. Strep test negative. Denies any ear discomfort, fevers. HPI Comments History of Present Illness Details Documentation assistance for Ashutosh Agarwal MD, was provided by Ezra Momin,? Telecommunications Specialist on 04/15/2025 at 11:10 AM EST. I, Dr. Agarwal, have read, observed, and verified documentation. ?? PFSH Medical History Throat pain Fatty liver Elevated cholesterol HTN (hypertension) GERD (gastroesophageal reflux disease) Eosinophilia Surgical History Hx of colonoscopy History of esophagogastroduodenoscopy (EGD) History of tonsillectomy Family History Father High blood pressure Diabetes Mother Diabetes Social History Household Members: Family Housing: House Are you a primary med care manager to a significant other at home: No Do you presently have visiting nurse or other home services: No 75 years or older and lives alone: No Alcohol intake: never Patient Tobacco Use Status: Never used Tobacco e-Cigarette/Vaping Use: Never Used Second Hand Smoke Exposure: No service: No Current occupational status: employed Current occupation: Housekeeping/ right hand dominant Current occupational exposures/hazards: No Cognitive needs: No Hearing needs: No Vision needs: No Questionnaire Thrive Questionnaire Date Thrive assessed: 08/29/24 I am a: Patient What is your living situation today?: I have a steady place to live Within the past 12 months, did the food you bought not last and you didn't have the money to get more?: Never true Within the past 12 months, did you worry whether your food would run out before you got money to buy more?: Never true Do you have trouble paying for medicines?: No Do you have trouble getting transportation to medical appointments?: No Do you have trouble paying your heating and electricity bill?: No Do you have trouble taking care of your child, family member or friend?: No Do you have trouble with day-to-day activities such as bathing, preparing meals, shopping, managing finances, etc.?: No Are you currently unemployed and looking for a job?: No Are you interested in more education?: No Please select the resources that you would like help with: None Currently or been in a relationship where the following occur: I choose not to answer THRIVE Score: 0 ABIOLA-7 AMB Questionnaire ABIOLA-7 Date ABIOLA - 7 assessed: 04/29/24 Source: Developed by Drs. Lang Sullivan, Donna Francois, Linwood Franks and colleagues, with an educational nba from [employer]. Review of Systems Const Denies chills, Denies fatigue, Denies fever(s), Denies headache(s) and Denies weakness ENT Denies dizziness and Denies headache(s) Card Denies dyspnea Resp Denies cough, Denies dyspnea, Denies wheezing and Denies other (shortness of breath) Musc Denies numbness and Denies tingling Neuro Denies dizziness, Denies headache(s), Denies numbness, Denies tingling and Denies weakness Psych Denies anxiety and Denies depression Endo Denies fatigue Aller/Immun Denies wheezing Physical exam (Primary Care) Vital Signs: Last Vital Signs Temp 98.5 F 04/15/25 10:42 Pulse 90 04/15/25 10:42 Resp 16 04/15/25 10:42 BP 133/63 04/15/25 10:42 Pulse Ox 97 04/15/25 10:42 Oxygen Delivery Method Room Air 04/15/25 10:42 BMI result Body Mass Index 29.8 Tobacco/Smoking Status: Tobacco use Status Tobacco use date assessed 04/15/25 04/15/25 10:48 Patient Tobacco Use Status Never used Tobacco 04/15/25 10:39 e-Cigarette/Vaping Use Never Used 04/15/25 10:39 Thrive Assessment: Date of Thrive Assessment Date Thrive assessed 08/29/24 04/15/25 10:39 Currently or been in a relationship where the following occur: I choose not to answer Const General: well developed; No acute distress Nutritional Appearance: well nourished Orientation/consciousness: patient oriented x3 HENMT Head: Yes normocephalic and Yes atraumatic Eyes General: appearance normal, both eyes and all related structures Pupils: Equal, round and reactive pupils present EOM: EOMs intact bilaterally Resp Effort & Inspection: normal respiratory effort Neuro General: patient oriented x3 and gait normal Cranial nerves: Yes Equal, round and reactive pupils present Psych Affect: normal affect Results AMB Rapid Strep AMB Rapid Strep Negative Last Edit by Jacquelyn Kwan MA on 04/15/25 11:04 Results Reviewed Results Reviewed: Laboratory Last Values Strep Scn Rapid Clinic Negative 04/15/25 11:01 Coding Level of Care Code Est Pt Level 3 (92895) Diagnoses Sore throat J02.9 Assessment & Plan Assessment & Plan (1) Sore throat: Code(s): J02.9 - Acute pharyngitis, unspecified Category: Medical Plan: Complaint of sore throat and some feverishness though temp is normal No exudates in posterior nasopharynx Does have sick contact-daughter Mild cough in office though he says this is not a feature of the illness overall Rapid strep negative This appears to be a viral illness Viral illness There is no antibiotic medication for viruses. They must run their course. Most average 5-7 days but 7-10 days is not uncommon and up to 14 days is still possible. A cough is often the last symptom to resolve and this can last for weeks in some cases. Rest Hydrate well - Drink plenty of fluids. Especially water. Tylenol or ibuprofen for muscle aches, headache, fever/discomfort Can use xeeu-rsy-[id number] medications for cough such as Delsym or DayQuil. Prescription cough medicines have been shown to be no better. Will check nasal swab for COVID/flu/RSV He would like note to remain out of work today - Provided note. Orders: Orders AMB Rapid Strep Screen Today Z13.9 - Encounter for screening, unspecified SARS-CoV2/FLU/RSV Today B34.9 - Viral infection, unspecified
[2025-04-15 10:42] VITALS: BP 133/63; PULSE 90; RESP 16; TEMP 36.9; O2SAT 97; BMI 29.8
--- OUTSIDE RECORDS SUMMARY | 2025-04-15 12:10 | XMS_ITS | Clinical Summary ---
Author Organization [facility] Address [address] [place] [address] Care Team Providers Care Registered Nurse Supervisor Name Role Phone Elba Mejia PA-C Primary Care Provider [phone] Source Comments PLEASE NOTE, if this patient [...] complication, without long-term current use of insulin Take 1 Tab by mouth once daily [...] complication, without long-term current use of insulin 12/24/2013 GERD (gastroesophageal reflu x disease) on fiberoptic laryngoscopy 02/19/2013 08/05/2013 PPD positive, treated 08/05/2013 Hypertriglyceridemia 04/17/2013 LENZ (nonalcoholic steatohepatitis) on ultrasoun d 06/21/2012 04/17/2013 Overview (04/17/2013): By Ultra sound done 06/21/2012 Non morbid obesity Mild vitamin D deficiency Immunizations Immunization Administration Dates Next Due Hep B, Adult/Adol ([id number]/RECOMBIVAX-ADULT) 02/11/2013,04/19/2012,03/20/2012 INFLUENZA, SEASONAL, INJECTABLE 06/03/2015,04/17 MMR (MMR [...] Imm-Pneumococcal (1 of 2 - PCV) 2001 Imm-HPV (1 - 3-dose SCDM series) 2009 Annual Wellness (Adult): Indicated (All Coverage) 06/06/2020 [...] Td or Tdap) 01/22/2022 01/23/2012, 07/06/2011, 07/06/2011 [id number] ( season) 2025 Imm-Hepatitis B Completed 02/11/2013, 11/2011, 03/20/2012 Imm-Influenza [...] complication, without long-term current use of insulin ([facility]) Essential hypertension, benign Hypertriglyceridem ia HEPATITIS C ANTIBODY Routine 01/15/2020 9:18 AM EDT Type 2 diabetes mellitus without complication, without long-term current use of insulin ([facility]) Essential hypertension, benign Hypertriglyceridem ia LIPID PANEL Routine 01/15/2020 9:18 AM EDT Type 2 diabetes mellitus without complication, without long-term current use of insulin ([facility]) Essential hypertension, benign Hypertriglyceridem ia HEMOGLOBIN GLYCOSYLATED A1C Routine 01/15/2020 9:18 AM EDT Type 2 diabetes mellitus without complication, without long-term current use of insulin ([facility]) Essential hypertension, benign Hypertriglyceridem ia MICROALBUMIN/CREATININ E RATIO, URINE, RANDOM Routine 01/15/2020 9:14 AM EDT Type 2 diabetes mellitus without complication, without long-term current use of insulin ([facility]) Essential hypertension, benign Hypertriglyceridem ia ANTIBODY HIV-1&HIV-2 SINGLE RESULT Routine 11/15/2018 10:55 AM EDT Type 2 diabetes mellitus without complication, without long-term current use of insulin ([facility]) from Last 3 Months or Most Recently Relevant to Health Maintenance Results * HEPATITIS C ANTIBODY (01/15/2020 9:18 AM EDT) Pathologist [facility] HEPATITIS C VIRUS SCREEN NEGATIVE NEGATIVE [facility] Blood specimen (specimen) Blood / Unknown 01/15/2020 9:18 AM EDT 01/15/2020 1:35 PM EDT [facility] - 01/15/2020 3:27 PM EDT [employer], [place] [address] Deputy Director Of Public [place] [id number] ORD# [id number] Elba Mejia PA-C LAB - BLOOD DRAW Final Resul t Performing Organization Address City/[facility]/[place] [address], [place] [phone] * HEMOGLOBIN, GLYCOSYLATED (A1C) (01/15/2020 9:18 AM EDT) Pathologist [facility] GLYCATED HEMOGLOBIN A1C 6.3 <6.5 % [facility] ESTIMATED AVERAGE GLUCOSE 134 mg/dL [facility] Blood specimen (specimen) Blood / Unknown 01/15/2020 9:18 AM EDT 01/15/2020 1:35 PM EDT [facility] - 01/15/2020 2:30 PM EDT [employer], [place] [address] Deputy Director Of Public [place] [id number] ORD# [id number] Elba Mejia PA-C LAB - BLOOD DRAW Final Resul t Performing Organization Address City/[facility]/[place] [address], * (ABNORMAL) LIPID PANEL (01/15/2020 9:18 AM EDT) CHOLESTEROL 180 0 - 200 mg/dL [facility] TRIGLYCERIDES 338(H) 0 - 150 mg/dL [facility] HDL CHOLESTEROL 36(L) >40 mg/dL [facility] LDL CALCULATED 77 0 - 100 mg/dL [facility] TC-HDLC RATIO 5.0(H) 0 - 4.4 mg/dL [facility] Blood specimen (specimen) Blood / Unknown 01/15/2020 9:18 AM EDT 01/15/2020 1:35 PM EDT [facility] - 01/15/2020 2:41 PM EDT [facility], [place] [address] Deputy Director Of [place] [id number] ORD# [id number] Elba Mejia PA-C LAB - BLOOD DRAW [place] [address], * (ABNORMAL) COMPRE METAB PANEL (01/15/2020 9:18 AM EDT) BUN 18 5 - 25 mg/dL [facility] CREAT 0.96 0.7 - 1.3 mg/dL [facility] GLOMERULAR FILTRATION RATE > 60 [facility] Comment: If patient is -Danish, multiply result by 1.21 Chronic Kidney Disease: [...] 9:18 AM EDT 01/15/2020 1:35 PM EDT [facility] - 01/15/2020 3:09 PM EDT [facility] [employer], [place] [address] Deputy Director Of Public [place] [id number] ORD# [id number] Elba Mejia PA-C LAB - BLOOD DRAW [place] [address], * (ABNORMAL) MICROALBUMIN/CREATININE RATIO, URINE, RANDOM (01/15/2020 9:14 AM EDT) CREATININE, RANDOM URINE 106 mg/dL [facility] MICROALBUMIN, RANDOM 47.5(H) 0.0 - 29.0 mg/L [facility] MICROALB/CRE RATIO RANDOM 44.8(H) 0.0 - 30.0 mg/G [facility] Urine specimen (specimen) Urine specimen / Unknown 01/15/2020 9:14 AM EDT 01/15/2020 1:35 PM EDT [facility] - 01/15/2020 2:59 PM EDT Cameron Delgado, [place] [address] Deputy Director Of Public [place] [id number] ORD# [id number] Elba Mejia PA-C LAB URINE AMBULATORY Edited Result - Final Performing Organization Address City/[facility]/ZIP Co de Phone Number [address] [address], [place] [phone] * HIV-1 & HIV-2 ANTIBODIES (11/15/2018 10:55 AM EDT) [facility] HIV 1 AND 2 ANTIBODY SCREEN NEGATIVE [...] AM EDT 11/15/2018 11:41 AM EDT [facility] - 11/15/2018 5:04 PM EDT [employer], a member of [address] [address] Deputy Director Of Public Works [place] [id number] ORD# [id number] Elba Mejia PA-C LAB - BLOOD DRAW Final Resul t Performing Organization Address City/[facility]/ZIP Co de Phone Number [address] [address], [place] [phone] from Last 3 Months or Most Recently Relevant to Health Maintenance Insurance [employer] Care Teams Registered Nurse Supervisor Relationship Specialty Start Date End Date Elba Mejia PA-C [address] [place] [address] PCP - General Internal Medicine 10/21/13
== END 2025-04-15 11:16 | disposition home or self-care (01) ==
LOC: HO.HMCFM 10:34
PROVIDERS: PCP Family Medicine; Visit Provider Family Medicine
DX: Z13.9 Encounter for screening, unspecified (principal); J02.9 Acute pharyngitis, unspecified

== ENCOUNTER 2025-04-28 09:29 | Outpatient (REF) | payer OTHER, SELFPAY ==
--- NOTE | ~2025-04-28 | FL_ITS ---
EXAMINATION: XR FLUOROSCOPY BARIUM SWALLOW CLINICAL INFORMATION: Reflux type symptoms, episodic epigastric pain and chest burning. COMPARISON: No prior. Correlation made with CT abdomen and pelvis 03/26/2025. TECHNIQUE: Fluoroscopic air contrast barium swallow examination was performed utilizing standard techniques with thin and thick barium and effervescent granules. Numerous spot images were obtained. Several fluoroscopic image hold cine sequences were also obtained. FINDINGS: BARIUM SWALLOW: Lateral cine images of the oropharynx and hypopharynx demonstrate normal swallow mechanism with normal epiglottic inversion and soft palate elevation. No laryngeal penetration, glottic or subglottic aspiration identified. Hypopharyngeal structures appear normal without evidence of mass or diverticulum. There was no significant cricopharyngeal achalasia. Dual and single contrast images of the esophagus demonstrate normal caliber, contour, and mucosal pattern. No evidence of stricture, mass, or ulcerations identified. Esophageal peristalsis was moderately disordered. No definite hiatus hernia identified. Gastroesophageal reflux was identified to the level of the thoracic inlet. Dual contrast and single contrast images of the stomach demonstrated normal contour and mucosal pattern without evidence of mass or gross ulceration. Normal rugal fold pattern. Contrast freely passed into the gastric antrum and duodenal bulb without delay. FLUOROSCOPY TIME: 2 minutes, 19 seconds Number of Spot Images:8 Number of cines obtained: 6 DOSE AREA PRODUCT: 2767 uGy-m2 (microgray-meter squared) FL/FL barium swallow with air IMPRESSION: 1. Moderately disordered esophageal peristalsis. 2. Gastroesophageal reflux identified to the level of the thoracic inlet. 3. No evidence of hiatus hernia. 4. Normal-appearing stomach. Electronically signed by: Stephen Barrios MD 04/28/2025 10:15 AM EDT
--- OUTSIDE RECORDS SUMMARY | 2025-04-28 10:28 | XMS_ITS | Clinical Summary ---
Author Organization [facility] Address [address] [place] [address] Care Team Providers Care Packager Hand Name Role Phone Elba Mejia PA-C Primary Care Provider [phone] Source Comments PLEASE NOTE, if this patient [...] Administration Dates Next Due Hep B, Adult/Adol ([id number]/RECOMBIVAX-ADULT) 02/11/2013,04/19/2012,03/20/2012 INFLUENZA, SEASONAL, INJECTABLE 06/03/2015,04/17 MMR (MMR [...] Td or Tdap) 01/22/2022 01/23/2012, 07/06/2011, 07/06/2011 [id number] ( season) 2025 Imm-Hepatitis B Completed 02/11/2013, [...] complication, without long-term current use of insulin ([facility]) Essential hypertension, benign Hypertriglyceridem ia HEPATITIS C ANTIBODY Routine 01/15/2020 9:18 AM EDT Type 2 diabetes mellitus without complication, without long-term current use of insulin ([facility]) Essential hypertension, benign Hypertriglyceridem ia LIPID PANEL Routine 01/15/2020 9:18 AM EDT Type 2 diabetes mellitus without complication, without long-term current use of insulin ([facility]) Essential hypertension, benign Hypertriglyceridem ia HEMOGLOBIN GLYCOSYLATED A1C Routine 01/15/2020 9:18 AM EDT Type 2 diabetes mellitus without complication, without long-term current use of insulin ([facility]) Essential hypertension, benign Hypertriglyceridem ia MICROALBUMIN/CREATININ E RATIO, URINE, RANDOM Routine 01/15/2020 9:14 AM EDT Type 2 diabetes mellitus without complication, without long-term current use of insulin ([facility]) Essential hypertension, benign Hypertriglyceridem ia ANTIBODY HIV-1&HIV-2 SINGLE RESULT Routine 11/15/2018 10:55 AM EDT Type 2 diabetes mellitus without complication, without long-term current use of insulin ([facility]) from Last 3 Months or Most Recently Relevant to Health Maintenance Results * HEPATITIS C ANTIBODY (01/15/2020 9:18 AM EDT) Pathologist [facility] HEPATITIS C VIRUS SCREEN NEGATIVE NEGATIVE [facility] Blood specimen (specimen) Blood / Unknown 01/15/2020 9:18 AM EDT 01/15/2020 1:35 PM EDT [facility] - 01/15/2020 3:27 PM EDT [employer], [place] [address] [place] [id number] ORD# [id number] Elba Mejia PA-C LAB - BLOOD DRAW Final Resul t Performing Organization Address City/[facility]/Z[place] [address], [place] [phone] * HEMOGLOBIN, GLYCOSYLATED (A1C) (01/15/2020 9:18 AM EDT) Pathologist [facility] GLYCATED HEMOGLOBIN A1C 6.3 <6.5 % [facility] ESTIMATED AVERAGE GLUCOSE 134 mg/dL [facility] Blood specimen (specimen) Blood / Unknown 01/15/2020 9:18 AM EDT 01/15/2020 1:35 PM EDT [facility] - 01/15/2020 2:30 PM EDT [employer], [place] [address] Diver [place] [id number] ORD# [id number] Elba Mejia PA-C LAB - BLOOD DRAW Final Resul t Performing Organization Address City/[facility]/[place] [address], * (ABNORMAL) LIPID PANEL (01/15/2020 9:18 AM EDT) CHOLESTEROL 180 0 - 200 mg/dL [facility] TRIGLYCERIDES 338(H) 0 - 150 mg/dL [facility] HDL CHOLESTEROL 36(L) >40 mg/dL [facility] LDL CALCULATED 77 0 - 100 mg/dL [facility] TC-HDLC RATIO 5.0(H) 0 - 4.4 mg/dL [facility] Blood specimen (specimen) Blood / Unknown 01/15/2020 9:18 AM EDT 01/15/2020 1:35 PM EDT [facility] - 01/15/2020 2:41 PM EDT [facility] [employer], [place] [address] [place] [id number] ORD# [id number] Elba Mejia PA-C LAB - BLOOD DRAW Edited [place] [address], * (ABNORMAL) COMPRE METAB PANEL (01/15/2020 9:18 AM EDT) BUN 18 5 - 25 mg/dL [facility] CREAT 0.96 0.7 - 1.3 mg/dL [facility] GLOMERULAR FILTRATION RATE > 60 [facility] Comment: If patient is -Montserratian, multiply result by 1.21 Chronic Kidney Disease: < 60 ml/min/1.73 square meters Kidney Failure: < 15 ml/min/1.73 square meters SODIUM 137 135 - 145 mEq/L [facility] POTASSIUM 4.7 3.5 - 5.5 mmol/L [facility] CHLORIDE 103 96 - 110 mmol/L [facility] CO2 30 21 - 32 mmol/L [facility] ANION GAP 4 3 - 11 [facility] CALCIUM 9.6 8.5 - 10.5 mg/dL [facility] ALBUMIN 3.8 3.2 - 5.0 G/dL [facility] SGPT 55 10 - 60 U/L [facility] GLUCOSE 114(H) 70 - 100 mg/dL [facility] Comment:Reference range appl icable to fasting specimens only TOTAL PROTEIN 7.6 6.0 - 8.0 G/dL [facility] BILI, TOTAL 0.3 0.0 - 1.4 mg/dL [facility] SGOT 29 10 - 42 U/L [facility] ALK PHOS 56 42 - 121 U/L [facility] Blood specimen (specimen) Blood / Unknown 01/15/2020 9:18 AM EDT 01/15/2020 1:35 PM EDT [facility] - 01/15/2020 3:09 PM EDT [facility] [employer], [place] [address] [place] [id number] ORD# [id number] Elba Mejia PA-C LAB - BLOOD DRAW Edited [place]u [place] [address], * (ABNORMAL) MICROALBUMIN/CREATININE RATIO, URINE, RANDOM (01/15/2020 9:14 AM EDT) CREATININE, RANDOM URINE 106 mg/dL [facility] MICROALBUMIN, RANDOM 47.5(H) 0.0 - 29.0 mg/L [facility] MICROALB/CRE RATIO RANDOM 44.8(H) 0.0 - 30.0 mg/G [facility] Urine specimen (specimen) Urine specimen / Unknown 01/15/2020 9:14 AM EDT 01/15/2020 1:35 PM EDT [facility] - 01/15/2020 2:59 PM EDT Cameron Delgado, [place] [address] [place] [id number] ORD# [id number] Elba Mejia PA-C LAB URINE AMBULATORY Edited Result - Final Performing Organization Address City/[facility]/ZIP Co de Phone Number [address] [address], [place] [phone] * HIV-1 & HIV-2 ANTIBODIES (11/15/2018 10:55 AM EDT) [facility] HIV 1 AND 2 ANTIBODY SCREEN NEGATIVE NEGATIVE [facility] Comment: This assay is a 4th [...] EDT 11/15/2018 11:41 AM EDT [facility] - 11/15/2018 5:04 PM EDT [employer], a member of [address] [address] Diver [place] [id number] ORD# [id number] Elba Mejia PA-C LAB - BLOOD DRAW Final Resul t Performing Organization Address City/[facility]/ZIP Co de Phone Number [address] [address], [place] [phone] from Last 3 Months or Most Recently Relevant to Health Maintenance Insurance [employer] Care Teams Packager Hand Relationship Specialty Start Date End Date Elba Mejia PA-C [address] [place] [address] PCP - General Internal Medicine 10/21/13
== END 2025-04-28 09:30 | disposition home or self-care (01) ==
LOC: HO.XRAY 09:29
PROVIDERS: PCP Family Medicine; Visit Provider Internal Medicine
DX: K21.9 Gastro-esophageal reflux disease without esophagitis (principal)
CPT/HCPCS: 74221

== ENCOUNTER → 2025-04-28 09:31 | Outpatient (BNV) | payer OTHER, SELFPAY | PROVIDERS: PCP Family Medicine; Visit Provider Radiology Diagnostic Radiology | DX: K21.9 Gastro-esophageal reflux disease without esophagitis (principal) | CPT/HCPCS: 74221 ==

== ENCOUNTER 2025-04-30 10:51 | Outpatient (REF) | payer OTHER, SELFPAY ==
--- OUTSIDE RECORDS SUMMARY | 2025-04-30 13:42 | XMS_ITS | Clinical Summary ---
Author Organization [facility] Address [address] [place] [address] Care Team Providers Care Signaler Name Role Phone Elba Mejia PA-C Primary Care Provider [phone] Source Comments PLEASE NOTE, if this patient [...] Administration Dates Next Due Hep B, Adult/Adol (HWOCJAG-S-DUYTN/RECOMBIVAX-ADULT) 02/11/2013,04/19/2012,03/20/2012 INFLUENZA, SEASONAL, INJECTABLE 06/03/2015,04/17 MMR (MMR [...] Td or Tdap) 01/22/2022 01/23/2012, 07/06/2011, 07/06/2011 Aum-[id number] ( season) 2025 Imm-Hepatitis B Completed 02/11/2013, [...] complication, without long-term current use of insulin ([facility]) Essential hypertension, benign Hypertriglyceridem ia HEPATITIS C ANTIBODY Routine 01/15/2020 9:18 AM EDT Type 2 diabetes mellitus without complication, without long-term current use of insulin ([facility]) Essential hypertension, benign Hypertriglyceridem ia LIPID PANEL Routine 01/15/2020 9:18 AM EDT Type 2 diabetes mellitus without complication, without long-term current use of insulin ([facility]) Essential hypertension, benign Hypertriglyceridem ia HEMOGLOBIN GLYCOSYLATED A1C Routine 01/15/2020 9:18 AM EDT Type 2 diabetes mellitus without complication, without long-term current use of insulin ([facility]) Essential hypertension, benign Hypertriglyceridem ia MICROALBUMIN/CREATININ E RATIO, URINE, RANDOM Routine 01/15/2020 9:14 AM EDT Type 2 diabetes mellitus without complication, without long-term current use of insulin ([facility]) Essential hypertension, benign Hypertriglyceridem ia ANTIBODY HIV-1&HIV-2 SINGLE RESULT Routine 11/15/2018 10:55 AM EDT Type 2 diabetes mellitus without complication, without long-term current use of insulin ([facility]) from Last 3 Months or Most Recently Relevant to Health Maintenance Results * HEPATITIS C ANTIBODY (01/15/2020 9:18 AM EDT) Pathologist [facility] HEPATITIS C VIRUS SCREEN NEGATIVE NEGATIVE [facility] Blood specimen (specimen) Blood / Unknown 01/15/2020 9:18 AM EDT 01/15/2020 1:35 PM EDT [facility] - 01/15/2020 3:27 PM EDT [employer], [place] [address] Crane [place] [id number] ORD# [id number] Elba Mejia PA-C LAB - BLOOD DRAW Final Resul t Performing Organization Address City/[facility]/[place] [address], [place] [phone] * HEMOGLOBIN, GLYCOSYLATED (A1C) (01/15/2020 9:18 AM EDT) Pathologist [facility] GLYCATED HEMOGLOBIN A1C 6.3 <6.5 % [facility] ESTIMATED AVERAGE GLUCOSE 134 mg/dL [facility] Blood specimen (specimen) Blood / Unknown 01/15/2020 9:18 AM EDT 01/15/2020 1:35 PM EDT [facility] [employer] [facility] - 01/15/2020 2:30 PM EDT [employer], [place] [address] Crane [place] [id number] ORD# [id number] Elba Mejia PA-C LAB - BLOOD DRAW Final Resul t Performing Organization Address City/[facility]/[place] [address], * (ABNORMAL) LIPID PANEL (01/15/2020 9:18 AM EDT) CHOLESTEROL 180 0 - 200 mg/dL [facility] TRIGLYCERIDES 338(H) 0 - 150 mg/dL [facility] HDL CHOLESTEROL 36(L) >40 mg/dL [facility] LDL CALCULATED 77 0 - 100 mg/dL [facility] TC-HDLC RATIO 5.0(H) 0 - 4.4 mg/dL [facility] Blood specimen (specimen) Blood / Unknown 01/15/2020 9:18 AM EDT 01/15/2020 1:35 PM EDT [facility] - 01/15/2020 2:41 PM EDT [facility] [employer], [place] [address] Crane [place] [id number] ORD# [id number] Elba Mejia PA-C LAB - BLOOD [place]RAW [place] [address], * (ABNORMAL) COMPRE METAB PANEL (01/15/2020 9:18 AM EDT) BUN 18 5 - 25 mg/dL [facility] CREAT 0.96 0.7 - 1.3 mg/dL [facility] GLOMERULAR FILTRATION RATE > 60 [facility] Comment: If patient is -Sudanese, multiply result by 1.21 Chronic Kidney Disease: < 60 ml/min/1.73 square meters Kidney Failure: < 15 ml/min/1.73 square meters SODIUM 137 135 - 145 mEq/L [facility] POTASSIUM 4.7 3.5 - 5.5 mmol/L [facility] CHLORIDE 103 96 - 110 mmol/L [facility] CO2 30 21 - 32 mmol/L [facility] ANION GAP 4 3 - 11 [facility] CALCIUM 9.6 8.5 - 10.5 mg/dL [facility] ALBUMIN 3.8 3.2 - 5.0 G/dL [facility] SGPT 55 10 - 60 U/L [facility] GLUCOSE 114(H) 70 - 100 mg/dL [facility] Comment:Reference range appl icable to fasting specimens only TOTAL PROTEIN 7.6 6.0 - 8.0 G/dL [facility] BILI, TOTAL 0.3 0.0 - 1.4 mg/dL [facility] SGOT 29 10 - 42 U/L [facility] ALK PHOS 56 42 - 121 U/L [facility] Blood specimen (specimen) Blood / Unknown 01/15/2020 9:18 AM EDT 01/15/2020 1:35 PM EDT [facility] - 01/15/2020 3:09 PM EDT [facility] [employer], [place] [address] Crane [place] [id number] ORD# [id number] Elba Mejia PA-C LAB - BLOOD DRAW [place] [address], * (ABNORMAL) MICROALBUMIN/CREATININE RATIO, URINE, RANDOM (01/15/2020 9:14 AM EDT) CREATININE, RANDOM URINE 106 mg/dL [facility] MICROALBUMIN, RANDOM 47.5(H) 0.0 - 29.0 mg/L [facility] MICROALB/CRE RATIO RANDOM 44.8(H) 0.0 - 30.0 mg/G [facility] Urine specimen (specimen) Urine specimen / Unknown 01/15/2020 9:14 AM EDT 01/15/2020 1:35 PM EDT [facility] [employer] [facility] - 01/15/2020 2:59 PM EDT Cameron Delgado, [place] [address] Cr[place] [id number] ORD# [id number] Elba Mejia PA-C LAB URINE AMBULATORY Edited Result - Final Performing Organization Address City/[facility]/ZIP Co de Phone Number [address] [address], [place] [phone] * HIV-1 & HIV-2 ANTIBODIES (11/15/2018 10:55 AM EDT) [facility] HIV 1 AND 2 ANTIBODY SCREEN NEGATIVE NEGATIVE [facility] Comment: This assay is a 4th [...] AM EDT 11/15/2018 11:41 AM EDT [facility] [employer] [facility] - 11/15/2018 5:04 PM EDT [employer], a member of [address] [address] Crane Operator [place] [id number] ORD# [id number] Elba Mejia PA-C LAB - BLOOD DRAW Final Resul t Performing Organization Address City/[facility]/ZIP Co de Phone Number [address] [address], [place] [phone] from Last 3 Months or Most Recently Relevant to Health Maintenance Insurance [employer] Care Teams Signaler Relationship Specialty Start Date End Date Elba Mejia PA-C [address] [place] [address] PCP - General Internal Medicine 10/21/13
[2025-04-30 13:55] LABS: MANUAL DIFF FLAG NO
[2025-04-30 14:02] LABS: Hematocrit 43.0 % (42.0-52.0); Hemoglobin 13.8 g/dl (14.0-18.0); Imm Gran Abs Auto 0.02 X10*3/uL (0.00-0.03); Imm Gran Pct Auto 0.2 % (0.0-0.4); Lymphocytes Absolute Auto 2.9 X10*3/uL (1.2-4.9); Mean Corpuscular HGB Conc 32.1 g/dl (31.0-36.0); Mean Corpuscular Hemoglobin 25.5 pg (27.0-33.0); Mean Corpuscular Volume 79.5 fL (80.0-98.0); NRBC Abs Auto 0.000 X10*3/uL (0.0-0.012); NRBC Pct Auto 0.0 /100WBC (0.0-0.2); Platelet Count 282 X10*3/uL (160-400); Red Blood Count 5.41 X10*6/uL (4.60-5.80); White Blood Count 9.9 X10*3/uL (4.8-10.8)
[2025-04-30 15:03] LABS: Alanine Aminotransferase 56 U/L (0-40); Albumin Level 4.8 g/dL (3.5-5.0); Alkaline Phosphatase 59 U/L (39-117); Anion Gap 11 (12-20); Aspartate Amino Transferase 42 U/L (5-37); Blood Urea Nitrogen 18 mg/dL (9-16); Calcium 9.6 mg/dL (8.4-10.2); Carbon Dioxide 27 mmol/L (22-29); Chloride 108 mmol/L (96-108); Cholesterol 235 mg/dL (<200); Estimated Glomerular Filt Rate > 60; HDL Cholesterol 38 mg/dL (>40); Potassium 4.6 mmol/L (3.3-5.1); Sodium 141 mmol/L (135-145); Total Protein 7.8 g/dL (6.5-8.0); Triglycerides 288 mg/dL (<150)
[2025-04-30 17:49] LABS: Appearance Urine Clear; Glucose Urine UA Negative (Negative); PH 5.5 (5.0-9.0); Specific Gravity - Urine 1.020 (1.005-1.025)
[2025-04-30 18:00] LABS: Microalbum/Creatinine Ratio Ur 7.7 ug/mg cr (<30)
== END 2025-04-30 10:52 | disposition home or self-care (01) ==
LOC: HO.WFDLDS 10:51
PROVIDERS: Visit Provider Family Medicine
DX: Z00.00 Encounter for general adult medical examination without abnormal findings (principal); I10 Essential (primary) hypertension; Z12.5 Encounter for screening for malignant neoplasm of prostate
CPT/HCPCS: 36415; 80053; 80061; 81003; 82043; 82570; 84153; 84443; 85025

== ENCOUNTER 2025-05-05 09:04 | Outpatient (AMB) | payer OTHER, SELFPAY ==
--- NOTE | 2025-05-05 09:09 | MHC.PC.OV ---
Vital Signs 05/05/25 09:16 Height 5 ft 4 in Weight 171 lb 6 oz BMI 29.4 BP 126/70 Blood Pressure Location Lt brachial Position Sitting Respiration 20 Pulse 63 Pulse Source Pulse Oximeter Temp 97.9 F Temp Source Oral Pulse Oximetry (%) 98 Oxygen Delivery Method Room Air Intake Visit Reasons: cpe Intake Note: patient is scheduled for cpe with pcp Baggage Agent Required: No Information Interpreted: clinical only Checkout Operator: Present Accompanied by: Spouse Allergies No Known Allergies Allergy (Verified 05/05/25 09:12) Medication List - Last Reconciled 05/05/25 by Ashutosh Agarwal MD fenofibrate 54 mg PO DAILY 90 days folic acid 1 mg PO DAILY lisinopril 5 mg PO BEDTIME omeprazole 20 mg PO DAILY Tobacco use date assessed: 05/05/25 Dental Screening Dental Screen Date: 05/05/25 Did you have a dental visit in the last 12 months?: No Did you have a dental problem in the last 6 months where you did not have access to dental care?: No Was dental information given to patient?: No HPI cpe HPI Details 44 y/o male presents for a CPE with f/u labs, health maint. Reviewed labs with pt. Elevated liver enzymes - AST 42, ALT 56. Triglycerides 288. TC 235. LDL 140. HDL low at 38. He is on fenofibrate 54mg daily. PSA was fine. Ongoing complaints of constipation, GERD. Has complaints of some tendonitis, R shoulder, elbow. PFSH Medical History Throat pain Fatty liver Elevated cholesterol HTN (hypertension) GERD (gastroesophageal reflux disease) Eosinophilia Surgical History Hx of colonoscopy History of esophagogastroduodenoscopy (EGD) History of tonsillectomy Family History Father High blood pressure Diabetes Mother Diabetes Social History Household Members: Family Housing: House Are you a primary senior care manager to a significant other at home: No Do you presently have visiting nurse or other home services: No 75 years or older and lives alone: No Alcohol intake: never Patient Tobacco Use Status: Never used Tobacco e-Cigarette/Vaping Use: Never Used Second Hand Smoke Exposure: No service: No Current occupational status: employed Current occupation: Housekeeping/ right hand dominant Current occupational exposures/hazards: No Cognitive needs: No Hearing needs: No Vision needs: No Questionnaire PHQ-9 Over the last 2 weeks, how often have you been bothered by any of the following problems? 1. Little interest or pleasure in doing things: not at all 2. Feeling down, depressed, or hopeless: not at all 3. Trouble falling or staying asleep, or sleeping too much: not at all 4. Feeling tired or having little energy: not at all 5. Poor appetite or overeating: not at all 6. Feeling bad about yourself - or that you are a failure or have let yourself or your family down: not at all 7. Trouble concentrating on things, such as reading the newspaper or watching television: not at all 8. Moving or speaking so slowly that other people could have noticed. Or the opposite - being so fidgety or restless that you have been moving around a lot more than usual: not at all 9. Thoughts that you would be better off or of hurting yourself in some way: not at all Total score: 0 Depression Screening Interpretation: Negative Depression Screening Done: Yes 33094 - PHQ-9 Billing: Yes Source: Developed by Drs. Lang Sullivan, Donna Francois, Linwood Franks and colleagues, with an educational nba from [employer]. Thrive Questionnaire Date Thrive assessed: 05/05/25 I am a: Patient What is your living situation today?: I have a steady place to live Within the past 12 months, did the food you bought not last and you didn't have the money to get more?: Never true Within the past 12 months, did you worry whether your food would run out before you got money to buy more?: Never true Do you have trouble paying for medicines?: No Do you have trouble getting transportation to medical appointments?: No Do you have trouble paying your heating and electricity bill?: No Do you have trouble taking care of your child, family member or friend?: No Do you have trouble with day-to-day activities such as bathing, preparing meals, shopping, managing finances, etc.?: No Are you currently unemployed and looking for a job?: No Are you interested in more education?: No Please select the resources that you would like help with: None Currently or been in a relationship where the following occur: I choose not to answer THRIVE Score: 0 AUDIT C Alcohol Use Questionnaire (AUDIT-C) 1. How often do you have a drink containing alcohol?: Never 3. How often do you have six or more drinks on one occasion?: Never Total Score: 0 Score Reviewed/Action Taken: Yes ABIOLA-7 AMB Questionnaire ABIOLA-7 Date ABIOLA - 7 assessed: 05/05/25 Feeling nervous, anxious, or on edge: 0 = Not at all Not being able to stop or control worryin = Not at all Worrying too much about different things: 0 = Not at all Trouble relaxin = Not at all Being so restless that it is hard to sit still: 0 = Not at all Becoming easily annoyed or irritable: 0 = Not at all Feeling afraid as if something awful might happen: 0 = Not at all Total ABIOLA-7 score (0-4 normal; 5-9 mild; 10-14 moderate; 15-21 severe): 0 Source: Developed by Drs. Lang Sullivan, Donna Francois, Linwood Franks and colleagues, with an educational nba from [employer]. Review of Systems Const Denies chills, Denies fatigue, Denies fever(s), Denies headache(s) and Denies weakness Eyes Denies change in vision ENT Denies dizziness, Denies headache(s), Denies hearing loss, Denies nasal congestion, Denies sinus pain, Denies sinus pressure and Denies sore throat Card Denies chest pain, Denies lightheadedness, Denies dyspnea and Denies other (palpitations) Resp Denies cough, Denies dyspnea and Denies wheezing GI Denies abdominal pain, Denies melena, Denies hematochezia, Denies change in bowel habits, Denies dyspepsia and Denies nausea Denies hematuria and Denies dysuria Musc Denies abnormal gait, Denies myalgias, Denies arthralgias, Denies numbness and Denies tingling Skin/Breast Denies rash, Denies unusual bruising and Denies wounds Neuro Denies abnormal gait, Denies dizziness, Denies headache(s), Denies memory loss, Denies numbness, Denies Sensory deficit (Neuro), Denies tingling and Denies weakness Psych Denies anxiety, Denies depression and Denies memory loss Endo Denies cold intolerance, Denies fatigue, Denies heat intolerance, Denies polydipsia and Denies polyuria Waqar/Lymph Denies easy bleeding and Denies easy bruising Aller/Immun Denies wheezing Physical exam (Primary Care) Vital Signs: Last Vital Signs Temp 97.9 F 05/05/25 09:16 Pulse 63 05/05/25 09:16 Resp 20 05/05/25 09:16 BP 126/70 05/05/25 09:16 Pulse Ox 98 05/05/25 09:16 Oxygen Delivery Method Room Air 05/05/25 09:16 BMI result Body Mass Index 29.4 Tobacco/Smoking Status: Tobacco use Status Tobacco use date assessed 05/05/25 05/05/25 09:18 Patient Tobacco Use Status Never used Tobacco 05/05/25 09:10 e-Cigarette/Vaping Use Never Used 05/05/25 09:10 PHQ-9: PHQ-9 Score PHQ-9: Total score 0 05/05/25 09:29 Depression Screening Interpretation: Negative Thrive Assessment: Date of Thrive Assessment Date Thrive assessed 05/05/25 05/05/25 09:18 Currently or been in a relationship where the following occur: I choose not to answer Const General: no acute distress, well developed, alert and awake Nutritional Appearance: well nourished Orientation/consciousness: patient oriented x3 HENMT Head: Yes normocephalic and Yes atraumatic Ears: hearing grossly normal bilaterally and TM's normal bilaterally General nose exam: Normal external nose present and Normal nares present Mouth: Normal oral and palatal mucosa present and moist mucous membranes Teeth and gingiva: dentition normal Throat: Yes posterior oropharynx normal Eyes General: appearance normal, both eyes and all related structures Pupils: Equal, round and reactive pupils present and Pupil accommodation reflex normal EOM: EOMs intact bilaterally Neck Neck: Yes normal visual inspection, Yes no lymphadenopathy and Yes trachea midline Thyroid: Thyroid normal Carotids: no bruits Lymphatic: no lymphadenopathy noted Chest Chest palpation & inspection: normal inspection of the chest Resp Effort & Inspection: normal respiratory effort Auscultation: clear to auscultation bilaterally Cardio Rate: regular rate Rhythm: regular rhythm Heart sounds: S1 normal heart sound present, S2 normal heart sound present, no gallops, no murmurs and no rubs Bruits: no abdominal aortic bruits and no carotid bruits GI Palpation (GI): No Abdominal aortic bruit present, Soft to palpation, nontender, No hepatosplenomegaly present and No Rebound tenderness present Auscultation: normal bowel sounds General: Yes no CVA tenderness Back/Spine/Pelvis Back: no CVA tenderness Cervical Spine: cervical ROM normal and No Cervical spine tenderness Thoracic/Lumbar Spine: thoraco-lumbar ROM normal, No pain with thoraco-lumbar ROM, No thoracic spinal tenderness and No lumbar spinal tenderness Skin Lesions: no lesions Rashes: no rashes Trauma: no lacerations or abrasions Wounds: no wounds Nails: normal Neuro General: patient oriented x3 Cranial nerves: Yes Equal, round and reactive pupils present Cognition (Neuro): normal cognition Gait exam (Neuro): Normal gait present Motor exam (neuro): 5/5 motor strength present throughout Sensory Exam: No Sensory deficit (Neuro) Deep tendon reflexes (DTR's): Right patellar reflex intensity grade: 2+ and Left patellar reflex intensity grade: 2+ Extrem General: Yes normal to inspection and No edema Psych Appearance: grossly normal Affect: normal affect Attitude: cooperative Thought process: Normal thought process present Coding Level of Care Code Est Pt Level 3 (73004) Est Pt Prev Care 40-64y(28217) Diagnoses Annual physical exam Z00.00 Hyperlipidemia E78.5 Essential (primary) hypertension I10 Elevated liver enzymes R74.8 Screening for prostate cancer Z12.5 GERD (gastroesophageal reflux disease) K21.9 Constipation K59.00 Tendonitis M77.9 Additional Codes PHQ-9 - 04049 - PHQ-9 Billing: Yes ([id number]) Assessment & Plan Assessment & Plan (1) Annual physical exam: Code(s): Z00.00 - Encounter for general adult medical examination without abnormal findings Category: Medical Plan: 44-year-old male presents for complete physical exam Encouraged healthy diet with active lifestyle and plenty of exercise (2) Hyperlipidemia: Code(s): E78.5 - Hyperlipidemia, unspecified Category: Medical Plan: LDL cholesterol is elevated. Triglycerides are elevated but controlled with fenofibrate. Will add a small dose of atorvastatin Recheck lipids in a few months (3) Essential (primary) hypertension: Code(s): I10 - Essential (primary) hypertension Category: Medical Plan: Blood pressure is controlled. Goal is less than 140/90 Continue current medication (4) Elevated liver enzymes: Code(s): R74.8 - Abnormal levels of other serum enzymes Category: Medical Plan: Still has mildly elevated liver enzymes Ultrasound in November showed hepatic steatosis but no other problems. Encouraged good hydration and weight loss Will continue to monitor (5) Screening for prostate cancer: Code(s): Z12.5 - Encounter for screening for malignant neoplasm of prostate Category: Medical Plan: PSA level within normal range Will continue annual screening (6) GERD (gastroesophageal reflux disease): Code(s): K21.9 - Gastro-esophageal reflux disease without esophagitis Category: Medical Plan: Followed by Gastroenterology and had recent barium swallow which showed Moderately disordered esophageal peristalsis. & Gastroesophageal reflux identified to the level of the thoracic inlet. Continue omeprazole Follow-up with Gastroenterology as recommended (7) Constipation: Comment: assoc w/ chronic LUQ pain EGD/Colon done in last year, normal per his reports CODY and labs done 07/2023 WNL except + constipation has appt w/ GI December 2023 Plan: restart colace and miralax, take as directed. Lifetsyle mods and edu Code(s): K59.00 - Constipation, unspecified Category: Medical Plan: Encouraged regular hydration Can try a soluble fiber tablet Follow-up with GI as recommended (8) Tendonitis: Code(s): M77.9 - Enthesopathy, unspecified Category: Medical Plan: Right shoulder and elbow tendinitis Start PTOT Orders: Orders Lipid Panel Today E78.6 - Lipoprotein deficiency, Z00.00 - Encounter for general adult medical examination without abnormal findings Comprehensive [place]. Panel Fast Today R74.8 - Abnormal levels of other serum enzymes, Z00.00 - Encounter for general adult medical examination without abnormal findings Hemoglobin A1c Today R73.01 - Impaired fasting glucose PT Evaluation and Treatment Today M77.9 - Enthesopathy, unspecified OT Evaluation and Treatment Today M77.9 - Enthesopathy, unspecified Medications: New atorvastatin (Lipitor) 10 mg PO BEDTIME 90 tabs 3RF 90 days
[2025-05-05 09:16] VITALS: BP 126/70; PULSE 63; RESP 20; TEMP 36.6; O2SAT 98; BMI 29.4
== END 2025-05-05 09:47 | disposition home or self-care (01) ==
LOC: HO.HMCFM 09:05
PROVIDERS: PCP Family Medicine; Visit Provider Family Medicine
DX: Z00.00 Encounter for general adult medical examination without abnormal findings (principal); E78.5 Hyperlipidemia, unspecified; I10 Essential (primary) hypertension; R74.8 Abnormal levels of other serum enzymes; K21.9 Gastro-esophageal reflux disease without esophagitis; Z12.5 Encounter for screening for malignant neoplasm of prostate; K59.00 Constipation, unspecified; M77.9 Enthesopathy, unspecified

== ENCOUNTER → 2025-05-05 09:04 | Outpatient (BNVA) | payer OTHER, SELFPAY | PROVIDERS: PCP Family Medicine; Visit Provider Family Medicine | DX: Z00.00 Encounter for general adult medical examination without abnormal findings (principal); M75.91 Shoulder lesion, unspecified, right shoulder; M77.8 Other enthesopathies, not elsewhere classified; E78.5 Hyperlipidemia, unspecified; I10 Essential (primary) hypertension; R74.8 Abnormal levels of other serum enzymes; K21.9 Gastro-esophageal reflux disease without esophagitis; K59.00 Constipation, unspecified | CPT/HCPCS: 96127 ==